=== PATIENT | female | born 1965 | race Caucasian/White ===

== ENCOUNTER 2018-08-02 16:33 | Inpatient (IN) | payer OTHER, MEDICARE ==
[2018-08-02 17:18] LABS: BASO % 0.1 % (0.0-1.0); EOS # 0.2 10^3/uL (0.0-0.50); EOS % 0.8 % (0.0-3.0); HEMATOCRIT 44.7 % (36.0-47.0); HEMOGLOBIN 14.2 g/dl (12.0-15.5); IMMATURE GRANULOCYTE % 0.7 % (0-3.0); LYMPH # 1.8 10^3/uL (1.5-4.5); LYMPH % 8.5 % (24.0-44.0); MEAN CORPUSCULAR HEMOGLOBIN 29.2 pg (27.0-33.0); MEAN CORPUSCULAR HGB CONC 31.8 g/dl (32.0-36.5); MEAN CORPUSCULAR VOLUME 91.8 fl (80.0-96.0); MONO # 1.2 10^3/uL (0.0-0.8); MONO % 5.6 % (0.0-5.0); NEUTROPHILS # 17.9 10^3/uL (1.8-7.7); NEUTROPHILS % 84.3 % (36.0-66.0); PLATELET COUNT, AUTOMATED 244 10^3/uL (150-450); RED BLOOD COUNT 4.87 10^6/uL (4.00-5.40); RED CELL DISTRIBUTION WIDTH 16.6 % (11.5-14.5); WHITE BLOOD COUNT 21.2 10^3/uL (4.0-10.0)
[2018-08-02] MEDS: methylPREDNISolone INJ 125 MG/2 ML VIAL (J2930) IV (17:32)
[2018-08-02] MEDS: ALBUTEROL SULFATE 2.5 MG/0.5 ML INH NEB SOLN INH (17:44)
[2018-08-02] MEDS: IPRATROPIUM 0.5MG/ALBUTEROL 2.5MG INH SOL UD 3ML (DUONEB)(J7620) NEB ×3 (17:44→23:40)
[2018-08-02 17:49] LABS: LACTIC ACID SEPSIS PROTOCOL 0.8 MMOL/L (0.4-2.0)
[2018-08-02 18:04] LABS: ALBUMIN 3.7 GM/DL (3.2-5.2); ALBUMIN/GLOBULIN RATIO 1.48 (1.00-1.93); ALKALINE PHOSPHATASE 71 U/L (45-117); ALT/SGPT 33 U/L (12-78); ANION GAP 8 MEQ/L (8-16); AST/SGOT 32 U/L (7-37); BILIRUBIN,DIRECT 0.1 MG/DL (0.0-0.2); BILIRUBIN,TOTAL 0.3 MG/DL (0.2-1.0); BLOOD UREA NITROGEN 8 MG/DL (7-18); CALCIUM LEVEL 9.2 MG/DL (8.5-10.1); CARBON DIOXIDE LEVEL 31 MEQ/L (21-32); CHLORIDE LEVEL 104 MEQ/L (98-107); CPK CREATINE PHOSPHOKINASE 65 U/L (26-192); CREATININE FOR GFR 0.67 MG/DL (0.55-1.30); GLOMERULAR FILTRATION RATE > 60.0 (>51); GLUCOSE, FASTING 82 MG/DL (70-100); NT-PRO BNP 360 PG/ML (<125); POTASSIUM SERUM 3.4 MEQ/L (3.5-5.1); SODIUM LEVEL 143 MEQ/L (136-145); THYROXINE (T4) 7.2 UG/DL (4.5-12.0); TOTAL PROTEIN 6.2 GM/DL (6.4-8.2); TROPONIN I < 0.02 NG/ML (< 0.10)
[2018-08-02 18:09] LABS: ABG HCO3 30.5 MEQ/L (22.0-26.0); ABG O2 SATURATION 92.8 % (95.0-99.0); ABG PARTIAL PRESSURE CO2 58.3 mmHg (35.0-45.0); ABG PARTIAL PRESSURE O2 63.5 mmHg (75.0-100.0); ABG TOTAL CO2 32.3 MEQ/L (22.0-29.0); ABG pH (ARTERIAL) 7.336 UNITS (7.350-7.450)
[2018-08-02 18:24] LABS: INFLUENZA A AMPLIFICATION NEGATIVE (NEGATIVE); INFLUENZA B AMPLIFICATION NEGATIVE (NEGATIVE)
[2018-08-02] MEDS: POTASSIUM CHLORIDE 10 MEQ SR TABLET PO (19:39)
[2018-08-02] MEDS: NS 1,000 ML IV (19:39)
[2018-08-02] MEDS ORDERED: ZONISAMIDE 50 MG CAP (ZONEGRAN) PO (21:00)
[2018-08-02] MEDS: guaiFENesin ER 600 MG TAB PO (21:22)
[2018-08-02] MEDS: GABAPENTIN 300 MG CAP PO (21:23)
[2018-08-02] MEDS: LevoFLOXacin IV 500 MG in APPROPRIATE DILUENT 1 EA IV (21:23)
[2018-08-02] MEDS: OMEPRAZOLE 20 MG CAP PO (21:23)
[2018-08-02] MEDS: ADVAIR HFA 115/21MCG INHALER INH (22:55)
[2018-08-03] MEDS: tiZANidine 4 MG TAB PO ×2 (00:07→20:34)
[2018-08-03] MEDS: VENLAFAXINE **XR** 75MG CAPSULE PO ×2 (00:07→20:34)
[2018-08-03] MEDS: MIRTAZAPINE 15 MG TAB PO ×2 (00:08→20:34)
[2018-08-03] MEDS: methylPREDNISolone INJ 125 MG/2 ML VIAL (J2930) IV ×3 (00:08→16:21)
[2018-08-03 01:11] LABS: CPK CREATINE PHOSPHOKINASE 65 U/L (26-192); MB/CK RELATIVE INDEX 8.46 (< OR =4); TROPONIN I < 0.02 NG/ML (< 0.10)
[2018-08-03] MEDS: IPRATROPIUM 0.5MG/ALBUTEROL 2.5MG INH SOL UD 3ML (DUONEB)(J7620) NEB ×3 (04:00→11:07)
[2018-08-03 06:28] LABS: CPK CREATINE PHOSPHOKINASE 50 U/L (26-192); TROPONIN I < 0.02 NG/ML (< 0.10)
[2018-08-03] MEDS: ADVAIR HFA 115/21MCG INHALER INH ×2 (07:25→21:00)
[2018-08-03 07:45] LABS: BASO % 0.1 % (0.0-1.0); HEMATOCRIT 44.1 % (36.0-47.0); HEMOGLOBIN 14.1 g/dl (12.0-15.5); IMMATURE GRANULOCYTE % 0.3 % (0-3.0); LYMPH # 0.6 10^3/uL (1.5-4.5); LYMPH % 4.1 % (24.0-44.0); MEAN CORPUSCULAR HEMOGLOBIN 28.8 pg (27.0-33.0); MEAN CORPUSCULAR VOLUME 90.2 fl (80.0-96.0); MONO # 0.1 10^3/uL (0.0-0.8); MONO % 0.8 % (0.0-5.0); NEUTROPHILS # 13.9 10^3/uL (1.8-7.7); NEUTROPHILS % 94.7 % (36.0-66.0); PLATELET COUNT, AUTOMATED 268 10^3/uL (150-450); RED BLOOD COUNT 4.89 10^6/uL (4.00-5.40); WHITE BLOOD COUNT 14.7 10^3/uL (4.0-10.0)
[2018-08-03 07:59] LABS: ANION GAP 8 MEQ/L (8-16); BLOOD UREA NITROGEN 7 MG/DL (7-18); CALCIUM LEVEL 9.9 MG/DL (8.5-10.1); CARBON DIOXIDE LEVEL 28 MEQ/L (21-32); CHLORIDE LEVEL 107 MEQ/L (98-107); GLOMERULAR FILTRATION RATE > 60.0 (>51); GLUCOSE, FASTING 131 MG/DL (70-100); POTASSIUM SERUM 4.3 MEQ/L (3.5-5.1); SODIUM LEVEL 143 MEQ/L (136-145)
[2018-08-03] MEDS: CYANOCOBALAMIN 500 MCG TAB PO (08:49)
[2018-08-03] MEDS: ENOXAPARIN 30 MG/0.3 ML SYR (J1650) SC (08:49)
[2018-08-03] MEDS: GABAPENTIN 300 MG CAP PO ×2 (08:50→20:34)
[2018-08-03] MEDS: guaiFENesin ER 600 MG TAB PO ×2 (08:50→20:33)
[2018-08-03] MEDS: OMEPRAZOLE 20 MG CAP PO ×2 (08:50→20:35)
[2018-08-03] MEDS: NICOTINE 21MG/24HR 1 EA TRANSDERMAL TD (08:50)
[2018-08-03] MEDS: diazePAM 5 MG TAB PO ×2 (09:11→20:35)
[2018-08-03 10:06] LABS: ABG BASE EXCESS 3.7 (-2.0-2.0); ABG HCO3 28.9 MEQ/L (22.0-26.0); ABG O2 SATURATION 90.2 % (95.0-99.0); ABG PARTIAL PRESSURE CO2 45.6 mmHg (35.0-45.0); ABG PARTIAL PRESSURE O2 56.8 mmHg (75.0-100.0); ABG STANDARD HCO3 27.6 MEQ/L (22.0-26.0); ABG TOTAL CO2 30.3 MEQ/L (22.0-29.0)
[2018-08-03] MEDS: NYSTATIN 500,000 U/5 ML SUSP UDC SS ×3 (12:24→20:35)
[2018-08-03] MEDS: ACETAMINOPHEN 500 MG TAB PO (14:19)
[2018-08-03] MEDS: ALBUTEROL SULFATE 2.5 MG/0.5 ML INH NEB SOLN INH (14:41)
[2018-08-03] MEDS ORDERED: ALBUTEROL SULFATE 2.5 MG/0.5 ML INH NEB SOLN NEB (20:00)
[2018-08-03] MEDS: LevoFLOXacin IV 500 MG in APPROPRIATE DILUENT 1 EA IV (20:35)
[2018-08-03] MEDS: ZONISAMIDE 25 MG PO (21:00)
[2018-08-04] MEDS: methylPREDNISolone INJ 125 MG/2 ML VIAL (J2930) IV ×3 (00:33→16:24)
[2018-08-04] MEDS: ALBUTEROL 90 MCG/ACT 8GM HFA INHALER INH ×2 (04:55→07:50)
[2018-08-04] MEDS: ADVAIR HFA 115/21MCG INHALER INH ×2 (08:02→20:39)
[2018-08-04] MEDS: NYSTATIN 500,000 U/5 ML SUSP UDC SS ×3 (09:08→20:37)
[2018-08-04] MEDS: GABAPENTIN 300 MG CAP PO ×2 (09:09→20:38)
[2018-08-04] MEDS: ENOXAPARIN 30 MG/0.3 ML SYR (J1650) SC (09:09)
[2018-08-04] MEDS: guaiFENesin ER 600 MG TAB PO ×2 (09:10→20:38)
[2018-08-04] MEDS: CYANOCOBALAMIN 500 MCG TAB PO (09:10)
[2018-08-04] MEDS: OMEPRAZOLE 20 MG CAP PO ×2 (09:10→20:37)
[2018-08-04] MEDS: NICOTINE 21MG/24HR 1 EA TRANSDERMAL TD (09:11)
[2018-08-04] MEDS: SODIUM CHLORIDE HYPERTONIC 3% 15ML NEB SOL INH ×4 (12:00→20:46)
[2018-08-04] MEDS: diazePAM 5 MG TAB PO ×2 (12:04→20:38)
[2018-08-04] MEDS: ACETAMINOPHEN 500 MG TAB PO (12:06)
[2018-08-04] MEDS: ALBUTEROL SULFATE 2.5 MG/0.5 ML INH NEB SOLN NEB ×3 (12:11→20:46)
[2018-08-04] MEDS: ZONISAMIDE 25 MG PO ×2 (20:37→21:00)
[2018-08-04] MEDS: LevoFLOXacin IV 500 MG in APPROPRIATE DILUENT 1 EA IV (20:37)
[2018-08-04] MEDS: MIRTAZAPINE 15 MG TAB PO (20:38)
[2018-08-04] MEDS: tiZANidine 4 MG TAB PO (20:38)
[2018-08-04] MEDS: VENLAFAXINE **XR** 75MG CAPSULE PO (20:38)
[2018-08-05] MEDS: methylPREDNISolone INJ 125 MG/2 ML VIAL (J2930) IV ×2 (00:09→08:32)
[2018-08-05] MEDS: ALBUTEROL SULFATE 2.5 MG/0.5 ML INH NEB SOLN NEB ×5 (00:53→11:12)
[2018-08-05] MEDS: SODIUM CHLORIDE HYPERTONIC 3% 15ML NEB SOL INH ×5 (00:53→11:12)
[2018-08-05] MEDS: ADVAIR HFA 115/21MCG INHALER INH ×2 (07:43→07:47)
[2018-08-05] MEDS: NICOTINE 21MG/24HR 1 EA TRANSDERMAL TD (08:31)
[2018-08-05] MEDS: ENOXAPARIN 30 MG/0.3 ML SYR (J1650) SC (08:31)
[2018-08-05] MEDS: ACETAMINOPHEN 500 MG TAB PO (08:32)
[2018-08-05] MEDS: guaiFENesin ER 600 MG TAB PO (08:33)
[2018-08-05] MEDS: OMEPRAZOLE 20 MG CAP PO (08:33)
[2018-08-05] MEDS: CYANOCOBALAMIN 500 MCG TAB PO (08:33)
[2018-08-05] MEDS: GABAPENTIN 300 MG CAP PO (08:33)
[2018-08-05] MEDS: NYSTATIN 500,000 U/5 ML SUSP UDC SS (08:33)
[2018-08-05] MEDS: LevoFLOXacin 500 MG TABLET PO (11:28)
[2018-08-05] MEDS: diazePAM 5 MG TAB PO (11:32)
== END 2018-08-05 13:00 | disposition home or self-care (01) | DRG 192 ==
LOC: M PED 08-03 16:29 → M ED 16:33 → M ED INP 19:09 → M PCU 20:53
DX: J44.1 Chronic obstructive pulmonary disease with (acute) exacerbation (principal); E78.5 Hyperlipidemia, unspecified; J06.9 Acute upper respiratory infection, unspecified; B97.89 Other viral agents as the cause of diseases classified elsewhere; F17.210 Nicotine dependence, cigarettes, uncomplicated; M62.838 Other muscle spasm; F41.9 Anxiety disorder, unspecified; G89.29 Other chronic pain; Z79.51 Long term (current) use of inhaled steroids; Z96.89 Presence of other specified functional implants; Z79.899 Other long term (current) drug therapy

== ENCOUNTER → 2018-08-18 | Outpatient (REF) | payer OTHER ==
[2018-08-18 14:12] LABS: BASO % 0.2 % (0.0-1.0); EOS # 0.2 10^3/uL (0.0-0.50); EOS % 1.1 % (0.0-3.0); HEMATOCRIT 47.1 % (36.0-47.0); HEMOGLOBIN 14.9 g/dl (12.0-15.5); IMMATURE GRANULOCYTE % 0.6 % (0-3.0); LYMPH # 1.8 10^3/uL (1.5-4.5); LYMPH % 12.8 % (24.0-44.0); MEAN CORPUSCULAR HEMOGLOBIN 28.9 pg (27.0-33.0); MEAN CORPUSCULAR HGB CONC 31.6 g/dl (32.0-36.5); MEAN CORPUSCULAR VOLUME 91.3 fl (80.0-96.0); MONO # 0.6 10^3/uL (0.0-0.8); MONO % 4.2 % (0.0-5.0); NEUTROPHILS # 11.3 10^3/uL (1.8-7.7); NEUTROPHILS % 81.1 % (36.0-66.0); PLATELET COUNT, AUTOMATED 318 10^3/uL (150-450); RED BLOOD COUNT 5.16 10^6/uL (4.00-5.40); RED CELL DISTRIBUTION WIDTH 17.5 % (11.5-14.5); WHITE BLOOD COUNT 13.9 10^3/uL (4.0-10.0)
[2018-08-18 14:36] LABS: ALBUMIN 3.9 GM/DL (3.2-5.2); ALBUMIN/GLOBULIN RATIO 1.44 (1.00-1.93); ALKALINE PHOSPHATASE 61 U/L (45-117); ALT/SGPT 26 U/L (12-78); ANION GAP 4 MEQ/L (8-16); AST/SGOT 22 U/L (7-37); BILIRUBIN,TOTAL 0.5 MG/DL (0.2-1.0); BLOOD UREA NITROGEN 9 MG/DL (7-18); CALCIUM LEVEL 9.3 MG/DL (8.5-10.1); CARBON DIOXIDE LEVEL 35 MEQ/L (21-32); CHLORIDE LEVEL 104 MEQ/L (98-107); CHOLESTEROL LEVEL 246 MG/DL (<200); CHOLESTEROL RISK RATIO 2.617 (<5); CREATININE FOR GFR 0.72 MG/DL (0.55-1.30); FERRITIN 9 NG/ML (8-252); FREE T4 0.91 NG/DL (0.76-1.46); GLOMERULAR FILTRATION RATE > 60.0 (>51); GLUCOSE, FASTING 88 MG/DL (70-100); HDL CHOLESTEROL 94 MG/DL (>40); IRON (FE) 81 UG/DL (50-170); LDL CHOLESTEROL 120 MG/DL (<100); NON-HDL-C 152 MG/DL; PERCENT SATURATION 19.3 % (13.2-45.0); POTASSIUM SERUM 4.3 MEQ/L (3.5-5.1); SODIUM LEVEL 143 MEQ/L (136-145); TOTAL IRON BINDING CAPACITY 420 UG/DL (250-450); TOTAL PROTEIN 6.6 GM/DL (6.4-8.2); TRIGLYCERIDES LEVEL 160 MG/DL (<150)
[2018-08-18 14:37] LABS: TOTAL 25(OH) VITAMIN D 29.1 NG/ML (30.0-100.0)
== END ==
LOC: M SFHCSACK 09:11
DX: D50.9 Iron deficiency anemia, unspecified (principal); E78.2 Mixed hyperlipidemia; Z13.29 Encounter for screening for other suspected endocrine disorder; E53.8 Deficiency of other specified B group vitamins

== ENCOUNTER → 2018-09-17 | Outpatient (REF) | payer OTHER ==
[2018-09-17 19:09] LABS: BASO % 0.3 % (0.0-1.0); EOS # 0.1 10^3/uL (0.0-0.50); HEMATOCRIT 47.2 % (36.0-47.0); IMMATURE GRANULOCYTE % 0.3 % (0-3.0); LYMPH # 2.6 10^3/uL (1.5-4.5); LYMPH % 23.9 % (24.0-44.0); MEAN CORPUSCULAR HEMOGLOBIN 28.9 pg (27.0-33.0); MEAN CORPUSCULAR HGB CONC 31.8 g/dl (32.0-36.5); MEAN CORPUSCULAR VOLUME 90.9 fl (80.0-96.0); MONO # 0.7 10^3/uL (0.0-0.8); MONO % 6.7 % (0.0-5.0); NEUTROPHILS # 7.2 10^3/uL (1.8-7.7); NEUTROPHILS % 67.8 % (36.0-66.0); PLATELET COUNT, AUTOMATED 325 10^3/uL (150-450); RED BLOOD COUNT 5.19 10^6/uL (4.00-5.40); RED CELL DISTRIBUTION WIDTH 15.7 % (11.5-14.5); WHITE BLOOD COUNT 10.7 10^3/uL (4.0-10.0)
== END ==
LOC: M SFHCADAM 14:13
DX: Z01.818 Encounter for other preprocedural examination (principal)

== ENCOUNTER → 2019-01-05 | Outpatient (CLI) | payer MEDICARE, OTHER ==
[~2019-01-05] MED LIST: ADVA115A INH; ALBU83IN INH; B-12100010 PO; CRES10TA32 PO; DIAZ5TAB PO; FLON50SP NARES; GABA600T4 PO; LEVA1TAB2 PO; MELO15TA28 PO; MIRT-16 PO; MUCI600T37 PO; NICO21PAT TD; NYST50SS SS; OMEP40CA2 PO; PRED10TA2 PO; PRED1TABL PO; PRED5PAK2 PO; SODI3NEB INH; TIZA4CAP PO; VENL75CA2 PO; VENL75TA2 PO; VENTAER INH; ZONI25CA2 PO
[2019-01-05 11:05] LABS: BASO % 0.3 % (0.0-1.0); EOS # 0.2 10^3/uL (0.0-0.50); EOS % 1.7 % (0.0-3.0); HEMATOCRIT 47.2 % (36.0-47.0); HEMOGLOBIN 14.9 g/dl (12.0-15.5); LYMPH # 1.9 10^3/uL (1.5-4.5); MEAN CORPUSCULAR HEMOGLOBIN 28.1 pg (27.0-33.0); MEAN CORPUSCULAR HGB CONC 31.6 g/dl (32.0-36.5); MEAN CORPUSCULAR VOLUME 89.1 fl (80.0-96.0); MONO # 0.6 10^3/uL (0.0-0.8); MONO % 6.5 % (0.0-5.0); NEUTROPHILS # 6.2 10^3/uL (1.8-7.7); NEUTROPHILS % 70.4 % (36.0-66.0); PLATELET COUNT, AUTOMATED 266 10^3/uL (150-450); WHITE BLOOD COUNT 8.8 10^3/uL (4.0-10.0)
[2019-01-05 11:26] LABS: ALBUMIN 3.8 GM/DL (3.2-5.2); ALT/SGPT 15 U/L (12-78); BILIRUBIN,TOTAL 0.3 MG/DL (0.2-1.0); BLOOD UREA NITROGEN 9 MG/DL (7-18); CALCIUM LEVEL 9.2 MG/DL (8.5-10.1); CARBON DIOXIDE LEVEL 33 MEQ/L (21-32); CHLORIDE LEVEL 105 MEQ/L (98-107); CHOLESTEROL LEVEL 164 MG/DL (<200); CHOLESTEROL RISK RATIO 2.342 (<5); CREATININE FOR GFR 0.65 MG/DL (0.55-1.30); GLOMERULAR FILTRATION RATE > 60.0 (>51); GLUCOSE, FASTING 82 MG/DL (70-100); HDL CHOLESTEROL 70 MG/DL (>40); LDL CHOLESTEROL 76 MG/DL (<100); NON-HDL-C 94 MG/DL; POTASSIUM SERUM 4.3 MEQ/L (3.5-5.1); SODIUM LEVEL 142 MEQ/L (136-145); TOTAL PROTEIN 6.4 GM/DL (6.4-8.2); TRIGLYCERIDES LEVEL 90 MG/DL (<150)
[2019-01-05 11:36] LABS: TOTAL 25(OH) VITAMIN D 67.7 NG/ML (30.0-100.0)
== END ==
LOC: M LAB 10:14
PROVIDERS: ATTEND Physician Assistant
DX: D50.9 Iron deficiency anemia, unspecified (principal); E78.2 Mixed hyperlipidemia; E55.9 Vitamin D deficiency, unspecified

== ENCOUNTER → 2019-06-13 | Outpatient (CLI) | payer MEDICARE, OTHER ==
[~2019-06-13] MED LIST changes: +/LOR25TA PO; +ACET500C OR; +ADVAIR PO; +CALCTAB22 OR; +CELE1CAP4 OR; +CRES10TA PO; -CRES10TA32 PO; +CYMB1CAP5 PO; +LIDO5DIS EX; +MELOPOW PO; -MIRT-16 PO; +MIRT1TAB16 PO; +MIRT1TAB21 OR; +MULTIVIT PO; +OMEP20TA7 OR; +QVAR INH; +SIMV20TA2 OR; +SING10TA31 OR; +SPIR1CAP INH; +TIZA2TAB OR; +TOPI100T OR; +TYLENOL #3 OR; +VARE1TA OR; +VENTAER INFIL; +VICO5TAB OR; +VIT D 2000 PO; +advil PO
--- NOTE | 2019-06-13 15:01 | REP ---
REASON: Uterine myomatous changes followup. COMPARISON: 03/29/2018. The uterus is unchanged in size, shape, and echo pattern measuring approximately 7.8 x 4.7 x 5.7 cm. Uterine myomatous changes are noted status quo. The endometrial echo complex is distorted by the myomatous change and is incompletely visualized. An abnormality cannot be ruled out. Right ovary measures 2.4 x 1.4 x 2.7 cm and is within normal limits. Left ovary measures 2.2 x 1.1 x 1.9 cm and is within normal limits. Urinary bladder measures 8 x 10 x 8 cm. IMPRESSION: Uterine myomatous changes essentially stable. Poor evaluation of the endometrium as described above. Consider MRI if clinically relevant.
== END ==
LOC: M WHC 09:05
PROVIDERS: ATTEND Nurse Practitioner Family
DX: N93.9 Abnormal uterine and vaginal bleeding, unspecified (principal)

== ENCOUNTER → 2019-07-06 | Outpatient (REF) | payer MEDICARE, OTHER ==
[~2019-07-06] MED LIST changes: +ANOR1AER INH; +CLOB0.057 TOP; +CYAN500T8 PO; +DICY20TA PO; +MUPI2OI EXT; +ONDA4TAB5 PO; +PREV30TA3 PO; +ROSU40TA4 PO; +[UNRECOGNIZED DRUG - CODE] PO
[2019-07-06 14:13] LABS: BASO % 0.4 % (0.0-1.0); EOS # 0.1 10^3/uL (0.0-0.50); EOS % 1.9 % (0.0-3.0); HEMATOCRIT 47.3 % (36.0-47.0); LYMPH # 2.6 10^3/uL (1.5-4.5); LYMPH % 34.9 % (24.0-44.0); MEAN CORPUSCULAR HEMOGLOBIN 28.2 pg (27.0-33.0); MEAN CORPUSCULAR HGB CONC 31.7 g/dl (32.0-36.5); MEAN CORPUSCULAR VOLUME 89.1 fl (80.0-96.0); MONO # 0.5 10^3/uL (0.0-0.8); MONO % 7.2 % (0.0-5.0); NEUTROPHILS # 4.2 10^3/uL (1.8-7.7); NEUTROPHILS % 55.5 % (36.0-66.0); PLATELET COUNT, AUTOMATED 312 10^3/uL (150-450); RED BLOOD COUNT 5.31 10^6/uL (4.00-5.40); WHITE BLOOD COUNT 7.5 10^3/uL (4.0-10.0)
[2019-07-06 14:24] LABS: ALBUMIN 3.7 GM/DL (3.2-5.2); ALT/SGPT 15 U/L (12-78); BILIRUBIN,TOTAL 0.4 MG/DL (0.2-1.0); BLOOD UREA NITROGEN 7 MG/DL (7-18); CALCIUM LEVEL 9.4 MG/DL (8.5-10.1); CARBON DIOXIDE LEVEL 34 MEQ/L (21-32); CHLORIDE LEVEL 103 MEQ/L (98-107); CHOLESTEROL LEVEL 181 MG/DL (<200); CHOLESTEROL RISK RATIO 2.919 (<5); CREATININE FOR GFR 0.68 MG/DL (0.55-1.30); FERRITIN 8 NG/ML (8-252); FREE T4 0.94 NG/DL (0.76-1.46); GLOMERULAR FILTRATION RATE > 60.0 (>51); GLUCOSE, FASTING 83 MG/DL (70-100); HDL CHOLESTEROL 62 MG/DL (>40); IRON (FE) 83 UG/DL (50-170); LDL CHOLESTEROL 95 MG/DL (<100); NON-HDL-C 119 MG/DL; PERCENT SATURATION 23.4 % (13.2-45.0); POTASSIUM SERUM 4.5 MEQ/L (3.5-5.1); SODIUM LEVEL 140 MEQ/L (136-145); TOTAL IRON BINDING CAPACITY 355 UG/DL (250-450); TOTAL PROTEIN 6.5 GM/DL (6.4-8.2); TRIGLYCERIDES LEVEL 122 MG/DL (<150)
[2019-07-06 14:25] LABS: TOTAL 25(OH) VITAMIN D 51.3 NG/ML (30.0-100.0)
[2019-07-06 14:26] LABS: VITAMIN B12 LEVEL 1441 PG/ML (247-911)
== END ==
LOC: M SFHCSACK 08:40
PROVIDERS: ATTEND Physician Assistant
DX: D50.9 Iron deficiency anemia, unspecified (principal); E78.2 Mixed hyperlipidemia; Z13.29 Encounter for screening for other suspected endocrine disorder; E55.9 Vitamin D deficiency, unspecified; E53.8 Deficiency of other specified B group vitamins

== ENCOUNTER 2019-07-28 07:16 | Day surgery (SDC) | payer MEDICARE, OTHER ==
[~2019-07-28] VITALS: Ht 157.5 cm; Wt 51.2 kg
[2019-07-28] VITALS (7 sets, daily range): BP systolic 122–127; BP diastolic 80–86
[~2019-07-28 07:16] MED LIST changes: +LIDOCAINE 2% INJ 100 MG/5 ML SDV (FOR ANES.) As Ordered ONE; +LR 1,000 ML IV ONE; +MIDAZOLAM INJ 2 MG/2 ML VIAL (J2250) As Ordered ONE; -MUPI2OI EXT; +MUPI2OI TOP; +ONDANSETRON 4MG/2ML VIAL (J2405) As Ordered ONE; +PROPOFOL 200 MG/20 ML VIAL As Ordered ONE; +ROCURONIUM BROMIDE 50 MG/5 ML VIAL As Ordered ONE; +ceFAZolin SOD 2 GM in IV 1 EA IV ONE; +dexameTHASONE 4 MG/ML 1ML VIAL (J1100) As Ordered ONE; +fentaNYL 250 MCG/5 ML INJECTION (J3010) As Ordered ONE
[2019-07-28 07:47] LABS: HEMATOCRIT 46.1 % (36.0-47.0); HEMOGLOBIN 14.8 g/dl (12.0-15.5); MEAN CORPUSCULAR HEMOGLOBIN 28.5 pg (27.0-33.0); MEAN CORPUSCULAR HGB CONC 32.1 g/dl (32.0-36.5); MEAN CORPUSCULAR VOLUME 88.8 fl (80.0-96.0); PLATELET COUNT, AUTOMATED 290 10^3/uL (150-450); RED BLOOD COUNT 5.19 10^6/uL (4.00-5.40); WHITE BLOOD COUNT 8.1 10^3/uL (4.0-10.0)
[2019-07-28] MEDS ORDERED: ALBUTEROL SULFATE 2.5 MG/0.5 ML INH NEB SOLN INH ONE (08:45)
[2019-07-28] MEDS ORDERED: ACETAMINOPHEN 1000MG 100ML IV BTL (OFIRMEV) (J0131 PER 10MG) As Ordered ONE (10:24)
[2019-07-28] MEDS ORDERED: ROCURONIUM BROMIDE 50 MG/5 ML VIAL As Ordered ONE (10:24)
[2019-07-28] MEDS ORDERED: SUGAMMADEX SODIUM 500 MG/5 ML VIAL (BRIDION) As Ordered ONE (10:35)
[2019-07-28] MEDS ORDERED: ePHEDrine SULFATE 25 MG/5 ML(5MG/ML) SYRINGE As Ordered ONE (10:36)
[2019-07-28] MEDS ORDERED: PHENYLephrine HCL 500 MCG/5 ML (100MCG/ML) SYRINGE (J2370) As Ordered ONE (10:36)
[2019-07-28] MEDS ORDERED: KETOROLAC 60 MG/2 ML VIAL (J1885) As Ordered ONE (10:36)
[2019-07-28] MEDS: fentaNYL 100 MCG/2 ML INJECTION (J3010) IV PRN ×4 (12:07→12:22)
[2019-07-28] MEDS ORDERED: NALOXONE INJ 0.4 MG/1 ML VIAL (J2310) IV PRN (12:15)
[2019-07-28] MEDS: oxyCODONE 5MG TAB PO PRN ×2 (12:24→12:58)
[2019-07-28] MEDS ORDERED: LR 1,000 ML IV SCH (13:00)
[2019-07-28] MEDS ORDERED: ONDANSETRON 4MG/2ML VIAL (J2405) IV PRN (13:00)
[2019-07-28] MEDS ORDERED: IBUPROFEN 600 MG TAB PO PRN (13:45)
[2019-07-28] MEDS ORDERED: MORPHINE 1MG/ML IN 0.9% NACL 100ML IV BAG IV PRN (14:00)
[2019-07-28] MEDS ORDERED: EPIDURAL/PCA KEYS XX PRN (14:00)
[2019-07-28] MEDS ORDERED: diphenhydrAMINE INJ 50MG/ML VIAL (J1200) IV PRN (14:00)
[2019-07-28] MEDS ORDERED: NALBUPHINE HCL 10 MG/ML AMP (J2300) IV PRN (14:00)
[2019-07-28] MEDS ORDERED: ALBUTEROL 90 MCG/ACT 8GM HFA INHALER INH PRN (14:45)
[2019-07-28] MEDS ORDERED: LIDO1PAD TOP (15:22)
[2019-07-28] MEDS ORDERED: DALI1TAB2 PO (15:22)
[2019-07-28] MEDS ORDERED: ROSU20TA5 PO (15:22)
[2019-07-28] MEDS ORDERED: CHAN1PAK13 PO (15:22)
[2019-07-28] MEDS ORDERED: SUMA6KIT SC (15:22)
[2019-07-28] MEDS ORDERED: MELO15TA28 PO (15:22)
[2019-07-28] MEDS ORDERED: B-12100021 PO (15:22)
[2019-07-28] MEDS ORDERED: raNITIdine SYRUP 150 MG/10 ML UDC PO PRN (15:45)
[2019-07-28] MEDS ORDERED: ONDANSETRON 4 MG TAB (S0181) PO PRN (15:45)
[2019-07-28] MEDS ORDERED: SUCR1SS PO (15:55)
[2019-07-28] MEDS ORDERED: IPRA0.00 NEB (15:55)
[2019-07-28] MEDS: LR 1,000 ML IV SCH ×2 (16:25→22:00)
--- NOTE | 2019-07-28 19:34 | RO ---
DATE OF SURGERY: 07/28/2019 PREOPERATIVE DIAGNOSES/INDICATION FOR SURGERY: Pain, bleeding and fibroids. POSTOPERATIVE DIAGNOSES: Pain, bleeding and fibroids. PROCEDURE: Laparoscopic assisted vaginal hysterectomy with bilateral salpingo-oophorectomy. SURGEON: Marina Rodríguez MD ORGAN TEACHER: None. ANESTHESIA: General endotracheal anesthesia. BRIEF DESCRIPTION OF PROCEDURE AND FINDINGS: Mirela was brought to the operating room where sufficient general endotracheal anesthesia was induced. She was prepped, draped and positioned in the usual sterile fashion with the uterine manipulator placed and the Matute with the ability to backfill placed. We then turned out attention to the abdomen. A transverse semilunar incision was then made below the umbilicus, with sharp and blunt dissection continued to the level of the rectus fascia which was transversely incised, sutured with #0 Vicryl retention sutures, and the peritoneum then entered under direct visualization in an open laparoscopic technique. Using the S retractors I visualized the peritoneal cavity and placed the Sumit cannula, following which we secured with the #0 Vicryl retention sutures that had already been placed and started CO2 insufflation. After adequate CO2 insufflation, the peritoneal cavity was visualized. There were normal shiny peritoneal surfaces throughout. There was no excrescence, ascites nor exudate and there was some minor pelvic scarring near the site of her tubal ligation, which appeared to have been done by Falope rings as documented in the pictures. We also saw evidence of mis shaped fibroid appearing uterus and some laxity in the right lower quadrant and the rectus fascia, which is photographed. There did not appear to be any hernias near where the around ligaments exited the peritoneal cavity. There were no other significant lesions. With Trendelenburg and the uterine manipulator in place, we then used the #45 ENSEAL to isolate, cauterize and transect the infundibulopelvic ligament starting on the left, moving to the right, work out way through the mesentery of the fallopian tubes and the broad ligament to the round ligament, which we similarly cauterized and transected, and then continued our dissection to the inferior aspect of the broad ligament on both sides and then using cold scissors cut the bladder flap across the anterior visceral peritoneum over the uterus in order to displace the bladder away from the field of dissection. Of course, we backfilled the bladder as needed to be sure of our landmarks optimally. Having dissected the infundibulopelvic ligament, the round ligaments, through the broad ligament to the uterus. We then went ahead and went below. We stopped the CO2 of course, removed the instruments superiorly but left the trocar in at the umbilicus. We used the operative port on that for the articulating ENSEAL dissector. At this point, we went and began the work vaginally. The uterine manipulator was removed and a circumferential incision made around the base of the cervix and the cardinal ligaments then isolated and clamped with de Tapia clamps, transected with the SuperCut scissors and ligated using #0 Vicryl suture, which was used throughout. We then entered the peritoneum posteriorly and isolated the uterosacral ligaments, which were clamped, transected and ligated and held for later resecuring. We went ahead and continued the dissection anteriorly to where we had already dissected the bladder flap laparoscopically and then carefully worked our way along the uterine vasculature. The patient has a fairly narrow vagina, so as we got to the superior aspect of the uterus where the fibroids were more bulky, we went ahead and bivalved the uterus from below so that we could work one half at a time and diminish the volume within the vagina to improve our access to the vasculature. Having done this, we completed the dissection from the left side, and having freed the uterus there we delivered the left portion first sort of sideways so that we could access the pedicles on the right side and then complete that dissection and then deliver the uterus with the attached ovaries and tubes. The pedicles were carefully evaluated. Good hemostasis was confirmed. Angle stitches of #0 Vicryl were taken in the vagina and the uterosacrals resecured and the vaginal cuff closed with a running locked stitch of #0 Vicryl with good approximation and hemostasis achieved. Attention was then turned to the umbilical wound. The trocar was removed and the fascial sutures used to close the fascial layer and then #3-0 Vicryl was used at the skin and a subcuticular stitch again with good approximation and hemostasis achieved at both layers. Dry sterile dressing was then applied and the procedure was then ended. ESTIMATED BLOOD LOSS FOR PROCEDURE: About 50 mL. FLUID REPLACEMENT: Crystalloid. COMPLICATIONS: None. CONDITION AND DISPOSITION: Despite her preexisting medical problems, Mirela tolerated the procedure reasonably well and was recovering in the recovery room in good condition.
[2019-07-28] MEDS: IPRATROPIUM 0.5MG/ALBUTEROL 2.5MG INH SOL UD 3ML (DUONEB)(J7620) INH SCH ×2 (20:00→23:33)
[2019-07-28] MEDS ORDERED: DICYCLOMINE 10 MG CAP PO SCH (21:00)
[2019-07-28] MEDS ORDERED: DICYCLOMINE 10 MG CAP PO PRN (21:00)
[2019-07-28] MEDS ORDERED: ROSUVASTATIN 10 MG TAB (CRESTOR) PO SCH (21:00)
[2019-07-28] MEDS ORDERED: GABAPENTIN 300 MG CAP PO SCH (21:00)
[2019-07-28] MEDS ORDERED: tiZANidine 4 MG TAB PO SCH (21:00)
[2019-07-28] MEDS ORDERED: ZONISAMIDE 100 MG CAP (ZONEGRAN) PO SCH (21:00)
[2019-07-28] MEDS ORDERED: MIRTAZAPINE 15 MG TAB PO SCH (21:00)
[2019-07-28] MEDS: LANSOPRAZOLE SUSPENSION 30 MG/10 ML ORAL SYRINGE (FIRST-LANSOPRAZOLE) PO SCH (22:28)
[2019-07-29] MEDS: LR 1,000 ML IV SCH ×2 (02:23→06:00)
[2019-07-29 05:50] VITALS: BP 140/89
[2019-07-29 05:59] VITALS: BP 140/89
[2019-07-29] MEDS ORDERED: NORCO, ANEXSIA 5/325MG TABLET (HYDROcodone/ACETAMINOPHEN) PO PRN (06:00)
[2019-07-29 06:57] LABS: HEMATOCRIT 39.2 % (36.0-47.0); MEAN CORPUSCULAR HGB CONC 31.4 g/dl (32.0-36.5); MEAN CORPUSCULAR VOLUME 89.3 fl (80.0-96.0); PLATELET COUNT, AUTOMATED 255 10^3/uL (150-450); RED BLOOD COUNT 4.39 10^6/uL (4.00-5.40); WHITE BLOOD COUNT 12.4 10^3/uL (4.0-10.0)
[2019-07-29 07:04] LABS: HEMOGLOBIN 12.3 g/dl (12.0-15.5)
[2019-07-29] MEDS: IPRATROPIUM 0.5MG/ALBUTEROL 2.5MG INH SOL UD 3ML (DUONEB)(J7620) INH SCH (07:50)
[2019-07-29] MEDS: LANSOPRAZOLE SUSPENSION 30 MG/10 ML ORAL SYRINGE (FIRST-LANSOPRAZOLE) PO SCH (08:30)
[2019-07-29] MEDS ORDERED: ADVI200T PO (08:50)
[2019-07-29] MEDS ORDERED: NORC1TAB7 PO (08:50)
[2019-07-29] MEDS ORDERED: ENTER DRUG NAME HERE (PATIENT'S OWN MED) PO SCH (09:00)
[2019-07-29] MEDS ORDERED: tiZANidine 4 MG TAB PO SCH (09:00)
[2019-07-29] MEDS ORDERED: VENLAFAXINE **XR** 75MG CAPSULE PO SCH (09:00)
[2019-07-29] MEDS ORDERED: tiZANidine 4 MG TAB PO PRN (09:00)
[2019-07-29] MEDS ORDERED: ENTER DRUG NAME HERE (PATIENT'S OWN MED) INH SCH (09:00)
[2019-07-29] MEDS ORDERED: ROSUVASTATIN 10 MG TAB (CRESTOR) PO SCH (09:00)
== END 2019-07-29 10:20 | disposition home or self-care (01) ==
LOC: M SDC 07:16 → M MS5PR 14:05 → M SDC 07-29 10:20
PROVIDERS: ATTEND Obstetrics & Gynecology
DX: R10.2 Pelvic and perineal pain (principal); N80.0 Endometriosis of uterus; D25.9 Leiomyoma of uterus, unspecified; N92.5 Other specified irregular menstruation; E78.5 Hyperlipidemia, unspecified; K21.9 Gastro-esophageal reflux disease without esophagitis; D64.9 Anemia, unspecified; F41.9 Anxiety disorder, unspecified; F32.9 Major depressive disorder, single episode, unspecified; F17.210 Nicotine dependence, cigarettes, uncomplicated; Z79.51 Long term (current) use of inhaled steroids; G43.909 Migraine, unspecified, not intractable, without status migrainosus; Z79.899 Other long term (current) drug therapy
CPT/HCPCS: 36415; 58571; 85027; 86850; 86900; 86901; 88307; 94640; J0131; J0690; J1100; J1885; J2250; J2370; J2405; J3010

== ENCOUNTER → 2019-08-12 | Outpatient (CLI) | payer MEDICARE, OTHER ==
[~2019-08-12] MED LIST changes: +ADVI200T PO; +B-12100021 PO; +CHAN1PAK13 PO; +DALI1TAB2 PO; +IPRA0.00 NEB; +LIDO1PAD TOP; -LIDOCAINE 2% INJ 100 MG/5 ML SDV (FOR ANES.) As Ordered ONE; -LR 1,000 ML IV ONE; -MIDAZOLAM INJ 2 MG/2 ML VIAL (J2250) As Ordered ONE; +NORC1TAB7 PO; -ONDANSETRON 4MG/2ML VIAL (J2405) As Ordered ONE; -PROPOFOL 200 MG/20 ML VIAL As Ordered ONE; -ROCURONIUM BROMIDE 50 MG/5 ML VIAL As Ordered ONE; +ROSU20TA5 PO; +SUCR1SS PO; +SUMA6KIT SC; -ceFAZolin SOD 2 GM in IV 1 EA IV ONE; -dexameTHASONE 4 MG/ML 1ML VIAL (J1100) As Ordered ONE; -fentaNYL 250 MCG/5 ML INJECTION (J3010) As Ordered ONE
[2019-08-12 16:44] LABS: FREE THYROXINE INDEX 3.5 % (1.3-4.8); THYROID STIMULATING HORMONE 0.685 uIU/ML (0.358-3.740); THYROXINE (T4) 10.4 UG/DL (4.5-12.0)
== END ==
LOC: M LAB 15:05
PROVIDERS: ATTEND Ophthalmology
DX: H16.221 Keratoconjunctivitis sicca, not specified as Sjogren's, right eye (principal)

== ENCOUNTER → 2019-11-03 | Outpatient (CLI) | payer MEDICARE, OTHER ==
[~2019-11-03] MED LIST changes: -OMEP40CA2 PO; +OMEP40CA97 PO; +RANI300C7 PO; -[UNRECOGNIZED DRUG - CODE] PO
== END ==
LOC: M LAB 13:06
PROVIDERS: ATTEND Internal Medicine Pulmonary Disease
DX: R06.00 Dyspnea, unspecified (principal)

== ENCOUNTER → 2020-05-19 | Outpatient (CLI) | payer MEDICARE, OTHER ==
[~2020-05-19] MED LIST changes: +ONDA-83 PO; -ONDA4TAB5 PO; +ZONI25CA13 PO; -ZONI25CA2 PO
[2020-05-19 09:44] LABS: BASO % 0.2 % (0.0-1.0); EOS # 0.1 10^3/uL (0.0-0.5); EOS % 1.7 % (0.0-3.0); HEMATOCRIT 46.3 % (36.0-47.0); HEMOGLOBIN 14.6 g/dl (12.0-15.5); LYMPH # 2.4 10^3/uL (1.5-5.0); LYMPH % 28.5 % (24.0-44.0); MEAN CORPUSCULAR HEMOGLOBIN 28.5 pg (27.0-33.0); MEAN CORPUSCULAR HGB CONC 31.5 g/dl (32.0-36.5); MEAN CORPUSCULAR VOLUME 90.3 fl (80.0-96.0); MONO # 0.6 10^3/uL (0.0-0.8); NEUTROPHILS # 5.3 10^3/uL (1.5-8.5); NEUTROPHILS % 62.4 % (36.0-66.0); PLATELET COUNT, AUTOMATED 281 10^3/uL (150-450); RED BLOOD COUNT 5.13 10^6/uL (4.00-5.40); WHITE BLOOD COUNT 8.5 10^3/uL (4.0-10.0)
[2020-05-19 10:41] LABS: ALT/SGPT 13 U/L (12-78); BILIRUBIN,TOTAL 0.5 MG/DL (0.2-1.0); BLOOD UREA NITROGEN 10 MG/DL (7-18); CALCIUM LEVEL 9.7 MG/DL (8.5-10.1); CARBON DIOXIDE LEVEL 32 MEQ/L (21-32); CHLORIDE LEVEL 101 MEQ/L (98-107); CHOLESTEROL LEVEL 168 MG/DL (<200); CHOLESTEROL RISK RATIO 2.434 (<5); CREATININE FOR GFR 0.64 MG/DL (0.55-1.30); FERRITIN 15 NG/ML (8-252); FREE T4 1.01 NG/DL (0.76-1.46); GLOMERULAR FILTRATION RATE > 60.0 (>51); GLUCOSE, FASTING 103 MG/DL (70-100); HDL CHOLESTEROL 69 MG/DL (>40); IRON (FE) 97 UG/DL (50-170); LDL CHOLESTEROL 83 MG/DL (<100); NON-HDL-C 99 MG/DL; PERCENT SATURATION 25.7 % (13.2-45.0); POTASSIUM SERUM 4.2 MEQ/L (3.5-5.1); SODIUM LEVEL 140 MEQ/L (136-145); TOTAL IRON BINDING CAPACITY 378 UG/DL (250-450); TOTAL PROTEIN 7.1 GM/DL (6.4-8.2); TRIGLYCERIDES LEVEL 80 MG/DL (<150)
[2020-05-21 12:59] LABS: TOTAL 25(OH) VITAMIN D 63.5 NG/ML (30.0-100.0); VITAMIN B12 LEVEL 495 PG/ML (247-911)
== END ==
LOC: M LAB 09:17
PROVIDERS: ATTEND Physician Assistant
DX: E78.2 Mixed hyperlipidemia (principal); E53.8 Deficiency of other specified B group vitamins; E55.9 Vitamin D deficiency, unspecified; D50.9 Iron deficiency anemia, unspecified; F41.8 Other specified anxiety disorders; Z79.899 Other long term (current) drug therapy

== ENCOUNTER → 2020-06-20 | Outpatient (CLI) | payer MEDICARE, OTHER ==
--- NOTE | 2020-07-09 13:46 | REPMRS ---
Patient History The patient states she had a clinical breast exam in June 2020.Family history of premenopausal breast cancer in mother, colorectal cancer under age 50 in paternal aunt, ovarian cancer under age 50 in paternal aunt. Digital Woman Screen Mammo: June 20, 2020 - Exam #: [id number] Bilateral CC and MLO view(s) were taken. Technologist: Laurie Crook, Technologist Prior study comparison: February 24, 2019, bilateral digital woman screen mammo performed at [facility]. March 15, 2018, left breast digital mammo diagnostic unilateral, performed at [facility]. February 19, 2018, digital woman screen mammo performed at [facility]. November 14, 2016, digital woman screen mammo performed at [facility]. FINDINGS: The breast tissue is heterogeneously dense. This may lower the sensitivity of mammography. The Volpara volumetric breast density category is: C. There is a well circumscribed nodule in the medial aspect of the left breast measuring 9 mm. This is unchanged from March 2018. There is a moderate amount of heterogeneously dense fibroglandular tissue which is fairly symmetric. There is no interval development of dominant mass, architectural distortion, or grouped microcalcification typical of malignancy. There has been no change in the appearance of the mammogram from the prior studies. 3-D tomosynthesis shows no additional findings. Assessment: BI-RADS/ACR category 2 mammogram. Benign Findings. Recommendation Routine screening mammogram of both breasts in 1 year (for women over age 40). This patient's Lifetime Breast Cancer RIsk is estimated at 15.1 %. This mammogram was interpreted with the aid of an FDA-approved computer-aided dectection system. Electronically Signed By: Yosef Key MD 07/09/20 [id number]
== END ==
LOC: M WHC 07:41
PROVIDERS: ATTEND Nurse Practitioner Family
DX: Z01.419 Encounter for gynecological examination (general) (routine) without abnormal findings (principal); Z12.31 Encounter for screening mammogram for malignant neoplasm of breast; Z80.3 Family history of malignant neoplasm of breast; N63.25 Unspecified lump in the left breast, overlapping quadrants
CPT/HCPCS: 77063; 77067; G0101

== ENCOUNTER → 2020-07-10 | Outpatient (CLI) | payer MEDICARE, OTHER ==
--- NOTE | 2020-08-07 09:11 | REP ---
LUNG SCREENING CT CLINICAL: High risk factors. Nicotine dependence. TECHNIQUE: Axial noncontrast images using lung screening technique. COMPARISON: 12/03/2019. FINDINGS: Mild chronic interstitial changes and minimal primarily biapical scarring noted. No consolidation, significant nodule, or mass. Tracheobronchial tree is patent. No effusion. No pneumothorax. Limited evaluation of the mediastinum is grossly unremarkable. IMPRESSION: Minimal chronic scarring primarily at the apices. No acute process, nodule, or mass. Lung-RADS Category 1. Management and recommendations include annual low dose surveillance. MTDD
== END ==
LOC: M RAD 14:33
PROVIDERS: ATTEND Internal Medicine Pulmonary Disease
DX: Z71.2 Person consulting for explanation of examination or test findings (principal); F17.210 Nicotine dependence, cigarettes, uncomplicated

== ENCOUNTER → 2020-10-24 | Outpatient (REF) | payer MEDICARE, OTHER ==
[~2020-10-24] MED LIST changes: +CYAN500T14 PO; -CYAN500T8 PO
[2020-10-24 16:55] LABS: APPEARANCE, URINE CLEAR (CLEAR); BACTERIA, URINE AUTO NEGATIVE (NEGATIVE); BILIRUBIN, URINE AUTO NEGATIVE (NEGATIVE); BLOOD, URINE BLOOD NEGATIVE (NEGATIVE); COLOR, URINE YELLOW (YELLOW); GLUCOSE, URINE (UA) AUTO NEGATIVE (NEGATIVE); KETONE, URINE AUTO NEGATIVE (NEGATIVE); LEUKOCYTE ESTERASE, URINE AUTO NEGATIVE (NEGATIVE); NITRITE, URINE AUTO NEGATIVE (NEGATIVE); PROTEIN, URINE AUTO NEGATIVE (NEGATIVE); RBC, URINE AUTO 1 /HPF (0-3); SPECIFIC GRAVITY URINE AUTO 1.006 (1.002-1.035); SQUAMOUS EPITHELIAL CELL UR AU 0 /HPF (0-6); UROBILINOGEN, URINE AUTO 0.2 mg/dL (0.0-2.0); WBC, URINE AUTO 0 /HPF (0-3)
== END ==
LOC: M SFHCLERA 11:52 → M SFHCADAM 11:52
PROVIDERS: ATTEND Family Medicine
DX: R30.0 Dysuria (principal)

== ENCOUNTER → 2021-05-02 | Outpatient (CLI) | payer MEDICARE, OTHER ==
[~2021-05-02] MED LIST changes: -DICY20TA PO; +DICY20TA3 PO; +OMEP40CA4 PO; -OMEP40CA97 PO
--- NOTE | 2021-05-02 09:24 | REP ---
INDICATION: SHORTNESS OF BREATH. COMPARISON: Multiple latest 02/09/2019 TECHNIQUE: Two views FINDINGS: There is lung field hyperexpansion status quo. There is flattening of the diaphragmatic surface of the lung status quo. No acute patchy parenchymal opacities or pleural effusions have developed. There is no change in the osseous structures. IMPRESSION: Stable appearing chronic changes. <Electronically signed by Anders Rodriguez > 05/02/21 [id number]
[2021-05-02 09:38] LABS: BASO % 0.3 % (0.0-1.0); EOS # 0.1 10^3/uL (0.0-0.5); EOS % 1.4 % (0.0-3.0); HEMATOCRIT 44.2 % (36.0-47.0); HEMOGLOBIN 13.5 g/dl (12.0-15.5); LYMPH # 2.5 10^3/uL (1.5-5.0); LYMPH % 27.6 % (24.0-44.0); MEAN CORPUSCULAR HEMOGLOBIN 28.2 pg (27.0-33.0); MEAN CORPUSCULAR HGB CONC 30.5 g/dl (32.0-36.5); MEAN CORPUSCULAR VOLUME 92.5 fl (80.0-96.0); MONO # 0.6 10^3/uL (0.0-0.8); MONO % 6.6 % (2.0-8.0); NEUTROPHILS # 5.8 10^3/uL (1.5-8.5); NEUTROPHILS % 63.9 % (36.0-66.0); PLATELET COUNT, AUTOMATED 323 10^3/uL (150-450); RED BLOOD COUNT 4.78 10^6/uL (4.00-5.40); WHITE BLOOD COUNT 9.1 10^3/uL (4.0-10.0)
[2021-05-02 10:58] LABS: ALBUMIN 3.8 GM/DL (3.2-5.2); ALT/SGPT 15 U/L (12-78); BILIRUBIN,TOTAL 0.3 MG/DL (0.2-1.0); BLOOD UREA NITROGEN 8 MG/DL (7-18); CALCIUM LEVEL 9.7 MG/DL (8.5-10.1); CARBON DIOXIDE LEVEL 39 MEQ/L (21-32); CHLORIDE LEVEL 100 MEQ/L (98-107); CREATININE FOR GFR 0.55 MG/DL (0.55-1.30); GLOMERULAR FILTRATION RATE > 60.0 (>51); GLUCOSE, FASTING 103 MG/DL (70-100); POTASSIUM SERUM 3.9 MEQ/L (3.5-5.1); SODIUM LEVEL 141 MEQ/L (136-145); TOTAL PROTEIN 6.7 GM/DL (6.4-8.2)
== END ==
LOC: M LAB 08:51
PROVIDERS: ATTEND Family Medicine
DX: R06.02 Shortness of breath (principal); J98.4 Other disorders of lung

== ENCOUNTER → 2021-11-05 | Outpatient (CLI) | payer MEDICARE, OTHER ==
[~2021-11-05] MED LIST changes: +SUMA6CAR SC; -SUMA6KIT SC
== END ==
LOC: M PLALAB 10:39
PROVIDERS: ATTEND Internal Medicine Cardiovascular Disease
DX: R06.02 Shortness of breath (principal)

== ENCOUNTER → 2022-01-30 | Outpatient (CLI) | payer MEDICARE, OTHER | LOC: M RAD 09:40 | PROVIDERS: ATTEND Internal Medicine Pulmonary Disease | DX: Z12.2 Encounter for screening for malignant neoplasm of respiratory organs (principal); R91.8 Other nonspecific abnormal finding of lung field; Z87.891 Personal history of nicotine dependence ==

== ENCOUNTER → 2022-02-20 | Outpatient (CLI) | payer MEDICARE, OTHER | LOC: M WHC 13:07 | PROVIDERS: ATTEND Family Medicine | DX: Z12.31 Encounter for screening mammogram for malignant neoplasm of breast (principal); Z80.3 Family history of malignant neoplasm of breast; Z80.0 Family history of malignant neoplasm of digestive organs; Z80.41 Family history of malignant neoplasm of ovary; M85.89 Other specified disorders of bone density and structure, multiple sites; Z13.820 Encounter for screening for osteoporosis ==

== ENCOUNTER → 2022-05-02 | Outpatient (CLI) | payer MEDICARE, OTHER ==
[~2022-05-02] MED LIST changes: +ALBU2.5V10 INH; -ALBU83IN INH
== END ==
LOC: M RAD 11:40
PROVIDERS: ATTEND Internal Medicine Pulmonary Disease
DX: Z12.2 Encounter for screening for malignant neoplasm of respiratory organs (principal); R93.89 Abnormal findings on diagnostic imaging of other specified body structures; J44.9 Chronic obstructive pulmonary disease, unspecified; F17.200 Nicotine dependence, unspecified, uncomplicated

== ENCOUNTER 2022-06-30 19:12 | Inpatient (IN) | payer MEDICARE, OTHER ==
[~2022-06-30] VITALS: Ht 162.6 cm; Wt 63.6 kg
[2022-06-30 00:50] VITALS: BP 114/73
[2022-06-30] MEDS ORDERED: methylPREDNISolone 125MG 2ML VIAL IV ONE (19:35)
[2022-06-30 19:48] LABS: VENOUS BASE EXCESS 16.1 (-2.0-2.0); VENOUS HCO3 45.7 MEQ/L (23.0-27.0); VENOUS O2 SATURATION 89.5 % (60.0-80.0); VENOUS PARTIAL PRESSURE CO2 81.3 mmHg (38.0-50.0); VENOUS PARTIAL PRESSURE O2 51.1 mmHg (30.0-50.0); VENOUS PH 7.368 UNITS (7.330-7.430); VENOUS STANDARD HCO3 39.9 MEQ/L; VENOUS TOTAL CO2 48.2 MEQ/L (24.0-28.0)
[2022-06-30 19:50] LABS: BASO % 0.2 % (0.0-1.0); EOS % 0.4 % (0.0-3.0); HEMATOCRIT 40.9 % (36.0-47.0); HEMOGLOBIN 12.8 g/dl (12.0-15.5); LYMPH # 1.8 10^3/uL (1.5-5.0); LYMPH % 18.2 % (24.0-44.0); MEAN CORPUSCULAR HEMOGLOBIN 28.1 pg (27.0-33.0); MEAN CORPUSCULAR HGB CONC 31.3 g/dl (32.0-36.5); MEAN CORPUSCULAR VOLUME 89.7 fl (80.0-96.0); MONO # 0.8 10^3/uL (0.0-0.8); MONO % 7.7 % (2.0-8.0); NEUTROPHILS # 7.2 10^3/uL (1.5-8.5); NEUTROPHILS % 73.3 % (36.0-66.0); PLATELET COUNT, AUTOMATED 316 10^3/uL (150-450); RED BLOOD COUNT 4.56 10^6/uL (4.00-5.40); WHITE BLOOD COUNT 9.8 10^3/uL (4.0-10.0)
[2022-06-30] MEDS: COMBIVENT RESPIMAT 100-20MCG INHALER 4GM INH SCH ×3 (20:06→21:17)
[2022-06-30 20:21] LABS: CK-MB VALUE MASS 3.9 NG/ML (<3.6); MB/CK RELATIVE INDEX 9.51 (< OR =4)
[2022-06-30 20:23] LABS: ALBUMIN 3.5 GM/DL (3.2-5.2); ALT/SGPT 17 U/L (12-78); BILIRUBIN,DIRECT 0.1 MG/DL (0.0-0.2); BILIRUBIN,TOTAL 0.3 MG/DL (0.2-1.0); BLOOD UREA NITROGEN 6 MG/DL (7-18); CALCIUM LEVEL 9.6 MG/DL (8.5-10.1); CARBON DIOXIDE LEVEL 43 MEQ/L (21-32); CHLORIDE LEVEL 82 MEQ/L (98-107); CREATININE FOR GFR 0.35 MG/DL (0.55-1.30); GLOMERULAR FILTRATION RATE > 60.0 (>51); GLUCOSE, FASTING 99 MG/DL (70-100); LIPASE 320 U/L (73-393); NT-PRO BNP 339 PG/ML (<125); POTASSIUM SERUM 3.5 MEQ/L (3.5-5.1); SODIUM LEVEL 130 MEQ/L (136-145); TOTAL PROTEIN 6.4 GM/DL (6.4-8.2)
[2022-06-30 21:15] LABS: CK-MB VALUE MASS 3.2 NG/ML (<3.6); MB/CK RELATIVE INDEX 7.44 (< OR =4)
[2022-06-30] MEDS: NS 1,000 ML IV SCH (23:00)
[2022-06-30] MEDS ORDERED: NICOTINE 21MG/24HR 1 EA TRANSDERMAL TD PRN (23:10)
[2022-06-30] MEDS ORDERED: guaiFENesin DM LIQ 10ML UD PO PRN (23:10)
[2022-06-30] MEDS ORDERED: ACETAMINOPHEN TAB 650MG DOSE (2X325MG) PO PRN (23:10)
[2022-06-30] MEDS ORDERED: ALBU8.5H INH (23:54)
[2022-06-30] MEDS ORDERED: MIRT-10 PO (23:54)
[2022-06-30] MEDS ORDERED: DULO1CAP4 PO (23:54)
[2022-06-30] MEDS ORDERED: ERGO500029 PO (23:54)
[2022-06-30] MEDS ORDERED: ALBU2.5V10 INH (23:54)
[2022-06-30] MEDS ORDERED: ACET-907 PO (23:54)
[2022-06-30] MEDS ORDERED: HOME MED LIST COMPLETE! XX SCH (23:55)
[2022-07-01] MEDS: LEVALBUTEROL 1.25 MG/0.5 ML CONCENTRATE NEB NEB PRN ×2 (00:11→18:10)
[2022-07-01 00:13] LABS: INR 0.83; PROTHROMBIN TIME 11.8 SECONDS (12.7-14.5)
[2022-07-01 00:14] LABS: PARTIAL THROMBOPLASTIN TIME 33.1 SECONDS (25.9-37.0)
[2022-07-01 00:50] VITALS: BP 114/73
[2022-07-01] MEDS: IPRATROPIUM 0.5MG/ALBUTEROL 2.5MG INH SOL UD 3ML (DUONEB) NEB SCH ×4 (01:14→20:00)
[2022-07-01] MEDS: MIRTAZAPINE 15 MG TAB PO SCH ×2 (04:16→19:54)
[2022-07-01 06:00] VITALS: BP 173/92
[2022-07-01] MEDS ORDERED: AZITHROMYCIN 250MG TABLET PO ONE (06:55)
[2022-07-01 06:57] LABS: HEMATOCRIT 46.5 % (36.0-47.0); HEMOGLOBIN 14.3 g/dl (12.0-15.5); MEAN CORPUSCULAR HEMOGLOBIN 27.5 pg (27.0-33.0); MEAN CORPUSCULAR HGB CONC 30.8 g/dl (32.0-36.5); MEAN CORPUSCULAR VOLUME 89.4 fl (80.0-96.0); PLATELET COUNT, AUTOMATED 339 10^3/uL (150-450); WHITE BLOOD COUNT 5.7 10^3/uL (4.0-10.0)
[2022-07-01 07:20] LABS: BLOOD UREA NITROGEN 5 MG/DL (7-18); CALCIUM LEVEL 9.3 MG/DL (8.5-10.1); CARBON DIOXIDE LEVEL 42 MEQ/L (21-32); CHLORIDE LEVEL 89 MEQ/L (98-107); CREATININE FOR GFR 0.35 MG/DL (0.55-1.30); GLOMERULAR FILTRATION RATE > 60.0 (>51); GLUCOSE, FASTING 109 MG/DL (70-100); MAGNESIUM LEVEL 1.8 MG/DL (1.8-2.4); POTASSIUM SERUM 3.7 MEQ/L (3.5-5.1); SODIUM LEVEL 132 MEQ/L (136-145)
[2022-07-01] MEDS: DOCUSATE SODIUM 100MG CAPSULE PO SCH ×2 (08:12→19:54)
[2022-07-01] MEDS: ROSUVASTATIN 10 MG TAB (CRESTOR) PO SCH (08:12)
[2022-07-01] MEDS: guaiFENesin ER 600 MG TAB PO SCH ×2 (08:12→19:54)
[2022-07-01] MEDS: ENOXAPARIN 40MG/0.4ML SYRINGE (J1650 PER 10MG) SC SCH (08:13)
[2022-07-01] MEDS: methylPREDNISolone 125MG 2ML VIAL IV SCH ×2 (08:13→19:53)
[2022-07-01] MEDS ORDERED: PANTOPRAZOLE 40MG VIAL IV SCH (09:00)
[2022-07-01] MEDS: NS 1,000 ML IV SCH (09:53)
[2022-07-01] MEDS: DULoxetine 20 MG CAP (CYMBALTA) PO SCH ×2 (09:53→19:54)
[2022-07-01 10:14] VITALS: O2SAT 98
[2022-07-01 14:00] VITALS: BP 119/78
[2022-07-01] MEDS: SYMBICORT 160/4.5MCG INHALER 6GM INH SCH (20:31)
[2022-07-01 21:00] VITALS: BP 116/76
[2022-07-02] MEDS: IPRATROPIUM 0.5MG/ALBUTEROL 2.5MG INH SOL UD 3ML (DUONEB) NEB SCH ×5 (00:32→20:00)
[2022-07-02 05:36] VITALS: BP 141/76
[2022-07-02 06:15] LABS: HEMATOCRIT 43.9 % (36.0-47.0); HEMOGLOBIN 12.8 g/dl (12.0-15.5); MEAN CORPUSCULAR HEMOGLOBIN 27.4 pg (27.0-33.0); MEAN CORPUSCULAR HGB CONC 29.2 g/dl (32.0-36.5); MEAN CORPUSCULAR VOLUME 93.8 fl (80.0-96.0); PLATELET COUNT, AUTOMATED 348 10^3/uL (150-450); RED BLOOD COUNT 4.68 10^6/uL (4.00-5.40); WHITE BLOOD COUNT 8.7 10^3/uL (4.0-10.0)
[2022-07-02 06:55] LABS: BLOOD UREA NITROGEN 7 MG/DL (7-18); CALCIUM LEVEL 9.8 MG/DL (8.5-10.1); CARBON DIOXIDE LEVEL 45 MEQ/L (21-32); CHLORIDE LEVEL 93 MEQ/L (98-107); CREATININE FOR GFR 0.38 MG/DL (0.55-1.30); GLOMERULAR FILTRATION RATE > 60.0 (>51); GLUCOSE, FASTING 120 MG/DL (70-100); POTASSIUM SERUM 3.9 MEQ/L (3.5-5.1); SODIUM LEVEL 139 MEQ/L (136-145)
[2022-07-02] MEDS: SYMBICORT 160/4.5MCG INHALER 6GM INH SCH ×2 (07:41→20:43)
[2022-07-02] MEDS: DOCUSATE SODIUM 100MG CAPSULE PO SCH ×2 (08:28→19:41)
[2022-07-02] MEDS: PANTOPRAZOLE 20 MG TAB PO SCH (08:28)
[2022-07-02] MEDS: ENOXAPARIN 40MG/0.4ML SYRINGE (J1650 PER 10MG) SC SCH (08:28)
[2022-07-02] MEDS: guaiFENesin ER 600 MG TAB PO SCH ×2 (08:28→19:40)
[2022-07-02] MEDS: DULoxetine 20 MG CAP (CYMBALTA) PO SCH ×2 (08:29→19:40)
[2022-07-02] MEDS: ROSUVASTATIN 10 MG TAB (CRESTOR) PO SCH (08:29)
[2022-07-02] MEDS: methylPREDNISolone 125MG 2ML VIAL IV SCH ×2 (08:29→18:08)
[2022-07-02 10:51] VITALS: BP 136/72
[2022-07-02] MEDS: LEVALBUTEROL 1.25 MG/0.5 ML CONCENTRATE NEB NEB PRN (11:25)
[2022-07-02 11:40] LABS: ABG BASE EXCESS 16.4 (-2.0-2.0); ABG O2 SATURATION 99.6 % (95.0-99.0); ABG PARTIAL PRESSURE O2 186.9 mmHg (75.0-100.0); ABG STANDARD HCO3 40.4 MEQ/L (22.0-26.0); ABG TOTAL CO2 49.9 MEQ/L (22.0-29.0); ABG pH (ARTERIAL) 7.312 UNITS (7.350-7.450)
[2022-07-02 11:48] LABS: ABG PARTIAL PRESSURE CO2 95.1 mmHg (35.0-45.0)
[2022-07-02] MEDS ORDERED: methylPREDNISolone 40MG 1ML VIAL IV ONE (13:20)
[2022-07-02 15:00] VITALS: BP 127/75
[2022-07-02] MEDS: AZITHROMYCIN 250MG TABLET PO SCH (15:40)
[2022-07-02] MEDS ORDERED: methylPREDNISolone 125MG 2ML VIAL IV SCH (16:00)
[2022-07-02] MEDS: MIRTAZAPINE 15 MG TAB PO SCH (19:41)
[2022-07-02 19:47] VITALS: BP 129/76
[2022-07-03] MEDS: IPRATROPIUM 0.5MG/ALBUTEROL 2.5MG INH SOL UD 3ML (DUONEB) NEB SCH (00:13)
[2022-07-03] MEDS: methylPREDNISolone 125MG 2ML VIAL IV SCH ×4 (01:03→17:25)
[2022-07-03] MEDS: IPRATROPIUM 0.02% SOLN 0.5MG 2.5ML NEB INH SCH ×6 (04:08→23:22)
[2022-07-03] MEDS: LEVALBUTEROL 1.25 MG/0.5 ML CONCENTRATE NEB INH SCH ×6 (04:09→23:22)
[2022-07-03 06:00] VITALS: BP 124/80
[2022-07-03 07:35] LABS: BLOOD UREA NITROGEN 11 MG/DL (7-18); CALCIUM LEVEL 9.6 MG/DL (8.5-10.1); CARBON DIOXIDE LEVEL 48 MEQ/L (21-32); CHLORIDE LEVEL 95 MEQ/L (98-107); CREATININE FOR GFR 0.45 MG/DL (0.55-1.30); GLOMERULAR FILTRATION RATE > 60.0 (>51); GLUCOSE, FASTING 126 MG/DL (70-100); MAGNESIUM LEVEL 2.1 MG/DL (1.8-2.4); POTASSIUM SERUM 4.2 MEQ/L (3.5-5.1); SODIUM LEVEL 141 MEQ/L (136-145)
[2022-07-03] MEDS: SYMBICORT 160/4.5MCG INHALER 6GM INH SCH ×2 (07:39→19:37)
[2022-07-03] MEDS: guaiFENesin ER 600 MG TAB PO SCH ×2 (08:12→19:55)
[2022-07-03] MEDS: MONTELUKAST 10 MG TAB PO SCH (08:12)
[2022-07-03] MEDS: PANTOPRAZOLE 20 MG TAB PO SCH (08:12)
[2022-07-03] MEDS: ROSUVASTATIN 10 MG TAB (CRESTOR) PO SCH (08:12)
[2022-07-03] MEDS: AZITHROMYCIN 250MG TABLET PO SCH (08:12)
[2022-07-03] MEDS: DOCUSATE SODIUM 100MG CAPSULE PO SCH ×2 (08:12→19:55)
[2022-07-03] MEDS: DULoxetine 20 MG CAP (CYMBALTA) PO SCH ×2 (08:12→19:55)
[2022-07-03] MEDS: ENOXAPARIN 40MG/0.4ML SYRINGE (J1650 PER 10MG) SC SCH (08:13)
[2022-07-03 14:00] VITALS: BP 124/68
[2022-07-03] MEDS ORDERED: ISOVUE-370 76% 25ML SYRINGE As Ordered ONE (14:36)
[2022-07-03 16:22] LABS: ABG BASE EXCESS 16.8 (-2.0-2.0); ABG HCO3 45.4 MEQ/L (22.0-26.0); ABG O2 SATURATION 94.8 % (95.0-99.0); ABG STANDARD HCO3 40.8 MEQ/L (22.0-26.0); ABG TOTAL CO2 47.8 MEQ/L (22.0-29.0); ABG pH (ARTERIAL) 7.394 UNITS (7.350-7.450)
[2022-07-03 16:27] LABS: ABG PARTIAL PRESSURE CO2 76.1 mmHg (35.0-45.0)
[2022-07-03] MEDS: MIRTAZAPINE 15 MG TAB PO SCH (19:54)
[2022-07-03 21:00] VITALS: BP 123/66
[2022-07-04] MEDS: NYSTATIN 500,000 U/5 ML SUSP UDC SS SCH ×5 (00:55→21:17)
[2022-07-04] MEDS: methylPREDNISolone 125MG 2ML VIAL IV SCH ×5 (00:56→23:59)
[2022-07-04] MEDS: IPRATROPIUM 0.02% SOLN 0.5MG 2.5ML NEB INH SCH ×6 (03:20→23:16)
[2022-07-04] MEDS: LEVALBUTEROL 1.25 MG/0.5 ML CONCENTRATE NEB INH SCH ×6 (03:20→23:16)
[2022-07-04 07:00] LABS: HEMATOCRIT 41.9 % (36.0-47.0); HEMOGLOBIN 12.3 g/dl (12.0-15.5); MEAN CORPUSCULAR HGB CONC 29.4 g/dl (32.0-36.5); MEAN CORPUSCULAR VOLUME 95.2 fl (80.0-96.0); PLATELET COUNT, AUTOMATED 352 10^3/uL (150-450); WHITE BLOOD COUNT 10.9 10^3/uL (4.0-10.0)
[2022-07-04 07:33] LABS: BLOOD UREA NITROGEN 10 MG/DL (7-18); CALCIUM LEVEL 9.2 MG/DL (8.5-10.1); CARBON DIOXIDE LEVEL 44 MEQ/L (21-32); CHLORIDE LEVEL 93 MEQ/L (98-107); CREATININE FOR GFR 0.48 MG/DL (0.55-1.30); GLOMERULAR FILTRATION RATE > 60.0 (>51); GLUCOSE, FASTING 110 MG/DL (70-100); MAGNESIUM LEVEL 2.1 MG/DL (1.8-2.4); PHOSPHORUS LEVEL 3.5 MG/DL (2.5-4.9); SODIUM LEVEL 140 MEQ/L (136-145)
[2022-07-04] MEDS: SYMBICORT 160/4.5MCG INHALER 6GM INH SCH ×2 (07:37→19:04)
[2022-07-04] MEDS: DOCUSATE SODIUM 100MG CAPSULE PO SCH ×2 (08:00→21:18)
[2022-07-04] MEDS: AZITHROMYCIN 250MG TABLET PO SCH (08:00)
[2022-07-04] MEDS: MONTELUKAST 10 MG TAB PO SCH (08:01)
[2022-07-04] MEDS: guaiFENesin ER 600 MG TAB PO SCH ×2 (08:01→21:17)
[2022-07-04] MEDS: ROSUVASTATIN 10 MG TAB (CRESTOR) PO SCH (08:01)
[2022-07-04] MEDS: DULoxetine 20 MG CAP (CYMBALTA) PO SCH ×2 (08:01→21:17)
[2022-07-04] MEDS: PANTOPRAZOLE 20 MG TAB PO SCH (08:01)
[2022-07-04] MEDS: ENOXAPARIN 40MG/0.4ML SYRINGE (J1650 PER 10MG) SC SCH (08:02)
[2022-07-04 14:00] VITALS: BP 140/82
[2022-07-04 20:00] VITALS: BP 138/82
[2022-07-04] MEDS ORDERED: BISACODYL 10 MG SUPP PR ONE (20:25)
[2022-07-04] MEDS ORDERED: MIRALAX *UNIT DOSE* 17GM PACKET PO PRN (20:25)
[2022-07-04] MEDS ORDERED: MOM 30ML SUSPENSION UDC PO ONE (20:25)
[2022-07-04] MEDS: MIRTAZAPINE 15 MG TAB PO SCH (21:18)
[2022-07-05] MEDS: LEVALBUTEROL 1.25 MG/0.5 ML CONCENTRATE NEB INH SCH ×3 (03:56→11:19)
[2022-07-05] MEDS: IPRATROPIUM 0.02% SOLN 0.5MG 2.5ML NEB INH SCH ×3 (03:56→11:19)
[2022-07-05 06:00] VITALS: BP 146/84
[2022-07-05] MEDS: methylPREDNISolone 125MG 2ML VIAL IV SCH ×2 (06:13→11:54)
[2022-07-05 07:35] LABS: HEMOGLOBIN 12.9 g/dl (12.0-15.5); MEAN CORPUSCULAR HEMOGLOBIN 27.3 pg (27.0-33.0); MEAN CORPUSCULAR HGB CONC 28.7 g/dl (32.0-36.5); MEAN CORPUSCULAR VOLUME 95.1 fl (80.0-96.0); PLATELET COUNT, AUTOMATED 333 10^3/uL (150-450); RED BLOOD COUNT 4.73 10^6/uL (4.00-5.40); WHITE BLOOD COUNT 10.1 10^3/uL (4.0-10.0)
[2022-07-05 08:03] VITALS: O2SAT 95
[2022-07-05] MEDS: SYMBICORT 160/4.5MCG INHALER 6GM INH SCH (08:04)
[2022-07-05 08:24] LABS: BLOOD UREA NITROGEN 12 MG/DL (7-18); CALCIUM LEVEL 9.5 MG/DL (8.5-10.1); CARBON DIOXIDE LEVEL 50 MEQ/L (21-32); CHLORIDE LEVEL 91 MEQ/L (98-107); CREATININE FOR GFR 0.44 MG/DL (0.55-1.30); GLOMERULAR FILTRATION RATE > 60.0 (>51); GLUCOSE, FASTING 106 MG/DL (70-100); MAGNESIUM LEVEL 2.4 MG/DL (1.8-2.4); PHOSPHORUS LEVEL 3.8 MG/DL (2.5-4.9); POTASSIUM SERUM 4.6 MEQ/L (3.5-5.1); SODIUM LEVEL 139 MEQ/L (136-145)
[2022-07-05] MEDS: PANTOPRAZOLE 20 MG TAB PO SCH (08:27)
[2022-07-05] MEDS: DULoxetine 20 MG CAP (CYMBALTA) PO SCH (08:28)
[2022-07-05] MEDS: MONTELUKAST 10 MG TAB PO SCH (08:28)
[2022-07-05] MEDS: DOCUSATE SODIUM 100MG CAPSULE PO SCH (08:28)
[2022-07-05] MEDS: ROSUVASTATIN 10 MG TAB (CRESTOR) PO SCH (08:28)
[2022-07-05] MEDS: AZITHROMYCIN 250MG TABLET PO SCH (08:28)
[2022-07-05] MEDS: ENOXAPARIN 40MG/0.4ML SYRINGE (J1650 PER 10MG) SC SCH (08:28)
[2022-07-05] MEDS: guaiFENesin ER 600 MG TAB PO SCH (08:28)
[2022-07-05] MEDS: NYSTATIN 500,000 U/5 ML SUSP UDC SS SCH ×2 (08:28→14:07)
[2022-07-05] MEDS ORDERED: TREL1AER PO (08:49)
[2022-07-05] MEDS ORDERED: COLA100C5 PO (11:15)
[2022-07-05] MEDS ORDERED: MONT10TA97 PO (11:15)
[2022-07-05] MEDS ORDERED: AZIT-12 PO (11:15)
[2022-07-05] MEDS ORDERED: GUAISYP5 PO (11:15)
[2022-07-05] MEDS ORDERED: PANT20TA6 PO (11:15)
[2022-07-05] MEDS ORDERED: NYST50SS SS (11:15)
[2022-07-05] MEDS ORDERED: PRED10TA2 PO (11:18)
[2022-07-05] MEDS ORDERED: IPRA2IN NEB (14:17)
== END 2022-07-05 14:16 | disposition home or self-care (01) | DRG 191 ==
LOC: EDSEX 19:12 → M ED 19:12 → EDBD 19:12 → M ED INP 19:13 → UNDOADMOB 19:13 → ENRESERV 07-01 00:38 → M MSPAV 07-01 00:45 → OBSVTOIN 07-02 10:50
PROVIDERS: ADMIT Family Medicine; ATTEND Internal Medicine
DX: J44.1 Chronic obstructive pulmonary disease with (acute) exacerbation (principal); J96.11 Chronic respiratory failure with hypoxia; E87.2 Acidosis; B37.0 Candidal stomatitis; Z99.81 Dependence on supplemental oxygen; G43.909 Migraine, unspecified, not intractable, without status migrainosus; E78.5 Hyperlipidemia, unspecified; K21.9 Gastro-esophageal reflux disease without esophagitis; F41.9 Anxiety disorder, unspecified; F32.A Depression, unspecified; Z98.41 Cataract extraction status, right eye; Z98.42 Cataract extraction status, left eye; Z90.79 Acquired absence of other genital organ(s); Z96.641 Presence of right artificial hip joint; F17.210 Nicotine dependence, cigarettes, uncomplicated; Z20.822 Contact with and (suspected) exposure to COVID-19; Z79.899 Other long term (current) drug therapy

== ENCOUNTER 2022-07-21 15:26 | Inpatient (IN) | payer MEDICARE, OTHER ==
[~2022-07-21] VITALS: Ht 162.6 cm; Wt 64.4 kg
[~2022-07-21 15:26] MED LIST changes: +ACET-907 PO; +ALBU8.5H INH; +AZIT-12 PO; +COLA100C5 PO; +DULO1CAP4 PO; +ERGO500029 PO; +GUAISYP5 PO; +IPRA2IN NEB; +MIRT-10 PO; +MONT10TA97 PO; +PANT20TA6 PO; +TREL1AER PO
[2022-07-21 16:50] LABS: VENOUS BASE EXCESS 10.6 (-2.0-2.0); VENOUS HCO3 38.8 MEQ/L (23.0-27.0); VENOUS O2 SATURATION 98.2 % (60.0-80.0); VENOUS PARTIAL PRESSURE CO2 69.7 mmHg (38.0-50.0); VENOUS PARTIAL PRESSURE O2 105.7 mmHg (30.0-50.0); VENOUS PH 7.364 UNITS (7.330-7.430); VENOUS STANDARD HCO3 34.4 MEQ/L
[2022-07-21 16:55] LABS: BASO % 0.2 % (0.0-1.0); EOS % 0.1 % (0.0-3.0); HEMATOCRIT 40.7 % (36.0-47.0); HEMOGLOBIN 12.5 g/dl (12.0-15.5); LYMPH # 0.6 10^3/uL (1.5-5.0); LYMPH % 4.8 % (24.0-44.0); MEAN CORPUSCULAR HEMOGLOBIN 28.3 pg (27.0-33.0); MEAN CORPUSCULAR HGB CONC 30.7 g/dl (32.0-36.5); MEAN CORPUSCULAR VOLUME 92.3 fl (80.0-96.0); MONO # 0.3 10^3/uL (0.0-0.8); MONO % 2.3 % (2.0-8.0); NEUTROPHILS # 10.8 10^3/uL (1.5-8.5); NEUTROPHILS % 92.4 % (36.0-66.0); PLATELET COUNT, AUTOMATED 255 10^3/uL (150-450); RED BLOOD COUNT 4.41 10^6/uL (4.00-5.40); WHITE BLOOD COUNT 11.6 10^3/uL (4.0-10.0)
[2022-07-21 17:12] LABS: INR 0.89; PROTHROMBIN TIME 12.5 SECONDS (12.7-14.5)
[2022-07-21] MEDS ORDERED: LORazepam 2 MG/ML VIAL IV STA (17:31)
[2022-07-21] MEDS ORDERED: dexameTHASONE 20MG/5ML VIAL (J1100 PER 1MG) IV ONE (17:35)
[2022-07-21] MEDS ORDERED: PANTOPRAZOLE 40MG VIAL IV ONE (17:35)
[2022-07-21 17:37] LABS: CK-MB VALUE MASS 3.7 NG/ML (<3.6); MB/CK RELATIVE INDEX 8.22 (< OR =4)
[2022-07-21 17:55] LABS: ALBUMIN 3.6 GM/DL (3.2-5.2); ALT/SGPT 21 U/L (12-78); BILIRUBIN,DIRECT 0.2 MG/DL (0.0-0.2); BILIRUBIN,TOTAL 0.4 MG/DL (0.2-1.0); BLOOD UREA NITROGEN 8 MG/DL (7-18); CALCIUM LEVEL 9.9 MG/DL (8.5-10.1); CARBON DIOXIDE LEVEL 40 MEQ/L (21-32); CHLORIDE LEVEL 85 MEQ/L (98-107); GLOMERULAR FILTRATION RATE > 60.0 (>51); GLUCOSE, FASTING 97 MG/DL (70-100); NT-PRO BNP 236 PG/ML (<125); POTASSIUM SERUM 3.9 MEQ/L (3.5-5.1); SODIUM LEVEL 127 MEQ/L (136-145); THYROID STIMULATING HORMONE 0.478 uIU/ML (0.358-3.740); THYROXINE (T4) 10.1 UG/DL (4.5-12.0); TOTAL PROTEIN 6.7 GM/DL (6.4-8.2)
[2022-07-21] MEDS ORDERED: IPRATROPIUM 0.5MG/ALBUTEROL 2.5MG INH SOL UD 3ML (DUONEB) NEB ONE (18:45)
[2022-07-21] MEDS ORDERED: PROT1TAB2 PO (18:51)
[2022-07-21] MEDS ORDERED: CARA1TAB6 PO (18:51)
[2022-07-21] MEDS ORDERED: DICY10CA13 PO (18:51)
[2022-07-21] MEDS ORDERED: GI COCKTAIL 50ML BTL(HYOSCYAMINE/MAALOX/LIDOCAINE VISCOUS)(1:3:1) PO ONE (19:55)
[2022-07-21] MEDS ORDERED: LEVALBUTEROL 1.25 MG/0.5 ML CONCENTRATE NEB NEB ONE (19:55)
[2022-07-21] MEDS ORDERED: ACETAMINOPHEN TAB 650MG DOSE (2X325MG) PO PRN (19:55)
[2022-07-21] MEDS ORDERED: IPRATROPIUM 0.02% SOLN 0.5MG 2.5ML NEB NEB ONE (19:55)
[2022-07-21] MEDS ORDERED: IPRATROPIUM 0.02% SOLN 0.5MG 2.5ML NEB NEB SCH (20:00)
[2022-07-21] MEDS ORDERED: LEVALBUTEROL 1.25 MG/0.5 ML CONCENTRATE NEB NEB SCH (20:00)
[2022-07-21 20:28] LABS: ABG BASE EXCESS 4.8 (-2.0-2.0); ABG HCO3 34.1 MEQ/L (22.0-26.0); ABG O2 SATURATION 98.6 % (95.0-99.0); ABG PARTIAL PRESSURE O2 123.8 mmHg (75.0-100.0); ABG STANDARD HCO3 28.8 MEQ/L (22.0-26.0); ABG TOTAL CO2 36.3 MEQ/L (22.0-29.0); ABG pH (ARTERIAL) 7.279 UNITS (7.350-7.450)
[2022-07-21 20:35] LABS: ABG PARTIAL PRESSURE CO2 74.3 mmHg (35.0-45.0)
[2022-07-21] MEDS ORDERED: MONT10TA97 PO (20:38)
[2022-07-21] MEDS ORDERED: IPRA2IN NEB (20:38)
[2022-07-21] MEDS ORDERED: NYST50SS SS (20:38)
[2022-07-21] MEDS ORDERED: patient comment (20:38)
[2022-07-21] MEDS ORDERED: TREL1AER INH (20:38)
[2022-07-21] MEDS ORDERED: PANT-23 PO (20:38)
[2022-07-21] MEDS ORDERED: AZIT-10 PO (20:38)
[2022-07-21] MEDS ORDERED: DOCU100C16 PO (20:38)
[2022-07-21] MEDS ORDERED: GUAI1SYP8 PO (20:38)
[2022-07-21] MEDS ORDERED: ALEN70TA82 PO (20:42)
[2022-07-21] MEDS ORDERED: CETI-24 PO (20:42)
[2022-07-21] MEDS ORDERED: NICO21DI6 TD (20:42)
[2022-07-21] MEDS ORDERED: TIZA10TA PO (20:42)
[2022-07-21] MEDS ORDERED: HOME MED LIST COMPLETE! XX SCH (20:45)
[2022-07-21] MEDS ORDERED: SUCRALFATE 1 GM TAB PO SCH (21:00)
[2022-07-21] MEDS ORDERED: NS 1,000 ML IV SCH (21:05)
[2022-07-21] MEDS ORDERED: NS 500 ML IV ONE (21:05)
[2022-07-21] MEDS ORDERED: ALBUTEROL SULFATE 2.5 MG/0.5 ML INH NEB SOLN NEB ONE (21:05)
[2022-07-21] MEDS ORDERED: guaiFENesin DM LIQ 10ML UD PO PRN (21:25)
[2022-07-21] MEDS: BUDESONIDE 0.5 MG/2 ML INHALATION SUSPENSION INH SCH (21:37)
[2022-07-21] MEDS ORDERED: hydrALAZINE 20MG/ML 1ML VIAL (J0360 PER 20MG) IV PRN (22:50)
[2022-07-21] MEDS ORDERED: ALBUTEROL SULFATE 2.5 MG/0.5 ML INH NEB SOLN NEB PRN (22:50)
[2022-07-21] MEDS ORDERED: ALPRAZolam 0.25 MG TAB PO ONE (23:50)
[2022-07-21] MEDS: methylPREDNISolone 40MG 1ML VIAL IV SCH (23:59)
[2022-07-22] VITALS (63 sets, daily range): BP systolic 83–149; BP diastolic 50–86
[2022-07-22 00:15] LABS: ABG BASE EXCESS 6.3 (-2.0-2.0); ABG HCO3 35.5 MEQ/L (22.0-26.0); ABG O2 SATURATION 97.4 % (95.0-99.0); ABG PARTIAL PRESSURE O2 97.8 mmHg (75.0-100.0); ABG STANDARD HCO3 30.2 MEQ/L (22.0-26.0); ABG TOTAL CO2 37.8 MEQ/L (22.0-29.0); ABG pH (ARTERIAL) 7.293 UNITS (7.350-7.450)
[2022-07-22] MEDS: LevoFLOXacin IV 500 MG in IV 1 EA IV SCH (00:17)
[2022-07-22] MEDS ORDERED: propofoL 1,000 MG in IV 1 EA IV SCH (01:00)
[2022-07-22] MEDS ORDERED: propofoL 200 MG/20 ML VIAL As Ordered ONE (01:02)
[2022-07-22] MEDS ORDERED: ETOMIDATE INJ 20MG/10ML VIAL As Ordered ONE (01:02)
[2022-07-22] MEDS ORDERED: SUCCINYLCHOLINE INJ 200 MG/10 ML VIAL (J0330) As Ordered ONE (01:03)
[2022-07-22] MEDS ORDERED: ROCURONIUM BROMIDE 50 MG/5 ML VIAL As Ordered ONE (01:03)
[2022-07-22] MEDS ORDERED: PROPOFOL 1,000 MG/100 ML VIAL As Ordered ONE (01:04)
[2022-07-22] MEDS ORDERED: LIDOCAINE 1% MDV 20ML VIAL As Ordered ONE (01:05)
[2022-07-22] MEDS ORDERED: ROCURONIUM BROMIDE 50 MG/5 ML VIAL IV STA (01:32)
[2022-07-22] MEDS ORDERED: EPINEPHrine INJ 1 MG/ML 1ML AMP IV STA (01:32)
[2022-07-22] MEDS ORDERED: propofoL 200 MG/20 ML VIAL IV ONE (01:35)
[2022-07-22] MEDS ORDERED: LIDOCAINE 1% MDV 20ML VIAL INJ ONE (01:35)
[2022-07-22] MEDS ORDERED: NS 500 ML IV ONE ×3 (01:55→15:40)
[2022-07-22] MEDS: NOREPINEPHRINE/DEXTROSE 8 MG in IV 1 EA IV SCH (02:00)
[2022-07-22] MEDS ORDERED: FENTANYL DRIP LOCK BOX KEY 1 EACH XX PRN (02:00)
[2022-07-22] MEDS: fentaNYL CITRATE/NaCl 1,000 MCG in IV 1 EA IV SCH ×2 (02:09→10:27)
[2022-07-22] MEDS ORDERED: MIDAZOLAM INJ 2MG/2ML VIAL (J2250 PER 1MG) As Ordered ONE (02:37)
[2022-07-22] MEDS: MIDAZOLAM INJ 2MG/2ML VIAL (J2250 PER 1MG) IV PRN ×3 (04:14→08:17)
[2022-07-22 04:44] LABS: ABG HCO3 26.8 MEQ/L (22.0-26.0); ABG O2 SATURATION 99.7 % (95.0-99.0); ABG PARTIAL PRESSURE CO2 42.3 mmHg (35.0-45.0); ABG PARTIAL PRESSURE O2 174.2 mmHg (75.0-100.0); ABG STANDARD HCO3 26.3 MEQ/L (22.0-26.0); ABG TOTAL CO2 28.1 MEQ/L (22.0-29.0); ABG pH (ARTERIAL) 7.419 UNITS (7.350-7.450)
[2022-07-22 05:25] LABS: HEMATOCRIT 35.7 % (36.0-47.0); HEMOGLOBIN 10.9 g/dl (12.0-15.5); MEAN CORPUSCULAR HEMOGLOBIN 27.9 pg (27.0-33.0); MEAN CORPUSCULAR HGB CONC 30.5 g/dl (32.0-36.5); MEAN CORPUSCULAR VOLUME 91.3 fl (80.0-96.0); PLATELET COUNT, AUTOMATED 250 10^3/uL (150-450); RED BLOOD COUNT 3.91 10^6/uL (4.00-5.40); WHITE BLOOD COUNT 6.5 10^3/uL (4.0-10.0)
[2022-07-22] MEDS ORDERED: EPINEPHrine 1MG/10ML SYRINGE 1.5IN ONE (05:28)
[2022-07-22 05:49] LABS: BLOOD UREA NITROGEN 15 MG/DL (7-18); CALCIUM LEVEL 8.8 MG/DL (8.5-10.1); CARBON DIOXIDE LEVEL 34 MEQ/L (21-32); CHLORIDE LEVEL 95 MEQ/L (98-107); CREATININE FOR GFR 0.62 MG/DL (0.55-1.30); GLOMERULAR FILTRATION RATE > 60.0 (>51); GLUCOSE, FASTING 114 MG/DL (70-100); POTASSIUM SERUM 3.6 MEQ/L (3.5-5.1); SODIUM LEVEL 133 MEQ/L (136-145)
[2022-07-22] MEDS: methylPREDNISolone 40MG 1ML VIAL IV SCH ×3 (06:34→18:50)
[2022-07-22] MEDS: BUDESONIDE 0.5 MG/2 ML INHALATION SUSPENSION INH SCH ×2 (07:17→19:12)
[2022-07-22] MEDS ORDERED: IPRATROPIUM 0.5MG/ALBUTEROL 2.5MG INH SOL UD 3ML (DUONEB) NEB SCH (08:00)
[2022-07-22] MEDS: LEVALBUTEROL 1.25 MG/0.5 ML CONCENTRATE NEB INH SCH ×3 (08:00→23:56)
[2022-07-22] MEDS: IPRATROPIUM 0.02% SOLN 0.5MG 2.5ML NEB INH SCH ×3 (08:00→23:56)
[2022-07-22] MEDS ORDERED: MIDAZOLAM DRIP LOCK BOX KEY 1 EACH EA XX PRN (08:25)
[2022-07-22] MEDS ORDERED: DOCUSATE SODIUM 100MG CAPSULE PO SCH (09:00)
[2022-07-22] MEDS ORDERED: MONTELUKAST 10 MG TAB PO SCH (09:00)
[2022-07-22] MEDS ORDERED: CETIRIZINE (ZyrTEC) 10 MG TAB PO SCH (09:00)
[2022-07-22] MEDS ORDERED: PANTOPRAZOLE 40MG TAB (PROTONIX) PO SCH (09:00)
[2022-07-22] MEDS: ROSUVASTATIN 10 MG TAB (CRESTOR) PO SCH (09:00)
[2022-07-22] MEDS: MIDAZOLAM HCL 100 MG in IV 1 EA IV SCH (09:19)
[2022-07-22] MEDS: CHLORHEXIDINE GLUCONATE 0.12 % 15ML UDC (PERIDEX ORAL RINSE) MT SCH ×2 (09:31→20:14)
[2022-07-22] MEDS: NICOTINE 21MG/24HR 1 EA TRANSDERMAL TD SCH (09:31)
[2022-07-22] MEDS: PANTOPRAZOLE 40MG VIAL IV SCH (09:31)
[2022-07-22] MEDS: DOCUSATE SOD LIQ 100MG/10ML UDC GT SCH ×2 (09:31→20:14)
[2022-07-22] MEDS: ENOXAPARIN 40MG/0.4ML SYRINGE (J1650 PER 10MG) SC SCH (09:31)
[2022-07-22 10:22] LABS: MB/CK RELATIVE INDEX 5.88 (< OR =4)
[2022-07-22] MEDS ORDERED: DEXTROSE 50% 50 ML SYRINGE IV PRN (11:30)
[2022-07-22] MEDS ORDERED: GLUCOSE 4GM CHEW TABLET PO PRN (11:30)
[2022-07-22] MEDS ORDERED: GLUCAGON INJ 1MG VIAL SC PRN (11:30)
[2022-07-22] MEDS ORDERED: FUROSEMIDE 20MG/2ML VIAL (J1940) IV ONE (12:00)
[2022-07-22] MEDS ORDERED: INSULIN LISPRO (NovoLOG) PER UNIT SC SCH ×2 (12:00→21:00)
[2022-07-22] MEDS: NS 1,000 ML IV SCH ×2 (14:00→17:08)
[2022-07-22] MEDS: dexmedeTOMidine 200 MCG in IV 1 EA IV SCH ×2 (16:00→21:08)
[2022-07-22] MEDS: INSULIN LISPRO (NovoLOG) PER UNIT SC SCH (18:00)
[2022-07-22 19:29] LABS: CK-MB VALUE MASS 2.5 NG/ML (<3.6); MB/CK RELATIVE INDEX 3.97 (< OR =4)
[2022-07-23] VITALS (30 sets, daily range): BP systolic 89–130; BP diastolic 54–79
[2022-07-23] MEDS: methylPREDNISolone 40MG 1ML VIAL IV SCH ×5 (00:38→23:36)
[2022-07-23] MEDS: INSULIN LISPRO (NovoLOG) PER UNIT SC SCH ×3 (00:39→12:00)
[2022-07-23] MEDS: LevoFLOXacin IV 500 MG in IV 1 EA IV SCH ×2 (00:40→23:36)
[2022-07-23] MEDS: NS 1,000 ML IV SCH ×2 (00:41→09:09)
[2022-07-23] MEDS: fentaNYL CITRATE/NaCl 1,000 MCG in IV 1 EA IV SCH ×2 (02:06→12:06)
[2022-07-23 02:25] LABS: CK-MB VALUE MASS 1.9 NG/ML (<3.6); MB/CK RELATIVE INDEX 3.73 (< OR =4)
[2022-07-23] MEDS: dexmedeTOMidine 200 MCG in IV 1 EA IV SCH ×3 (03:28→20:07)
[2022-07-23] MEDS: MIDAZOLAM INJ 2MG/2ML VIAL (J2250 PER 1MG) IV PRN (03:28)
[2022-07-23 04:44] LABS: HEMATOCRIT 32.4 % (36.0-47.0); MEAN CORPUSCULAR HEMOGLOBIN 28.1 pg (27.0-33.0); MEAN CORPUSCULAR HGB CONC 30.9 g/dl (32.0-36.5); PLATELET COUNT, AUTOMATED 221 10^3/uL (150-450); RED BLOOD COUNT 3.56 10^6/uL (4.00-5.40); WHITE BLOOD COUNT 10.6 10^3/uL (4.0-10.0)
[2022-07-23 05:09] LABS: BLOOD UREA NITROGEN 22 MG/DL (7-18); CALCIUM LEVEL 8.5 MG/DL (8.5-10.1); CARBON DIOXIDE LEVEL 31 MEQ/L (21-32); CHLORIDE LEVEL 101 MEQ/L (98-107); GLOMERULAR FILTRATION RATE > 60.0 (>51); GLUCOSE, FASTING 107 MG/DL (70-100); MAGNESIUM LEVEL 1.8 MG/DL (1.8-2.4); PHOSPHORUS LEVEL 2.6 MG/DL (2.5-4.9); SODIUM LEVEL 136 MEQ/L (136-145)
[2022-07-23 05:45] LABS: ABG BASE EXCESS 4.5 (-2.0-2.0); ABG HCO3 29.3 MEQ/L (22.0-26.0); ABG O2 SATURATION 96.9 % (95.0-99.0); ABG PARTIAL PRESSURE CO2 44.9 mmHg (35.0-45.0); ABG STANDARD HCO3 28.5 MEQ/L (22.0-26.0); ABG TOTAL CO2 30.7 MEQ/L (22.0-29.0); ABG pH (ARTERIAL) 7.433 UNITS (7.350-7.450)
[2022-07-23] MEDS: NOREPINEPHRINE/DEXTROSE 8 MG in IV 1 EA IV SCH (07:18)
[2022-07-23] MEDS: LEVALBUTEROL 1.25 MG/0.5 ML CONCENTRATE NEB INH SCH ×3 (07:48→23:21)
[2022-07-23] MEDS: BUDESONIDE 0.5 MG/2 ML INHALATION SUSPENSION INH SCH ×2 (07:48→19:01)
[2022-07-23] MEDS: IPRATROPIUM 0.02% SOLN 0.5MG 2.5ML NEB INH SCH ×2 (07:48→15:20)
[2022-07-23] MEDS: CHLORHEXIDINE GLUCONATE 0.12 % 15ML UDC (PERIDEX ORAL RINSE) MT SCH (08:23)
[2022-07-23] MEDS: PANTOPRAZOLE 40MG VIAL IV SCH (08:24)
[2022-07-23] MEDS: ENOXAPARIN 40MG/0.4ML SYRINGE (J1650 PER 10MG) SC SCH (08:25)
[2022-07-23] MEDS: ROSUVASTATIN 10 MG TAB (CRESTOR) PO SCH ×2 (08:25→08:31)
[2022-07-23] MEDS: DOCUSATE SOD LIQ 100MG/10ML UDC GT SCH (08:25)
[2022-07-23] MEDS: NICOTINE 21MG/24HR 1 EA TRANSDERMAL TD SCH (08:27)
[2022-07-23] MEDS: MIDAZOLAM HCL 100 MG in IV 1 EA IV SCH (09:00)
[2022-07-23] MEDS ORDERED: fentaNYL 100 MCG/2 ML INJECTION As Ordered ONE (10:43)
[2022-07-23] MEDS ORDERED: fentaNYL 100 MCG/2 ML INJECTION IV ONE (10:50)
[2022-07-23] MEDS: LEVALBUTEROL 1.25 MG/0.5 ML CONCENTRATE NEB INH PRN (11:00)
[2022-07-23] MEDS ORDERED: LEVALBUTEROL 1.25 MG/0.5 ML CONCENTRATE NEB NEB ONE (13:00)
[2022-07-23] MEDS: DOCUSATE SODIUM 100MG CAPSULE PO SCH (20:15)
[2022-07-24] VITALS (19 sets, daily range): BP systolic 107–150; BP diastolic 62–90; O2SAT 93
[2022-07-24] MEDS: IPRATROPIUM 0.02% SOLN 0.5MG 2.5ML NEB INH SCH ×4 (00:07→23:07)
[2022-07-24] MEDS: dexmedeTOMidine 200 MCG in IV 1 EA IV SCH (03:35)
[2022-07-24] MEDS: methylPREDNISolone 40MG 1ML VIAL IV SCH ×4 (05:51→23:46)
[2022-07-24 05:58] LABS: ABG HCO3 34.9 MEQ/L (22.0-26.0); ABG O2 SATURATION 97.8 % (95.0-99.0); ABG PARTIAL PRESSURE O2 112.2 mmHg (75.0-100.0); ABG STANDARD HCO3 30.8 MEQ/L (22.0-26.0); ABG TOTAL CO2 37.1 MEQ/L (22.0-29.0); ABG pH (ARTERIAL) 7.321 UNITS (7.350-7.450)
[2022-07-24 05:59] LABS: ABG PARTIAL PRESSURE CO2 69.2 mmHg (35.0-45.0)
[2022-07-24] MEDS: LEVALBUTEROL 1.25 MG/0.5 ML CONCENTRATE NEB INH PRN ×2 (06:19→10:40)
[2022-07-24 06:57] LABS: HEMATOCRIT 35.6 % (36.0-47.0); HEMOGLOBIN 10.8 g/dl (12.0-15.5); LYMPH # 0.6 10^3/uL (1.5-5.0); LYMPH % 5.9 % (24.0-44.0); MEAN CORPUSCULAR HEMOGLOBIN 28.1 pg (27.0-33.0); MEAN CORPUSCULAR HGB CONC 30.3 g/dl (32.0-36.5); MEAN CORPUSCULAR VOLUME 92.5 fl (80.0-96.0); MONO # 0.5 10^3/uL (0.0-0.8); MONO % 4.7 % (2.0-8.0); NEUTROPHILS # 8.6 10^3/uL (1.5-8.5); PLATELET COUNT, AUTOMATED 233 10^3/uL (150-450); RED BLOOD COUNT 3.85 10^6/uL (4.00-5.40); WHITE BLOOD COUNT 9.7 10^3/uL (4.0-10.0)
[2022-07-24 07:45] LABS: ALBUMIN 2.9 GM/DL (3.2-5.2); ALT/SGPT 25 U/L (12-78); BILIRUBIN,TOTAL 0.3 MG/DL (0.2-1.0); BLOOD UREA NITROGEN 16 MG/DL (7-18); CALCIUM LEVEL 9.4 MG/DL (8.5-10.1); CARBON DIOXIDE LEVEL 38 MEQ/L (21-32); CHLORIDE LEVEL 102 MEQ/L (98-107); CREATININE FOR GFR 0.37 MG/DL (0.55-1.30); GLOMERULAR FILTRATION RATE > 60.0 (>51); GLUCOSE, FASTING 110 MG/DL (70-100); MAGNESIUM LEVEL 2.2 MG/DL (1.8-2.4); POTASSIUM SERUM 4.4 MEQ/L (3.5-5.1); SODIUM LEVEL 139 MEQ/L (136-145); TOTAL PROTEIN 5.6 GM/DL (6.4-8.2)
[2022-07-24] MEDS: LEVALBUTEROL 1.25 MG/0.5 ML CONCENTRATE NEB INH SCH ×3 (08:16→23:07)
[2022-07-24] MEDS: BUDESONIDE 0.5 MG/2 ML INHALATION SUSPENSION INH SCH ×2 (08:16→19:22)
[2022-07-24] MEDS: ENOXAPARIN 40MG/0.4ML SYRINGE (J1650 PER 10MG) SC SCH (08:45)
[2022-07-24] MEDS: ROSUVASTATIN 10 MG TAB (CRESTOR) PO SCH (08:45)
[2022-07-24] MEDS: DOCUSATE SODIUM 100MG CAPSULE PO SCH ×2 (08:45→20:06)
[2022-07-24] MEDS: DULoxetine 20 MG CAP (CYMBALTA) PO SCH ×2 (08:45→20:06)
[2022-07-24] MEDS: NICOTINE 21MG/24HR 1 EA TRANSDERMAL TD SCH (08:46)
[2022-07-24] MEDS: PANTOPRAZOLE 40MG VIAL IV SCH (08:46)
[2022-07-24] MEDS: ALPRAZolam 0.25 MG TAB PO PRN ×3 (11:56→23:46)
[2022-07-24] MEDS: MIRTAZAPINE 15 MG TAB PO SCH (20:06)
[2022-07-24] MEDS: LevoFLOXacin 500 MG TABLET PO SCH (21:04)
[2022-07-25] VITALS (9 sets, daily range): BP systolic 137–172; BP diastolic 66–93; O2SAT 93
[2022-07-25 04:20] LABS: VENOUS BASE EXCESS 10.6 (-2.0-2.0); VENOUS HCO3 39.5 MEQ/L (23.0-27.0); VENOUS O2 SATURATION 99.3 % (60.0-80.0); VENOUS PARTIAL PRESSURE CO2 76.2 mmHg (38.0-50.0); VENOUS PARTIAL PRESSURE O2 169.7 mmHg (30.0-50.0); VENOUS PH 7.332 UNITS (7.330-7.430); VENOUS STANDARD HCO3 34.4 MEQ/L; VENOUS TOTAL CO2 41.8 MEQ/L (24.0-28.0)
[2022-07-25] MEDS: methylPREDNISolone 40MG 1ML VIAL IV SCH (05:50)
[2022-07-25 06:04] LABS: ABG BASE EXCESS 4.5 (-2.0-2.0); ABG HCO3 30.9 MEQ/L (22.0-26.0); ABG O2 SATURATION 94.6 % (95.0-99.0); ABG PARTIAL PRESSURE CO2 54.5 mmHg (35.0-45.0); ABG PARTIAL PRESSURE O2 75.8 mmHg (75.0-100.0); ABG STANDARD HCO3 28.5 MEQ/L (22.0-26.0); ABG TOTAL CO2 32.6 MEQ/L (22.0-29.0); ABG pH (ARTERIAL) 7.372 UNITS (7.350-7.450)
[2022-07-25] MEDS: IPRATROPIUM 0.02% SOLN 0.5MG 2.5ML NEB INH SCH ×2 (06:10→15:46)
[2022-07-25] MEDS: LEVALBUTEROL 1.25 MG/0.5 ML CONCENTRATE NEB INH SCH ×2 (06:10→11:47)
[2022-07-25] MEDS: BUDESONIDE 0.5 MG/2 ML INHALATION SUSPENSION INH SCH (06:10)
[2022-07-25] MEDS: ALPRAZolam 0.25 MG TAB PO PRN ×3 (06:25→18:59)
[2022-07-25 06:53] LABS: HEMATOCRIT 37.4 % (36.0-47.0); HEMOGLOBIN 11.5 g/dl (12.0-15.5); MEAN CORPUSCULAR HEMOGLOBIN 28.8 pg (27.0-33.0); MEAN CORPUSCULAR HGB CONC 30.7 g/dl (32.0-36.5); MEAN CORPUSCULAR VOLUME 93.5 fl (80.0-96.0); PLATELET COUNT, AUTOMATED 254 10^3/uL (150-450); WHITE BLOOD COUNT 8.8 10^3/uL (4.0-10.0)
[2022-07-25 07:06] LABS: ALT/SGPT 39 U/L (12-78); BILIRUBIN,TOTAL 0.2 MG/DL (0.2-1.0); BLOOD UREA NITROGEN 19 MG/DL (7-18); CALCIUM LEVEL 9.1 MG/DL (8.5-10.1); CARBON DIOXIDE LEVEL 39 MEQ/L (21-32); CHLORIDE LEVEL 102 MEQ/L (98-107); CREATININE FOR GFR 0.38 MG/DL (0.55-1.30); GLOMERULAR FILTRATION RATE > 60.0 (>51); GLUCOSE, FASTING 110 MG/DL (70-100); POTASSIUM SERUM 3.9 MEQ/L (3.5-5.1); SODIUM LEVEL 143 MEQ/L (136-145); TOTAL PROTEIN 5.6 GM/DL (6.4-8.2)
[2022-07-25] MEDS: PANTOPRAZOLE 40MG VIAL IV SCH (08:30)
[2022-07-25] MEDS: NICOTINE 21MG/24HR 1 EA TRANSDERMAL TD SCH (08:30)
[2022-07-25] MEDS: ROSUVASTATIN 10 MG TAB (CRESTOR) PO SCH (08:31)
[2022-07-25] MEDS: DULoxetine 20 MG CAP (CYMBALTA) PO SCH (08:31)
[2022-07-25] MEDS: predniSONE 10 MG TAB PO SCH (08:31)
[2022-07-25] MEDS: ENOXAPARIN 40MG/0.4ML SYRINGE (J1650 PER 10MG) SC SCH (08:31)
[2022-07-25] MEDS: DOCUSATE SODIUM 100MG CAPSULE PO SCH ×2 (08:32→20:42)
[2022-07-25] MEDS: SYMBICORT 160/4.5MCG INHALER 6GM INH SCH ×2 (08:41→20:02)
[2022-07-25] MEDS: TIOTROPIUM INHALER/CAPSULE (SPIRIVA) INH SCH (08:41)
[2022-07-25] MEDS: LEVALBUTEROL 1.25 MG/0.5 ML CONCENTRATE NEB INH PRN (15:46)
[2022-07-25] MEDS: DULoxetine 30MG CAPSULE (CYMBALTA) PO SCH (20:42)
[2022-07-25] MEDS: MIRTAZAPINE 15 MG TAB PO SCH (20:42)
[2022-07-25] MEDS: LevoFLOXacin 500 MG TABLET PO SCH (22:29)
[2022-07-26 05:45] VITALS: BP 152/98
[2022-07-26] MEDS: LEVALBUTEROL 1.25 MG/0.5 ML CONCENTRATE NEB INH SCH ×2 (06:20→07:23)
[2022-07-26] MEDS: IPRATROPIUM 0.02% SOLN 0.5MG 2.5ML NEB INH SCH ×2 (06:20→07:23)
[2022-07-26] MEDS: ALPRAZolam 0.25 MG TAB PO PRN ×2 (06:47→12:50)
[2022-07-26] MEDS: TIOTROPIUM INHALER/CAPSULE (SPIRIVA) INH SCH (07:22)
[2022-07-26] MEDS: SYMBICORT 160/4.5MCG INHALER 6GM INH SCH (07:22)
[2022-07-26] MEDS ORDERED: SYMB16INH INH (07:32)
[2022-07-26] MEDS ORDERED: SPIR1CAP INH (07:32)
[2022-07-26] MEDS: ROSUVASTATIN 10 MG TAB (CRESTOR) PO SCH (08:51)
[2022-07-26] MEDS: predniSONE 10 MG TAB PO SCH (08:52)
[2022-07-26] MEDS: DOCUSATE SODIUM 100MG CAPSULE PO SCH (08:52)
[2022-07-26] MEDS: ENOXAPARIN 40MG/0.4ML SYRINGE (J1650 PER 10MG) SC SCH (08:52)
[2022-07-26] MEDS: NICOTINE 21MG/24HR 1 EA TRANSDERMAL TD SCH (08:52)
[2022-07-26] MEDS: DULoxetine 30MG CAPSULE (CYMBALTA) PO SCH (08:52)
[2022-07-26] MEDS: PANTOPRAZOLE 40MG VIAL IV SCH (09:00)
[2022-07-26] MEDS ORDERED: AZIT500T5 PO (10:13)
[2022-07-26] MEDS ORDERED: ALPR0.25 PO (10:13)
[2022-07-26] MEDS ORDERED: BENZ200C70 PO (10:13)
[2022-07-26] MEDS ORDERED: PRED20TA PO ×2 (10:14→10:19)
[2022-07-26] MEDS ORDERED: ALBU8.5H INH (10:19)
[2022-07-26] MEDS ORDERED: AMOX875T2 PO (10:19)
[2022-07-26] MEDS ORDERED: IPRA0.00 INH (10:19)
[2022-07-26] MEDS: LEVALBUTEROL 1.25 MG/0.5 ML CONCENTRATE NEB INH PRN (10:27)
== END 2022-07-26 13:02 | disposition home health service (06) | DRG 208 ==
LOC: M ED 15:26 → M ED INP 21:10 → M ICU 22:20 → M MSPAV 07-25 15:13
PROVIDERS: ADMIT Internal Medicine; ATTEND Internal Medicine
PROC: 5A1945Z Respiratory Ventilation, 24-96 Consecutive Hours (ICD-10-PCS; principal; 2022-07-22)
PROC: 0BH17EZ Insertion of Endotracheal Airway into Trachea, Via Natural or Artificial Opening (ICD-10-PCS; 2022-07-22)
DX: J96.22 Acute and chronic respiratory failure with hypercapnia (principal); G93.41 Metabolic encephalopathy; J44.1 Chronic obstructive pulmonary disease with (acute) exacerbation; E87.1 Hypo-osmolality and hyponatremia; F32.A Depression, unspecified; F17.210 Nicotine dependence, cigarettes, uncomplicated; F41.9 Anxiety disorder, unspecified; I10 Essential (primary) hypertension; K21.9 Gastro-esophageal reflux disease without esophagitis; Z20.822 Contact with and (suspected) exposure to COVID-19; Z99.81 Dependence on supplemental oxygen; E78.5 Hyperlipidemia, unspecified; Z96.642 Presence of left artificial hip joint; Z90.79 Acquired absence of other genital organ(s); Z98.41 Cataract extraction status, right eye; Z98.42 Cataract extraction status, left eye; I95.9 Hypotension, unspecified; D72.829 Elevated white blood cell count, unspecified; J96.21 Acute and chronic respiratory failure with hypoxia

== ENCOUNTER 2022-10-05 16:41 | Inpatient (IN) | payer MEDICARE, OTHER ==
[~2022-10-05] VITALS: Ht 154.9 cm; Wt 58.0 kg
[~2022-10-05 16:41] MED LIST changes: +ALEN70TA82 PO; +ALPR0.25 PO; +AMOX875T2 PO; +AZIT-10 PO; +AZIT500T5 PO; +BENZ200C70 PO; +CARA1TAB6 PO; +CETI-24 PO; +DICY10CA13 PO; +DOCU100C16 PO; +GUAI1SYP8 PO; +IPRA0.00 INH; +NICO21DI6 TD; +PANT-23 PO; +PRED20TA PO; +PROT1TAB2 PO; +SYMB16INH INH; +TIZA10TA PO; +TREL1AER INH; +patient comment
[2022-10-05 17:24] LABS: BASO % 0.2 % (0.0-1.0); EOS % 0.2 % (0.0-3.0); HEMATOCRIT 43.1 % (36.0-47.0); HEMOGLOBIN 12.6 g/dl (12.0-15.5); LYMPH # 1.6 10^3/uL (1.5-5.0); LYMPH % 19.7 % (24.0-44.0); MEAN CORPUSCULAR HGB CONC 29.2 g/dl (32.0-36.5); MEAN CORPUSCULAR VOLUME 92.3 fl (80.0-96.0); MONO # 0.6 10^3/uL (0.0-0.8); MONO % 7.6 % (2.0-8.0); NEUTROPHILS # 5.9 10^3/uL (1.5-8.5); NEUTROPHILS % 72.2 % (36.0-66.0); PLATELET COUNT, AUTOMATED 308 10^3/uL (150-450); RED BLOOD COUNT 4.67 10^6/uL (4.00-5.40); VENOUS BASE EXCESS 17.7 (-2.0-2.0); VENOUS PARTIAL PRESSURE CO2 88.2 mmHg (38.0-50.0); VENOUS PARTIAL PRESSURE O2 42.7 mmHg (30.0-50.0); VENOUS PH 7.354 UNITS (7.330-7.430); VENOUS STANDARD HCO3 41.4 MEQ/L; VENOUS TOTAL CO2 50.7 MEQ/L (24.0-28.0); WHITE BLOOD COUNT 8.2 10^3/uL (4.0-10.0)
[2022-10-05] MEDS: COMBIVENT RESPIMAT 100-20MCG INHALER 4GM INH SCH ×2 (17:49→17:57)
[2022-10-05 17:54] LABS: ALBUMIN 3.7 G/DL (3.2-5.2); ALKALINE PHOSPHATASE 63 U/L (46-116); ALT/SGPT 10 U/L (7.0-40); AST/SGOT 16 U/L (<34); BILIRUBIN,DIRECT < 0.1 MG/DL (<0.4); BILIRUBIN,TOTAL 0.2 MG/DL (0.3-1.2); BLOOD UREA NITROGEN 8 MG/DL (9-23); CALCIUM LEVEL 9.8 MG/DL (8.5-10.1); CARBON DIOXIDE LEVEL > 40.0 MMOL/L (20-31); CHLORIDE LEVEL 93 MMOL/L (98-107); GLOMERULAR FILTRATION RATE > 60.0 (>51); GLUCOSE, FASTING 88 MG/DL (60-100); POTASSIUM SERUM 3.5 MMOL/L (3.5-5.1); SODIUM LEVEL 144 MMOL/L (136-145); THYROID STIMULATING HORMONE 1.821 uIU/ML (0.55-4.78)
[2022-10-05] MEDS ORDERED: ACETAMINOPHEN TAB 650MG DOSE (2X325MG) PO PRN (19:50)
[2022-10-05] MEDS: SYMBICORT 160/4.5MCG INHALER 6GM INH SCH (20:00)
[2022-10-05] MEDS ORDERED: AZITHROMYCIN 250MG TABLET PO SCH (20:10)
[2022-10-05] MEDS ORDERED: ALBUTEROL SULFATE 2.5 MG/0.5 ML INH NEB SOLN NEB PRN (20:10)
[2022-10-05] MEDS ORDERED: ALPR0.25 PO (20:24)
[2022-10-05] MEDS ORDERED: CALC500C16 PO (20:24)
[2022-10-05] MEDS ORDERED: TREL1AER PO (20:24)
[2022-10-05] MEDS ORDERED: DICY10CA13 PO (20:24)
[2022-10-05] MEDS ORDERED: PANT20TA51 PO (20:24)
[2022-10-05] MEDS ORDERED: ACET650T61 PO (20:24)
[2022-10-05] MEDS ORDERED: BENZ-18 PO (20:24)
[2022-10-05] MEDS ORDERED: BUSP5TA PO (20:24)
[2022-10-05] MEDS ORDERED: SUCR1TAB56 PO (20:24)
[2022-10-05] MEDS ORDERED: HOME MED LIST COMPLETE! XX SCH (20:25)
[2022-10-05 21:30] VITALS: BP 138/69
[2022-10-05] MEDS: methylPREDNISolone 125MG 2ML VIAL IV SCH (21:32)
[2022-10-05] MEDS ORDERED: ALPRAZolam 0.25 MG TAB PO ONE (21:40)
[2022-10-06] VITALS (8 sets, daily range): BP systolic 104–127; BP diastolic 55–70; O2SAT 94
[2022-10-06 01:06] LABS: ABG BASE EXCESS 13.6 (-2.0-2.0); ABG HCO3 42.7 MEQ/L (22.0-26.0); ABG O2 SATURATION 98.7 % (95.0-99.0); ABG PARTIAL PRESSURE O2 143.2 mmHg (75.0-100.0); ABG STANDARD HCO3 37.5 MEQ/L (22.0-26.0); ABG TOTAL CO2 45.1 MEQ/L (22.0-29.0); ABG pH (ARTERIAL) 7.357 UNITS (7.350-7.450)
[2022-10-06 01:28] LABS: ABG PARTIAL PRESSURE CO2 77.9 mmHg (35.0-45.0)
[2022-10-06] MEDS ORDERED: BENZONATATE 100MG CAPSULE PO PRN (03:00)
[2022-10-06] MEDS ORDERED: MIRTAZAPINE 15 MG TAB PO ONE (03:00)
[2022-10-06] MEDS ORDERED: busPIRone 5 MG TAB PO ONE (03:00)
[2022-10-06] MEDS: IPRATROPIUM 0.5MG/ALBUTEROL 2.5MG INH SOL UD 3ML (DUONEB) NEB SCH ×5 (03:02→19:18)
[2022-10-06 04:50] LABS: HEMATOCRIT 42.1 % (36.0-47.0); HEMOGLOBIN 12.4 g/dl (12.0-15.5); MEAN CORPUSCULAR HEMOGLOBIN 26.8 pg (27.0-33.0); MEAN CORPUSCULAR HGB CONC 29.5 g/dl (32.0-36.5); MEAN CORPUSCULAR VOLUME 90.9 fl (80.0-96.0); PLATELET COUNT, AUTOMATED 289 10^3/uL (150-450); RED BLOOD COUNT 4.63 10^6/uL (4.00-5.40); WHITE BLOOD COUNT 6.3 10^3/uL (4.0-10.0)
[2022-10-06] MEDS: methylPREDNISolone 125MG 2ML VIAL IV SCH ×3 (05:40→20:20)
[2022-10-06 05:45] LABS: ABG BASE EXCESS 16.6 (-2.0-2.0); ABG HCO3 47.2 MEQ/L (22.0-26.0); ABG O2 SATURATION 95.6 % (95.0-99.0); ABG PARTIAL PRESSURE O2 82.5 mmHg (75.0-100.0); ABG STANDARD HCO3 40.6 MEQ/L (22.0-26.0); ABG TOTAL CO2 50.1 MEQ/L (22.0-29.0); ABG pH (ARTERIAL) 7.324 UNITS (7.350-7.450)
[2022-10-06 05:55] LABS: ABG PARTIAL PRESSURE CO2 92.9 mmHg (35.0-45.0)
[2022-10-06 06:09] LABS: ALBUMIN 3.7 G/DL (3.2-5.2); ALKALINE PHOSPHATASE 58 U/L (46-116); ALT/SGPT < 9 U/L (7.0-40); AST/SGOT 14 U/L (<34); BILIRUBIN,TOTAL 0.3 MG/DL (0.3-1.2); BLOOD UREA NITROGEN 6 MG/DL (9-23); CALCIUM LEVEL 9.6 MG/DL (8.5-10.1); CARBON DIOXIDE LEVEL > 40.0 MMOL/L (20-31); CHLORIDE LEVEL 94 MMOL/L (98-107); CREATININE FOR GFR 0.42 MG/DL (0.55-1.30); GLOMERULAR FILTRATION RATE > 60.0 (>51); GLUCOSE, FASTING 129 MG/DL (60-100); POTASSIUM SERUM 3.6 MMOL/L (3.5-5.1); SODIUM LEVEL 141 MMOL/L (136-145); TOTAL PROTEIN 5.9 G/DL (5.7-8.2)
[2022-10-06] MEDS: busPIRone 5 MG TAB PO SCH ×2 (08:13→20:20)
[2022-10-06] MEDS: ENOXAPARIN 40MG/0.4ML SYRINGE (J1650 PER 10MG) SC SCH (08:13)
[2022-10-06] MEDS: AZITHROMYCIN INJ 500 MG, VIAL MATE ADAPTER 1 EACH in NS 250 ML IV SCH (08:13)
[2022-10-06] MEDS: PANTOPRAZOLE 40MG VIAL IV SCH (08:13)
[2022-10-06] MEDS: SUCRALFATE 1 GM TAB PO SCH ×2 (08:13→17:53)
[2022-10-06] MEDS: NICOTINE 21MG/24HR 1 EA TRANSDERMAL TD SCH (08:14)
[2022-10-06] MEDS: SYMBICORT 160/4.5MCG INHALER 6GM INH SCH ×2 (08:23→19:18)
[2022-10-06 08:56] LABS: ABG BASE EXCESS 12.9 (-2.0-2.0); ABG HCO3 41.7 MEQ/L (22.0-26.0); ABG O2 SATURATION 95.7 % (95.0-99.0); ABG PARTIAL PRESSURE O2 78.1 mmHg (75.0-100.0); ABG STANDARD HCO3 36.7 MEQ/L (22.0-26.0); ABG pH (ARTERIAL) 7.364 UNITS (7.350-7.450)
[2022-10-06 09:05] LABS: ABG PARTIAL PRESSURE CO2 74.8 mmHg (35.0-45.0)
[2022-10-06] MEDS: ALPRAZolam 0.25 MG TAB PO PRN ×2 (10:01→15:56)
[2022-10-06] MEDS ORDERED: DICYCLOMINE 10 MG CAP PO PRN (15:55)
[2022-10-06 18:35] LABS: ABG BASE EXCESS 13.7 (-2.0-2.0); ABG HCO3 41.8 MEQ/L (22.0-26.0); ABG O2 SATURATION 95.6 % (95.0-99.0); ABG PARTIAL PRESSURE O2 77.8 mmHg (75.0-100.0); ABG STANDARD HCO3 37.5 MEQ/L (22.0-26.0); ABG TOTAL CO2 43.9 MEQ/L (22.0-29.0)
[2022-10-06 18:36] LABS: ABG PARTIAL PRESSURE CO2 70.6 mmHg (35.0-45.0)
[2022-10-06] MEDS: MONTELUKAST 10 MG TAB PO SCH (20:20)
[2022-10-06] MEDS: MIRTAZAPINE 15 MG TAB PO SCH (20:20)
[2022-10-06] MEDS: ROSUVASTATIN 10 MG TAB (CRESTOR) PO SCH (20:20)
[2022-10-07] VITALS (12 sets, daily range): BP systolic 94–136; BP diastolic 55–73
[2022-10-07] MEDS: IPRATROPIUM 0.5MG/ALBUTEROL 2.5MG INH SOL UD 3ML (DUONEB) NEB SCH ×6 (00:11→20:14)
[2022-10-07 04:57] LABS: BASO % 0.1 % (0.0-1.0); HEMOGLOBIN 11.9 g/dl (12.0-15.5); LYMPH # 1.3 10^3/uL (1.5-5.0); LYMPH % 15.1 % (24.0-44.0); MEAN CORPUSCULAR HEMOGLOBIN 26.9 pg (27.0-33.0); MEAN CORPUSCULAR HGB CONC 29.8 g/dl (32.0-36.5); MEAN CORPUSCULAR VOLUME 90.3 fl (80.0-96.0); MONO # 0.5 10^3/uL (0.0-0.8); MONO % 5.9 % (2.0-8.0); NEUTROPHILS # 6.6 10^3/uL (1.5-8.5); NEUTROPHILS % 78.5 % (36.0-66.0); PLATELET COUNT, AUTOMATED 291 10^3/uL (150-450); RED BLOOD COUNT 4.43 10^6/uL (4.00-5.40); WHITE BLOOD COUNT 8.4 10^3/uL (4.0-10.0)
[2022-10-07 05:12] LABS: CHLORIDE LEVEL 94 MMOL/L (98-107); POTASSIUM SERUM 3.6 MMOL/L (3.5-5.1); SODIUM LEVEL 141 MMOL/L (136-145)
[2022-10-07 05:13] LABS: ALBUMIN 3.5 G/DL (3.2-5.2)
[2022-10-07 05:18] LABS: ALKALINE PHOSPHATASE 53 U/L (46-116); CALCIUM LEVEL 9.4 MG/DL (8.5-10.1); GLUCOSE, FASTING 123 MG/DL (60-100)
[2022-10-07 05:20] LABS: AST/SGOT 11 U/L (<34); BILIRUBIN,TOTAL 0.2 MG/DL (0.3-1.2); CREATININE FOR GFR 0.44 MG/DL (0.55-1.30); GLOMERULAR FILTRATION RATE > 60.0 (>51)
[2022-10-07 05:24] LABS: ALT/SGPT < 9 U/L (7.0-40); BLOOD UREA NITROGEN 10 MG/DL (9-23); CARBON DIOXIDE LEVEL > 40.0 MMOL/L (20-31); TOTAL PROTEIN 5.6 G/DL (5.7-8.2)
[2022-10-07] MEDS: methylPREDNISolone 125MG 2ML VIAL IV SCH ×3 (05:26→20:06)
[2022-10-07 06:07] LABS: ABG BASE EXCESS 15.9 (-2.0-2.0); ABG O2 SATURATION 98.9 % (95.0-99.0); ABG PARTIAL PRESSURE O2 145.9 mmHg (75.0-100.0); ABG STANDARD HCO3 39.9 MEQ/L (22.0-26.0); ABG TOTAL CO2 46.2 MEQ/L (22.0-29.0); ABG pH (ARTERIAL) 7.405 UNITS (7.350-7.450)
[2022-10-07 06:11] LABS: ABG PARTIAL PRESSURE CO2 71.8 mmHg (35.0-45.0)
[2022-10-07] MEDS: SYMBICORT 160/4.5MCG INHALER 6GM INH SCH ×2 (07:21→20:24)
[2022-10-07] MEDS: NICOTINE 21MG/24HR 1 EA TRANSDERMAL TD SCH (07:46)
[2022-10-07] MEDS: AZITHROMYCIN INJ 500 MG, VIAL MATE ADAPTER 1 EACH in NS 250 ML IV SCH (07:47)
[2022-10-07] MEDS: SUCRALFATE 1 GM TAB PO SCH ×2 (07:48→18:06)
[2022-10-07] MEDS: ACETYLCYSTEINE 20% 4 ML VIAL (200MG/ML) INH SCH ×2 (08:39→20:14)
[2022-10-07] MEDS: ENOXAPARIN 40MG/0.4ML SYRINGE (J1650 PER 10MG) SC SCH (08:53)
[2022-10-07] MEDS: busPIRone 5 MG TAB PO SCH ×2 (08:53→20:07)
[2022-10-07] MEDS: PANTOPRAZOLE 40MG VIAL IV SCH (08:55)
[2022-10-07] MEDS: ALPRAZolam 0.25 MG TAB PO PRN ×2 (08:55→20:06)
[2022-10-07] MEDS: MIRTAZAPINE 15 MG TAB PO SCH (20:06)
[2022-10-07] MEDS: MONTELUKAST 10 MG TAB PO SCH (20:06)
[2022-10-07] MEDS: ROSUVASTATIN 10 MG TAB (CRESTOR) PO SCH (20:07)
[2022-10-08] VITALS (11 sets, daily range): BP systolic 102–121; BP diastolic 59–85; O2SAT 95–96
[2022-10-08] MEDS: IPRATROPIUM 0.5MG/ALBUTEROL 2.5MG INH SOL UD 3ML (DUONEB) NEB SCH ×7 (00:10→23:23)
[2022-10-08 05:03] LABS: HEMATOCRIT 40.7 % (36.0-47.0); HEMOGLOBIN 11.7 g/dl (12.0-15.5); MEAN CORPUSCULAR HEMOGLOBIN 26.8 pg (27.0-33.0); MEAN CORPUSCULAR HGB CONC 28.7 g/dl (32.0-36.5); MEAN CORPUSCULAR VOLUME 93.1 fl (80.0-96.0); PLATELET COUNT, AUTOMATED 312 10^3/uL (150-450); RED BLOOD COUNT 4.37 10^6/uL (4.00-5.40); WHITE BLOOD COUNT 10.1 10^3/uL (4.0-10.0)
[2022-10-08 05:25] LABS: CHLORIDE LEVEL 102 MMOL/L (98-107); POTASSIUM SERUM 3.8 MMOL/L (3.5-5.1); SODIUM LEVEL 143 MMOL/L (136-145)
[2022-10-08 05:26] LABS: CARBON DIOXIDE LEVEL 37 MMOL/L (20-31)
[2022-10-08 05:30] LABS: BLOOD UREA NITROGEN 12 MG/DL (9-23)
[2022-10-08 05:31] LABS: CALCIUM LEVEL 9.2 MG/DL (8.5-10.1); GLUCOSE, FASTING 111 MG/DL (60-100)
[2022-10-08 05:33] LABS: CREATININE FOR GFR 0.44 MG/DL (0.55-1.30); GLOMERULAR FILTRATION RATE > 60.0 (>51)
[2022-10-08] MEDS: methylPREDNISolone 125MG 2ML VIAL IV SCH ×2 (05:49→13:34)
[2022-10-08 06:55] LABS: ABG BASE EXCESS 9.7 (-2.0-2.0); ABG HCO3 37.6 MEQ/L (22.0-26.0); ABG O2 SATURATION 95.9 % (95.0-99.0); ABG PARTIAL PRESSURE O2 78.7 mmHg (75.0-100.0); ABG STANDARD HCO3 33.4 MEQ/L (22.0-26.0); ABG TOTAL CO2 39.8 MEQ/L (22.0-29.0); ABG pH (ARTERIAL) 7.356 UNITS (7.350-7.450)
[2022-10-08 06:57] LABS: ABG PARTIAL PRESSURE CO2 68.8 mmHg (35.0-45.0)
[2022-10-08] MEDS: SUCRALFATE 1 GM TAB PO SCH ×2 (08:10→17:05)
[2022-10-08] MEDS: PANTOPRAZOLE 40MG VIAL IV SCH (08:10)
[2022-10-08] MEDS: ENOXAPARIN 40MG/0.4ML SYRINGE (J1650 PER 10MG) SC SCH (08:10)
[2022-10-08] MEDS: MOM 30ML SUSPENSION UDC PO PRN (08:10)
[2022-10-08] MEDS: NICOTINE 21MG/24HR 1 EA TRANSDERMAL TD SCH (08:10)
[2022-10-08] MEDS: busPIRone 5 MG TAB PO SCH ×2 (08:10→20:52)
[2022-10-08] MEDS: SYMBICORT 160/4.5MCG INHALER 6GM INH SCH ×2 (08:31→19:15)
[2022-10-08] MEDS: ACETYLCYSTEINE 20% 4 ML VIAL (200MG/ML) INH SCH ×2 (08:32→19:16)
[2022-10-08] MEDS: ALPRAZolam 0.25 MG TAB PO PRN ×2 (10:40→20:51)
[2022-10-08] MEDS: ROSUVASTATIN 10 MG TAB (CRESTOR) PO SCH (20:51)
[2022-10-08] MEDS: MIRTAZAPINE 15 MG TAB PO SCH (20:51)
[2022-10-08] MEDS: MONTELUKAST 10 MG TAB PO SCH (20:52)
[2022-10-09 00:02] VITALS: BP 111/69
[2022-10-09] MEDS: IPRATROPIUM 0.5MG/ALBUTEROL 2.5MG INH SOL UD 3ML (DUONEB) NEB SCH ×3 (03:27→11:27)
[2022-10-09 04:00] VITALS: BP 140/88
[2022-10-09 05:48] LABS: HEMATOCRIT 41.2 % (36.0-47.0); MEAN CORPUSCULAR HEMOGLOBIN 26.5 pg (27.0-33.0); MEAN CORPUSCULAR HGB CONC 29.1 g/dl (32.0-36.5); MEAN CORPUSCULAR VOLUME 91.2 fl (80.0-96.0); PLATELET COUNT, AUTOMATED 284 10^3/uL (150-450); RED BLOOD COUNT 4.52 10^6/uL (4.00-5.40); WHITE BLOOD COUNT 8.4 10^3/uL (4.0-10.0)
[2022-10-09 06:08] LABS: BLOOD UREA NITROGEN 19 MG/DL (9-23); CALCIUM LEVEL 9.5 MG/DL (8.5-10.1); CARBON DIOXIDE LEVEL > 40.0 MMOL/L (20-31); CHLORIDE LEVEL 97 MMOL/L (98-107); CREATININE FOR GFR 0.52 MG/DL (0.55-1.30); GLOMERULAR FILTRATION RATE > 60.0 (>51); GLUCOSE, FASTING 82 MG/DL (60-100); POTASSIUM SERUM 3.9 MMOL/L (3.5-5.1); SODIUM LEVEL 143 MMOL/L (136-145)
[2022-10-09 07:07] VITALS: O2SAT 94
[2022-10-09] MEDS: ACETYLCYSTEINE 20% 4 ML VIAL (200MG/ML) INH SCH (07:08)
[2022-10-09] MEDS: SYMBICORT 160/4.5MCG INHALER 6GM INH SCH (07:08)
[2022-10-09 07:23] LABS: ABG BASE EXCESS 15.1 (-2.0-2.0); ABG HCO3 44.2 MEQ/L (22.0-26.0); ABG O2 SATURATION 99.4 % (95.0-99.0); ABG PARTIAL PRESSURE O2 180.3 mmHg (75.0-100.0); ABG STANDARD HCO3 39.1 MEQ/L (22.0-26.0); ABG TOTAL CO2 46.7 MEQ/L (22.0-29.0); ABG pH (ARTERIAL) 7.359 UNITS (7.350-7.450)
[2022-10-09 07:49] LABS: ABG PARTIAL PRESSURE CO2 80.3 mmHg (35.0-45.0)
[2022-10-09 07:49] LABS: VENOUS BASE EXCESS 12.9 (-2.0-2.0); VENOUS PARTIAL PRESSURE O2 137.1 mmHg (30.0-50.0); VENOUS PH 7.421 UNITS (7.330-7.430); VENOUS STANDARD HCO3 36.8 MEQ/L
[2022-10-09 08:00] VITALS: BP 112/80
[2022-10-09] MEDS: SUCRALFATE 1 GM TAB PO SCH (08:20)
[2022-10-09] MEDS: ENOXAPARIN 40MG/0.4ML SYRINGE (J1650 PER 10MG) SC SCH (08:26)
[2022-10-09] MEDS: NICOTINE 21MG/24HR 1 EA TRANSDERMAL TD SCH (08:26)
[2022-10-09] MEDS: busPIRone 5 MG TAB PO SCH (08:27)
[2022-10-09] MEDS ORDERED: predniSONE 50 MG TAB PO SCH (09:00)
[2022-10-09] MEDS ORDERED: PANTOPRAZOLE 40MG TAB (PROTONIX) PO SCH (09:00)
[2022-10-09] MEDS: MOM 30ML SUSPENSION UDC PO PRN (10:13)
[2022-10-09] MEDS: ALPRAZolam 0.25 MG TAB PO PRN (10:13)
[2022-10-09 12:00] VITALS: BP 120/56
[2022-10-09] MEDS ORDERED: PRED50TA PO (12:35)
== END 2022-10-09 14:34 | disposition home or self-care (01) | DRG 189 ==
LOC: M ED 16:41 → M ED INP 19:47 → ENRESERV 21:15 → M ICU 21:18
PROVIDERS: ADMIT Internal Medicine Critical Care Medicine; ATTEND Internal Medicine Critical Care Medicine
DX: J96.21 Acute and chronic respiratory failure with hypoxia (principal); J44.1 Chronic obstructive pulmonary disease with (acute) exacerbation; E87.3 Alkalosis; J96.22 Acute and chronic respiratory failure with hypercapnia; Z99.81 Dependence on supplemental oxygen; E78.5 Hyperlipidemia, unspecified; K21.9 Gastro-esophageal reflux disease without esophagitis; F32.A Depression, unspecified; Z96.642 Presence of left artificial hip joint; Z90.79 Acquired absence of other genital organ(s); F17.210 Nicotine dependence, cigarettes, uncomplicated; Z20.822 Contact with and (suspected) exposure to COVID-19; Z79.899 Other long term (current) drug therapy; K59.00 Constipation, unspecified; F41.9 Anxiety disorder, unspecified

== ENCOUNTER → 2023-09-20 | Outpatient (CLI) | payer MEDICARE, OTHER ==
[~2023-09-20] MED LIST changes: +ACET650T61 PO; +BENZ-18 PO; +BUSP5TA PO; +CALC500C16 PO; +DICY-61 PO; -DICY10CA13 PO; +NYST-38 SS; -NYST50SS SS; +PANT20TA51 PO; +PRED50TA PO; -ROSU20TA5 PO; +ROSU20TA61 PO; +SUCR1TAB56 PO
== END ==
LOC: M SLEEP 20:00
PROVIDERS: ATTEND Internal Medicine Critical Care Medicine
DX: G47.33 Obstructive sleep apnea (adult) (pediatric) (principal); J96.11 Chronic respiratory failure with hypoxia; J96.12 Chronic respiratory failure with hypercapnia

== ENCOUNTER 2023-10-28 23:25 | Inpatient (IN) | payer MEDICARE, OTHER ==
[~2023-10-28] VITALS: Ht 157.5 cm; Wt 69.8 kg
[2023-10-29] VITALS (57 sets, daily range): BP systolic 75–166; BP diastolic 52–107; TEMP 94.5–99; O2SAT 75–100
[2023-10-29 00:24] LABS: CK-MB VALUE MASS < 1.0 NG/ML (<3.6); LIPASE 42 U/L (12-53)
[2023-10-29 00:25] LABS: CPK CREATINE PHOSPHOKINASE 31 U/L (34-145); MB/CK RELATIVE INDEX 3.22 (< OR =4)
[2023-10-29 00:26] LABS: ALKALINE PHOSPHATASE 88 U/L (46-116); ALT/SGPT 12 U/L (7.0-40); AST/SGOT 12 U/L (<34); BILIRUBIN,DIRECT 0.1 MG/DL (<0.4); BILIRUBIN,TOTAL 0.3 MG/DL (0.3-1.2); BLOOD UREA NITROGEN 9 MG/DL (9-23); CARBON DIOXIDE LEVEL 28 MMOL/L (20-31); CHLORIDE LEVEL 106 MMOL/L (98-107); CREATININE FOR GFR 0.42 MG/DL (0.55-1.30); GLOMERULAR FILTRATION RATE > 60.0 (>51); GLUCOSE, FASTING 132 MG/DL (60-100); POTASSIUM SERUM 4.3 MMOL/L (3.5-5.1); SODIUM LEVEL 140 MMOL/L (136-145); TOTAL PROTEIN 6.5 G/DL (5.7-8.2)
[2023-10-29 00:32] LABS: BASO % 0.1 % (0.0-1.0); HEMATOCRIT 43.9 % (36.0-47.0); HEMOGLOBIN 13.9 g/dl (12.0-15.5); LYMPH # 1.2 10^3/uL (1.5-5.0); LYMPH % 18.3 % (24.0-44.0); MEAN CORPUSCULAR HEMOGLOBIN 28.4 pg (27.0-33.0); MEAN CORPUSCULAR HGB CONC 31.7 g/dl (32.0-36.5); MEAN CORPUSCULAR VOLUME 89.8 fl (80.0-96.0); MONO # 0.3 10^3/uL (0.0-0.8); MONO % 4.9 % (2.0-8.0); NEUTROPHILS # 5.2 10^3/uL (1.5-8.5); NEUTROPHILS % 76.4 % (36.0-66.0); PLATELET COUNT, AUTOMATED 304 10^3/uL (150-450); RED BLOOD COUNT 4.89 10^6/uL (4.00-5.40); WHITE BLOOD COUNT 6.8 10^3/uL (4.0-10.0)
[2023-10-29] MEDS ORDERED: KETOROLAC 30 MG/ML 1ML VIAL IV ONE (01:00)
[2023-10-29] MEDS ORDERED: KETOROLAC 30 MG/ML 1ML VIAL As Ordered ONE (01:01)
[2023-10-29 02:00] LABS: CK-MB VALUE MASS < 1.0 NG/ML (<3.6)
[2023-10-29 02:01] LABS: CPK CREATINE PHOSPHOKINASE 25 U/L (34-145)
[2023-10-29] MEDS: HYDROMORPHONE HCL 0.5 MG/ 0.5 ML SYRINGE IV PRN ×2 (02:11→03:53)
[2023-10-29] MEDS ORDERED: HYDROMORPHONE HCL 0.5 MG/ 0.5 ML SYRINGE IV PRN ×2 (04:40)
[2023-10-29] MEDS: LR 1,000 ML IV SCH ×3 (05:36→20:25)
[2023-10-29] MEDS ORDERED: ONDANSETRON 4MG 2ML VIAL IV ONE (05:40)
[2023-10-29] MEDS: IPRATROPIUM 0.5MG/ALBUTEROL 2.5MG INH SOL UD 3ML (DUONEB) NEB SCH ×3 (07:12→19:19)
[2023-10-29] MEDS ORDERED: MORPHINE 2 MG/ML 1ML VIAL IV PRN (08:50)
[2023-10-29] MEDS: PANTOPRAZOLE 40MG VIAL IV SCH (09:29)
[2023-10-29] MEDS: NICOTINE 21MG/24HR 1 EA TRANSDERMAL TD SCH (09:29)
[2023-10-29] MEDS: ALPRAZolam 0.25 MG TAB PO PRN (09:29)
[2023-10-29 10:01] LABS: BASO % 0.1 % (0.0-1.0); EOS % 0.1 % (0.0-3.0); LYMPH # 1.5 10^3/uL (1.5-5.0); LYMPH % 8.1 % (24.0-44.0); MEAN CORPUSCULAR HEMOGLOBIN 28.5 pg (27.0-33.0); MEAN CORPUSCULAR HGB CONC 31.2 g/dl (32.0-36.5); MEAN CORPUSCULAR VOLUME 91.2 fl (80.0-96.0); MONO # 1.2 10^3/uL (0.0-0.8); MONO % 6.8 % (2.0-8.0); NEUTROPHILS # 15.4 10^3/uL (1.5-8.5); NEUTROPHILS % 84.6 % (36.0-66.0); PLATELET COUNT, AUTOMATED 343 10^3/uL (150-450); RED BLOOD COUNT 6.04 10^6/uL (4.00-5.40); WHITE BLOOD COUNT 18.2 10^3/uL (4.0-10.0)
[2023-10-29 10:21] LABS: HEMATOCRIT 55.1 % (36.0-47.0); HEMOGLOBIN 17.2 g/dl (12.0-15.5)
[2023-10-29 10:29] LABS: ALBUMIN 3.8 G/DL (3.2-5.2); ALKALINE PHOSPHATASE 94 U/L (46-116); ALT/SGPT 10 U/L (7.0-40); AST/SGOT 12 U/L (<34); BILIRUBIN,TOTAL 0.4 MG/DL (0.3-1.2); BLOOD UREA NITROGEN 12 MG/DL (9-23); CALCIUM LEVEL 9.8 MG/DL (8.5-10.1); CARBON DIOXIDE LEVEL 29 MMOL/L (20-31); CHLORIDE LEVEL 101 MMOL/L (98-107); CREATININE FOR GFR 0.52 MG/DL (0.55-1.30); GLOMERULAR FILTRATION RATE > 60.0 (>51); GLUCOSE, FASTING 145 MG/DL (60-100); POTASSIUM SERUM 4.9 MMOL/L (3.5-5.1); SODIUM LEVEL 137 MMOL/L (136-145); TOTAL PROTEIN 6.3 G/DL (5.7-8.2)
[2023-10-29] MEDS ORDERED: BUSP15TA47 PO (12:26)
[2023-10-29] MEDS ORDERED: PRED20TA PO (12:26)
[2023-10-29] MEDS ORDERED: BUDE0.5S6 INH (12:26)
[2023-10-29] MEDS ORDERED: MIRT1TAB17 PO (12:26)
[2023-10-29] MEDS ORDERED: IPRA0.00 INH (12:26)
[2023-10-29] MEDS ORDERED: HOME MED LIST COMPLETE! XX SCH (12:30)
[2023-10-29] MEDS: KETOROLAC 30 MG/ML 1ML VIAL IV PRN (12:48)
[2023-10-29] MEDS ORDERED: LIDOCAINE 2% 100MG/5ML SDV (FOR ANES.) As Ordered ONE (13:28)
[2023-10-29] MEDS ORDERED: propofoL 200 MG/20 ML VIAL As Ordered ONE (13:28)
[2023-10-29] MEDS ORDERED: MIDAZOLAM INJ 2MG/2ML VIAL As Ordered ONE (13:28)
[2023-10-29] MEDS ORDERED: fentaNYL 100 MCG/2 ML INJECTION As Ordered ONE ×2 (13:28→14:24)
[2023-10-29] MEDS ORDERED: ROCURONIUM BROMIDE 50MG/5ML VIAL As Ordered ONE ×2 (13:28→17:38)
[2023-10-29] MEDS ORDERED: ALBUTEROL SULFATE 2.5MG/0.5ML INH NEB SOLN INH ONE (13:40)
[2023-10-29] MEDS ORDERED: oxyCODONE 5MG TAB PO PRN (13:40)
[2023-10-29] MEDS ORDERED: fentaNYL 100 MCG/2 ML INJECTION IV PRN (13:40)
[2023-10-29] MEDS ORDERED: ONDANSETRON 4MG 2ML VIAL IV PRN (13:40)
[2023-10-29] MEDS ORDERED: metroNIDAZOLE/NACL 500MG(5MG/ML) 100ML BAG As Ordered ONE (13:41)
[2023-10-29] MEDS ORDERED: ceFAZolin 2 GM/D5W 50 ML IV BAG As Ordered ONE (13:42)
[2023-10-29] MEDS ORDERED: SUCCINYLCHOLINE 100MG/5ML SYRINGE As Ordered ONE (13:48)
[2023-10-29] MEDS ORDERED: VASOPRESSIN INJ 20UNITS/ML 1ML VIAL As Ordered ONE ×2 (14:04→17:09)
[2023-10-29] MEDS ORDERED: EPINEPHrine 1MG/10ML SYRINGE 1.5IN As Ordered ONE (14:23)
[2023-10-29] MEDS ORDERED: SODIUM BICARBONATE 8.4% INJ 50ML SYRINGE As Ordered ONE ×2 (14:25→17:13)
[2023-10-29] MEDS ORDERED: CALCIUM CHLORIDE 10% 1 GM/10 ML SYR As Ordered ONE (14:25)
[2023-10-29] MEDS ORDERED: NOREPINEPHRINE 4MG/4ML AMP As Ordered ONE (14:38)
[2023-10-29] MEDS ORDERED: fentaNYL 100 MCG/2 ML INJECTION IV ONE (16:20)
[2023-10-29] MEDS ORDERED: propofoL 1,000 MG in IV 1 EA IV SCH (16:20)
[2023-10-29] MEDS ORDERED: PROPOFOL 1,000 MG/100 ML VIAL As Ordered ONE (16:24)
[2023-10-29] MEDS ORDERED: LR 1,000 ML IV ONE (16:55)
[2023-10-29 16:56] LABS: ABG BASE EXCESS -4.2 (-2.0-2.0); ABG O2 SATURATION 98.9 % (95.0-99.0); ABG PARTIAL PRESSURE CO2 58.5 mmHg (35.0-45.0); ABG PARTIAL PRESSURE O2 186.9 mmHg (75.0-100.0); ABG TOTAL CO2 25.8 MMOL/L (22.0-29.0); ABG pH (ARTERIAL) 7.231 UNITS (7.350-7.450)
[2023-10-29 17:00] LABS: BASO % 0.2 % (0.0-1.0); LYMPH # 1.1 10^3/uL (1.5-5.0); LYMPH % 5.6 % (24.0-44.0); MEAN CORPUSCULAR HGB CONC 31.4 g/dl (32.0-36.5); MEAN CORPUSCULAR VOLUME 92.3 fl (80.0-96.0); MONO # 1.1 10^3/uL (0.0-0.8); MONO % 5.7 % (2.0-8.0); NEUTROPHILS # 16.5 10^3/uL (1.5-8.5); NEUTROPHILS % 87.6 % (36.0-66.0); WHITE BLOOD COUNT 18.8 10^3/uL (4.0-10.0)
[2023-10-29] MEDS ORDERED: FENTANYL DRIP LOCK BOX KEY 1 EACH XX PRN (17:00)
[2023-10-29] MEDS ORDERED: LR 1,000 ML IV SCH (17:00)
[2023-10-29 17:04] LABS: HEMOGLOBIN 11.3 g/dl (12.0-15.5); PLATELET COUNT, AUTOMATED 211 10^3/uL (150-450)
[2023-10-29] MEDS: fentaNYL CITRATE/NaCl 1,000 MCG in IV 1 EA IV SCH ×2 (17:05→19:00)
[2023-10-29] MEDS: MIDAZOLAM INJ 2MG/2ML VIAL IV PRN (17:06)
[2023-10-29] MEDS ORDERED: SODIUM BICARBONATE 8.4% INJ 50ML SYRINGE IV STA (17:09)
[2023-10-29] MEDS ORDERED: EPINEPHrine INJ 1 MG/ML 1ML AMP As Ordered ONE (17:15)
[2023-10-29] MEDS ORDERED: PHENYLEPHRINE 10MG/ML 1ML VIAL As Ordered ONE (17:16)
[2023-10-29 17:30] LABS: FREE T4 1.66 NG/DL (0.89-1.76); THYROID STIMULATING HORMONE 2.793 uIU/ML (0.55-4.78)
[2023-10-29] MEDS ORDERED: VASOPRESSIN INJ 20 UNITS in NS 499 ML IV SCH (17:30)
[2023-10-29 17:33] LABS: ALBUMIN 1.8 G/DL (3.2-5.2); ALKALINE PHOSPHATASE 50 U/L (46-116); ALT/SGPT 12 U/L (7.0-40); AST/SGOT 16 U/L (<34); BILIRUBIN,TOTAL 0.3 MG/DL (0.3-1.2); BLOOD UREA NITROGEN 13 MG/DL (9-23); CALCIUM LEVEL 7.6 MG/DL (8.5-10.1); CARBON DIOXIDE LEVEL 25 MMOL/L (20-31); CHLORIDE LEVEL 115 MMOL/L (98-107); CREATININE FOR GFR 0.64 MG/DL (0.55-1.30); GLOMERULAR FILTRATION RATE > 60.0 (>51); GLUCOSE, FASTING 158 MG/DL (60-100); POTASSIUM SERUM 3.7 MMOL/L (3.5-5.1); SODIUM LEVEL 145 MMOL/L (136-145)
[2023-10-29] MEDS ORDERED: ROCURONIUM BROMIDE 50MG/5ML VIAL IV ONE (17:40)
[2023-10-29] MEDS ORDERED: MIDAZOLAM 100MG/100ML-0.9%NACL 100 MG in IV 1 EA IV SCH (18:00)
[2023-10-29 18:11] LABS: ABG BASE EXCESS 4.4 (-2.0-2.0); ABG HCO3 29.1 MMOL/L (22.0-26.0); ABG PARTIAL PRESSURE CO2 44.4 mmHg (35.0-45.0); ABG PARTIAL PRESSURE O2 191.3 mmHg (75.0-100.0); ABG STANDARD HCO3 28.4 MMOL/L. (22.0-26.0); ABG TOTAL CO2 30.5 MMOL/L (22.0-29.0); ABG pH (ARTERIAL) 7.435 UNITS (7.350-7.450)
[2023-10-29] MEDS ORDERED: PHENYLEPHRINE HCL INJ 50 MG in D5W 495 ML IV SCH (18:30)
[2023-10-29] MEDS ORDERED: SODIUM BICARBONATE 8.4% INJ 50ML SYRINGE ONE (18:45)
[2023-10-29] MEDS ORDERED: EPINEPHrine 1MG/10ML SYRINGE 1.5IN ONE (18:45)
[2023-10-29] MEDS ORDERED: SODIUM BICARBONATE 8.4% INJ 50ML SYRINGE IV ONE ×2 (19:00→20:00)
[2023-10-29] MEDS ORDERED: SODIUM BICARBONATE 150 MEQ in D5W 1,000 ML IV SCH (19:00)
[2023-10-29] MEDS ORDERED: CISATRACURIUM 200 MG in NS 480 ML IV SCH (19:00)
[2023-10-29 19:36] LABS: ABG BASE EXCESS 2.8 (-2.0-2.0); ABG HCO3 28.3 MMOL/L (22.0-26.0); ABG O2 SATURATION 99.2 % (95.0-99.0); ABG PARTIAL PRESSURE CO2 47.3 mmHg (35.0-45.0); ABG PARTIAL PRESSURE O2 193.5 mmHg (75.0-100.0); ABG TOTAL CO2 29.8 MMOL/L (22.0-29.0); ABG pH (ARTERIAL) 7.395 UNITS (7.350-7.450)
[2023-10-29] MEDS: HYDROCORTISONE 100MG/2ML VIAL IV SCH (19:54)
[2023-10-29] MEDS: PIPERACILLIN/TAZOBACTAM SOD 4.5 GM in D5W MINI-BAG PLUS 50 ML IV SCH (19:54)
[2023-10-30] VITALS (63 sets, daily range): BP systolic 77–155; BP diastolic 50–89; TEMP 98.8–101.3; O2SAT 91–100
[2023-10-30] MEDS: LR 1,000 ML IV SCH ×2 (00:28→16:25)
[2023-10-30] MEDS: VASOPRESSIN INJ 20 UNITS in NS 499 ML IV SCH ×2 (00:28→08:51)
[2023-10-30] MEDS: PIPERACILLIN/TAZOBACTAM SOD 4.5 GM in D5W MINI-BAG PLUS 50 ML IV SCH ×4 (01:17→19:55)
[2023-10-30] MEDS: NOREPINEPHRINE 4MG IN D5 250ML 4 MG in IV 1 EA IV SCH ×4 (01:17→06:48)
[2023-10-30] MEDS: HYDROCORTISONE 100MG/2ML VIAL IV SCH ×3 (01:18→19:54)
[2023-10-30] MEDS: fentaNYL CITRATE/NaCl 1,000 MCG in IV 1 EA IV SCH (01:30)
[2023-10-30] MEDS ORDERED: fentaNYL CITRATE/NaCl 1,000 MCG in IV 1 EA IV SCH (01:30)
[2023-10-30] MEDS ORDERED: VASOPRESSIN INJ 20 UNITS in NS 499 ML IV SCH (02:00)
[2023-10-30] MEDS ORDERED: ACETAMINOPHEN *IV* 1,000 MG in IV 1 EA IV ONE (02:15)
[2023-10-30] MEDS: IPRATROPIUM 0.5MG/ALBUTEROL 2.5MG INH SOL UD 3ML (DUONEB) NEB SCH ×4 (03:00→19:04)
[2023-10-30] MEDS: MIDAZOLAM INJ 2MG/2ML VIAL IV PRN (03:48)
[2023-10-30 05:00] LABS: ALKALINE PHOSPHATASE 46 U/L (46-116); ALT/SGPT 11 U/L (7.0-40); AST/SGOT 21 U/L (<34); BILIRUBIN,TOTAL 0.4 MG/DL (0.3-1.2); BLOOD UREA NITROGEN 15 MG/DL (9-23); CALCIUM LEVEL 7.5 MG/DL (8.5-10.1); CARBON DIOXIDE LEVEL 30 MMOL/L (20-31); CHLORIDE LEVEL 104 MMOL/L (98-107); CREATININE FOR GFR 0.68 MG/DL (0.55-1.30); GLOMERULAR FILTRATION RATE > 60.0 (>51); GLUCOSE, FASTING 186 MG/DL (60-100); POTASSIUM SERUM 3.7 MMOL/L (3.5-5.1); SODIUM LEVEL 140 MMOL/L (136-145); TOTAL PROTEIN 3.4 G/DL (5.7-8.2)
[2023-10-30 05:30] LABS: BASO % 0.1 % (0.0-1.0); HEMATOCRIT 30.7 % (36.0-47.0); HEMOGLOBIN 10.1 g/dl (12.0-15.5); LYMPH % 13.9 % (24.0-44.0); MEAN CORPUSCULAR HEMOGLOBIN 29.5 pg (27.0-33.0); MEAN CORPUSCULAR HGB CONC 32.9 g/dl (32.0-36.5); MEAN CORPUSCULAR VOLUME 89.8 fl (80.0-96.0); MONO # 1.1 10^3/uL (0.0-0.8); MONO % 7.3 % (2.0-8.0); NEUTROPHILS # 11.2 10^3/uL (1.5-8.5); NEUTROPHILS % 78.4 % (36.0-66.0); PLATELET COUNT, AUTOMATED 204 10^3/uL (150-450); RED BLOOD COUNT 3.42 10^6/uL (4.00-5.40); WHITE BLOOD COUNT 14.4 10^3/uL (4.0-10.0)
[2023-10-30 06:03] LABS: ABG HCO3 26.2 MMOL/L (22.0-26.0); ABG O2 SATURATION 98.2 % (95.0-99.0); ABG PARTIAL PRESSURE CO2 39.2 mmHg (35.0-45.0); ABG PARTIAL PRESSURE O2 109.3 mmHg (75.0-100.0); ABG STANDARD HCO3 26.3 MMOL/L. (22.0-26.0); ABG TOTAL CO2 27.4 MMOL/L (22.0-29.0); ABG pH (ARTERIAL) 7.443 UNITS (7.350-7.450)
[2023-10-30] MEDS: PANTOPRAZOLE 40MG VIAL IV SCH ×2 (08:07→20:41)
[2023-10-30] MEDS: NICOTINE 21MG/24HR 1 EA TRANSDERMAL TD SCH (08:08)
[2023-10-30] MEDS ORDERED: LR 1,000 ML IV ONE (09:00)
[2023-10-30] MEDS ORDERED: ENOXAPARIN 40MG/0.4ML SYRINGE (J1650 PER 10MG) SC SCH (09:00)
[2023-10-30] MEDS: fentaNYL 100 MCG/2 ML INJECTION IV SCH ×2 (10:52→12:50)
[2023-10-30] MEDS ORDERED: LORazepam 2 MG/ML 1ML VIAL IV ONE (12:00)
[2023-10-30] MEDS: KETOROLAC 30 MG/ML 1ML VIAL IV PRN (12:06)
[2023-10-30] MEDS ORDERED: MORPHINE 4 MG/ML 1ML VIAL IV PRN (14:00)
[2023-10-30] MEDS ORDERED: ALBUTEROL SULFATE 2.5MG/0.5ML INH NEB SOLN NEB ONE (14:10)
[2023-10-30] MEDS: ALPRAZolam 0.25 MG TAB PO PRN (14:54)
[2023-10-30] MEDS ORDERED: KETOROLAC 30 MG/ML 1ML VIAL IV ONE (15:00)
[2023-10-30] MEDS: ADVAIR HFA 45/21MCG INHALER INH SCH (19:04)
[2023-10-30] MEDS: BUDESONIDE 0.25 MG/2 ML INHALATION SUSPENSION INH SCH (19:36)
[2023-10-30] MEDS ORDERED: SYMBICORT 160/4.5MCG INHALER 6GM INH SCH (20:00)
[2023-10-30] MEDS ORDERED: NS 1,000 ML IV ONE (20:00)
[2023-10-30] MEDS: MORPHINE 4 MG/ML 1ML VIAL IV PRN (20:41)
[2023-10-30] MEDS: KETOROLAC 30 MG/ML 1ML VIAL IV SCH (20:42)
[2023-10-31] VITALS (20 sets, daily range): BP systolic 84–115; BP diastolic 49–69; TEMP 98.5–100.9; O2SAT 94–100
[2023-10-31] MEDS: MORPHINE 4 MG/ML 1ML VIAL IV PRN ×4 (00:43→15:49)
[2023-10-31] MEDS: IPRATROPIUM 0.5MG/ALBUTEROL 2.5MG INH SOL UD 3ML (DUONEB) NEB SCH ×4 (00:53→19:39)
[2023-10-31] MEDS ORDERED: guaiFENesin 200 MG TAB PO ONE (01:30)
[2023-10-31] MEDS: PIPERACILLIN/TAZOBACTAM SOD 4.5 GM in D5W MINI-BAG PLUS 50 ML IV SCH ×4 (01:39→20:27)
[2023-10-31] MEDS: KETOROLAC 30 MG/ML 1ML VIAL IV SCH ×4 (02:45→20:26)
[2023-10-31] MEDS: ALBUTEROL SULFATE 2.5MG/0.5ML INH NEB SOLN NEB PRN (04:40)
[2023-10-31 04:46] LABS: BASO % 0.1 % (0.0-1.0); HEMATOCRIT 26.9 % (36.0-47.0); HEMOGLOBIN 8.5 g/dl (12.0-15.5); LYMPH # 1.2 10^3/uL (1.5-5.0); MEAN CORPUSCULAR HEMOGLOBIN 29.1 pg (27.0-33.0); MEAN CORPUSCULAR HGB CONC 31.6 g/dl (32.0-36.5); MEAN CORPUSCULAR VOLUME 92.1 fl (80.0-96.0); MONO # 1.2 10^3/uL (0.0-0.8); NEUTROPHILS # 11.3 10^3/uL (1.5-8.5); NEUTROPHILS % 81.6 % (36.0-66.0); PLATELET COUNT, AUTOMATED 141 10^3/uL (150-450); RED BLOOD COUNT 2.92 10^6/uL (4.00-5.40); WHITE BLOOD COUNT 13.8 10^3/uL (4.0-10.0)
[2023-10-31 05:24] LABS: BLOOD UREA NITROGEN 10 MG/DL (9-23); CARBON DIOXIDE LEVEL 31 MMOL/L (20-31); CHLORIDE LEVEL 107 MMOL/L (98-107); CREATININE FOR GFR 0.57 MG/DL (0.55-1.30); GLOMERULAR FILTRATION RATE > 60.0 (>51); GLUCOSE, FASTING 85 MG/DL (60-100); POTASSIUM SERUM 3.8 MMOL/L (3.5-5.1); SODIUM LEVEL 144 MMOL/L (136-145)
[2023-10-31] MEDS: ADVAIR HFA 45/21MCG INHALER INH SCH ×2 (07:17→19:38)
[2023-10-31] MEDS: BUDESONIDE 0.25 MG/2 ML INHALATION SUSPENSION INH SCH ×2 (07:18→19:39)
[2023-10-31] MEDS: HYDROCORTISONE 100MG/2ML VIAL IV SCH ×2 (08:11→20:27)
[2023-10-31] MEDS: PANTOPRAZOLE 40MG VIAL IV SCH ×2 (08:12→20:26)
[2023-10-31] MEDS: NICOTINE 21MG/24HR 1 EA TRANSDERMAL TD SCH (08:12)
[2023-10-31] MEDS ORDERED: ALPRAZolam 0.25 MG TAB PO SCH (09:00)
[2023-10-31] MEDS: LR 1,000 ML IV SCH ×2 (12:25)
[2023-10-31] MEDS: ENOXAPARIN 40MG/0.4ML SYRINGE (J1650 PER 10MG) SC SCH (12:25)
[2023-10-31] MEDS ORDERED: LORazepam 2 MG/ML 1ML VIAL IV PRN (12:40)
[2023-10-31] MEDS: LORazepam 2 MG/ML 1ML VIAL IM SCH (14:30)
[2023-10-31] MEDS ORDERED: SODIUM CHLORIDE 0.9% 1000ML IV ONE (16:45)
[2023-10-31] MEDS ORDERED: LORazepam 2 MG/ML 1ML VIAL IM PRN (17:00)
[2023-11-01] VITALS (7 sets, daily range): BP systolic 87–118; BP diastolic 52–62; TEMP 96.8–99.1; O2SAT 93–98
[2023-11-01] MEDS: LR 1,000 ML IV SCH ×2 (01:33→14:47)
[2023-11-01] MEDS: PIPERACILLIN/TAZOBACTAM SOD 4.5 GM in D5W MINI-BAG PLUS 50 ML IV SCH ×4 (01:56→20:14)
[2023-11-01] MEDS: IPRATROPIUM 0.5MG/ALBUTEROL 2.5MG INH SOL UD 3ML (DUONEB) NEB SCH ×4 (01:58→19:46)
[2023-11-01] MEDS: KETOROLAC 30 MG/ML 1ML VIAL IV SCH ×4 (03:19→21:25)
[2023-11-01] MEDS: ENOXAPARIN 40MG/0.4ML SYRINGE (J1650 PER 10MG) SC SCH (09:00)
[2023-11-01] MEDS: PANTOPRAZOLE 40MG VIAL IV SCH ×2 (09:00→21:25)
[2023-11-01] MEDS: NICOTINE 21MG/24HR 1 EA TRANSDERMAL TD SCH (09:00)
[2023-11-01] MEDS: BUDESONIDE 0.25 MG/2 ML INHALATION SUSPENSION INH SCH ×2 (09:16→19:45)
[2023-11-01] MEDS: ADVAIR HFA 45/21MCG INHALER INH SCH ×2 (09:16→19:46)
[2023-11-01] MEDS: LORazepam 2 MG/ML 1ML VIAL IV PRN ×2 (09:35→18:30)
[2023-11-01] MEDS: HYDROCORTISONE 100MG/2ML VIAL IV SCH ×2 (10:27→20:15)
[2023-11-01] MEDS: CALCIUM CARBONATE 500 MG CHEW U/D PO PRN (14:44)
[2023-11-01] MEDS: LORazepam 2 MG/ML 1ML VIAL IM SCH (14:47)
[2023-11-01] MEDS: ALBUTEROL SULFATE 2.5MG/0.5ML INH NEB SOLN NEB PRN (15:54)
[2023-11-02] VITALS: BP 102/50; TEMP 97.6; O2SAT 96
[2023-11-02] MEDS: IPRATROPIUM 0.5MG/ALBUTEROL 2.5MG INH SOL UD 3ML (DUONEB) NEB SCH ×5 (02:00→23:06)
[2023-11-02] MEDS: PIPERACILLIN/TAZOBACTAM SOD 4.5 GM in D5W MINI-BAG PLUS 50 ML IV SCH ×4 (02:38→20:16)
[2023-11-02] MEDS: KETOROLAC 30 MG/ML 1ML VIAL IV SCH ×4 (03:20→20:17)
[2023-11-02] MEDS: LR 1,000 ML IV SCH (03:49)
[2023-11-02 04:00] VITALS: BP 100/60; TEMP 97.3; O2SAT 100
[2023-11-02] MEDS: LORazepam 2 MG/ML 1ML VIAL IV PRN (05:07)
[2023-11-02] MEDS: ALBUTEROL SULFATE 2.5MG/0.5ML INH NEB SOLN NEB PRN (05:11)
[2023-11-02 07:28] VITALS: BP 126/73; TEMP 97.5; O2SAT 93
[2023-11-02] MEDS ORDERED: D5W/0.9% SODIUM CHLORIDE 1,000 ML IV SCH (07:35)
[2023-11-02] MEDS: ADVAIR HFA 45/21MCG INHALER INH SCH ×2 (07:36→19:41)
[2023-11-02] MEDS: BUDESONIDE 0.25 MG/2 ML INHALATION SUSPENSION INH SCH ×2 (07:36→19:41)
[2023-11-02] MEDS ORDERED: PERCOCET 5MG/325MG TAB PO PRN (08:30)
[2023-11-02] MEDS ORDERED: predniSONE 10MG TAB PO SCH (09:00)
[2023-11-02] MEDS: NICOTINE 21MG/24HR 1 EA TRANSDERMAL TD SCH (09:47)
[2023-11-02] MEDS: ALPRAZolam 0.25 MG TAB PO PRN ×3 (09:47→22:28)
[2023-11-02] MEDS: ENOXAPARIN 40MG/0.4ML SYRINGE (J1650 PER 10MG) SC SCH (09:47)
[2023-11-02] MEDS: busPIRone 5 MG TAB PO SCH ×2 (09:47→22:28)
[2023-11-02] MEDS: MONTELUKAST 10 MG TAB PO SCH (09:47)
[2023-11-02] MEDS: PANTOPRAZOLE 40MG VIAL IV SCH ×2 (09:47→20:16)
[2023-11-02] MEDS ORDERED: methylPREDNISolone 40MG 1ML VIAL IV SCH (10:00)
[2023-11-02 16:00] VITALS: BP 114/63; TEMP 97.6; O2SAT 98
[2023-11-02 18:12] LABS: HEMATOCRIT 24.8 % (36.0-47.0); HEMOGLOBIN 7.6 g/dl (12.0-15.5); MEAN CORPUSCULAR HEMOGLOBIN 28.4 pg (27.0-33.0); MEAN CORPUSCULAR HGB CONC 30.6 g/dl (32.0-36.5); MEAN CORPUSCULAR VOLUME 92.5 fl (80.0-96.0); PLATELET COUNT, AUTOMATED 217 10^3/uL (150-450); RED BLOOD COUNT 2.68 10^6/uL (4.00-5.40); WHITE BLOOD COUNT 11.3 10^3/uL (4.0-10.0)
[2023-11-02 18:35] LABS: BLOOD UREA NITROGEN 11 MG/DL (9-23); CALCIUM LEVEL 8.4 MG/DL (8.5-10.1); CARBON DIOXIDE LEVEL 30 MMOL/L (20-31); CHLORIDE LEVEL 106 MMOL/L (98-107); CREATININE FOR GFR 0.55 MG/DL (0.55-1.30); GLOMERULAR FILTRATION RATE > 60.0 (>51); GLUCOSE, FASTING 95 MG/DL (60-100); POTASSIUM SERUM 3.2 MMOL/L (3.5-5.1); SODIUM LEVEL 144 MMOL/L (136-145)
[2023-11-02] MEDS ORDERED: POTASSIUM CHLORIDE 10MEQ SR TABLET PO ONE (19:50)
[2023-11-02 20:12] VITALS: BP 107/66; TEMP 98.9; O2SAT 99
[2023-11-02] MEDS: methylPREDNISolone 40MG 1ML VIAL IV SCH (20:16)
[2023-11-02] MEDS: ROSUVASTATIN 10 MG TAB (CRESTOR) PO SCH (20:18)
[2023-11-02] MEDS: MIRTAZAPINE 15 MG TAB PO SCH (22:28)
[2023-11-03] VITALS (10 sets, daily range): BP systolic 114–143; BP diastolic 70–90; TEMP 97.2–98.8; O2SAT 94–99
[2023-11-03] MEDS: PIPERACILLIN/TAZOBACTAM SOD 4.5 GM in D5W MINI-BAG PLUS 50 ML IV SCH ×4 (02:15→21:30)
[2023-11-03] MEDS: KETOROLAC 30 MG/ML 1ML VIAL IV SCH ×4 (04:06→21:36)
[2023-11-03 06:16] LABS: BASO % 0.1 % (0.0-1.0); HEMATOCRIT 27.5 % (36.0-47.0); HEMOGLOBIN 8.4 g/dl (12.0-15.5); LYMPH # 0.5 10^3/uL (1.5-5.0); LYMPH % 4.7 % (24.0-44.0); MEAN CORPUSCULAR HEMOGLOBIN 28.7 pg (27.0-33.0); MEAN CORPUSCULAR HGB CONC 30.5 g/dl (32.0-36.5); MEAN CORPUSCULAR VOLUME 93.9 fl (80.0-96.0); MONO # 0.6 10^3/uL (0.0-0.8); MONO % 5.3 % (2.0-8.0); NEUTROPHILS # 9.8 10^3/uL (1.5-8.5); NEUTROPHILS % 89.1 % (36.0-66.0); PLATELET COUNT, AUTOMATED 262 10^3/uL (150-450); RED BLOOD COUNT 2.93 10^6/uL (4.00-5.40)
[2023-11-03 06:50] LABS: BLOOD UREA NITROGEN 11 MG/DL (9-23); CARBON DIOXIDE LEVEL 29 MMOL/L (20-31); CHLORIDE LEVEL 105 MMOL/L (98-107); CREATININE FOR GFR 0.55 MG/DL (0.55-1.30); GLOMERULAR FILTRATION RATE > 60.0 (>51); GLUCOSE, FASTING 101 MG/DL (60-100); POTASSIUM SERUM 3.4 MMOL/L (3.5-5.1); SODIUM LEVEL 145 MMOL/L (136-145)
[2023-11-03] MEDS: IPRATROPIUM 0.5MG/ALBUTEROL 2.5MG INH SOL UD 3ML (DUONEB) NEB SCH ×3 (08:16→19:51)
[2023-11-03] MEDS: BUDESONIDE 0.25 MG/2 ML INHALATION SUSPENSION INH SCH ×2 (08:16→19:51)
[2023-11-03] MEDS: ADVAIR HFA 45/21MCG INHALER INH SCH ×2 (08:16→19:51)
[2023-11-03] MEDS: MONTELUKAST 10 MG TAB PO SCH (09:10)
[2023-11-03] MEDS: busPIRone 5 MG TAB PO SCH ×2 (09:11→21:30)
[2023-11-03] MEDS: ALPRAZolam 0.25 MG TAB PO PRN ×2 (09:11→15:56)
[2023-11-03] MEDS: methylPREDNISolone 40MG 1ML VIAL IV SCH ×2 (09:11→21:32)
[2023-11-03] MEDS: PANTOPRAZOLE 40MG VIAL IV SCH ×2 (09:12→21:32)
[2023-11-03] MEDS: ENOXAPARIN 40MG/0.4ML SYRINGE (J1650 PER 10MG) SC SCH (09:12)
[2023-11-03] MEDS: NICOTINE 21MG/24HR 1 EA TRANSDERMAL TD SCH (09:12)
[2023-11-03] MEDS: BENZONATATE 100MG CAPSULE PO SCH ×3 (10:11→21:31)
[2023-11-03] MEDS ORDERED: KCL 10MEQ/100ML SWI (KRUN) 10 MEQ in IV 1 EA IV ONE (13:00)
[2023-11-03] MEDS: SODIUM CHLORIDE 0.9% INJ 10 ML SYR IV SCH ×2 (15:14→23:36)
[2023-11-03] MEDS: MIRTAZAPINE 15 MG TAB PO SCH (21:31)
[2023-11-03] MEDS: ROSUVASTATIN 10 MG TAB (CRESTOR) PO SCH (21:31)
[2023-11-03] MEDS: SODIUM CHLORIDE 0.9% INJ 10 ML SYR IV PRN (21:36)
[2023-11-04] VITALS (7 sets, daily range): BP systolic 140–142; BP diastolic 70–78; TEMP 98.2–98.7; O2SAT 89–97
[2023-11-04] MEDS: IPRATROPIUM 0.5MG/ALBUTEROL 2.5MG INH SOL UD 3ML (DUONEB) NEB SCH ×4 (01:14→20:55)
[2023-11-04] MEDS: PIPERACILLIN/TAZOBACTAM SOD 4.5 GM in D5W MINI-BAG PLUS 50 ML IV SCH ×2 (02:34→08:17)
[2023-11-04] MEDS: KETOROLAC 30 MG/ML 1ML VIAL IV SCH ×3 (02:35→14:18)
[2023-11-04] MEDS: SODIUM CHLORIDE 0.9% INJ 10 ML SYR IV PRN ×6 (02:35→21:30)
[2023-11-04] MEDS: SODIUM CHLORIDE 0.9% INJ 10 ML SYR IV SCH ×3 (05:41→21:26)
[2023-11-04 06:08] LABS: BASO % 0.1 % (0.0-1.0); HEMATOCRIT 26.1 % (36.0-47.0); HEMOGLOBIN 7.9 g/dl (12.0-15.5); LYMPH # 0.6 10^3/uL (1.5-5.0); LYMPH % 5.6 % (24.0-44.0); MEAN CORPUSCULAR HEMOGLOBIN 28.1 pg (27.0-33.0); MEAN CORPUSCULAR HGB CONC 30.3 g/dl (32.0-36.5); MEAN CORPUSCULAR VOLUME 92.9 fl (80.0-96.0); MONO # 0.8 10^3/uL (0.0-0.8); MONO % 8.5 % (2.0-8.0); NEUTROPHILS # 8.2 10^3/uL (1.5-8.5); NEUTROPHILS % 83.9 % (36.0-66.0); PLATELET COUNT, AUTOMATED 308 10^3/uL (150-450); RED BLOOD COUNT 2.81 10^6/uL (4.00-5.40); WHITE BLOOD COUNT 9.8 10^3/uL (4.0-10.0)
[2023-11-04 06:46] LABS: BLOOD UREA NITROGEN 11 MG/DL (9-23); CALCIUM LEVEL 8.5 MG/DL (8.5-10.1); CARBON DIOXIDE LEVEL 35 MMOL/L (20-31); CHLORIDE LEVEL 105 MMOL/L (98-107); CREATININE FOR GFR 0.58 MG/DL (0.55-1.30); GLOMERULAR FILTRATION RATE > 60.0 (>51); GLUCOSE, FASTING 119 MG/DL (60-100); POTASSIUM SERUM 3.4 MMOL/L (3.5-5.1); SODIUM LEVEL 145 MMOL/L (136-145)
[2023-11-04] MEDS: ADVAIR HFA 45/21MCG INHALER INH SCH (07:32)
[2023-11-04] MEDS: BUDESONIDE 0.25 MG/2 ML INHALATION SUSPENSION INH SCH (07:33)
[2023-11-04] MEDS: ALPRAZolam 0.25 MG TAB PO PRN ×2 (08:15→21:30)
[2023-11-04] MEDS: methylPREDNISolone 40MG 1ML VIAL IV SCH ×2 (08:15→21:46)
[2023-11-04] MEDS: PANTOPRAZOLE 40MG VIAL IV SCH ×3 (08:16→21:46)
[2023-11-04] MEDS: NICOTINE 21MG/24HR 1 EA TRANSDERMAL TD SCH (08:16)
[2023-11-04] MEDS: busPIRone 5 MG TAB PO SCH ×2 (08:17→21:23)
[2023-11-04] MEDS: MONTELUKAST 10 MG TAB PO SCH (08:17)
[2023-11-04] MEDS: BENZONATATE 100MG CAPSULE PO SCH (08:17)
[2023-11-04] MEDS: ENOXAPARIN 40MG/0.4ML SYRINGE (J1650 PER 10MG) SC SCH (08:18)
[2023-11-04] MEDS ORDERED: ALPRAZolam 0.25 MG TAB PO ONE (09:50)
[2023-11-04] MEDS: guaiFENesin ER TABLET 600 MG TAB PO SCH ×2 (10:16→21:24)
[2023-11-04] MEDS: NYSTATIN 500,000U/5ML SUSP UDC PO SCH ×4 (10:16→21:24)
[2023-11-04 10:19] LABS: ABG BASE EXCESS 3.8 (-2.0-2.0); ABG HCO3 30.1 MMOL/L (22.0-26.0); ABG O2 SATURATION 94.7 % (95.0-99.0); ABG PARTIAL PRESSURE CO2 55.3 mmHg (35.0-45.0); ABG PARTIAL PRESSURE O2 73.9 mmHg (75.0-100.0); ABG STANDARD HCO3 27.8 MMOL/L. (22.0-26.0); ABG TOTAL CO2 31.8 MMOL/L (22.0-29.0); ABG pH (ARTERIAL) 7.354 UNITS (7.350-7.450)
[2023-11-04] MEDS ORDERED: ALPRAZolam 0.25 MG TAB PO PRN (12:00)
[2023-11-04] MEDS ORDERED: SODIUM CHLORIDE HYPERTONIC 3% 4ML NEB SOL INH SCH (12:00)
[2023-11-04] MEDS: SODIUM CHLORIDE HYPERTONIC 3% 4ML NEB SOL INH SCH ×3 (12:53→15:02)
[2023-11-04] MEDS: MIRTAZAPINE 15 MG TAB PO SCH (21:24)
[2023-11-04] MEDS: ROSUVASTATIN 10 MG TAB (CRESTOR) PO SCH (21:24)
[2023-11-04] MEDS: CALCIUM CARBONATE 500 MG CHEW U/D PO PRN (21:59)
[2023-11-05] MEDS: IPRATROPIUM 0.5MG/ALBUTEROL 2.5MG INH SOL UD 3ML (DUONEB) NEB SCH ×3 (02:00→11:53)
[2023-11-05] MEDS: SODIUM CHLORIDE HYPERTONIC 3% 4ML NEB SOL INH SCH ×4 (02:00→11:53)
[2023-11-05] MEDS: ALBUTEROL SULFATE 2.5MG/0.5ML INH NEB SOLN NEB PRN (03:18)
[2023-11-05] MEDS: SODIUM CHLORIDE 0.9% INJ 10 ML SYR IV SCH ×2 (05:00→13:48)
[2023-11-05] MEDS: SODIUM CHLORIDE 0.9% INJ 10 ML SYR IV PRN ×2 (05:22→05:23)
[2023-11-05 05:25] VITALS: BP 119/84; TEMP 98.1; O2SAT 93
[2023-11-05 05:26] LABS: BASO % 0.1 % (0.0-1.0); HEMATOCRIT 28.1 % (36.0-47.0); HEMOGLOBIN 8.6 g/dl (12.0-15.5); LYMPH # 0.7 10^3/uL (1.5-5.0); LYMPH % 5.7 % (24.0-44.0); MEAN CORPUSCULAR HEMOGLOBIN 28.8 pg (27.0-33.0); MEAN CORPUSCULAR HGB CONC 30.6 g/dl (32.0-36.5); MONO # 1.3 10^3/uL (0.0-0.8); MONO % 11.6 % (2.0-8.0); NEUTROPHILS # 9.2 10^3/uL (1.5-8.5); NEUTROPHILS % 80.3 % (36.0-66.0); PLATELET COUNT, AUTOMATED 392 10^3/uL (150-450); RED BLOOD COUNT 2.99 10^6/uL (4.00-5.40); WHITE BLOOD COUNT 11.4 10^3/uL (4.0-10.0)
[2023-11-05 05:57] LABS: BLOOD UREA NITROGEN 12 MG/DL (9-23); CALCIUM LEVEL 8.1 MG/DL (8.5-10.1); CARBON DIOXIDE LEVEL 37 MMOL/L (20-31); CHLORIDE LEVEL 106 MMOL/L (98-107); CREATININE FOR GFR 0.51 MG/DL (0.55-1.30); GLOMERULAR FILTRATION RATE > 60.0 (>51); GLUCOSE, FASTING 122 MG/DL (60-100); POTASSIUM SERUM 2.9 MMOL/L (3.5-5.1); SODIUM LEVEL 147 MMOL/L (136-145)
[2023-11-05] MEDS ORDERED: POTASSIUM CHLORIDE 10% LIQ 20MEQ/15ML UDC PO ONE (07:00)
[2023-11-05] MEDS: NYSTATIN 500,000U/5ML SUSP UDC PO SCH ×2 (09:19→13:48)
[2023-11-05] MEDS: busPIRone 5 MG TAB PO SCH (09:19)
[2023-11-05] MEDS: ENOXAPARIN 40MG/0.4ML SYRINGE (J1650 PER 10MG) SC SCH (09:19)
[2023-11-05] MEDS: methylPREDNISolone 40MG 1ML VIAL IV SCH (09:19)
[2023-11-05] MEDS: ALPRAZolam 0.25 MG TAB PO PRN ×2 (09:19→15:08)
[2023-11-05] MEDS: MONTELUKAST 10 MG TAB PO SCH (09:20)
[2023-11-05] MEDS: guaiFENesin ER TABLET 600 MG TAB PO SCH (09:20)
[2023-11-05] MEDS: PANTOPRAZOLE 40MG VIAL IV SCH (09:20)
[2023-11-05] MEDS: NICOTINE 21MG/24HR 1 EA TRANSDERMAL TD SCH (09:21)
[2023-11-05] MEDS ORDERED: LR 1,000 ML IV SCH (11:00)
[2023-11-05] MEDS ORDERED: POTASSIUM CHLORIDE 10MEQ SR TABLET PO ONE (13:00)
[2023-11-05] MEDS ORDERED: MUCI600T31 PO (13:38)
[2023-11-05] MEDS ORDERED: NYST-38 PO (13:38)
[2023-11-05] MEDS ORDERED: PROT1TAB2 PO (13:38)
[2023-11-05] MEDS ORDERED: NICO21PAT TD (13:38)
[2023-11-05] MEDS ORDERED: PRED20TA PO (13:41)
[2023-11-05] MEDS ORDERED: PRED10TA2 PO (13:41)
[2023-11-05] MEDS ORDERED: POTA-298 PO (13:43)
[2023-11-05 14:00] VITALS: BP 160/98; TEMP 97.9; O2SAT 95
[2023-11-05] MEDS ORDERED: POTASSIUM CHLORIDE 10MEQ SR TABLET PO SCH (21:00)
[2023-11-06] MEDS ORDERED: predniSONE 20 MG TAB PO SCH (09:00)
== END 2023-11-05 15:40 | disposition home health service (06) | DRG 329 ==
LOC: M ED 23:25 → EDBD 23:25 → M ED INP 10-29 04:24 → M PCU 10-29 05:28 → M ICU 10-29 15:27 → M PCU 11-01 02:15 → M MSPAV 11-03 17:44
PROVIDERS: ADMIT Internal Medicine; ATTEND General Practice
PROC: 0DN80ZZ Release Small Intestine, Open Approach (ICD-10-PCS; 2023-10-29)
PROC: 0DB80ZZ Excision of Small Intestine, Open Approach (ICD-10-PCS; principal; 2023-10-29 13:00)
PROC: B246ZZZ Ultrasonography of Right and Left Heart (ICD-10-PCS; 2023-10-31)
DX: K56.51 Intestinal adhesions [bands], with partial obstruction (principal); R57.0 Cardiogenic shock; J96.21 Acute and chronic respiratory failure with hypoxia; J96.22 Acute and chronic respiratory failure with hypercapnia; K55.029 Acute infarction of small intestine, extent unspecified; E87.20 Acidosis, unspecified; R18.8 Other ascites; E27.40 Unspecified adrenocortical insufficiency; J44.1 Chronic obstructive pulmonary disease with (acute) exacerbation; I97.710 Intraoperative cardiac arrest during cardiac surgery; E87.0 Hyperosmolality and hypernatremia; F41.9 Anxiety disorder, unspecified; F32.A Depression, unspecified; K44.9 Diaphragmatic hernia without obstruction or gangrene; M47.892 Other spondylosis, cervical region; M47.896 Other spondylosis, lumbar region; G43.909 Migraine, unspecified, not intractable, without status migrainosus; E78.00 Pure hypercholesterolemia, unspecified; F17.210 Nicotine dependence, cigarettes, uncomplicated; K21.9 Gastro-esophageal reflux disease without esophagitis; M21.371 Foot drop, right foot; E55.9 Vitamin D deficiency, unspecified; M81.0 Age-related osteoporosis without current pathological fracture; J30.9 Allergic rhinitis, unspecified; Z96.641 Presence of right artificial hip joint; Z90.79 Acquired absence of other genital organ(s); Z79.52 Long term (current) use of systemic steroids; Z79.899 Other long term (current) drug therapy; Z99.81 Dependence on supplemental oxygen; Z20.822 Contact with and (suspected) exposure to COVID-19; Z53.31 Laparoscopic surgical procedure converted to open procedure; I36.1 Nonrheumatic tricuspid (valve) insufficiency

== ENCOUNTER 2023-11-13 10:15 | Inpatient (IN) | payer MEDICARE, OTHER ==
[~2023-11-13] VITALS: Ht 160 cm; Wt 62.0 kg
[~2023-11-13 10:15] MED LIST changes: -FERR1TAB8 PO; -LOPE1CAP5 PO; -MAGN400T2 PO; -META1POW PO; -POTA-151 PO
[2023-11-13] MEDS ORDERED: MAG SULF 1GM/100ML (MAG RUN) 1 GM in IV 1 EA IV ONE ×2 (11:35→12:20)
[2023-11-13] MEDS ORDERED: MED REC IN PROGRESS XX SCH (11:45)
[2023-11-13] MEDS ORDERED: KCL 10MEQ/100ML SWI (KRUN) 10 MEQ in IV 1 EA IV ONE (12:45)
[2023-11-13] MEDS ORDERED: POTASSIUM CHLORIDE 10MEQ SR TABLET PO ONE (12:45)
[2023-11-13] MEDS ORDERED: LR 1,000 ML IV ONE (13:10)
[2023-11-13] MEDS ORDERED: CETI-24 PO (13:28)
[2023-11-13] MEDS ORDERED: HOME MED LIST COMPLETE! XX SCH (13:30)
[2023-11-13] MEDS ORDERED: ALBUTEROL SULFATE 2.5MG/0.5ML INH NEB SOLN INH PRN (14:05)
[2023-11-13] MEDS: MAG SULF 1GM/100ML (MAG RUN) 1 GM in IV 1 EA IV SCH ×2 (16:02→17:09)
[2023-11-13] MEDS: KCL 10MEQ/100ML SWI (KRUN) 10 MEQ in IV 1 EA IV SCH ×3 (16:02→18:36)
[2023-11-13] MEDS: D5W 1,000 ML IV SCH (16:03)
[2023-11-13] MEDS: ALPRAZolam 0.25 MG TAB PO PRN (16:14)
[2023-11-13] MEDS ORDERED: REMDESIVIR 200 MG in NS 250 ML IV ONE (17:00)
[2023-11-13] MEDS: ALBUTEROL 90 MCG/ACT 8GM HFA INHALER INH PRN (18:29)
[2023-11-13] MEDS: LOPERAMIDE 2 MG CAPLET PO SCH (18:34)
[2023-11-13] MEDS: LACTOBACILLUS ACIDOPHILUS CAP (BACID) PO SCH (18:35)
[2023-11-13] MEDS ORDERED: **hydrALAZINE HCL** 25 MG TAB PO PRN (20:20)
[2023-11-13 20:59] LABS: BLOOD UREA NITROGEN < 5 MG/DL (9-23); CALCIUM LEVEL 6.8 MG/DL (8.5-10.1); CARBON DIOXIDE LEVEL 36 MMOL/L (20-31); CHLORIDE LEVEL 108 MMOL/L (98-107); GLOMERULAR FILTRATION RATE > 60.0 (>51); GLUCOSE, FASTING 102 MG/DL (60-100); MAGNESIUM LEVEL 1.9 MG/DL (1.8-2.4); POTASSIUM SERUM 3.4 MMOL/L (3.5-5.1); SODIUM LEVEL 148 MMOL/L (136-145)
[2023-11-13] MEDS: METAMUCIL (PSYLLIUM) PACKET PO SCH (21:08)
[2023-11-13] MEDS: CETIRIZINE (ZyrTEC) 10 MG TAB PO SCH (21:09)
[2023-11-13] MEDS: guaiFENesin ER TABLET 600 MG TAB PO SCH (21:09)
[2023-11-13] MEDS: busPIRone 5 MG TAB PO SCH (21:10)
[2023-11-13 21:50] VITALS: BP 135/78; TEMP 98.1; O2SAT 97
[2023-11-13] MEDS: SYMBICORT 160/4.5MCG INHALER 6GM INH SCH (22:00)
[2023-11-13] MEDS: ROSUVASTATIN 10 MG TAB (CRESTOR) PO SCH (22:16)
[2023-11-14] MEDS: LOPERAMIDE 2 MG CAPLET PO SCH ×2 (00:01→06:09)
[2023-11-14] MEDS ORDERED: MIRTAZAPINE 15 MG TAB PO ONE (00:20)
[2023-11-14] MEDS: MAGNESIUM OXIDE 400MG TAB (MAG-OX) PO SCH ×3 (00:39→20:56)
[2023-11-14] MEDS: D5W 1,000 ML IV SCH ×2 (02:56→08:31)
[2023-11-14 05:48] VITALS: BP 109/66; TEMP 99.1; O2SAT 96
[2023-11-14 06:53] LABS: BASO % 0.1 % (0.0-1.0); EOS # 0.1 10^3/uL (0.0-0.5); EOS % 1.1 % (0.0-3.0); HEMATOCRIT 28.2 % (36.0-47.0); HEMOGLOBIN 8.4 g/dl (12.0-15.5); LYMPH # 1.7 10^3/uL (1.5-5.0); LYMPH % 21.2 % (24.0-44.0); MEAN CORPUSCULAR HEMOGLOBIN 27.6 pg (27.0-33.0); MEAN CORPUSCULAR HGB CONC 29.8 g/dl (32.0-36.5); MEAN CORPUSCULAR VOLUME 92.8 fl (80.0-96.0); MONO # 1.2 10^3/uL (0.0-0.8); MONO % 15.6 % (2.0-8.0); NEUTROPHILS # 4.9 10^3/uL (1.5-8.5); NEUTROPHILS % 61.7 % (36.0-66.0); PLATELET COUNT, AUTOMATED 479 10^3/uL (150-450); RED BLOOD COUNT 3.04 10^6/uL (4.00-5.40); WHITE BLOOD COUNT 7.9 10^3/uL (4.0-10.0)
[2023-11-14] MEDS: ALBUTEROL 90 MCG/ACT 8GM HFA INHALER INH PRN (07:07)
[2023-11-14] MEDS: SYMBICORT 160/4.5MCG INHALER 6GM INH SCH ×2 (07:08→19:47)
[2023-11-14 07:30] LABS: BLOOD UREA NITROGEN < 5 MG/DL (9-23); CALCIUM LEVEL 6.9 MG/DL (8.5-10.1); CARBON DIOXIDE LEVEL 39 MMOL/L (20-31); CHLORIDE LEVEL 104 MMOL/L (98-107); CREATININE FOR GFR 0.43 MG/DL (0.55-1.30); GLOMERULAR FILTRATION RATE > 60.0 (>51); GLUCOSE, FASTING 92 MG/DL (60-100); MAGNESIUM LEVEL 1.7 MG/DL (1.8-2.4); SODIUM LEVEL 145 MMOL/L (136-145)
[2023-11-14] MEDS ORDERED: TIOTROPIUM INHALER/CAPSULE (SPIRIVA) INH SCH (08:00)
[2023-11-14] MEDS: ENOXAPARIN 40MG/0.4ML SYRINGE (J1650 PER 10MG) SC SCH (08:19)
[2023-11-14] MEDS: METAMUCIL (PSYLLIUM) PACKET PO SCH ×2 (08:19→20:55)
[2023-11-14] MEDS: KCL 10MEQ/100ML SWI (KRUN) 10 MEQ in IV 1 EA IV SCH ×4 (08:19→15:24)
[2023-11-14] MEDS: busPIRone 5 MG TAB PO SCH ×2 (08:19→20:56)
[2023-11-14] MEDS: LACTOBACILLUS ACIDOPHILUS CAP (BACID) PO SCH ×2 (08:19→16:48)
[2023-11-14] MEDS: MONTELUKAST 10 MG TAB PO SCH (08:20)
[2023-11-14] MEDS: PANTOPRAZOLE 40MG TAB (PROTONIX) PO SCH (08:20)
[2023-11-14] MEDS: guaiFENesin ER TABLET 600 MG TAB PO SCH ×2 (08:20→20:56)
[2023-11-14] MEDS: predniSONE 20 MG TAB PO SCH (08:21)
[2023-11-14] MEDS: ALPRAZolam 0.25 MG TAB PO PRN ×2 (08:25→18:54)
[2023-11-14] MEDS ORDERED: ALBUTEROL SULFATE 2.5MG/0.5ML INH NEB SOLN NEB PRN (08:50)
[2023-11-14] MEDS ORDERED: POTASSIUM CHLORIDE 10MEQ SR TABLET PO SCH ×2 (09:00)
[2023-11-14] MEDS ORDERED: LOPERAMIDE 2 MG CAPLET PO PRN (10:35)
[2023-11-14 10:57] LABS: IRON (FE) 7 UG/DL (50-170); TOTAL IRON BINDING CAPACITY 173 UG/DL (250-425)
[2023-11-14 10:59] LABS: FOLATE 11.86 NG/ML (>5.4)
[2023-11-14 11:00] LABS: FERRITIN 30.4 NG/ML (7.3-270.7)
[2023-11-14 11:40] LABS: VITAMIN B12 LEVEL 1453 PG/ML (211-911)
[2023-11-14] MEDS: MAG SULF 1GM/100ML (MAG RUN) 1 GM in IV 1 EA IV SCH ×2 (12:02→14:30)
[2023-11-14 14:00] VITALS: BP 103/63; TEMP 98.4; O2SAT 95
[2023-11-14] MEDS: IPRATROPIUM 0.5MG/ALBUTEROL 2.5MG INH SOL UD 3ML (DUONEB) NEB SCH ×2 (15:42→19:47)
[2023-11-14] MEDS: REMDESIVIR 100 MG in NS 250 ML IV SCH (16:49)
[2023-11-14 17:55] LABS: BLOOD UREA NITROGEN < 5 MG/DL (9-23); CALCIUM LEVEL 6.8 MG/DL (8.5-10.1); CARBON DIOXIDE LEVEL 37 MMOL/L (20-31); CHLORIDE LEVEL 107 MMOL/L (98-107); CREATININE FOR GFR 0.52 MG/DL (0.55-1.30); GLOMERULAR FILTRATION RATE > 60.0 (>51); GLUCOSE, FASTING 132 MG/DL (60-100); MAGNESIUM LEVEL 2.1 MG/DL (1.8-2.4); POTASSIUM SERUM 4.4 MMOL/L (3.5-5.1); SODIUM LEVEL 146 MMOL/L (136-145)
[2023-11-14] MEDS ORDERED: FERRIC CARBOXYMALTOSE INJ 750 MG, VIAL MATE ADAPTER 1 EACH in NS 250 ML IV ONE (18:00)
[2023-11-14] MEDS ORDERED: D5W 1,000 ML IV SCH (19:10)
[2023-11-14 20:32] VITALS: BP 118/68; TEMP 98.4; O2SAT 94
[2023-11-14] MEDS: ROSUVASTATIN 10 MG TAB (CRESTOR) PO SCH (20:56)
[2023-11-14] MEDS: CETIRIZINE (ZyrTEC) 10 MG TAB PO SCH (20:56)
[2023-11-14] MEDS: MIRTAZAPINE 15 MG TAB PO SCH (20:56)
[2023-11-15] MEDS: IPRATROPIUM 0.5MG/ALBUTEROL 2.5MG INH SOL UD 3ML (DUONEB) NEB SCH ×4 (01:26→23:00)
[2023-11-15 06:00] VITALS: BP 90/56; TEMP 99; O2SAT 91
[2023-11-15 07:01] LABS: BASO % 0.2 % (0.0-1.0); EOS # 0.1 10^3/uL (0.0-0.5); HEMATOCRIT 26.8 % (36.0-47.0); HEMOGLOBIN 8.1 g/dl (12.0-15.5); LYMPH # 1.9 10^3/uL (1.5-5.0); LYMPH % 30.9 % (24.0-44.0); MEAN CORPUSCULAR HEMOGLOBIN 28.4 pg (27.0-33.0); MEAN CORPUSCULAR HGB CONC 30.2 g/dl (32.0-36.5); MONO # 0.8 10^3/uL (0.0-0.8); MONO % 13.3 % (2.0-8.0); NEUTROPHILS # 3.4 10^3/uL (1.5-8.5); NEUTROPHILS % 54.3 % (36.0-66.0); PLATELET COUNT, AUTOMATED 443 10^3/uL (150-450); RED BLOOD COUNT 2.85 10^6/uL (4.00-5.40); WHITE BLOOD COUNT 6.3 10^3/uL (4.0-10.0)
[2023-11-15] MEDS: SYMBICORT 160/4.5MCG INHALER 6GM INH SCH ×2 (07:26→22:59)
[2023-11-15 07:41] LABS: BLOOD UREA NITROGEN 6 MG/DL (9-23); CALCIUM LEVEL 7.5 MG/DL (8.5-10.1); CARBON DIOXIDE LEVEL 39 MMOL/L (20-31); CHLORIDE LEVEL 102 MMOL/L (98-107); CREATININE FOR GFR 0.46 MG/DL (0.55-1.30); GLOMERULAR FILTRATION RATE > 60.0 (>51); GLUCOSE, FASTING 86 MG/DL (60-100); POTASSIUM SERUM 3.2 MMOL/L (3.5-5.1); SODIUM LEVEL 142 MMOL/L (136-145)
[2023-11-15] MEDS ORDERED: KCL 10MEQ/100ML SWI (KRUN) 10 MEQ in IV 1 EA IV SCH (08:00)
[2023-11-15] MEDS ORDERED: POTASSIUM CHLORIDE 10MEQ SR TABLET PO ONE ×3 (09:00→21:00)
[2023-11-15] MEDS: METAMUCIL (PSYLLIUM) PACKET PO SCH ×2 (09:18→20:50)
[2023-11-15] MEDS: busPIRone 5 MG TAB PO SCH ×2 (09:19→21:25)
[2023-11-15] MEDS: FERROUS SULFATE 325MG TAB PO SCH (09:19)
[2023-11-15] MEDS: guaiFENesin ER TABLET 600 MG TAB PO SCH ×2 (09:20→20:50)
[2023-11-15] MEDS: MONTELUKAST 10 MG TAB PO SCH (09:20)
[2023-11-15] MEDS: MAGNESIUM OXIDE 400MG TAB (MAG-OX) PO SCH ×2 (09:20→20:49)
[2023-11-15] MEDS: PANTOPRAZOLE 40MG TAB (PROTONIX) PO SCH (09:21)
[2023-11-15] MEDS: predniSONE 20 MG TAB PO SCH (09:21)
[2023-11-15] MEDS: ENOXAPARIN 40MG/0.4ML SYRINGE (J1650 PER 10MG) SC SCH (09:21)
[2023-11-15] MEDS: LACTOBACILLUS ACIDOPHILUS CAP (BACID) PO SCH ×2 (09:21→17:54)
[2023-11-15] MEDS: ALPRAZolam 0.25 MG TAB PO PRN ×2 (09:30→18:04)
[2023-11-15] MEDS ORDERED: D5W 1,000 ML IV SCH (10:00)
[2023-11-15] MEDS: LOPERAMIDE 2 MG CAPLET PO SCH ×3 (10:54→23:39)
[2023-11-15] MEDS: ACETAMINOPHEN TAB 650MG DOSE (2X325MG) PO PRN (10:56)
[2023-11-15 14:00] VITALS: BP 101/66; TEMP 98.1; O2SAT 100
[2023-11-15] MEDS: REMDESIVIR 100 MG in NS 250 ML IV SCH (18:05)
[2023-11-15] MEDS: CETIRIZINE (ZyrTEC) 10 MG TAB PO SCH (20:50)
[2023-11-15] MEDS: MIRTAZAPINE 15 MG TAB PO SCH (20:50)
[2023-11-15] MEDS: ROSUVASTATIN 10 MG TAB (CRESTOR) PO SCH (20:50)
[2023-11-15 21:10] VITALS: BP 111/68; TEMP 98.1; O2SAT 97
[2023-11-16] MEDS: IPRATROPIUM 0.5MG/ALBUTEROL 2.5MG INH SOL UD 3ML (DUONEB) NEB SCH ×2 (01:48→08:07)
[2023-11-16 05:29] VITALS: BP 90/59; TEMP 98.6; O2SAT 95
[2023-11-16] MEDS: LOPERAMIDE 2 MG CAPLET PO SCH (05:30)
[2023-11-16 06:16] LABS: BASO % 0.1 % (0.0-1.0); EOS % 0.5 % (0.0-3.0); HEMATOCRIT 27.3 % (36.0-47.0); HEMOGLOBIN 8.1 g/dl (12.0-15.5); LYMPH # 1.7 10^3/uL (1.5-5.0); LYMPH % 21.3 % (24.0-44.0); MEAN CORPUSCULAR HEMOGLOBIN 27.6 pg (27.0-33.0); MEAN CORPUSCULAR HGB CONC 29.7 g/dl (32.0-36.5); MEAN CORPUSCULAR VOLUME 93.2 fl (80.0-96.0); MONO # 0.9 10^3/uL (0.0-0.8); MONO % 11.2 % (2.0-8.0); NEUTROPHILS # 5.2 10^3/uL (1.5-8.5); NEUTROPHILS % 66.4 % (36.0-66.0); PLATELET COUNT, AUTOMATED 447 10^3/uL (150-450); RED BLOOD COUNT 2.93 10^6/uL (4.00-5.40); WHITE BLOOD COUNT 7.8 10^3/uL (4.0-10.0)
[2023-11-16 06:29] LABS: BLOOD UREA NITROGEN 6 MG/DL (9-23); CALCIUM LEVEL 7.6 MG/DL (8.5-10.1); CARBON DIOXIDE LEVEL 39 MMOL/L (20-31); CHLORIDE LEVEL 104 MMOL/L (98-107); CREATININE FOR GFR 0.42 MG/DL (0.55-1.30); GLOMERULAR FILTRATION RATE > 60.0 (>51); GLUCOSE, FASTING 81 MG/DL (60-100); MAGNESIUM LEVEL 1.8 MG/DL (1.8-2.4); POTASSIUM SERUM 3.8 MMOL/L (3.5-5.1); SODIUM LEVEL 144 MMOL/L (136-145)
[2023-11-16] MEDS: SYMBICORT 160/4.5MCG INHALER 6GM INH SCH (08:07)
[2023-11-16] MEDS: METAMUCIL (PSYLLIUM) PACKET PO SCH (08:21)
[2023-11-16] MEDS: ENOXAPARIN 40MG/0.4ML SYRINGE (J1650 PER 10MG) SC SCH (08:22)
[2023-11-16] MEDS: ALPRAZolam 0.25 MG TAB PO PRN (08:24)
[2023-11-16] MEDS: busPIRone 5 MG TAB PO SCH (08:25)
[2023-11-16] MEDS: MONTELUKAST 10 MG TAB PO SCH (08:25)
[2023-11-16] MEDS: predniSONE 20 MG TAB PO SCH (08:26)
[2023-11-16] MEDS: FERROUS SULFATE 325MG TAB PO SCH (08:26)
[2023-11-16] MEDS: MAGNESIUM OXIDE 400MG TAB (MAG-OX) PO SCH (08:28)
[2023-11-16] MEDS: PANTOPRAZOLE 40MG TAB (PROTONIX) PO SCH (08:28)
[2023-11-16] MEDS: guaiFENesin ER TABLET 600 MG TAB PO SCH (08:29)
[2023-11-16] MEDS: LACTOBACILLUS ACIDOPHILUS CAP (BACID) PO SCH (08:29)
[2023-11-16] MEDS: ACETAMINOPHEN TAB 650MG DOSE (2X325MG) PO PRN (08:34)
[2023-11-16] MEDS ORDERED: PRED10TA2 PO (11:16)
[2023-11-16] MEDS ORDERED: MAGN400T2 PO (11:16)
[2023-11-16] MEDS ORDERED: POTA-151 PO (11:16)
[2023-11-16] MEDS ORDERED: FERR1TAB8 PO (11:16)
[2023-11-16] MEDS ORDERED: META1POW PO (11:16)
[2023-11-16] MEDS ORDERED: LOPE1CAP5 PO (11:23)
== END 2023-11-16 12:14 | disposition home health service (06) | DRG 391 ==
LOC: M ED 10:15 → M ED INP 10:16 → OBSVTOIN 13:10 → M MSPAV 21:30
PROVIDERS: ADMIT Internal Medicine; ATTEND Internal Medicine
DX: R19.7 Diarrhea, unspecified (principal); U07.1 COVID-19; E87.0 Hyperosmolality and hypernatremia; J96.11 Chronic respiratory failure with hypoxia; J96.12 Chronic respiratory failure with hypercapnia; K91.2 Postsurgical malabsorption, not elsewhere classified; J44.9 Chronic obstructive pulmonary disease, unspecified; K21.9 Gastro-esophageal reflux disease without esophagitis; G47.33 Obstructive sleep apnea (adult) (pediatric); D63.8 Anemia in other chronic diseases classified elsewhere; F41.9 Anxiety disorder, unspecified; F32.A Depression, unspecified; M54.2 Cervicalgia; M19.90 Unspecified osteoarthritis, unspecified site; G43.909 Migraine, unspecified, not intractable, without status migrainosus; E78.00 Pure hypercholesterolemia, unspecified; M81.0 Age-related osteoporosis without current pathological fracture; E55.9 Vitamin D deficiency, unspecified; E87.6 Hypokalemia; E83.42 Hypomagnesemia; Z79.899 Other long term (current) drug therapy; Z79.52 Long term (current) use of systemic steroids; Z99.81 Dependence on supplemental oxygen; F17.200 Nicotine dependence, unspecified, uncomplicated; Z96.642 Presence of left artificial hip joint

== ENCOUNTER → 2023-11-13 | Outpatient (CLI) | payer MEDICARE, OTHER ==
[~2023-11-13] MED LIST changes: +BUDE0.5S6 INH; +BUSP15TA47 PO; +FERR1TAB8 PO; +LOPE1CAP5 PO; +MAGN400T2 PO; +META1POW PO; +MIRT1TAB17 PO; +MUCI600T31 PO; +NYST-38 PO; +POTA-151 PO; +POTA-298 PO
[2023-11-13 09:27] LABS: BASO % 0.2 % (0.0-1.0); EOS # 0.1 10^3/uL (0.0-0.5); EOS % 1.2 % (0.0-3.0); HEMATOCRIT 30.6 % (36.0-47.0); HEMOGLOBIN 8.9 g/dl (12.0-15.5); LYMPH # 1.1 10^3/uL (1.5-5.0); LYMPH % 17.1 % (24.0-44.0); MEAN CORPUSCULAR HEMOGLOBIN 27.8 pg (27.0-33.0); MEAN CORPUSCULAR HGB CONC 29.1 g/dl (32.0-36.5); MEAN CORPUSCULAR VOLUME 95.6 fl (80.0-96.0); MONO # 0.6 10^3/uL (0.0-0.8); MONO % 9.7 % (2.0-8.0); NEUTROPHILS # 4.7 10^3/uL (1.5-8.5); NEUTROPHILS % 71.3 % (36.0-66.0); PLATELET COUNT, AUTOMATED 534 10^3/uL (150-450); WHITE BLOOD COUNT 6.6 10^3/uL (4.0-10.0)
[2023-11-13 09:43] LABS: ALBUMIN 2.1 G/DL (3.2-5.2); ALKALINE PHOSPHATASE 68 U/L (46-116); ALT/SGPT 13 U/L (7.0-40); AST/SGOT 12 U/L (<34); BILIRUBIN,TOTAL 0.2 MG/DL (0.3-1.2); BLOOD UREA NITROGEN < 5 MG/DL (9-23); CALCIUM LEVEL 7.1 MG/DL (8.5-10.1); CARBON DIOXIDE LEVEL 38 MMOL/L (20-31); CHLORIDE LEVEL 108 MMOL/L (98-107); CREATININE FOR GFR 0.53 MG/DL (0.55-1.30); GLOMERULAR FILTRATION RATE > 60.0 (>51); GLUCOSE, FASTING 99 MG/DL (60-100); MAGNESIUM LEVEL 0.8 MG/DL (1.8-2.4); POTASSIUM SERUM 2.3 MMOL/L (3.5-5.1); SODIUM LEVEL 151 MMOL/L (136-145); TOTAL PROTEIN 4.4 G/DL (5.7-8.2)
== END ==
LOC: M LAB 08:28
PROVIDERS: ATTEND Physician Assistant
DX: K55.9 Vascular disorder of intestine, unspecified (principal)

== ENCOUNTER → 2023-11-19 | Outpatient (REF) | payer MEDICARE, OTHER ==
[~2023-11-19] MED LIST changes: +FERR1TAB8 PO; +FERR325T3 PO; +LOPE1CAP5 PO; +MAGN400T2 PO; +META1POW PO; +META28.32 PO; +PANT40TA29 PO; +POTA-151 PO
[2023-11-19 15:00] LABS: BLOOD UREA NITROGEN 6 MG/DL (9-23); CALCIUM LEVEL 7.2 MG/DL (8.5-10.1); CARBON DIOXIDE LEVEL 38 MMOL/L (20-31); CHLORIDE LEVEL 104 MMOL/L (98-107); CREATININE FOR GFR 0.48 MG/DL (0.55-1.30); GLOMERULAR FILTRATION RATE > 60.0 (>51); GLUCOSE, FASTING 84 MG/DL (60-100); MAGNESIUM LEVEL 1.7 MG/DL (1.8-2.4); POTASSIUM SERUM 5.5 MMOL/L (3.5-5.1); SODIUM LEVEL 143 MMOL/L (136-145)
== END ==
LOC: M SHH 14:07
DX: E87.6 Hypokalemia (principal)

== ENCOUNTER 2023-11-21 03:54 | Inpatient (IN) | payer MEDICARE, OTHER ==
[~2023-11-21] VITALS: Ht 160 cm; Wt 61.2 kg
[~2023-11-21 03:54] MED LIST changes: -FERR325T3 PO; -META28.32 PO; -PANT40TA29 PO
[2023-11-21] MEDS ORDERED: NS 1,000 ML IV ONE (04:25)
[2023-11-21 04:54] LABS: BASO % 0.3 % (0.0-1.0); EOS % 0.3 % (0.0-3.0); HEMATOCRIT 32.9 % (36.0-47.0); HEMOGLOBIN 9.8 g/dl (12.0-15.5); LYMPH # 0.6 10^3/uL (1.5-5.0); LYMPH % 17.2 % (24.0-44.0); MEAN CORPUSCULAR HEMOGLOBIN 28.2 pg (27.0-33.0); MEAN CORPUSCULAR HGB CONC 29.8 g/dl (32.0-36.5); MEAN CORPUSCULAR VOLUME 94.8 fl (80.0-96.0); MONO # 0.3 10^3/uL (0.0-0.8); MONO % 9.2 % (2.0-8.0); NEUTROPHILS # 2.4 10^3/uL (1.5-8.5); NEUTROPHILS % 72.7 % (36.0-66.0); PLATELET COUNT, AUTOMATED 321 10^3/uL (150-450); RED BLOOD COUNT 3.47 10^6/uL (4.00-5.40); WHITE BLOOD COUNT 3.3 10^3/uL (4.0-10.0)
[2023-11-21 05:22] LABS: LIPASE 14 U/L (12-53)
[2023-11-21 05:27] LABS: ALBUMIN 1.6 G/DL (3.2-5.2); ALKALINE PHOSPHATASE 80 U/L (46-116); ALT/SGPT < 9 U/L (7.0-40); AST/SGOT 13 U/L (<34); BILIRUBIN,TOTAL 0.3 MG/DL (0.3-1.2); BLOOD UREA NITROGEN 6 MG/DL (9-23); CALCIUM LEVEL 7.5 MG/DL (8.5-10.1); CARBON DIOXIDE LEVEL 35 MMOL/L (20-31); CHLORIDE LEVEL 103 MMOL/L (98-107); CREATININE FOR GFR 0.46 MG/DL (0.55-1.30); GLOMERULAR FILTRATION RATE > 60.0 (>51); GLUCOSE, FASTING 97 MG/DL (60-100); POTASSIUM SERUM 4.2 MMOL/L (3.5-5.1); SODIUM LEVEL 142 MMOL/L (136-145)
[2023-11-21] MEDS ORDERED: IPRATROPIUM 0.5MG/ALBUTEROL 2.5MG INH SOL UD 3ML (DUONEB) NEB ONE (07:35)
[2023-11-21 07:39] LABS: RSV AMPLIFICATION NEGATIVE (NEGATIVE)
[2023-11-21] MEDS ORDERED: ISOVUE-370 76% 100ML VIAL As Ordered ONE (08:21)
[2023-11-21] MEDS: NICOTINE 21MG/24HR 1 EA TRANSDERMAL TD SCH (09:00)
[2023-11-21] MEDS ORDERED: PIPERACILLIN/TAZOBACTAM SOD 4.5 GM in D5W MINI-BAG PLUS 50 ML IV ONE (09:40)
[2023-11-21] MEDS ORDERED: MED REC IN PROGRESS XX SCH (09:50)
[2023-11-21 10:31] LABS: ABG BASE EXCESS 8.9 (-2.0-2.0); ABG HCO3 34.2 MMOL/L (22.0-26.0); ABG O2 SATURATION 97.2 % (95.0-99.0); ABG PARTIAL PRESSURE CO2 50.4 mmHg (35.0-45.0); ABG PARTIAL PRESSURE O2 91.2 mmHg (75.0-100.0); ABG STANDARD HCO3 32.7 MMOL/L. (22.0-26.0); ABG TOTAL CO2 35.7 MMOL/L (22.0-29.0); ABG pH (ARTERIAL) 7.449 UNITS (7.350-7.450)
[2023-11-21] MEDS ORDERED: ALPRAZolam 0.5 MG TAB PO STA (11:31)
[2023-11-21] MEDS ORDERED: MORPHINE 4 MG/ML 1ML VIAL IV PRN ×2 (11:35→12:00)
[2023-11-21] MEDS ORDERED: D5W/0.45% SODIUM CHLORIDE 1,000 ML IV SCH (11:35)
[2023-11-21] MEDS ORDERED: ACETAMINOPHEN 500 MG TAB PO PRN (11:35)
[2023-11-21] MEDS ORDERED: PIPERACILLIN/TAZOBACTAM SOD 4.5 GM in D5W MINI-BAG PLUS 50 ML IV SCH (11:35)
[2023-11-21] MEDS ORDERED: MORPHINE 2 MG/ML 1ML VIAL IV PRN ×2 (11:35→12:00)
[2023-11-21] MEDS ORDERED: MED REC CURRENTLY UNOBTAINABLE XX SCH (12:50)
[2023-11-21] MEDS ORDERED: GLUCAGON INJ 1MG VIAL SC PRN (12:50)
[2023-11-21] MEDS ORDERED: DEXTROSE 50% 50ML SYRINGE IV PRN (12:50)
[2023-11-21] MEDS ORDERED: GLUCOSE 4GM CHEW TABLET PO PRN (12:50)
[2023-11-21] MEDS: D5W/0.45% SODIUM CHLORIDE 1,000 ML IV SCH ×2 (13:19→21:50)
[2023-11-21] MEDS ORDERED: ONDANSETRON 4MG 2ML VIAL IV PRN (15:05)
[2023-11-21] MEDS ORDERED: FERR325T3 PO (15:31)
[2023-11-21] MEDS ORDERED: META28.32 PO (15:38)
[2023-11-21] MEDS ORDERED: PANT40TA29 PO (15:38)
[2023-11-21] MEDS ORDERED: MAGN400T2 PO (15:38)
[2023-11-21] MEDS ORDERED: NYST-38 PO (15:38)
[2023-11-21] MEDS ORDERED: LOPE1CAP5 PO (15:38)
[2023-11-21] MEDS ORDERED: MUCI600T31 PO (15:38)
[2023-11-21] MEDS ORDERED: MIRT1TAB17 PO (15:38)
[2023-11-21] MEDS ORDERED: HOME MED LIST COMPLETE! XX SCH (15:40)
[2023-11-21] MEDS ORDERED: PANTOPRAZOLE 40MG VIAL IV SCH (16:00)
[2023-11-21] MEDS ORDERED: IPRATROPIUM 0.5MG/ALBUTEROL 2.5MG INH SOL UD 3ML (DUONEB) NEB SCH (16:00)
[2023-11-21] MEDS: PIPERACILLIN/TAZOBACTAM SOD 4.5 GM in D5W MINI-BAG PLUS 50 ML IV SCH (17:16)
[2023-11-21] MEDS: PANTOPRAZOLE 40MG VIAL IV SCH (17:16)
[2023-11-21] MEDS ORDERED: FAT EMULSION IV 250 ML IV ONE (18:00)
[2023-11-21] MEDS: TIOTROPIUM INHALER/CAPSULE (SPIRIVA) INH SCH (18:05)
[2023-11-21] MEDS: AMINO AC/ELECTROLYTE/DEX/CALC 1,000 ML IV SCH (18:33)
[2023-11-21] MEDS: BUDESONIDE 0.5 MG/2 ML INHALATION SUSPENSION NEB SCH (19:38)
[2023-11-21] MEDS: FORMOTEROL FUMARATE 20 MCG/2 ML INHALATION SOLUTION (PERFOROMIST) INH SCH (19:38)
[2023-11-21] MEDS: INSULIN LISPRO (NovoLOG) PER UNIT SC SCH (19:48)
[2023-11-21] MEDS: busPIRone 5 MG TAB PO SCH (21:38)
[2023-11-21] MEDS: ROSUVASTATIN 10 MG TAB (CRESTOR) PO SCH (21:38)
[2023-11-21] MEDS: MIRTAZAPINE 15 MG TAB PO SCH (21:39)
[2023-11-21] MEDS: HEPARIN SOD (PORCINE) 5000UNITS/ML 1ML VIAL/SYRINGE SQ SCH (21:49)
[2023-11-22] VITALS (12 sets, daily range): BP systolic 90–99; BP diastolic 50–64; TEMP 97.9–98.7; O2SAT 92–99
[2023-11-22] MEDS: INSULIN LISPRO (NovoLOG) PER UNIT SC SCH ×5 (00:32→23:30)
[2023-11-22] MEDS: PIPERACILLIN/TAZOBACTAM SOD 4.5 GM in D5W MINI-BAG PLUS 50 ML IV SCH ×5 (00:33→23:26)
[2023-11-22] MEDS: ALPRAZolam 0.25 MG TAB PO PRN ×2 (03:44→23:27)
[2023-11-22] MEDS: HEPARIN SOD (PORCINE) 5000UNITS/ML 1ML VIAL/SYRINGE SQ SCH ×3 (06:30→22:00)
[2023-11-22 07:33] LABS: EOS % 0.6 % (0.0-3.0); HEMOGLOBIN 8.4 g/dl (12.0-15.5); LYMPH # 0.6 10^3/uL (1.5-5.0); LYMPH % 7.9 % (24.0-44.0); MEAN CORPUSCULAR HEMOGLOBIN 28.3 pg (27.0-33.0); MEAN CORPUSCULAR VOLUME 94.3 fl (80.0-96.0); MONO # 0.7 10^3/uL (0.0-0.8); MONO % 9.3 % (2.0-8.0); NEUTROPHILS # 5.7 10^3/uL (1.5-8.5); NEUTROPHILS % 81.6 % (36.0-66.0); PLATELET COUNT, AUTOMATED 242 10^3/uL (150-450); RED BLOOD COUNT 2.97 10^6/uL (4.00-5.40)
[2023-11-22] MEDS: D5W/0.45% SODIUM CHLORIDE 1,000 ML IV SCH (07:47)
[2023-11-22 08:16] LABS: PROCALCITONIN 1.86 ng/ml
[2023-11-22 08:19] LABS: ALBUMIN 1.3 G/DL (3.2-5.2); ALKALINE PHOSPHATASE 74 U/L (46-116); ALT/SGPT < 9 U/L (7.0-40); AST/SGOT 10 U/L (<34); BILIRUBIN,TOTAL 0.2 MG/DL (0.3-1.2); BLOOD UREA NITROGEN 6 MG/DL (9-23); CALCIUM LEVEL 7.5 MG/DL (8.5-10.1); CARBON DIOXIDE LEVEL 37 MMOL/L (20-31); CHLORIDE LEVEL 100 MMOL/L (98-107); CREATININE FOR GFR 0.39 MG/DL (0.55-1.30); GLOMERULAR FILTRATION RATE > 60.0 (>51); GLUCOSE, FASTING 88 MG/DL (60-100); MAGNESIUM LEVEL 1.8 MG/DL (1.8-2.4); POTASSIUM SERUM 3.5 MMOL/L (3.5-5.1); SODIUM LEVEL 139 MMOL/L (136-145); TOTAL PROTEIN 3.6 G/DL (5.7-8.2)
[2023-11-22] MEDS: TIOTROPIUM INHALER/CAPSULE (SPIRIVA) INH SCH (08:43)
[2023-11-22] MEDS: BUDESONIDE 0.5 MG/2 ML INHALATION SUSPENSION NEB SCH ×2 (08:43→19:03)
[2023-11-22] MEDS: FORMOTEROL FUMARATE 20 MCG/2 ML INHALATION SOLUTION (PERFOROMIST) INH SCH ×2 (08:43→19:01)
[2023-11-22] MEDS: NICOTINE 21MG/24HR 1 EA TRANSDERMAL TD SCH (08:57)
[2023-11-22] MEDS: busPIRone 5 MG TAB PO SCH ×2 (09:11→20:39)
[2023-11-22] MEDS: PANTOPRAZOLE 40MG VIAL IV SCH (09:11)
[2023-11-22] MEDS ORDERED: MAG SULF 1GM/100ML (MAG RUN) 1 GM in IV 1 EA IV ONE (11:00)
[2023-11-22] MEDS: ACETAMINOPHEN 500 MG TAB PO PRN (11:11)
[2023-11-22] MEDS ORDERED: SODIUM PHOSPHATE INJ 20 MMOL in D5W 250 ML IV ONE (12:00)
[2023-11-22] MEDS: KCL 10MEQ/100ML SWI (KRUN) 10 MEQ in IV 1 EA IV SCH ×2 (14:43→16:04)
[2023-11-22] MEDS: AMINO AC/ELECTROLYTE/DEX/CALC 1,000 ML IV SCH (17:13)
[2023-11-22] MEDS ORDERED: AMINO AC/ELECTROLYTE/DEX/CALC 1,000 ML IV SCH (18:00)
[2023-11-22] MEDS ORDERED: INSULIN LISPRO (NovoLOG) PER UNIT SC SCH (18:00)
[2023-11-22] MEDS ORDERED: FAT EMULSION IV 250 ML IV ONE (18:00)
[2023-11-22] MEDS: MIRTAZAPINE 15 MG TAB PO SCH (20:39)
[2023-11-22] MEDS: ROSUVASTATIN 10 MG TAB (CRESTOR) PO SCH (20:39)
[2023-11-23] VITALS (7 sets, daily range): BP systolic 95–100; BP diastolic 50–61; TEMP 98.4–99.2; O2SAT 94–98
[2023-11-23 05:06] LABS: EOS # 0.1 10^3/uL (0.0-0.5); EOS % 3.1 % (0.0-3.0); HEMATOCRIT 26.7 % (36.0-47.0); HEMOGLOBIN 8.1 g/dl (12.0-15.5); LYMPH # 0.5 10^3/uL (1.5-5.0); LYMPH % 11.1 % (24.0-44.0); MEAN CORPUSCULAR HEMOGLOBIN 28.4 pg (27.0-33.0); MEAN CORPUSCULAR HGB CONC 30.3 g/dl (32.0-36.5); MEAN CORPUSCULAR VOLUME 93.7 fl (80.0-96.0); MONO # 0.3 10^3/uL (0.0-0.8); MONO % 8.1 % (2.0-8.0); NEUTROPHILS # 3.3 10^3/uL (1.5-8.5); PLATELET COUNT, AUTOMATED 217 10^3/uL (150-450); RED BLOOD COUNT 2.85 10^6/uL (4.00-5.40); WHITE BLOOD COUNT 4.2 10^3/uL (4.0-10.0)
[2023-11-23] MEDS: PIPERACILLIN/TAZOBACTAM SOD 4.5 GM in D5W MINI-BAG PLUS 50 ML IV SCH ×4 (05:22→22:56)
[2023-11-23] MEDS: ACETAMINOPHEN 500 MG TAB PO PRN ×2 (05:30→17:46)
[2023-11-23 05:34] LABS: BLOOD UREA NITROGEN 6 MG/DL (9-23); CALCIUM LEVEL 7.3 MG/DL (8.5-10.1); CARBON DIOXIDE LEVEL 37 MMOL/L (20-31); CHLORIDE LEVEL 102 MMOL/L (98-107); CREATININE FOR GFR 0.45 MG/DL (0.55-1.30); GLOMERULAR FILTRATION RATE > 60.0 (>51); GLUCOSE, FASTING 104 MG/DL (60-100); PHOSPHORUS LEVEL 2.5 MG/DL (2.5-4.9); POTASSIUM SERUM 4.1 MMOL/L (3.5-5.1); SODIUM LEVEL 141 MMOL/L (136-145)
[2023-11-23] MEDS: INSULIN LISPRO (NovoLOG) PER UNIT SC SCH ×4 (05:50→23:08)
[2023-11-23] MEDS: BUDESONIDE 0.5 MG/2 ML INHALATION SUSPENSION NEB SCH ×2 (07:16→19:44)
[2023-11-23] MEDS: FORMOTEROL FUMARATE 20 MCG/2 ML INHALATION SOLUTION (PERFOROMIST) INH SCH ×2 (07:16→19:44)
[2023-11-23] MEDS: TIOTROPIUM INHALER/CAPSULE (SPIRIVA) INH SCH (07:16)
[2023-11-23] MEDS: busPIRone 5 MG TAB PO SCH ×2 (09:51→20:12)
[2023-11-23] MEDS: PANTOPRAZOLE 40MG VIAL IV SCH (09:51)
[2023-11-23] MEDS: AMINO AC/ELECTROLYTE/DEX/CALC 1,000 ML IV SCH (09:52)
[2023-11-23] MEDS: ALPRAZolam 0.25 MG TAB PO PRN ×2 (09:56→20:12)
[2023-11-23] MEDS: NICOTINE 21MG/24HR 1 EA TRANSDERMAL TD SCH (09:57)
[2023-11-23] MEDS ORDERED: LIDOCAINE 1% MDV 20ML VIAL As Ordered ONE ×2 (13:12→15:11)
[2023-11-23] MEDS: IPRATROPIUM 0.5MG/ALBUTEROL 2.5MG INH SOL UD 3ML (DUONEB) NEB PRN (15:15)
[2023-11-23] MEDS: SODIUM CHLORIDE 0.9% INJ 10 ML SYR IV SCH (17:50)
[2023-11-23] MEDS ORDERED: SODIUM CHLORIDE 0.9% INJ 10 ML SYR IV PRN (18:00)
[2023-11-23] MEDS ORDERED: FAT EMULSION IV 250 ML IV ONE (18:00)
[2023-11-23] MEDS: MIRTAZAPINE 15 MG TAB PO SCH (20:12)
[2023-11-23] MEDS: ROSUVASTATIN 10 MG TAB (CRESTOR) PO SCH (20:12)
[2023-11-23] MEDS: HEPARIN SOD (PORCINE) 5000UNITS/ML 1ML VIAL/SYRINGE SQ SCH (20:13)
[2023-11-24] VITALS (7 sets, daily range): BP systolic 91–111; BP diastolic 57–64; TEMP 97.6–99.1; O2SAT 94–97
[2023-11-24] MEDS: AMINO AC/ELECTROLYTE/DEX/CALC 1,000 ML IV SCH (01:56)
[2023-11-24] MEDS: PIPERACILLIN/TAZOBACTAM SOD 4.5 GM in D5W MINI-BAG PLUS 50 ML IV SCH ×4 (04:15→23:03)
[2023-11-24] MEDS: INSULIN LISPRO (NovoLOG) PER UNIT SC SCH ×4 (05:07→18:00)
[2023-11-24] MEDS: SODIUM CHLORIDE 0.9% INJ 10 ML SYR IV SCH ×2 (05:24→17:55)
[2023-11-24 05:26] LABS: BASO % 0.3 % (0.0-1.0); EOS # 0.1 10^3/uL (0.0-0.5); EOS % 3.3 % (0.0-3.0); HEMATOCRIT 26.9 % (36.0-47.0); HEMOGLOBIN 8.1 g/dl (12.0-15.5); LYMPH # 0.4 10^3/uL (1.5-5.0); MEAN CORPUSCULAR HEMOGLOBIN 28.1 pg (27.0-33.0); MEAN CORPUSCULAR HGB CONC 30.1 g/dl (32.0-36.5); MEAN CORPUSCULAR VOLUME 93.4 fl (80.0-96.0); MONO # 0.4 10^3/uL (0.0-0.8); NEUTROPHILS % 76.6 % (36.0-66.0); PLATELET COUNT, AUTOMATED 214 10^3/uL (150-450); RED BLOOD COUNT 2.88 10^6/uL (4.00-5.40); WHITE BLOOD COUNT 3.9 10^3/uL (4.0-10.0)
[2023-11-24 06:08] LABS: BLOOD UREA NITROGEN < 5 MG/DL (9-23); CALCIUM LEVEL 7.1 MG/DL (8.5-10.1); CARBON DIOXIDE LEVEL 40 MMOL/L (20-31); CHLORIDE LEVEL 101 MMOL/L (98-107); CREATININE FOR GFR 0.41 MG/DL (0.55-1.30); GLOMERULAR FILTRATION RATE > 60.0 (>51); GLUCOSE, FASTING 107 MG/DL (60-100); MAGNESIUM LEVEL 1.9 MG/DL (1.8-2.4); PHOSPHORUS LEVEL 2.3 MG/DL (2.5-4.9); POTASSIUM SERUM 3.8 MMOL/L (3.5-5.1); SODIUM LEVEL 141 MMOL/L (136-145)
[2023-11-24] MEDS ORDERED: NEUTRA-PHOS 1.5 GM PACKET PO SCH (07:10)
[2023-11-24] MEDS: TIOTROPIUM INHALER/CAPSULE (SPIRIVA) INH SCH (07:25)
[2023-11-24] MEDS: FORMOTEROL FUMARATE 20 MCG/2 ML INHALATION SOLUTION (PERFOROMIST) INH SCH ×2 (07:25→21:41)
[2023-11-24] MEDS: BUDESONIDE 0.5 MG/2 ML INHALATION SUSPENSION NEB SCH ×2 (07:25→21:41)
[2023-11-24] MEDS ORDERED: ISOVUE-370 76% 100ML VIAL As Ordered ONE (08:45)
[2023-11-24] MEDS ORDERED: NS 500 ML IV ONE (08:55)
[2023-11-24] MEDS: GASTROGRAFIN SOLUTION 30ML PO SCH ×2 (09:39→10:18)
[2023-11-24] MEDS: busPIRone 5 MG TAB PO SCH ×2 (09:41→20:55)
[2023-11-24] MEDS: PANTOPRAZOLE 40MG VIAL IV SCH (09:41)
[2023-11-24] MEDS: NICOTINE 21MG/24HR 1 EA TRANSDERMAL TD SCH (09:41)
[2023-11-24] MEDS: K-PHOS NEUTRAL 250MG TABLET (SOD.PHOSPHATE/POT.PHOSPHATE) PO SCH ×3 (09:41→20:55)
[2023-11-24] MEDS: HEPARIN SOD (PORCINE) 5000UNITS/ML 1ML VIAL/SYRINGE SQ SCH (09:42)
[2023-11-24] MEDS ORDERED: guaiFENesin ER TABLET 600 MG TAB PO PRN (13:45)
[2023-11-24] MEDS: ALPRAZolam 0.25 MG TAB PO PRN ×2 (14:04→22:18)
[2023-11-24] MEDS ORDERED: AMINO AC/ELECTROLYTE/DEX/CALC 1,000 ML IV SCH (18:00)
[2023-11-24] MEDS ORDERED: FAT EMULSION IV 250 ML IV ONE (18:00)
[2023-11-24] MEDS: ROSUVASTATIN 10 MG TAB (CRESTOR) PO SCH (20:55)
[2023-11-24] MEDS: MIRTAZAPINE 15 MG TAB PO SCH (20:55)
[2023-11-25] VITALS (11 sets, daily range): BP systolic 88–158; BP diastolic 50–63; TEMP 98–98.7; O2SAT 94–99
[2023-11-25] MEDS: PIPERACILLIN/TAZOBACTAM SOD 4.5 GM in D5W MINI-BAG PLUS 50 ML IV SCH ×4 (04:18→23:04)
[2023-11-25 05:01] LABS: EOS # 0.2 10^3/uL (0.0-0.5); EOS % 4.1 % (0.0-3.0); HEMATOCRIT 26.7 % (36.0-47.0); HEMOGLOBIN 8.1 g/dl (12.0-15.5); LYMPH # 0.7 10^3/uL (1.5-5.0); LYMPH % 17.8 % (24.0-44.0); MEAN CORPUSCULAR HEMOGLOBIN 28.4 pg (27.0-33.0); MEAN CORPUSCULAR HGB CONC 30.3 g/dl (32.0-36.5); MEAN CORPUSCULAR VOLUME 93.7 fl (80.0-96.0); MONO # 0.5 10^3/uL (0.0-0.8); MONO % 11.8 % (2.0-8.0); NEUTROPHILS # 2.7 10^3/uL (1.5-8.5); NEUTROPHILS % 64.6 % (36.0-66.0); PLATELET COUNT, AUTOMATED 251 10^3/uL (150-450); RED BLOOD COUNT 2.85 10^6/uL (4.00-5.40); WHITE BLOOD COUNT 4.2 10^3/uL (4.0-10.0)
[2023-11-25] MEDS: SODIUM CHLORIDE 0.9% INJ 10 ML SYR IV SCH ×2 (05:34→18:00)
[2023-11-25 05:37] LABS: BLOOD UREA NITROGEN < 5 MG/DL (9-23); CALCIUM LEVEL 7.1 MG/DL (8.5-10.1); CARBON DIOXIDE LEVEL 39 MMOL/L (20-31); CHLORIDE LEVEL 100 MMOL/L (98-107); CREATININE FOR GFR 0.45 MG/DL (0.55-1.30); GLOMERULAR FILTRATION RATE > 60.0 (>51); GLUCOSE, FASTING 108 MG/DL (60-100); MAGNESIUM LEVEL 1.8 MG/DL (1.8-2.4); PHOSPHORUS LEVEL 2.6 MG/DL (2.5-4.9); POTASSIUM SERUM 3.1 MMOL/L (3.5-5.1); SODIUM LEVEL 140 MMOL/L (136-145)
[2023-11-25] MEDS: INSULIN LISPRO (NovoLOG) PER UNIT SC SCH ×7 (05:41→23:08)
[2023-11-25] MEDS: KCL 10MEQ/100ML SWI (KRUN) 10 MEQ in IV 1 EA IV SCH ×4 (06:00→09:43)
[2023-11-25] MEDS: FORMOTEROL FUMARATE 20 MCG/2 ML INHALATION SOLUTION (PERFOROMIST) INH SCH ×2 (07:34→19:45)
[2023-11-25] MEDS: BUDESONIDE 0.5 MG/2 ML INHALATION SUSPENSION NEB SCH ×2 (07:34→19:45)
[2023-11-25] MEDS: IPRATROPIUM 0.5MG/ALBUTEROL 2.5MG INH SOL UD 3ML (DUONEB) NEB PRN ×3 (07:35→15:49)
[2023-11-25] MEDS: TIOTROPIUM INHALER/CAPSULE (SPIRIVA) INH SCH (07:35)
[2023-11-25] MEDS: NICOTINE 21MG/24HR 1 EA TRANSDERMAL TD SCH (08:36)
[2023-11-25] MEDS: PANTOPRAZOLE 40MG VIAL IV SCH (08:36)
[2023-11-25] MEDS: busPIRone 5 MG TAB PO SCH ×2 (08:36→20:18)
[2023-11-25] MEDS ORDERED: K-PHOS NEUTRAL 250MG TABLET (SOD.PHOSPHATE/POT.PHOSPHATE) PO SCH (09:00)
[2023-11-25] MEDS ORDERED: PREPARATION H OINTMENT (HEMORRHOID) PR PRN ×2 (09:35→10:45)
[2023-11-25 10:40] LABS: INR 1.07; PROTHROMBIN TIME 13.6 SECONDS (12.5-14.5)
[2023-11-25] MEDS: ALPRAZolam 0.25 MG TAB PO PRN ×2 (10:52→20:19)
[2023-11-25] MEDS: guaiFENesin ER TABLET 600 MG TAB PO SCH ×2 (10:53→20:19)
[2023-11-25] MEDS ORDERED: LIDOCAINE 1% MDV 20ML VIAL As Ordered ONE (11:42)
[2023-11-25 12:13] LABS: CLOSTRIDIUM DIFFICILE PCR NEGATIVE (NEGATIVE)
[2023-11-25] MEDS: LACTOBACILLUS ACIDOPHILUS CAP (BACID) PO SCH (13:50)
[2023-11-25] MEDS: ACETAMINOPHEN 500 MG TAB PO PRN ×2 (13:54→23:46)
[2023-11-25] MEDS: HEPARIN SOD (PORCINE) 5000UNITS/ML 1ML VIAL/SYRINGE SQ SCH ×2 (15:47→23:05)
[2023-11-25] MEDS ORDERED: FAT EMULSION IV 250 ML IV ONE (18:00)
[2023-11-25] MEDS ORDERED: MULTIVITAMIN -ADULT INJECTION 10 ML, ZINC/COPPER/MANGANESE/SELENIUM 1 ML in AMINO AC/EL... IV SCH (18:00)
[2023-11-25] MEDS ORDERED: INSULIN LISPRO (NovoLOG) PER UNIT SC SCH (18:00)
[2023-11-25] MEDS: ROSUVASTATIN 10 MG TAB (CRESTOR) PO SCH (20:18)
[2023-11-25] MEDS: MIRTAZAPINE 15 MG TAB PO SCH (20:19)
[2023-11-25] MEDS: K-PHOS NEUTRAL 250MG TABLET (SOD.PHOSPHATE/POT.PHOSPHATE) PO SCH (23:05)
[2023-11-26] VITALS (7 sets, daily range): BP systolic 107–136; BP diastolic 58–86; TEMP 97.7–98.1; O2SAT 93–97
[2023-11-26] MEDS: SODIUM CHLORIDE 0.9% INJ 10 ML SYR IV SCH ×2 (05:16→17:10)
[2023-11-26] MEDS: K-PHOS NEUTRAL 250MG TABLET (SOD.PHOSPHATE/POT.PHOSPHATE) PO SCH (05:18)
[2023-11-26] MEDS: PIPERACILLIN/TAZOBACTAM SOD 4.5 GM in D5W MINI-BAG PLUS 50 ML IV SCH (05:19)
[2023-11-26] MEDS: INSULIN LISPRO (NovoLOG) PER UNIT SC SCH ×3 (05:27→17:10)
[2023-11-26 05:34] LABS: BASO % 0.2 % (0.0-1.0); EOS # 0.1 10^3/uL (0.0-0.5); EOS % 2.2 % (0.0-3.0); HEMATOCRIT 27.7 % (36.0-47.0); HEMOGLOBIN 8.3 g/dl (12.0-15.5); LYMPH # 0.8 10^3/uL (1.5-5.0); LYMPH % 16.6 % (24.0-44.0); MEAN CORPUSCULAR HEMOGLOBIN 28.1 pg (27.0-33.0); MEAN CORPUSCULAR VOLUME 93.9 fl (80.0-96.0); MONO # 0.4 10^3/uL (0.0-0.8); MONO % 8.7 % (2.0-8.0); NEUTROPHILS # 3.2 10^3/uL (1.5-8.5); NEUTROPHILS % 70.1 % (36.0-66.0); PLATELET COUNT, AUTOMATED 256 10^3/uL (150-450); RED BLOOD COUNT 2.95 10^6/uL (4.00-5.40); WHITE BLOOD COUNT 4.6 10^3/uL (4.0-10.0)
[2023-11-26] MEDS: HEPARIN SOD (PORCINE) 5000UNITS/ML 1ML VIAL/SYRINGE SQ SCH ×3 (05:39→21:07)
[2023-11-26 06:08] LABS: BLOOD UREA NITROGEN 5 MG/DL (9-23); CALCIUM LEVEL 7.5 MG/DL (8.5-10.1); CARBON DIOXIDE LEVEL 39 MMOL/L (20-31); CHLORIDE LEVEL 105 MMOL/L (98-107); CREATININE FOR GFR 0.46 MG/DL (0.55-1.30); GLOMERULAR FILTRATION RATE > 60.0 (>51); GLUCOSE, FASTING 102 MG/DL (60-100); MAGNESIUM LEVEL 1.7 MG/DL (1.8-2.4); PHOSPHORUS LEVEL 3.2 MG/DL (2.5-4.9); POTASSIUM SERUM 3.3 MMOL/L (3.5-5.1); SODIUM LEVEL 144 MMOL/L (136-145)
[2023-11-26] MEDS ORDERED: MAG SULF 1GM/100ML (MAG RUN) 1 GM in IV 1 EA IV ONE ×2 (07:00→10:00)
[2023-11-26] MEDS: ACETAMINOPHEN 500 MG TAB PO PRN (08:23)
[2023-11-26] MEDS: PANTOPRAZOLE 40MG VIAL IV SCH (08:23)
[2023-11-26] MEDS: NICOTINE 21MG/24HR 1 EA TRANSDERMAL TD SCH (08:23)
[2023-11-26] MEDS: LACTOBACILLUS ACIDOPHILUS CAP (BACID) PO SCH (08:24)
[2023-11-26] MEDS: busPIRone 5 MG TAB PO SCH ×2 (08:24→21:08)
[2023-11-26] MEDS: ALPRAZolam 0.25 MG TAB PO PRN ×2 (08:24→18:35)
[2023-11-26] MEDS: KCL 10MEQ/100ML SWI (KRUN) 10 MEQ in IV 1 EA IV SCH ×4 (08:25→14:49)
[2023-11-26] MEDS: guaiFENesin ER TABLET 600 MG TAB PO SCH ×2 (08:26→21:07)
[2023-11-26] MEDS: FORMOTEROL FUMARATE 20 MCG/2 ML INHALATION SOLUTION (PERFOROMIST) INH SCH ×2 (08:44→19:31)
[2023-11-26] MEDS: BUDESONIDE 0.5 MG/2 ML INHALATION SUSPENSION NEB SCH ×2 (08:44→19:31)
[2023-11-26] MEDS: TIOTROPIUM INHALER/CAPSULE (SPIRIVA) INH SCH (08:44)
[2023-11-26] MEDS: LOMOTIL 2.5MG/0.025MG TABLET PO SCH ×2 (10:56→21:07)
[2023-11-26] MEDS: CIPROFLOXACIN 500MG TABLET PO SCH ×2 (10:56→17:08)
[2023-11-26] MEDS: metroNIDAZOLE (FLAGYL) 500MG TABLET PO SCH ×2 (13:41→21:08)
[2023-11-26] MEDS ORDERED: MAALOX 30 ML SUSP *UDC PO ONE (17:00)
[2023-11-26] MEDS ORDERED: MULTIVITAMIN -ADULT INJECTION 10 ML, ZINC/COPPER/MANGANESE/SELENIUM 1 ML in AMINO AC/EL... IV SCH (18:00)
[2023-11-26] MEDS ORDERED: FAT EMULSION IV 250 ML IV ONE (18:00)
[2023-11-26] MEDS: AMINO AC/ELECTROLYTE/DEX/CALC 2,000 ML IV SCH (18:35)
[2023-11-26] MEDS: CALCIUM CARBONATE 500 MG CHEW U/D PO PRN (18:44)
[2023-11-26] MEDS ORDERED: CALCIUM CARBONATE 500 MG CHEW U/D PO ONE (21:00)
[2023-11-26] MEDS: MIRTAZAPINE 15 MG TAB PO SCH (21:07)
[2023-11-26] MEDS: ROSUVASTATIN 10 MG TAB (CRESTOR) PO SCH (21:08)
[2023-11-27] MEDS: ACETAMINOPHEN 500 MG TAB PO PRN (00:01)
[2023-11-27] MEDS: INSULIN LISPRO (NovoLOG) PER UNIT SC SCH ×4 (00:01→18:00)
[2023-11-27 05:01] VITALS: BP 91/63; TEMP 97.9; O2SAT 99
[2023-11-27 06:02] LABS: BASO % 0.2 % (0.0-1.0); EOS # 0.1 10^3/uL (0.0-0.5); EOS % 2.2 % (0.0-3.0); HEMATOCRIT 28.2 % (36.0-47.0); HEMOGLOBIN 8.6 g/dl (12.0-15.5); LYMPH # 0.9 10^3/uL (1.5-5.0); LYMPH % 19.7 % (24.0-44.0); MEAN CORPUSCULAR HEMOGLOBIN 28.7 pg (27.0-33.0); MEAN CORPUSCULAR HGB CONC 30.5 g/dl (32.0-36.5); MONO # 0.4 10^3/uL (0.0-0.8); MONO % 8.1 % (2.0-8.0); NEUTROPHILS # 3.1 10^3/uL (1.5-8.5); PLATELET COUNT, AUTOMATED 297 10^3/uL (150-450); WHITE BLOOD COUNT 4.6 10^3/uL (4.0-10.0)
[2023-11-27] MEDS: HEPARIN SOD (PORCINE) 5000UNITS/ML 1ML VIAL/SYRINGE SQ SCH ×3 (06:16→21:13)
[2023-11-27] MEDS: SODIUM CHLORIDE 0.9% INJ 10 ML SYR IV SCH ×2 (06:16→17:37)
[2023-11-27] MEDS: CIPROFLOXACIN 500MG TABLET PO SCH ×2 (06:17→17:25)
[2023-11-27] MEDS: metroNIDAZOLE (FLAGYL) 500MG TABLET PO SCH (06:17)
[2023-11-27 06:27] LABS: BLOOD UREA NITROGEN 5 MG/DL (9-23); CALCIUM LEVEL 7.5 MG/DL (8.5-10.1); CARBON DIOXIDE LEVEL 36 MMOL/L (20-31); CHLORIDE LEVEL 103 MMOL/L (98-107); CREATININE FOR GFR 0.42 MG/DL (0.55-1.30); GLOMERULAR FILTRATION RATE > 60.0 (>51); GLUCOSE, FASTING 106 MG/DL (60-100); MAGNESIUM LEVEL 2.1 MG/DL (1.8-2.4); PHOSPHORUS LEVEL 2.3 MG/DL (2.5-4.9); POTASSIUM SERUM 3.8 MMOL/L (3.5-5.1); SODIUM LEVEL 141 MMOL/L (136-145)
[2023-11-27] MEDS: TIOTROPIUM INHALER/CAPSULE (SPIRIVA) INH SCH (07:51)
[2023-11-27] MEDS: BUDESONIDE 0.5 MG/2 ML INHALATION SUSPENSION NEB SCH ×2 (07:51→19:52)
[2023-11-27] MEDS: FORMOTEROL FUMARATE 20 MCG/2 ML INHALATION SOLUTION (PERFOROMIST) INH SCH ×2 (07:52→19:52)
[2023-11-27] MEDS: NICOTINE 21MG/24HR 1 EA TRANSDERMAL TD SCH (08:07)
[2023-11-27] MEDS: PANTOPRAZOLE 40MG VIAL IV SCH (08:08)
[2023-11-27] MEDS: LACTOBACILLUS ACIDOPHILUS CAP (BACID) PO SCH (08:08)
[2023-11-27] MEDS: busPIRone 5 MG TAB PO SCH ×2 (08:09→20:14)
[2023-11-27] MEDS: guaiFENesin ER TABLET 600 MG TAB PO SCH ×2 (08:09→20:14)
[2023-11-27] MEDS: CALCIUM CARBONATE 500 MG CHEW U/D PO PRN (08:09)
[2023-11-27] MEDS: LOMOTIL 2.5MG/0.025MG TABLET PO SCH ×2 (08:09→20:15)
[2023-11-27] MEDS: ALPRAZolam 0.25 MG TAB PO PRN ×2 (08:17→20:15)
[2023-11-27] MEDS ORDERED: K-PHOS NEUTRAL 250MG TABLET (SOD.PHOSPHATE/POT.PHOSPHATE) PO SCH (09:00)
[2023-11-27] MEDS: AMINO AC/ELECTROLYTE/DEX/CALC 2,000 ML IV SCH (10:27)
[2023-11-27 14:00] VITALS: BP 113/73; TEMP 97.9; O2SAT 96
[2023-11-27] MEDS: IPRATROPIUM 0.5MG/ALBUTEROL 2.5MG INH SOL UD 3ML (DUONEB) NEB PRN (14:23)
[2023-11-27] MEDS: K-PHOS NEUTRAL 250MG TABLET (SOD.PHOSPHATE/POT.PHOSPHATE) PO SCH ×2 (15:05→20:15)
[2023-11-27] MEDS ORDERED: MULTIVITAMIN -ADULT INJECTION 10 ML, ZINC/COPPER/MANGANESE/SELENIUM 1 ML in AMINO AC/EL... IV SCH (18:00)
[2023-11-27] MEDS ORDERED: FAT EMULSION IV 250 ML IV ONE (18:00)
[2023-11-27 18:47] VITALS: BP 108/68; TEMP 98.6; O2SAT 98
[2023-11-27 19:47] VITALS: O2SAT 95
[2023-11-27] MEDS: ROSUVASTATIN 10 MG TAB (CRESTOR) PO SCH (20:14)
[2023-11-27] MEDS: MIRTAZAPINE 15 MG TAB PO SCH (20:15)
[2023-11-28] MEDS: INSULIN LISPRO (NovoLOG) PER UNIT SC SCH ×4 (00:08→17:31)
[2023-11-28 05:29] VITALS: BP 88/60; TEMP 97.5; O2SAT 96
[2023-11-28 05:52] VITALS: BP 94/60
[2023-11-28 06:05] LABS: BASO % 0.4 % (0.0-1.0); EOS % 0.2 % (0.0-3.0); HEMATOCRIT 28.4 % (36.0-47.0); HEMOGLOBIN 8.6 g/dl (12.0-15.5); LYMPH # 0.9 10^3/uL (1.5-5.0); LYMPH % 16.1 % (24.0-44.0); MEAN CORPUSCULAR HEMOGLOBIN 28.6 pg (27.0-33.0); MEAN CORPUSCULAR HGB CONC 30.3 g/dl (32.0-36.5); MEAN CORPUSCULAR VOLUME 94.4 fl (80.0-96.0); MONO # 0.3 10^3/uL (0.0-0.8); MONO % 6.2 % (2.0-8.0); NEUTROPHILS # 3.9 10^3/uL (1.5-8.5); NEUTROPHILS % 74.5 % (36.0-66.0); PLATELET COUNT, AUTOMATED 339 10^3/uL (150-450); RED BLOOD COUNT 3.01 10^6/uL (4.00-5.40); WHITE BLOOD COUNT 5.3 10^3/uL (4.0-10.0)
[2023-11-28] MEDS: CIPROFLOXACIN 500MG TABLET PO SCH ×2 (06:13→17:42)
[2023-11-28] MEDS: HEPARIN SOD (PORCINE) 5000UNITS/ML 1ML VIAL/SYRINGE SQ SCH ×3 (06:13→21:11)
[2023-11-28] MEDS: SODIUM CHLORIDE 0.9% INJ 10 ML SYR IV SCH ×2 (06:14→18:00)
[2023-11-28] MEDS: ALPRAZolam 0.25 MG TAB PO PRN ×2 (06:22→14:55)
[2023-11-28 06:38] LABS: BLOOD UREA NITROGEN 7 MG/DL (9-23); CALCIUM LEVEL 7.6 MG/DL (8.5-10.1); CARBON DIOXIDE LEVEL 36 MMOL/L (20-31); CHLORIDE LEVEL 103 MMOL/L (98-107); CREATININE FOR GFR 0.39 MG/DL (0.55-1.30); GLOMERULAR FILTRATION RATE > 60.0 (>51); GLUCOSE, FASTING 120 MG/DL (60-100); MAGNESIUM LEVEL 1.8 MG/DL (1.8-2.4); PHOSPHORUS LEVEL 2.5 MG/DL (2.5-4.9); POTASSIUM SERUM 3.4 MMOL/L (3.5-5.1); SODIUM LEVEL 141 MMOL/L (136-145)
[2023-11-28] MEDS: BUDESONIDE 0.5 MG/2 ML INHALATION SUSPENSION NEB SCH ×2 (07:13→19:36)
[2023-11-28] MEDS: TIOTROPIUM INHALER/CAPSULE (SPIRIVA) INH SCH (07:13)
[2023-11-28] MEDS: FORMOTEROL FUMARATE 20 MCG/2 ML INHALATION SOLUTION (PERFOROMIST) INH SCH ×2 (07:13→19:36)
[2023-11-28] MEDS ORDERED: POTASSIUM CHLORIDE 10MEQ SR TABLET PO ONE (08:00)
[2023-11-28] MEDS: PANTOPRAZOLE 40MG TAB (PROTONIX) PO SCH (08:26)
[2023-11-28] MEDS: guaiFENesin ER TABLET 600 MG TAB PO SCH ×2 (08:26→21:11)
[2023-11-28] MEDS: LACTOBACILLUS ACIDOPHILUS CAP (BACID) PO SCH (08:26)
[2023-11-28] MEDS: NICOTINE 21MG/24HR 1 EA TRANSDERMAL TD SCH (08:27)
[2023-11-28] MEDS: LOMOTIL 2.5MG/0.025MG TABLET PO SCH (08:30)
[2023-11-28] MEDS: busPIRone 5 MG TAB PO SCH ×2 (08:30→21:10)
[2023-11-28] MEDS ORDERED: METAMUCIL (PSYLLIUM) PACKET PO SCH (09:00)
[2023-11-28] MEDS ORDERED: LOPERAMIDE 2 MG CAPLET PO SCH (09:00)
[2023-11-28] MEDS ORDERED: ONDANSETRON 4MG ORAL DISINTEGRATING TAB PO PRN (09:25)
[2023-11-28] MEDS ORDERED: LACTATED RINGER'S 1000 ML IV STA (09:25)
[2023-11-28 12:03] VITALS: BP 103/67
[2023-11-28 14:00] VITALS: BP 103/66; TEMP 97.7; O2SAT 97
[2023-11-28] MEDS: LOPERAMIDE 2 MG CAPLET PO SCH ×2 (14:55→21:10)
[2023-11-28] MEDS ORDERED: AMINO AC/ELECTROLYTE/DEX/CALC 2,000 ML IV SCH (18:00)
[2023-11-28] MEDS ORDERED: FAT EMULSION IV 250 ML IV ONE (18:00)
[2023-11-28 19:30] VITALS: O2SAT 95
[2023-11-28] MEDS: IPRATROPIUM 0.5MG/ALBUTEROL 2.5MG INH SOL UD 3ML (DUONEB) NEB PRN (19:36)
[2023-11-28] MEDS: ROSUVASTATIN 10 MG TAB (CRESTOR) PO SCH (21:10)
[2023-11-28] MEDS: CALCIUM CARBONATE 500 MG CHEW U/D PO PRN (21:10)
[2023-11-28] MEDS: MIRTAZAPINE 15 MG TAB PO SCH (21:11)
[2023-11-28] MEDS: METAMUCIL (PSYLLIUM) PACKET PO SCH (21:11)
[2023-11-28] MEDS: ACETAMINOPHEN 500 MG TAB PO PRN (21:20)
[2023-11-28 22:44] VITALS: BP 104/70; TEMP 98.1; O2SAT 96
[2023-11-29] MEDS: INSULIN LISPRO (NovoLOG) PER UNIT SC SCH ×4 (00:31→17:46)
[2023-11-29] MEDS: ALPRAZolam 0.25 MG TAB PO PRN ×3 (00:31→19:57)
[2023-11-29 05:53] VITALS: BP 104/68; TEMP 98.1; O2SAT 97
[2023-11-29] MEDS: CIPROFLOXACIN 500MG TABLET PO SCH ×2 (06:04→17:46)
[2023-11-29] MEDS: HEPARIN SOD (PORCINE) 5000UNITS/ML 1ML VIAL/SYRINGE SQ SCH ×3 (06:04→21:34)
[2023-11-29] MEDS: SODIUM CHLORIDE 0.9% INJ 10 ML SYR IV SCH ×2 (06:05→17:53)
[2023-11-29] MEDS: ACETAMINOPHEN 500 MG TAB PO PRN (06:06)
[2023-11-29 06:21] LABS: BASO % 0.2 % (0.0-1.0); EOS % 0.2 % (0.0-3.0); HEMATOCRIT 29.4 % (36.0-47.0); LYMPH % 17.5 % (24.0-44.0); MEAN CORPUSCULAR HEMOGLOBIN 29.1 pg (27.0-33.0); MEAN CORPUSCULAR HGB CONC 30.6 g/dl (32.0-36.5); MEAN CORPUSCULAR VOLUME 95.1 fl (80.0-96.0); MONO # 0.4 10^3/uL (0.0-0.8); NEUTROPHILS # 4.3 10^3/uL (1.5-8.5); PLATELET COUNT, AUTOMATED 407 10^3/uL (150-450); RED BLOOD COUNT 3.09 10^6/uL (4.00-5.40); WHITE BLOOD COUNT 5.8 10^3/uL (4.0-10.0)
[2023-11-29 06:45] LABS: BLOOD UREA NITROGEN 6 MG/DL (9-23); CALCIUM LEVEL 7.8 MG/DL (8.5-10.1); CARBON DIOXIDE LEVEL 34 MMOL/L (20-31); CHLORIDE LEVEL 106 MMOL/L (98-107); GLOMERULAR FILTRATION RATE > 60.0 (>51); GLUCOSE, FASTING 113 MG/DL (60-100); MAGNESIUM LEVEL 1.8 MG/DL (1.8-2.4); PHOSPHORUS LEVEL 3.2 MG/DL (2.5-4.9); POTASSIUM SERUM 3.9 MMOL/L (3.5-5.1); SODIUM LEVEL 142 MMOL/L (136-145)
[2023-11-29] MEDS: FORMOTEROL FUMARATE 20 MCG/2 ML INHALATION SOLUTION (PERFOROMIST) INH SCH ×2 (07:17→20:00)
[2023-11-29] MEDS: BUDESONIDE 0.5 MG/2 ML INHALATION SUSPENSION NEB SCH ×2 (07:17→20:00)
[2023-11-29] MEDS: TIOTROPIUM INHALER/CAPSULE (SPIRIVA) INH SCH (07:17)
[2023-11-29] MEDS: LACTOBACILLUS ACIDOPHILUS CAP (BACID) PO SCH (09:11)
[2023-11-29] MEDS: busPIRone 5 MG TAB PO SCH ×2 (09:11→19:53)
[2023-11-29] MEDS: METAMUCIL (PSYLLIUM) PACKET PO SCH ×2 (09:11→19:54)
[2023-11-29] MEDS: LOPERAMIDE 2 MG CAPLET PO SCH ×3 (09:12→19:54)
[2023-11-29] MEDS: PANTOPRAZOLE 40MG TAB (PROTONIX) PO SCH (09:12)
[2023-11-29] MEDS: guaiFENesin ER TABLET 600 MG TAB PO SCH ×2 (09:12→19:54)
[2023-11-29] MEDS: NICOTINE 21MG/24HR 1 EA TRANSDERMAL TD SCH (09:12)
[2023-11-29] MEDS: SUCRALFATE 1 GM TAB PO SCH ×3 (12:35→19:54)
[2023-11-29 15:04] VITALS: BP 104/69; TEMP 97.5; O2SAT 97
[2023-11-29] MEDS: CALCIUM CARBONATE 500 MG CHEW U/D PO PRN (16:50)
[2023-11-29] MEDS: AMINO AC/ELECTROLYTE/DEX/CALC 2,000 ML IV SCH (17:47)
[2023-11-29] MEDS ORDERED: FAT EMULSION IV 250 ML IV ONE (18:00)
[2023-11-29] MEDS: MIRTAZAPINE 15 MG TAB PO SCH (19:53)
[2023-11-29] MEDS: ROSUVASTATIN 10 MG TAB (CRESTOR) PO SCH (19:54)
[2023-11-29 21:47] VITALS: BP 103/72; TEMP 98.4; O2SAT 94
[2023-11-30] MEDS: INSULIN LISPRO (NovoLOG) PER UNIT SC SCH ×5 (00:07→17:26)
[2023-11-30] MEDS: ACETAMINOPHEN 500 MG TAB PO PRN ×2 (01:27→09:29)
[2023-11-30] MEDS: CIPROFLOXACIN 500MG TABLET PO SCH ×2 (05:45→17:24)
[2023-11-30] MEDS: SODIUM CHLORIDE 0.9% INJ 10 ML SYR IV SCH ×2 (05:46→17:29)
[2023-11-30] MEDS: HEPARIN SOD (PORCINE) 5000UNITS/ML 1ML VIAL/SYRINGE SQ SCH ×3 (05:46→21:12)
[2023-11-30 06:27] LABS: BLOOD UREA NITROGEN 6 MG/DL (9-23); CALCIUM LEVEL 8.3 MG/DL (8.5-10.1); CARBON DIOXIDE LEVEL 36 MMOL/L (20-31); CHLORIDE LEVEL 102 MMOL/L (98-107); CREATININE FOR GFR 0.42 MG/DL (0.55-1.30); GLOMERULAR FILTRATION RATE > 60.0 (>51); GLUCOSE, FASTING 106 MG/DL (60-100); MAGNESIUM LEVEL 1.8 MG/DL (1.8-2.4); PHOSPHORUS LEVEL 3.7 MG/DL (2.5-4.9); POTASSIUM SERUM 3.5 MMOL/L (3.5-5.1); SODIUM LEVEL 140 MMOL/L (136-145)
[2023-11-30 06:37] VITALS: BP 95/62; TEMP 98.1; O2SAT 97
[2023-11-30] MEDS: FORMOTEROL FUMARATE 20 MCG/2 ML INHALATION SOLUTION (PERFOROMIST) INH SCH ×2 (07:27→19:54)
[2023-11-30] MEDS: TIOTROPIUM INHALER/CAPSULE (SPIRIVA) INH SCH (07:27)
[2023-11-30] MEDS: BUDESONIDE 0.5 MG/2 ML INHALATION SUSPENSION NEB SCH ×2 (07:27→19:54)
[2023-11-30] MEDS: NICOTINE 21MG/24HR 1 EA TRANSDERMAL TD SCH (08:47)
[2023-11-30] MEDS: LACTOBACILLUS ACIDOPHILUS CAP (BACID) PO SCH (08:48)
[2023-11-30] MEDS: guaiFENesin ER TABLET 600 MG TAB PO SCH ×2 (08:48→20:01)
[2023-11-30] MEDS: busPIRone 5 MG TAB PO SCH ×2 (08:48→20:01)
[2023-11-30] MEDS: PANTOPRAZOLE 40MG TAB (PROTONIX) PO SCH (08:48)
[2023-11-30] MEDS: LOPERAMIDE 2 MG CAPLET PO SCH ×3 (08:49→20:01)
[2023-11-30] MEDS: METAMUCIL (PSYLLIUM) PACKET PO SCH ×2 (08:49→20:00)
[2023-11-30] MEDS: SUCRALFATE 1 GM TAB PO SCH ×4 (08:49→20:01)
[2023-11-30] MEDS: ALPRAZolam 0.25 MG TAB PO PRN ×2 (08:55→17:45)
[2023-11-30 09:51] VITALS: BP 94/65
[2023-11-30] MEDS: POTASSIUM CHLORIDE 10MEQ SR TABLET PO SCH (10:50)
[2023-11-30] MEDS: MAGNESIUM OXIDE 400MG TAB (MAG-OX) PO SCH (10:50)
[2023-11-30 14:00] VITALS: BP 102/63; TEMP 97.3; O2SAT 97
[2023-11-30] MEDS: CALCIUM CARBONATE 500 MG CHEW U/D PO PRN ×2 (15:32→16:27)
[2023-11-30] MEDS: AMINO AC/ELECTROLYTE/DEX/CALC 2,000 ML IV SCH (17:23)
[2023-11-30] MEDS ORDERED: FAT EMULSION IV 250 ML IV ONE (18:00)
[2023-11-30] MEDS ORDERED: MULTIVITAMIN -ADULT INJECTION 10 ML, ZINC/COPPER/MANGANESE/SELENIUM 1 ML in AMINO AC/EL... IV SCH (18:00)
[2023-11-30] MEDS ORDERED: MAALOX 30 ML SUSP *UDC PO ONE (19:00)
[2023-11-30] MEDS: IPRATROPIUM 0.5MG/ALBUTEROL 2.5MG INH SOL UD 3ML (DUONEB) NEB PRN (19:52)
[2023-11-30] MEDS: MIRTAZAPINE 15 MG TAB PO SCH (20:01)
[2023-11-30] MEDS: ROSUVASTATIN 10 MG TAB (CRESTOR) PO SCH (20:01)
[2023-11-30 22:46] VITALS: BP 111/72; TEMP 98.1; O2SAT 96
[2023-12-01] MEDS: INSULIN LISPRO (NovoLOG) PER UNIT SC SCH ×6 (00:06→12:00)
[2023-12-01] MEDS: HEPARIN SOD (PORCINE) 5000UNITS/ML 1ML VIAL/SYRINGE SQ SCH (05:37)
[2023-12-01] MEDS: SODIUM CHLORIDE 0.9% INJ 10 ML SYR IV SCH (05:37)
[2023-12-01] MEDS: ALPRAZolam 0.25 MG TAB PO PRN (05:47)
[2023-12-01 06:00] VITALS: BP 97/59; TEMP 98.2; O2SAT 96
[2023-12-01 06:06] LABS: BASO % 0.2 % (0.0-1.0); EOS % 0.1 % (0.0-3.0); HEMATOCRIT 29.5 % (36.0-47.0); LYMPH # 1.6 10^3/uL (1.5-5.0); LYMPH % 16.1 % (24.0-44.0); MEAN CORPUSCULAR HEMOGLOBIN 29.3 pg (27.0-33.0); MEAN CORPUSCULAR HGB CONC 30.5 g/dl (32.0-36.5); MEAN CORPUSCULAR VOLUME 96.1 fl (80.0-96.0); MONO # 0.5 10^3/uL (0.0-0.8); MONO % 4.8 % (2.0-8.0); NEUTROPHILS # 7.8 10^3/uL (1.5-8.5); NEUTROPHILS % 77.8 % (36.0-66.0); PLATELET COUNT, AUTOMATED 508 10^3/uL (150-450); RED BLOOD COUNT 3.07 10^6/uL (4.00-5.40)
[2023-12-01 06:36] LABS: BLOOD UREA NITROGEN 6 MG/DL (9-23); CALCIUM LEVEL 8.4 MG/DL (8.5-10.1); CARBON DIOXIDE LEVEL 39 MMOL/L (20-31); CHLORIDE LEVEL 99 MMOL/L (98-107); CREATININE FOR GFR 0.44 MG/DL (0.55-1.30); GLOMERULAR FILTRATION RATE > 60.0 (>51); GLUCOSE, FASTING 112 MG/DL (60-100); PHOSPHORUS LEVEL 3.3 MG/DL (2.5-4.9); SODIUM LEVEL 138 MMOL/L (136-145)
[2023-12-01] MEDS ORDERED: SYMBICORT 160/4.5MCG INHALER 6GM INH SCH (08:00)
[2023-12-01] MEDS: METAMUCIL (PSYLLIUM) PACKET PO SCH (08:26)
[2023-12-01] MEDS: PANTOPRAZOLE 40MG TAB (PROTONIX) PO SCH (08:27)
[2023-12-01] MEDS: LACTOBACILLUS ACIDOPHILUS CAP (BACID) PO SCH (08:27)
[2023-12-01] MEDS: LOPERAMIDE 2 MG CAPLET PO SCH (08:27)
[2023-12-01] MEDS: guaiFENesin ER TABLET 600 MG TAB PO SCH (08:27)
[2023-12-01] MEDS: MAGNESIUM OXIDE 400MG TAB (MAG-OX) PO SCH (08:28)
[2023-12-01] MEDS: SUCRALFATE 1 GM TAB PO SCH ×2 (08:28→12:00)
[2023-12-01] MEDS: POTASSIUM CHLORIDE 10MEQ SR TABLET PO SCH (08:28)
[2023-12-01] MEDS: busPIRone 5 MG TAB PO SCH (08:29)
[2023-12-01] MEDS: NICOTINE 21MG/24HR 1 EA TRANSDERMAL TD SCH (08:35)
[2023-12-01] MEDS: ACETAMINOPHEN 500 MG TAB PO PRN (08:45)
[2023-12-01] MEDS ORDERED: POTA-136 PO ×2 (09:20→15:20)
[2023-12-01] MEDS ORDERED: SUCR1TA PO (09:20)
[2023-12-01] MEDS ORDERED: META28.32 PO (09:20)
[2023-12-01] MEDS ORDERED: RISATAB3 PO (09:20)
[2023-12-01] MEDS: TIOTROPIUM INHALER/CAPSULE (SPIRIVA) INH SCH (11:27)
== END 2023-12-01 12:19 | disposition home or self-care (01) | DRG 393 ==
LOC: M ED 03:54 → M ED INP 11:25 → M ICU 11-22 09:22 → M MSPAV 11-26 22:20
PROVIDERS: ADMIT Internal Medicine; ATTEND Internal Medicine
PROC: 0W9G3ZZ Drainage of Peritoneal Cavity, Percutaneous Approach (ICD-10-PCS; 2023-11-23)
PROC: 02HV33Z Insertion of Infusion Device into Superior Vena Cava, Percutaneous Approach (ICD-10-PCS; principal; 2023-11-23 13:19)
PROC: 0W9G30Z Drainage of Peritoneal Cavity with Drainage Device, Percutaneous Approach (ICD-10-PCS; 2023-11-25)
DX: K91.89 Other postprocedural complications and disorders of digestive system (principal); K65.9 Peritonitis, unspecified; E43 Unspecified severe protein-calorie malnutrition; K56.7 Ileus, unspecified; J96.11 Chronic respiratory failure with hypoxia; J96.12 Chronic respiratory failure with hypercapnia; R18.8 Other ascites; K90.821 Short bowel syndrome with colon in continuity; K21.9 Gastro-esophageal reflux disease without esophagitis; J44.9 Chronic obstructive pulmonary disease, unspecified; K66.8 Other specified disorders of peritoneum; E83.39 Other disorders of phosphorus metabolism; K29.70 Gastritis, unspecified, without bleeding; E88.09 Other disorders of plasma-protein metabolism, not elsewhere classified; E86.0 Dehydration; K29.80 Duodenitis without bleeding; B96.1 Klebsiella pneumoniae [K. pneumoniae] as the cause of diseases classified elsewhere; E87.6 Hypokalemia; F41.9 Anxiety disorder, unspecified; F32.A Depression, unspecified; E78.5 Hyperlipidemia, unspecified; R31.9 Hematuria, unspecified; R19.7 Diarrhea, unspecified; G47.33 Obstructive sleep apnea (adult) (pediatric); L89.151 Pressure ulcer of sacral region, stage 1; M54.2 Cervicalgia; G43.909 Migraine, unspecified, not intractable, without status migrainosus; M81.0 Age-related osteoporosis without current pathological fracture; M19.90 Unspecified osteoarthritis, unspecified site; Z79.899 Other long term (current) drug therapy; Z99.81 Dependence on supplemental oxygen

== ENCOUNTER → 2023-12-04 | Outpatient (CLI) | payer MEDICARE, OTHER ==
[~2023-12-04] MED LIST changes: +FERR325T3 PO; +META28.32 PO; +PANT40TA29 PO; +POTA-136 PO; +RISATAB3 PO; +SUCR1TA PO
[2023-12-04 11:33] LABS: ALBUMIN 1.9 G/DL (3.2-5.2); ALKALINE PHOSPHATASE 81 U/L (46-116); ALT/SGPT 23 U/L (7.0-40); AST/SGOT 30 U/L (<34); BILIRUBIN,TOTAL 0.2 MG/DL (0.3-1.2); BLOOD UREA NITROGEN 9 MG/DL (9-23); CALCIUM LEVEL 8.3 MG/DL (8.5-10.1); CARBON DIOXIDE LEVEL 39 MMOL/L (20-31); CHLORIDE LEVEL 98 MMOL/L (98-107); CREATININE FOR GFR 0.39 MG/DL (0.55-1.30); GLOMERULAR FILTRATION RATE > 60.0 (>51); GLUCOSE, FASTING 105 MG/DL (60-100); POTASSIUM SERUM 4.1 MMOL/L (3.5-5.1); SODIUM LEVEL 138 MMOL/L (136-145); TOTAL PROTEIN 4.9 G/DL (5.7-8.2)
== END ==
LOC: M LAB 10:03
PROVIDERS: ATTEND Internal Medicine
DX: Z51.81 Encounter for therapeutic drug level monitoring (principal)

== ENCOUNTER → 2023-12-07 | Outpatient (REF) | payer MEDICARE, OTHER ==
[2023-12-07 18:30] LABS: ALBUMIN 1.7 G/DL (3.2-5.2); ALKALINE PHOSPHATASE 79 U/L (46-116); ALT/SGPT 23 U/L (7.0-40); AST/SGOT 22 U/L (<34); BILIRUBIN,TOTAL 0.2 MG/DL (0.3-1.2); BLOOD UREA NITROGEN 10 MG/DL (9-23); CALCIUM LEVEL 8.1 MG/DL (8.5-10.1); CARBON DIOXIDE LEVEL 36 MMOL/L (20-31); CHLORIDE LEVEL 99 MMOL/L (98-107); CREATININE FOR GFR 0.39 MG/DL (0.55-1.30); GLOMERULAR FILTRATION RATE > 60.0 (>51); GLUCOSE, FASTING 76 MG/DL (60-100); POTASSIUM SERUM 4.3 MMOL/L (3.5-5.1); SODIUM LEVEL 138 MMOL/L (136-145); TOTAL PROTEIN 4.9 G/DL (5.7-8.2)
== END ==
LOC: M SHH 17:12
PROVIDERS: ATTEND Internal Medicine
DX: Z51.81 Encounter for therapeutic drug level monitoring (principal); Z79.899 Other long term (current) drug therapy

== ENCOUNTER → 2023-12-10 | Outpatient (CLI) | payer MEDICARE, OTHER ==
[2023-12-10 13:04] LABS: ALBUMIN 1.9 G/DL (3.2-5.2); ALKALINE PHOSPHATASE 76 U/L (46-116); ALT/SGPT 31 U/L (7.0-40); AST/SGOT 26 U/L (<34); BILIRUBIN,TOTAL < 0.2 MG/DL (0.3-1.2); BLOOD UREA NITROGEN 10 MG/DL (9-23); CALCIUM LEVEL 8.3 MG/DL (8.5-10.1); CARBON DIOXIDE LEVEL 36 MMOL/L (20-31); CHLORIDE LEVEL 102 MMOL/L (98-107); CREATININE FOR GFR 0.42 MG/DL (0.55-1.30); GLOMERULAR FILTRATION RATE > 60.0 (>51); GLUCOSE, FASTING 107 MG/DL (60-100); POTASSIUM SERUM 3.8 MMOL/L (3.5-5.1); SODIUM LEVEL 139 MMOL/L (136-145); TOTAL PROTEIN 5.2 G/DL (5.7-8.2)
== END ==
LOC: M LAB 11:39
PROVIDERS: ATTEND Family Medicine
DX: E44.0 Moderate protein-calorie malnutrition (principal); Z48.815 Encounter for surgical aftercare following surgery on the digestive system

== ENCOUNTER → 2023-12-14 | Outpatient (REF) | payer MEDICARE, OTHER ==
[2023-12-14 16:35] LABS: BASO % 0.2 % (0.0-1.0); EOS # 0.1 10^3/uL (0.0-0.5); EOS % 0.5 % (0.0-3.0); HEMATOCRIT 33.6 % (36.0-47.0); LYMPH # 2.2 10^3/uL (1.5-5.0); LYMPH % 24.2 % (24.0-44.0); MEAN CORPUSCULAR HEMOGLOBIN 27.5 pg (27.0-33.0); MEAN CORPUSCULAR HGB CONC 29.8 g/dl (32.0-36.5); MEAN CORPUSCULAR VOLUME 92.6 fl (80.0-96.0); MONO # 0.6 10^3/uL (0.0-0.8); MONO % 6.9 % (2.0-8.0); NEUTROPHILS # 6.1 10^3/uL (1.5-8.5); NEUTROPHILS % 67.2 % (36.0-66.0); PLATELET COUNT, AUTOMATED 374 10^3/uL (150-450); RED BLOOD COUNT 3.63 10^6/uL (4.00-5.40); WHITE BLOOD COUNT 9.1 10^3/uL (4.0-10.0)
[2023-12-14 16:58] LABS: ALBUMIN 2.2 G/DL (3.2-5.2); ALKALINE PHOSPHATASE 80 U/L (46-116); ALT/SGPT 22 U/L (7.0-40); AST/SGOT 21 U/L (<34); BILIRUBIN,TOTAL 0.2 MG/DL (0.3-1.2); BLOOD UREA NITROGEN 12 MG/DL (9-23); CALCIUM LEVEL 8.6 MG/DL (8.5-10.1); CARBON DIOXIDE LEVEL 33 MMOL/L (20-31); CHLORIDE LEVEL 98 MMOL/L (98-107); CREATININE FOR GFR 0.39 MG/DL (0.55-1.30); GLOMERULAR FILTRATION RATE > 60.0 (>51); GLUCOSE, FASTING 93 MG/DL (60-100); MAGNESIUM LEVEL 1.9 MG/DL (1.8-2.4); PHOSPHORUS LEVEL 4.5 MG/DL (2.5-4.9); SODIUM LEVEL 135 MMOL/L (136-145); TOTAL PROTEIN 5.8 G/DL (5.7-8.2); TRIGLYCERIDES LEVEL 143 MG/DL (<150)
== END ==
LOC: M SHH 15:47
PROVIDERS: ATTEND Internal Medicine
DX: E43 Unspecified severe protein-calorie malnutrition (principal); R19.7 Diarrhea, unspecified; K29.00 Acute gastritis without bleeding; K29.50 Unspecified chronic gastritis without bleeding

== ENCOUNTER → 2023-12-17 | Outpatient (CLI) | payer MEDICARE, OTHER ==
[2023-12-17 13:15] LABS: ALBUMIN 2.1 G/DL (3.2-5.2); ALKALINE PHOSPHATASE 72 U/L (46-116); ALT/SGPT 20 U/L (7.0-40); AST/SGOT 15 U/L (<34); BILIRUBIN,TOTAL < 0.2 MG/DL (0.3-1.2); BLOOD UREA NITROGEN 11 MG/DL (9-23); CALCIUM LEVEL 8.4 MG/DL (8.5-10.1); CARBON DIOXIDE LEVEL 35 MMOL/L (20-31); CHLORIDE LEVEL 102 MMOL/L (98-107); GLOMERULAR FILTRATION RATE > 60.0 (>51); GLUCOSE, FASTING 98 MG/DL (60-100); POTASSIUM SERUM 3.8 MMOL/L (3.5-5.1); SODIUM LEVEL 141 MMOL/L (136-145); TOTAL PROTEIN 5.3 G/DL (5.7-8.2)
== END ==
LOC: M LAB 11:38
PROVIDERS: ATTEND Physician Assistant
DX: Z48.815 Encounter for surgical aftercare following surgery on the digestive system (principal); E44.0 Moderate protein-calorie malnutrition

== ENCOUNTER → 2023-12-17 | Outpatient (CLI) | payer MEDICARE, OTHER ==
[2023-12-17 13:15] LABS: ALBUMIN 2.1 G/DL (3.2-5.2); ALKALINE PHOSPHATASE 71 U/L (46-116); ALT/SGPT 20 U/L (7.0-40); AST/SGOT 15 U/L (<34); BILIRUBIN,TOTAL < 0.2 MG/DL (0.3-1.2); BLOOD UREA NITROGEN 11 MG/DL (9-23); CALCIUM LEVEL 8.5 MG/DL (8.5-10.1); CARBON DIOXIDE LEVEL 35 MMOL/L (20-31); CHLORIDE LEVEL 102 MMOL/L (98-107); CREATININE FOR GFR 0.41 MG/DL (0.55-1.30); GLOMERULAR FILTRATION RATE > 60.0 (>51); GLUCOSE, FASTING 97 MG/DL (60-100); POTASSIUM SERUM 3.8 MMOL/L (3.5-5.1); SODIUM LEVEL 141 MMOL/L (136-145); TOTAL PROTEIN 5.3 G/DL (5.7-8.2)
== END ==
LOC: M LAB 11:43
PROVIDERS: ATTEND Internal Medicine
DX: E87.5 Hyperkalemia (principal); Z48.815 Encounter for surgical aftercare following surgery on the digestive system; E44.0 Moderate protein-calorie malnutrition

== ENCOUNTER → 2023-12-21 | Outpatient (REF) | payer MEDICARE, OTHER ==
[2023-12-21 14:25] LABS: ALBUMIN 2.2 G/DL (3.2-5.2); ALKALINE PHOSPHATASE 95 U/L (46-116); ALT/SGPT 21 U/L (7.0-40); AST/SGOT 48 U/L (<34); BILIRUBIN,TOTAL 0.2 MG/DL (0.3-1.2); BLOOD UREA NITROGEN 13 MG/DL (9-23); CALCIUM LEVEL 8.5 MG/DL (8.5-10.1); CARBON DIOXIDE LEVEL 23 MMOL/L (20-31); CHLORIDE LEVEL 104 MMOL/L (98-107); CREATININE FOR GFR 0.37 MG/DL (0.55-1.30); GLOMERULAR FILTRATION RATE > 60.0 (>51); GLUCOSE, FASTING 67 MG/DL (60-100); POTASSIUM SERUM 5.3 MMOL/L (3.5-5.1); SODIUM LEVEL 134 MMOL/L (136-145); TOTAL PROTEIN 5.6 G/DL (5.7-8.2)
== END ==
LOC: M SHH 13:08
PROVIDERS: ATTEND Internal Medicine
DX: Z48.815 Encounter for surgical aftercare following surgery on the digestive system (principal); E44.0 Moderate protein-calorie malnutrition

== ENCOUNTER → 2023-12-22 | Outpatient (REF) | payer MEDICARE, OTHER | LOC: M LAB REF 10:59 | PROVIDERS: ATTEND Internal Medicine Pulmonary Disease | DX: R05.9 Cough, unspecified (principal) ==

== ENCOUNTER → 2023-12-24 | Outpatient (CLI) | payer MEDICARE, OTHER ==
[2023-12-24 11:52] LABS: ALBUMIN 2.1 G/DL (3.2-5.2); ALKALINE PHOSPHATASE 70 U/L (46-116); ALT/SGPT 18 U/L (7.0-40); AST/SGOT 12 U/L (<34); BILIRUBIN,TOTAL < 0.2 MG/DL (0.3-1.2); BLOOD UREA NITROGEN 12 MG/DL (9-23); CARBON DIOXIDE LEVEL 36 MMOL/L (20-31); CHLORIDE LEVEL 99 MMOL/L (98-107); CREATININE FOR GFR 0.43 MG/DL (0.55-1.30); GLOMERULAR FILTRATION RATE > 60.0 (>51); GLUCOSE, FASTING 97 MG/DL (60-100); SODIUM LEVEL 139 MMOL/L (136-145); TOTAL PROTEIN 5.6 G/DL (5.7-8.2)
== END ==
LOC: M LAB 10:18
PROVIDERS: ATTEND Internal Medicine
DX: E88.09 Other disorders of plasma-protein metabolism, not elsewhere classified (principal); Z51.89 Encounter for other specified aftercare

== ENCOUNTER → 2023-12-31 | Outpatient (CLI) | payer MEDICARE, OTHER ==
[2023-12-31 13:32] LABS: ALBUMIN 2.3 G/DL (3.2-5.2); ALKALINE PHOSPHATASE 78 U/L (46-116); ALT/SGPT 14 U/L (7.0-40); AST/SGOT 11 U/L (<34); BILIRUBIN,TOTAL 0.2 MG/DL (0.3-1.2); BLOOD UREA NITROGEN 13 MG/DL (9-23); CALCIUM LEVEL 8.8 MG/DL (8.5-10.1); CARBON DIOXIDE LEVEL 35 MMOL/L (20-31); CHLORIDE LEVEL 99 MMOL/L (98-107); CREATININE FOR GFR 0.43 MG/DL (0.55-1.30); GLOMERULAR FILTRATION RATE > 60.0 (>51); GLUCOSE, FASTING 106 MG/DL (60-100); POTASSIUM SERUM 3.8 MMOL/L (3.5-5.1); SODIUM LEVEL 137 MMOL/L (136-145); TOTAL PROTEIN 5.5 G/DL (5.7-8.2)
== END ==
LOC: M LAB 12:00
PROVIDERS: ATTEND Internal Medicine
DX: E88.09 Other disorders of plasma-protein metabolism, not elsewhere classified (principal); Z51.89 Encounter for other specified aftercare

== ENCOUNTER → 2024-01-04 | Outpatient (REF) | payer MEDICARE, OTHER ==
[2024-01-04 13:49] LABS: ALBUMIN 2.2 G/DL (3.2-5.2); ALKALINE PHOSPHATASE 70 U/L (46-116); ALT/SGPT 12 U/L (7.0-40); AST/SGOT 14 U/L (<34); BILIRUBIN,TOTAL < 0.2 MG/DL (0.3-1.2); BLOOD UREA NITROGEN 13 MG/DL (9-23); CALCIUM LEVEL 8.7 MG/DL (8.5-10.1); CARBON DIOXIDE LEVEL 34 MMOL/L (20-31); CHLORIDE LEVEL 100 MMOL/L (98-107); CREATININE FOR GFR 0.43 MG/DL (0.55-1.30); GLOMERULAR FILTRATION RATE > 60.0 (>51); GLUCOSE, FASTING 79 MG/DL (60-100); POTASSIUM SERUM 4.1 MMOL/L (3.5-5.1); SODIUM LEVEL 138 MMOL/L (136-145); TOTAL PROTEIN 5.4 G/DL (5.7-8.2)
== END ==
LOC: M SHH 12:38
PROVIDERS: ATTEND Internal Medicine
DX: E44.0 Moderate protein-calorie malnutrition (principal); Z48.815 Encounter for surgical aftercare following surgery on the digestive system

== ENCOUNTER → 2024-01-04 | Outpatient (REF) | payer MEDICARE, OTHER ==
[2024-01-04 13:11] LABS: BASO % 0.1 % (0.0-1.0); EOS # 0.1 10^3/uL (0.0-0.5); HEMATOCRIT 32.1 % (36.0-47.0); HEMOGLOBIN 9.6 g/dl (12.0-15.5); LYMPH # 2.4 10^3/uL (1.5-5.0); LYMPH % 27.7 % (24.0-44.0); MEAN CORPUSCULAR HEMOGLOBIN 26.4 pg (27.0-33.0); MEAN CORPUSCULAR HGB CONC 29.9 g/dl (32.0-36.5); MEAN CORPUSCULAR VOLUME 88.2 fl (80.0-96.0); MONO # 0.6 10^3/uL (0.0-0.8); MONO % 6.9 % (2.0-8.0); NEUTROPHILS # 5.6 10^3/uL (1.5-8.5); NEUTROPHILS % 63.8 % (36.0-66.0); PLATELET COUNT, AUTOMATED 441 10^3/uL (150-450); RED BLOOD COUNT 3.64 10^6/uL (4.00-5.40); WHITE BLOOD COUNT 8.7 10^3/uL (4.0-10.0)
[2024-01-04 13:52] LABS: ALBUMIN 2.2 G/DL (3.2-5.2); ALKALINE PHOSPHATASE 72 U/L (46-116); ALT/SGPT 11 U/L (7.0-40); AST/SGOT 16 U/L (<34); BILIRUBIN,TOTAL < 0.2 MG/DL (0.3-1.2); BLOOD UREA NITROGEN 13 MG/DL (9-23); CALCIUM LEVEL 8.7 MG/DL (8.5-10.1); CARBON DIOXIDE LEVEL 32 MMOL/L (20-31); CHLORIDE LEVEL 101 MMOL/L (98-107); CREATININE FOR GFR 0.45 MG/DL (0.55-1.30); GLOMERULAR FILTRATION RATE > 60.0 (>51); GLUCOSE, FASTING 76 MG/DL (60-100); MAGNESIUM LEVEL 1.6 MG/DL (1.8-2.4); PHOSPHORUS LEVEL 4.5 MG/DL (2.5-4.9); POTASSIUM SERUM 4.1 MMOL/L (3.5-5.1); SODIUM LEVEL 138 MMOL/L (136-145); TOTAL PROTEIN 5.3 G/DL (5.7-8.2); TRIGLYCERIDES LEVEL 165 MG/DL (<150)
== END ==
LOC: M SHH 12:41
PROVIDERS: ATTEND Surgery
DX: E44.0 Moderate protein-calorie malnutrition (principal); K55.011 Focal (segmental) acute (reversible) ischemia of small intestine

== ENCOUNTER → 2024-01-19 | Outpatient (CLI) | payer MEDICARE, OTHER ==
[2024-01-19 12:09] LABS: BASO % 0.2 % (0.0-1.0); EOS # 0.1 10^3/uL (0.0-0.5); EOS % 0.6 % (0.0-3.0); HEMATOCRIT 39.1 % (36.0-47.0); HEMOGLOBIN 11.6 g/dl (12.0-15.5); LYMPH # 2.4 10^3/uL (1.5-5.0); LYMPH % 20.9 % (24.0-44.0); MEAN CORPUSCULAR HEMOGLOBIN 25.5 pg (27.0-33.0); MEAN CORPUSCULAR HGB CONC 29.7 g/dl (32.0-36.5); MEAN CORPUSCULAR VOLUME 85.9 fl (80.0-96.0); MONO # 0.6 10^3/uL (0.0-0.8); MONO % 5.1 % (2.0-8.0); NEUTROPHILS # 8.2 10^3/uL (1.5-8.5); NEUTROPHILS % 72.8 % (36.0-66.0); PLATELET COUNT, AUTOMATED 469 10^3/uL (150-450); RED BLOOD COUNT 4.55 10^6/uL (4.00-5.40); WHITE BLOOD COUNT 11.2 10^3/uL (4.0-10.0)
[2024-01-19 12:41] LABS: ALBUMIN 2.5 G/DL (3.2-5.2); ALKALINE PHOSPHATASE 86 U/L (46-116); ALT/SGPT 10 U/L (7.0-40); AST/SGOT 10 U/L (<34); BILIRUBIN,TOTAL 0.2 MG/DL (0.3-1.2); BLOOD UREA NITROGEN 10 MG/DL (9-23); CALCIUM LEVEL 8.7 MG/DL (8.5-10.1); CARBON DIOXIDE LEVEL 37 MMOL/L (20-31); CHLORIDE LEVEL 98 MMOL/L (98-107); CREATININE FOR GFR 0.57 MG/DL (0.55-1.30); GLOMERULAR FILTRATION RATE > 60.0 (>51); GLUCOSE, FASTING 98 MG/DL (60-100); POTASSIUM SERUM 3.8 MMOL/L (3.5-5.1); SODIUM LEVEL 140 MMOL/L (136-145); TOTAL PROTEIN 5.8 G/DL (5.7-8.2)
== END ==
LOC: M LAB 11:39
PROVIDERS: ATTEND Family Medicine
DX: R10.9 Unspecified abdominal pain (principal)

== ENCOUNTER 2024-02-04 12:57 | Inpatient (IN) | payer MEDICARE, OTHER ==
[~2024-02-04] VITALS: Ht 160 cm; Wt 53.8 kg
[~2024-02-04 12:57] MED LIST changes: -ACET-683 PO; -CALC200T15 PO; -MYLA1SUS PO; -ONDA4TAB6 PO; -SIME1CAP PO
[2024-02-04 15:28] LABS: BASO % 0.2 % (0.0-1.0); EOS # 0.1 10^3/uL (0.0-0.5); EOS % 0.4 % (0.0-3.0); HEMOGLOBIN 11.4 g/dl (12.0-15.5); LYMPH # 2.2 10^3/uL (1.5-5.0); MEAN CORPUSCULAR HGB CONC 30.8 g/dl (32.0-36.5); MEAN CORPUSCULAR VOLUME 81.1 fl (80.0-96.0); MONO # 0.7 10^3/uL (0.0-0.8); MONO % 5.3 % (2.0-8.0); NEUTROPHILS # 10.5 10^3/uL (1.5-8.5); NEUTROPHILS % 77.7 % (36.0-66.0); PLATELET COUNT, AUTOMATED 425 10^3/uL (150-450); RED BLOOD COUNT 4.56 10^6/uL (4.00-5.40); WHITE BLOOD COUNT 13.5 10^3/uL (4.0-10.0)
[2024-02-04] MEDS: KCL 10MEQ/100ML SWI (KRUN) 10 MEQ in IV 1 EA IV ONE ×2 (16:05→19:14)
[2024-02-04 16:16] LABS: MAGNESIUM LEVEL < 0.5 MG/DL (1.8-2.4)
[2024-02-04] MEDS: MAG SULF 1GM/100ML (MAG RUN) 1 GM in IV 1 EA IV ONE ×3 (16:24→19:13)
[2024-02-04 17:59] LABS: ALBUMIN 1.9 G/DL (3.2-5.2); ALKALINE PHOSPHATASE 81 U/L (46-116); ALT/SGPT < 9 U/L (7.0-40); AST/SGOT 12 U/L (<34); BILIRUBIN,TOTAL 0.2 MG/DL (0.3-1.2); BLOOD UREA NITROGEN 7 MG/DL (9-23); CALCIUM LEVEL 6.1 MG/DL (8.5-10.1); CARBON DIOXIDE LEVEL 36 MMOL/L (20-31); CHLORIDE LEVEL 96 MMOL/L (98-107); CREATININE FOR GFR 0.42 MG/DL (0.55-1.30); GLOMERULAR FILTRATION RATE > 60.0 (>51); GLUCOSE, FASTING 95 MG/DL (60-100); POTASSIUM SERUM 2.8 MMOL/L (3.5-5.1); SODIUM LEVEL 138 MMOL/L (136-145)
[2024-02-04] MEDS ORDERED: MYLA1SUS PO (18:18)
[2024-02-04] MEDS ORDERED: ONDA4TAB6 PO (18:18)
[2024-02-04] MEDS ORDERED: SUCR1TAB56 PO (18:18)
[2024-02-04] MEDS ORDERED: PANT20TA51 PO (18:18)
[2024-02-04] MEDS ORDERED: ACET-683 PO (18:18)
[2024-02-04] MEDS ORDERED: CALC200T15 PO (18:18)
[2024-02-04] MEDS ORDERED: SIME1CAP PO (18:18)
[2024-02-04] MEDS ORDERED: HOME MED LIST COMPLETE! XX SCH (18:35)
[2024-02-04] MEDS: GASTROGRAFIN SOLUTION 30ML PO SCH (18:58)
[2024-02-04] MEDS ORDERED: NS 1,000 ML IV SCH (19:00)
[2024-02-04] MEDS: ONDANSETRON 4MG 2ML VIAL IV ONE (19:03)
[2024-02-04] MEDS ORDERED: LR 1,000 ML IV SCH (19:05)
[2024-02-04] MEDS ORDERED: POTASSIUM CHLORIDE INJ 20 MEQ in LR 1,000 ML IV SCH (19:11)
[2024-02-04] MEDS: POTASSIUM CHLORIDE 10MEQ SR TABLET PO ONE (19:15)
[2024-02-04] MEDS: HYOSCYAMINE SULFATE 0.125 MG SUBL TABLET PO ONE (19:33)
[2024-02-04] MEDS: MAALOX 30 ML SUSP *UDC PO ONE (19:33)
[2024-02-04] MEDS: ALPRAZolam 0.25 MG TAB PO ONE (19:33)
[2024-02-04] MEDS ORDERED: ISOVUE-370 76% 100ML VIAL As Ordered ONE (20:22)
[2024-02-04] MEDS: POTASSIUM CHLORIDE INJ 20 MEQ in LR 1,000 ML IV SCH (20:48)
[2024-02-04] MEDS: PIPERACILLIN/TAZOBACTAM SOD 3.375 GM in D5W MINI-BAG PLUS 50 ML IV ONE (21:51)
[2024-02-04] MEDS: ALBUTEROL SULFATE 2.5MG/0.5ML INH NEB SOLN NEB STA (23:44)
[2024-02-05 00:34] LABS: VENOUS BASE EXCESS 6.9 (-2.0-2.0); VENOUS O2 SATURATION 87.9 % (60.0-80.0); VENOUS PARTIAL PRESSURE CO2 53.8 mmHg (38.0-50.0); VENOUS PARTIAL PRESSURE O2 56.4 mmHg (30.0-50.0); VENOUS PH 7.405 UNITS (7.330-7.430); VENOUS STANDARD HCO3 30.5 MMOL/L; VENOUS TOTAL CO2 34.6 MMOL/L (24.0-28.0)
[2024-02-05 01:20] VITALS: BP 102/60; TEMP 97.7; O2SAT 92
[2024-02-05] MEDS: ALPRAZolam 0.25 MG TAB PO PRN (01:47)
[2024-02-05] MEDS: MIRTAZAPINE 15 MG TAB PO SCH (01:48)
[2024-02-05] MEDS: PANTOPRAZOLE 40MG VIAL IV SCH (01:48)
[2024-02-05] MEDS: KCL 10MEQ/100ML SWI (KRUN) 100 ML IV SCH (02:37)
[2024-02-05] MEDS ORDERED: ONDANSETRON 4MG 2ML VIAL IV PRN (03:20)
[2024-02-05] MEDS: PIPERACILLIN/TAZOBACTAM SOD 3.375 GM in D5W MINI-BAG PLUS 50 ML IV SCH (04:03)
[2024-02-05] MEDS: CALCIUM GLUCONATE 1,000 MG in D5W MINI-BAG PLUS 100 ML IV STA (04:37)
[2024-02-05] MEDS: LR 1,000 ML IV SCH (05:25)
[2024-02-05 05:50] VITALS: BP 91/63; TEMP 97.7; O2SAT 99
[2024-02-05 06:06] LABS: HEMATOCRIT 32.2 % (36.0-47.0); HEMOGLOBIN 9.8 g/dl (12.0-15.5)
[2024-02-05] MEDS: ALBUTEROL SULFATE 2.5MG/0.5ML INH NEB SOLN INH PRN (07:49)
[2024-02-05 08:32] LABS: BASO % 0.4 % (0.0-1.0); EOS # 0.2 10^3/uL (0.0-0.5); EOS % 2.5 % (0.0-3.0); LYMPH # 1.4 10^3/uL (1.5-5.0); LYMPH % 18.6 % (24.0-44.0); MEAN CORPUSCULAR HEMOGLOBIN 24.9 pg (27.0-33.0); MEAN CORPUSCULAR HGB CONC 30.2 g/dl (32.0-36.5); MEAN CORPUSCULAR VOLUME 82.7 fl (80.0-96.0); MONO # 0.5 10^3/uL (0.0-0.8); MONO % 6.9 % (2.0-8.0); NEUTROPHILS # 5.4 10^3/uL (1.5-8.5); NEUTROPHILS % 71.2 % (36.0-66.0); PLATELET COUNT, AUTOMATED 414 10^3/uL (150-450); RED BLOOD COUNT 3.93 10^6/uL (4.00-5.40); WHITE BLOOD COUNT 7.6 10^3/uL (4.0-10.0)
[2024-02-05 08:47] LABS: PROCALCITONIN 0.05 ng/ml
[2024-02-05 08:48] LABS: BLOOD UREA NITROGEN < 5 MG/DL (9-23); CARBON DIOXIDE LEVEL 34 MMOL/L (20-31); CHLORIDE LEVEL 101 MMOL/L (98-107); CREATININE FOR GFR 0.41 MG/DL (0.55-1.30); GLOMERULAR FILTRATION RATE > 60.0 (>51); GLUCOSE, FASTING 107 MG/DL (60-100); MAGNESIUM LEVEL 1.5 MG/DL (1.8-2.4); POTASSIUM SERUM 3.2 MMOL/L (3.5-5.1); SODIUM LEVEL 138 MMOL/L (136-145)
[2024-02-05] MEDS: SUCRALFATE 1 GM TAB PO SCH (09:20)
[2024-02-05] MEDS: busPIRone 5 MG TAB PO SCH (09:20)
[2024-02-05] MEDS: FERROUS SULFATE 325MG TAB PO SCH (09:20)
[2024-02-05] MEDS: LACTOBACILLUS ACIDOPHILUS CAP (BACID) PO SCH (09:20)
[2024-02-05] MEDS: MONTELUKAST 10 MG TAB PO SCH (09:20)
[2024-02-05 09:41] LABS: CLOSTRIDIUM DIFFICILE PCR NEGATIVE (NEGATIVE)
[2024-02-05] MEDS: MAG SULF 1GM/100ML (MAG RUN) 1 GM in IV 1 EA IV SCH (11:58)
[2024-02-05] MEDS ORDERED: LIDOCAINE 1% MDV 20ML VIAL As Ordered ONE (12:35)
[2024-02-05 13:06] LABS: CALCIUM LEVEL 6.9 MG/DL (8.5-10.1)
[2024-02-05 14:00] VITALS: BP 94/65; TEMP 97.7; O2SAT 99
[2024-02-05] MEDS: ACETAMINOPHEN TAB 650MG DOSE (2X325MG) PO PRN (14:12)
[2024-02-05] MEDS: SODIUM CHLORIDE 0.9% INJ 10 ML SYR IV PRN (14:29)
[2024-02-05 17:09] LABS: BLOOD UREA NITROGEN < 5 MG/DL (9-23); CALCIUM LEVEL 7.8 MG/DL (8.5-10.1); CARBON DIOXIDE LEVEL 32 MMOL/L (20-31); CHLORIDE LEVEL 103 MMOL/L (98-107); CREATININE FOR GFR 0.39 MG/DL (0.55-1.30); GLOMERULAR FILTRATION RATE > 60.0 (>51); GLUCOSE, FASTING 86 MG/DL (60-100); POTASSIUM SERUM 3.8 MMOL/L (3.5-5.1); SODIUM LEVEL 137 MMOL/L (136-145)
[2024-02-05] MEDS: POTASSIUM CHLORIDE 10% LIQ 20MEQ/15ML UDC PO ONE (17:49)
[2024-02-05] MEDS: SODIUM CHLORIDE 0.9% INJ 10 ML SYR IV SCH (17:50)
[2024-02-05 19:09] LABS: MAGNESIUM LEVEL 2.2 MG/DL (1.8-2.4)
[2024-02-05 20:20] VITALS: BP 97/67; TEMP 98.1; O2SAT 99
[2024-02-05] MEDS ORDERED: CETIRIZINE (ZyrTEC) 10 MG TAB PO SCH (21:00)
[2024-02-06] VITALS (9 sets, daily range): BP systolic 102–124; BP diastolic 64–85; TEMP 97.3–98.1; O2SAT 92–100
[2024-02-06 06:16] LABS: HEMOGLOBIN 9.7 g/dl (12.0-15.5); RED BLOOD COUNT 3.91 10^6/uL (4.00-5.40); WHITE BLOOD COUNT 7.3 10^3/uL (4.0-10.0)
[2024-02-06 06:17] LABS: BASO % 0.3 % (0.0-1.0); EOS # 0.2 10^3/uL (0.0-0.5); EOS % 3.3 % (0.0-3.0); HEMATOCRIT 32.8 % (36.0-47.0); LYMPH % 13.9 % (24.0-44.0); MEAN CORPUSCULAR HEMOGLOBIN 24.8 pg (27.0-33.0); MEAN CORPUSCULAR HGB CONC 29.6 g/dl (32.0-36.5); MEAN CORPUSCULAR VOLUME 83.9 fl (80.0-96.0); MONO # 0.4 10^3/uL (0.0-0.8); MONO % 5.2 % (2.0-8.0); NEUTROPHILS # 5.6 10^3/uL (1.5-8.5); NEUTROPHILS % 76.8 % (36.0-66.0); PLATELET COUNT, AUTOMATED 396 10^3/uL (150-450)
[2024-02-06 06:38] LABS: ALBUMIN 1.6 G/DL (3.2-5.2); BLOOD UREA NITROGEN < 5 MG/DL (9-23); CALCIUM LEVEL 7.6 MG/DL (8.5-10.1); CARBON DIOXIDE LEVEL 34 MMOL/L (20-31); CHLORIDE LEVEL 107 MMOL/L (98-107); CREATININE FOR GFR 0.44 MG/DL (0.55-1.30); GLOMERULAR FILTRATION RATE > 60.0 (>51); GLUCOSE, FASTING 89 MG/DL (60-100); MAGNESIUM LEVEL 1.6 MG/DL (1.8-2.4); PHOSPHORUS LEVEL 3.5 MG/DL (2.5-4.9); POTASSIUM SERUM 3.7 MMOL/L (3.5-5.1); SODIUM LEVEL 143 MMOL/L (136-145)
[2024-02-06] MEDS: MAG SULF 1GM/100ML (MAG RUN) 1 GM in IV 1 EA IV SCH (07:44)
[2024-02-06] MEDS ORDERED: propofoL 200 MG/20 ML VIAL As Ordered ONE (09:38)
[2024-02-06] MEDS: MAGNESIUM OXIDE 400MG TAB (MAG-OX) PO SCH (11:12)
[2024-02-06] MEDS: LACTOBACILLUS ACIDOPHILUS CAP (BACID) PO SCH (20:12)
[2024-02-07] VITALS (8 sets, daily range): BP systolic 102–124; BP diastolic 64–80; TEMP 97.7–98.8; O2SAT 93–98
[2024-02-07 06:13] LABS: HEMATOCRIT 33.3 % (36.0-47.0); HEMOGLOBIN 9.8 g/dl (12.0-15.5); LYMPH % 8.8 % (24.0-44.0); MEAN CORPUSCULAR HEMOGLOBIN 24.5 pg (27.0-33.0); MEAN CORPUSCULAR HGB CONC 29.4 g/dl (32.0-36.5); MEAN CORPUSCULAR VOLUME 83.3 fl (80.0-96.0); MONO % 5.3 % (2.0-8.0); NEUTROPHILS % 83.6 % (36.0-66.0); PLATELET COUNT, AUTOMATED 383 10^3/uL (150-450); WHITE BLOOD COUNT 16.8 10^3/uL (4.0-10.0)
[2024-02-07 06:14] LABS: BASO % 0.2 % (0.0-1.0); EOS # 0.3 10^3/uL (0.0-0.5); EOS % 1.8 % (0.0-3.0); LYMPH # 1.5 10^3/uL (1.5-5.0); MONO # 0.9 10^3/uL (0.0-0.8)
[2024-02-07 06:39] LABS: BLOOD UREA NITROGEN < 5 MG/DL (9-23); CARBON DIOXIDE LEVEL 34 MMOL/L (20-31); CHLORIDE LEVEL 102 MMOL/L (98-107); CREATININE FOR GFR 0.49 MG/DL (0.55-1.30); GLOMERULAR FILTRATION RATE > 60.0 (>51); GLUCOSE, FASTING 92 MG/DL (60-100); MAGNESIUM LEVEL 1.5 MG/DL (1.8-2.4); POTASSIUM SERUM 3.4 MMOL/L (3.5-5.1); SODIUM LEVEL 139 MMOL/L (136-145)
[2024-02-07] MEDS: MAG SULF 1GM/100ML (MAG RUN) 1 GM in IV 1 EA IV SCH (08:50)
[2024-02-07] MEDS: MAGNESIUM OXIDE 400MG TAB (MAG-OX) PO SCH (08:50)
[2024-02-07] MEDS: ENOXAPARIN 40MG/0.4ML SYRINGE (J1650 PER 10MG) SC SCH (08:50)
[2024-02-07] MEDS: POTASSIUM CHLORIDE 10MEQ SR TABLET PO SCH (08:52)
[2024-02-07] MEDS: KCL 10MEQ/100ML SWI (KRUN) 10 MEQ in IV 1 EA IV SCH (11:45)
[2024-02-07] MEDS: SIMETHICONE 80MG CHEW TAB PO PRN (14:58)
[2024-02-08 05:42] VITALS: BP 121/74; TEMP 97.9; O2SAT 98
[2024-02-08 06:08] LABS: WHITE BLOOD COUNT 6.1 10^3/uL (4.0-10.0)
[2024-02-08 06:09] LABS: BASO % 0.3 % (0.0-1.0); EOS # 0.3 10^3/uL (0.0-0.5); EOS % 4.9 % (0.0-3.0); HEMATOCRIT 29.2 % (36.0-47.0); HEMOGLOBIN 8.6 g/dl (12.0-15.5); LYMPH # 1.2 10^3/uL (1.5-5.0); MEAN CORPUSCULAR HEMOGLOBIN 24.8 pg (27.0-33.0); MEAN CORPUSCULAR HGB CONC 29.5 g/dl (32.0-36.5); MEAN CORPUSCULAR VOLUME 84.1 fl (80.0-96.0); MONO # 0.4 10^3/uL (0.0-0.8); MONO % 6.2 % (2.0-8.0); NEUTROPHILS # 4.2 10^3/uL (1.5-8.5); NEUTROPHILS % 68.3 % (36.0-66.0); PLATELET COUNT, AUTOMATED 298 10^3/uL (150-450); RED BLOOD COUNT 3.47 10^6/uL (4.00-5.40)
[2024-02-08 06:15] LABS: BLOOD UREA NITROGEN < 5 MG/DL (9-23); CARBON DIOXIDE LEVEL 33 MMOL/L (20-31); CHLORIDE LEVEL 106 MMOL/L (98-107); CREATININE FOR GFR 0.43 MG/DL (0.55-1.30); GLOMERULAR FILTRATION RATE > 60.0 (>51); GLUCOSE, FASTING 92 MG/DL (60-100); MAGNESIUM LEVEL 1.5 MG/DL (1.8-2.4); POTASSIUM SERUM 3.7 MMOL/L (3.5-5.1); SODIUM LEVEL 142 MMOL/L (136-145)
[2024-02-08] MEDS: MAG SULF 1GM/100ML (MAG RUN) 1 GM in IV 1 EA IV SCH (07:57)
[2024-02-08] MEDS: ALBUTEROL 90 MCG/ACT 8GM HFA INHALER INH PRN (07:58)
[2024-02-08 08:02] LABS: ALBUMIN 2.2 G/DL (3.2-5.2)
[2024-02-08] MEDS: METAMUCIL (PSYLLIUM) PACKET PO SCH (10:58)
[2024-02-08] MEDS ORDERED: GLUCAGON INJ 1MG VIAL As Ordered ONE (11:43)
[2024-02-08] MEDS: HYDROCORTISONE 2.5% 20GM OINTMENT TOP SCH (12:07)
[2024-02-08] MEDS ORDERED: NEULUMEX 0.1% SUSPENSION 450ML BOTTLE (FORMERLY VOLUMEN) As Ordered ONE (12:38)
[2024-02-08 14:40] VITALS: BP 118/74; TEMP 97.7; O2SAT 99
[2024-02-08] MEDS: MORPHINE 2 MG/ML 1ML VIAL IV PRN (15:46)
[2024-02-08] MEDS ORDERED: ANUSOL HC CREAM 30GM TOP SCH (21:00)
[2024-02-08 21:20] VITALS: BP 94/60; TEMP 96.8; O2SAT 98
[2024-02-09 05:30] VITALS: BP 100/62; TEMP 97.7; O2SAT 97
[2024-02-09 05:40] LABS: BASO % 0.5 % (0.0-1.0); EOS # 0.2 10^3/uL (0.0-0.5); EOS % 4.7 % (0.0-3.0); LYMPH % 24.3 % (24.0-44.0); MEAN CORPUSCULAR HEMOGLOBIN 24.1 pg (27.0-33.0); MEAN CORPUSCULAR HGB CONC 28.1 g/dl (32.0-36.5); MEAN CORPUSCULAR VOLUME 85.8 fl (80.0-96.0); MONO # 0.3 10^3/uL (0.0-0.8); MONO % 7.9 % (2.0-8.0); NEUTROPHILS # 2.5 10^3/uL (1.5-8.5); NEUTROPHILS % 62.1 % (36.0-66.0); PLATELET COUNT, AUTOMATED 274 10^3/uL (150-450); RED BLOOD COUNT 3.73 10^6/uL (4.00-5.40)
[2024-02-09 05:58] LABS: BLOOD UREA NITROGEN < 5 MG/DL (9-23); CALCIUM LEVEL 8.1 MG/DL (8.5-10.1); CARBON DIOXIDE LEVEL 35 MMOL/L (20-31); CHLORIDE LEVEL 106 MMOL/L (98-107); CREATININE FOR GFR 0.45 MG/DL (0.55-1.30); GLOMERULAR FILTRATION RATE > 60.0 (>51); GLUCOSE, FASTING 91 MG/DL (60-100); MAGNESIUM LEVEL 1.8 MG/DL (1.8-2.4); SODIUM LEVEL 141 MMOL/L (136-145)
[2024-02-09 14:45] VITALS: BP 116/76; TEMP 98.4; O2SAT 98
[2024-02-09] MEDS: CHOLESTYRAMINE 4GM PWD PKT PO SCH (16:53)
[2024-02-09 22:00] VITALS: BP 125/79; TEMP 98.1; O2SAT 98
[2024-02-10 05:43] LABS: BASO % 0.3 % (0.0-1.0); EOS # 0.3 10^3/uL (0.0-0.5); EOS % 3.6 % (0.0-3.0); HEMATOCRIT 30.7 % (36.0-47.0); HEMOGLOBIN 8.9 g/dl (12.0-15.5); LYMPH # 1.8 10^3/uL (1.5-5.0); LYMPH % 24.4 % (24.0-44.0); MEAN CORPUSCULAR HEMOGLOBIN 24.6 pg (27.0-33.0); MEAN CORPUSCULAR VOLUME 84.8 fl (80.0-96.0); MONO # 0.5 10^3/uL (0.0-0.8); MONO % 6.1 % (2.0-8.0); NEUTROPHILS # 4.9 10^3/uL (1.5-8.5); NEUTROPHILS % 65.3 % (36.0-66.0); PLATELET COUNT, AUTOMATED 310 10^3/uL (150-450); RED BLOOD COUNT 3.62 10^6/uL (4.00-5.40); WHITE BLOOD COUNT 7.5 10^3/uL (4.0-10.0)
[2024-02-10 05:57] LABS: BLOOD UREA NITROGEN 6 MG/DL (9-23); CALCIUM LEVEL 8.1 MG/DL (8.5-10.1); CARBON DIOXIDE LEVEL 34 MMOL/L (20-31); CHLORIDE LEVEL 106 MMOL/L (98-107); CREATININE FOR GFR 0.48 MG/DL (0.55-1.30); GLOMERULAR FILTRATION RATE > 60.0 (>51); GLUCOSE, FASTING 87 MG/DL (60-100); MAGNESIUM LEVEL 1.5 MG/DL (1.8-2.4); POTASSIUM SERUM 4.1 MMOL/L (3.5-5.1); SODIUM LEVEL 140 MMOL/L (136-145)
[2024-02-10 06:00] VITALS: BP 100/67; TEMP 97.3; O2SAT 98
[2024-02-10] MEDS: MAG SULF 1GM/100ML (MAG RUN) 1 GM in IV 1 EA IV SCH (07:46)
[2024-02-10] MEDS: DICYCLOMINE 10 MG CAP PO SCH (10:25)
[2024-02-10] MEDS: LOMOTIL 2.5MG/0.025MG TABLET PO SCH (10:25)
[2024-02-10] MEDS: TIOTROPIUM INHALER/CAPSULE (SPIRIVA) INH SCH (11:41)
[2024-02-10 14:00] VITALS: BP 98/62; TEMP 97.8; O2SAT 99
[2024-02-10] MEDS: BUDESONIDE 0.5 MG/2 ML INHALATION SUSPENSION NEB PRN (17:56)
[2024-02-10 18:34] VITALS: BP 111/75
[2024-02-10] MEDS: CALCIUM CARBONATE 500 MG CHEW U/D PO ONE (20:16)
[2024-02-11 05:29] LABS: BASO % 0.2 % (0.0-1.0); EOS # 0.1 10^3/uL (0.0-0.5); EOS % 1.6 % (0.0-3.0); HEMOGLOBIN 9.4 g/dl (12.0-15.5); LYMPH # 1.7 10^3/uL (1.5-5.0); LYMPH % 18.5 % (24.0-44.0); MEAN CORPUSCULAR HEMOGLOBIN 24.9 pg (27.0-33.0); MEAN CORPUSCULAR HGB CONC 29.4 g/dl (32.0-36.5); MEAN CORPUSCULAR VOLUME 84.7 fl (80.0-96.0); MONO # 0.6 10^3/uL (0.0-0.8); MONO % 6.3 % (2.0-8.0); NEUTROPHILS # 6.5 10^3/uL (1.5-8.5); NEUTROPHILS % 73.1 % (36.0-66.0); PLATELET COUNT, AUTOMATED 316 10^3/uL (150-450); RED BLOOD COUNT 3.78 10^6/uL (4.00-5.40); WHITE BLOOD COUNT 8.9 10^3/uL (4.0-10.0)
[2024-02-11 05:53] LABS: BLOOD UREA NITROGEN 6 MG/DL (9-23); CALCIUM LEVEL 8.1 MG/DL (8.5-10.1); CARBON DIOXIDE LEVEL 33 MMOL/L (20-31); CHLORIDE LEVEL 108 MMOL/L (98-107); CREATININE FOR GFR 0.45 MG/DL (0.55-1.30); GLOMERULAR FILTRATION RATE > 60.0 (>51); GLUCOSE, FASTING 85 MG/DL (60-100); MAGNESIUM LEVEL 1.6 MG/DL (1.8-2.4); POTASSIUM SERUM 4.7 MMOL/L (3.5-5.1); SODIUM LEVEL 141 MMOL/L (136-145)
[2024-02-11 06:36] VITALS: BP 105/65; TEMP 98.4; O2SAT 97
[2024-02-11] MEDS: MAG SULF 1GM/100ML (MAG RUN) 1 GM in IV 1 EA IV SCH (08:14)
[2024-02-11] MEDS: MAGNESIUM OXIDE 400MG TAB (MAG-OX) PO SCH (08:54)
[2024-02-11 14:00] VITALS: BP 106/65; TEMP 98.4; O2SAT 95
[2024-02-11] MEDS: MORPHINE 2 MG/ML 1ML VIAL IV ONE (14:50)
[2024-02-11 21:00] VITALS: BP 102/68; TEMP 98.6; O2SAT 93
[2024-02-12 04:46] LABS: BASO % 0.3 % (0.0-1.0); EOS # 0.2 10^3/uL (0.0-0.5); EOS % 1.9 % (0.0-3.0); HEMATOCRIT 31.7 % (36.0-47.0); HEMOGLOBIN 9.3 g/dl (12.0-15.5); LYMPH # 2.1 10^3/uL (1.5-5.0); LYMPH % 26.4 % (24.0-44.0); MEAN CORPUSCULAR HEMOGLOBIN 24.5 pg (27.0-33.0); MEAN CORPUSCULAR HGB CONC 29.3 g/dl (32.0-36.5); MEAN CORPUSCULAR VOLUME 83.6 fl (80.0-96.0); MONO # 0.6 10^3/uL (0.0-0.8); NEUTROPHILS # 5.1 10^3/uL (1.5-8.5); PLATELET COUNT, AUTOMATED 285 10^3/uL (150-450); RED BLOOD COUNT 3.79 10^6/uL (4.00-5.40); WHITE BLOOD COUNT 7.9 10^3/uL (4.0-10.0)
[2024-02-12 05:12] LABS: BLOOD UREA NITROGEN 7 MG/DL (9-23); CALCIUM LEVEL 7.9 MG/DL (8.5-10.1); CARBON DIOXIDE LEVEL 35 MMOL/L (20-31); CHLORIDE LEVEL 105 MMOL/L (98-107); CREATININE FOR GFR 0.49 MG/DL (0.55-1.30); GLOMERULAR FILTRATION RATE > 60.0 (>51); GLUCOSE, FASTING 81 MG/DL (60-100); MAGNESIUM LEVEL 1.8 MG/DL (1.8-2.4); POTASSIUM SERUM 4.6 MMOL/L (3.5-5.1); SODIUM LEVEL 140 MMOL/L (136-145)
[2024-02-12 06:06] VITALS: BP 96/58; TEMP 97.2; O2SAT 98
[2024-02-12] MEDS ORDERED: DIPH1TAB81 PO ×2 (11:28→12:03)
[2024-02-12] MEDS ORDERED: CHOL4PW PO (11:28)
[2024-02-12] MEDS ORDERED: DICY1CAP8 PO (12:03)
[2024-02-12] MEDS ORDERED: MAGN400T2 PO (14:35)
[2024-02-12] MEDS ORDERED: POTA-151 PO (14:35)
== END 2024-02-12 13:07 | disposition home or self-care (01) | DRG 871 ==
LOC: M ED 14:08 → M ED INP 22:11 → ENRESERV 23:55 → M MSPAV 02-05 01:17
PROVIDERS: ADMIT Internal Medicine; ATTEND Internal Medicine
PROC: 02HV33Z Insertion of Infusion Device into Superior Vena Cava, Percutaneous Approach (ICD-10-PCS; 2024-02-05)
PROC: 0DB78ZX Excision of Stomach, Pylorus, Via Natural or Artificial Opening Endoscopic, Diagnostic (ICD-10-PCS; 2024-02-06)
PROC: 0DB98ZX Excision of Duodenum, Via Natural or Artificial Opening Endoscopic, Diagnostic (ICD-10-PCS; 2024-02-06)
PROC: 30233J1 Transfusion of Nonautologous Serum Albumin into Peripheral Vein, Percutaneous Approach (ICD-10-PCS; principal; 2024-02-07)
DX: A41.9 Sepsis, unspecified organism (principal); K65.1 Peritoneal abscess; J96.11 Chronic respiratory failure with hypoxia; J96.12 Chronic respiratory failure with hypercapnia; E87.3 Alkalosis; R18.8 Other ascites; K91.2 Postsurgical malabsorption, not elsewhere classified; I47.20 Ventricular tachycardia, unspecified; E46 Unspecified protein-calorie malnutrition; K56.600 Partial intestinal obstruction, unspecified as to cause; K91.89 Other postprocedural complications and disorders of digestive system; J44.9 Chronic obstructive pulmonary disease, unspecified; F41.9 Anxiety disorder, unspecified; F32.A Depression, unspecified; E87.6 Hypokalemia; D50.9 Iron deficiency anemia, unspecified; R21 Rash and other nonspecific skin eruption; E83.42 Hypomagnesemia; K29.70 Gastritis, unspecified, without bleeding; K21.9 Gastro-esophageal reflux disease without esophagitis; K52.9 Noninfective gastroenteritis and colitis, unspecified; E83.51 Hypocalcemia; E88.09 Other disorders of plasma-protein metabolism, not elsewhere classified; G47.33 Obstructive sleep apnea (adult) (pediatric); E78.5 Hyperlipidemia, unspecified; M21.371 Foot drop, right foot; M54.2 Cervicalgia; G89.29 Other chronic pain; G43.909 Migraine, unspecified, not intractable, without status migrainosus; M81.0 Age-related osteoporosis without current pathological fracture; M19.90 Unspecified osteoarthritis, unspecified site; Z90.79 Acquired absence of other genital organ(s); Z96.641 Presence of right artificial hip joint; Z86.74 Personal history of sudden cardiac arrest; Z99.81 Dependence on supplemental oxygen; Z87.891 Personal history of nicotine dependence

== ENCOUNTER → 2024-02-04 | Outpatient (CLI) | payer MEDICARE, OTHER ==
[~2024-02-04] MED LIST changes: +ACET-683 PO; -BUDE0.5S6 INH; +BUDE0.5S6 NEB; +CALC200T15 PO; +MYLA1SUS PO; +ONDA4TAB6 PO; +SIME1CAP PO
[2024-02-04 11:04] LABS: BASO # 0.1 10^3/uL (0.0-0.2); BASO % 0.3 % (0.0-1.0); EOS # 0.1 10^3/uL (0.0-0.5); EOS % 0.3 % (0.0-3.0); HEMOGLOBIN 12.4 g/dl (12.0-15.5); LYMPH # 2.9 10^3/uL (1.5-5.0); LYMPH % 14.4 % (24.0-44.0); MEAN CORPUSCULAR HEMOGLOBIN 24.4 pg (27.0-33.0); MEAN CORPUSCULAR HGB CONC 30.2 g/dl (32.0-36.5); MEAN CORPUSCULAR VOLUME 80.7 fl (80.0-96.0); MONO # 0.9 10^3/uL (0.0-0.8); MONO % 4.3 % (2.0-8.0); NEUTROPHILS % 80.2 % (36.0-66.0); PLATELET COUNT, AUTOMATED 509 10^3/uL (150-450); RED BLOOD COUNT 5.08 10^6/uL (4.00-5.40); WHITE BLOOD COUNT 19.9 10^3/uL (4.0-10.0)
[2024-02-04 11:50] LABS: ALBUMIN 2.1 G/DL (3.2-5.2); ALKALINE PHOSPHATASE 90 U/L (46-116); ALT/SGPT < 9 U/L (7.0-40); AST/SGOT 14 U/L (<34); BILIRUBIN,TOTAL 0.3 MG/DL (0.3-1.2); BLOOD UREA NITROGEN 7 MG/DL (9-23); CALCIUM LEVEL 6.1 MG/DL (8.5-10.1); CARBON DIOXIDE LEVEL 38 MMOL/L (20-31); CHLORIDE LEVEL 95 MMOL/L (98-107); CREATININE FOR GFR 0.47 MG/DL (0.55-1.30); GLOMERULAR FILTRATION RATE > 60.0 (>51); GLUCOSE, FASTING 94 MG/DL (60-100); POTASSIUM SERUM 2.9 MMOL/L (3.5-5.1); SODIUM LEVEL 139 MMOL/L (136-145); TOTAL PROTEIN 5.2 G/DL (5.7-8.2)
== END ==
LOC: M LAB 10:26
PROVIDERS: ATTEND Family Medicine
DX: R19.7 Diarrhea, unspecified (principal); R10.84 Generalized abdominal pain

== ENCOUNTER → 2024-02-16 | Outpatient (CLI) | payer MEDICARE, OTHER ==
[~2024-02-16] MED LIST changes: +ACET-683 PO; +CALC200T15 PO; +CHOL4PW PO; +DICY1CAP8 PO; +DIPH1TAB81 PO; +MYLA1SUS PO; +ONDA4TAB6 PO; +SIME1CAP PO
[2024-02-16 13:03] LABS: ALBUMIN 2.5 G/DL (3.2-5.2); ALKALINE PHOSPHATASE 101 U/L (46-116); ALT/SGPT 12 U/L (7.0-40); AST/SGOT 24 U/L (<34); BILIRUBIN,TOTAL 0.2 MG/DL (0.3-1.2); BLOOD UREA NITROGEN 24 MG/DL (9-23); CALCIUM LEVEL 8.8 MG/DL (8.5-10.1); CARBON DIOXIDE LEVEL 35 MMOL/L (20-31); CHLORIDE LEVEL 96 MMOL/L (98-107); CREATININE FOR GFR 0.53 MG/DL (0.55-1.30); GLOMERULAR FILTRATION RATE > 60.0 (>51); GLUCOSE, FASTING 92 MG/DL (60-100); MAGNESIUM LEVEL 1.7 MG/DL (1.8-2.4); POTASSIUM SERUM 3.6 MMOL/L (3.5-5.1); SODIUM LEVEL 135 MMOL/L (136-145); TOTAL PROTEIN 5.4 G/DL (5.7-8.2)
== END ==
LOC: M LAB 11:38
PROVIDERS: ATTEND Internal Medicine
DX: R10.9 Unspecified abdominal pain (principal)

== ENCOUNTER 2024-02-23 19:12 | Inpatient (IN) | payer MEDICARE, OTHER ==
[~2024-02-23] VITALS: Ht 152.4 cm; Wt 50.4 kg
[~2024-02-23 19:12] MED LIST changes: -ROSU40TA4 PO; +ROSU40TA63 PO
[2024-02-23] MEDS ORDERED: ONDANSETRON 4MG 2ML VIAL As Ordered ONE (20:07)
[2024-02-23] MEDS ORDERED: MORPHINE 4 MG/ML 1ML VIAL As Ordered ONE (20:07)
[2024-02-23] MEDS: NS 1,000 ML IV ONE ×2 (20:12→22:24)
[2024-02-23] MEDS: MORPHINE 4 MG/ML 1ML VIAL IV ONE ×2 (20:13→20:55)
[2024-02-23] MEDS: ONDANSETRON 4MG 2ML VIAL IV ONE (20:13)
[2024-02-23 22:24] VITALS: BP 120/74
[2024-02-23] MEDS: LORazepam 2 MG/ML 1ML VIAL IV STA (22:24)
[2024-02-23] MEDS: METOPROLOL 5 MG/5 ML VIAL IV SCH (22:24)
[2024-02-23 22:30] LABS: BASO % 0.3 % (0.0-1.0); EOS % 0.2 % (0.0-3.0); HEMATOCRIT 48.9 % (36.0-47.0); HEMOGLOBIN 14.3 g/dl (12.0-15.5); LYMPH # 1.5 10^3/uL (1.5-5.0); LYMPH % 10.6 % (24.0-44.0); MEAN CORPUSCULAR HEMOGLOBIN 24.3 pg (27.0-33.0); MEAN CORPUSCULAR HGB CONC 29.2 g/dl (32.0-36.5); MEAN CORPUSCULAR VOLUME 83.2 fl (80.0-96.0); MONO # 0.6 10^3/uL (0.0-0.8); MONO % 3.9 % (2.0-8.0); NEUTROPHILS % 84.4 % (36.0-66.0); PLATELET COUNT, AUTOMATED 599 10^3/uL (150-450); RED BLOOD COUNT 5.88 10^6/uL (4.00-5.40); WHITE BLOOD COUNT 14.2 10^3/uL (4.0-10.0)
[2024-02-23 22:44] LABS: LIPASE 19 U/L (12-53)
[2024-02-23 22:47] LABS: ALBUMIN 1.8 G/DL (3.2-5.2); ALKALINE PHOSPHATASE 119 U/L (46-116); ALT/SGPT 19 U/L (7.0-40); AST/SGOT 32 U/L (<34); BILIRUBIN,DIRECT 0.1 MG/DL (<0.4); BILIRUBIN,TOTAL 0.2 MG/DL (0.3-1.2); BLOOD UREA NITROGEN 16 MG/DL (9-23); CALCIUM LEVEL 8.8 MG/DL (8.5-10.1); CARBON DIOXIDE LEVEL 26 MMOL/L (20-31); CHLORIDE LEVEL 102 MMOL/L (98-107); GLOMERULAR FILTRATION RATE > 60.0 (>51); GLUCOSE, FASTING 102 MG/DL (60-100); SODIUM LEVEL 137 MMOL/L (136-145); TOTAL PROTEIN 4.6 G/DL (5.7-8.2)
[2024-02-23] MEDS ORDERED: ISOVUE-370 76% 100ML VIAL As Ordered ONE (23:15)
[2024-02-24] VITALS (33 sets, daily range): BP systolic 60–108; BP diastolic 30–84; TEMP 97–100; O2SAT 95–100
[2024-02-24] MEDS: PIPERACILLIN/TAZOBACTAM SOD 4.5 GM in D5W MINI-BAG PLUS 50 ML IV ONE (01:10)
[2024-02-24] MEDS: NS 1,000 ML IV ONE ×2 (01:11→12:52)
[2024-02-24 02:11] LABS: CK-MB VALUE MASS < 1.0 NG/ML (<3.6); CPK CREATINE PHOSPHOKINASE 32 U/L (34-145); MB/CK RELATIVE INDEX 3.12 (< OR =4)
[2024-02-24] MEDS ORDERED: LIDOCAINE 2% 100MG/5ML SDV (FOR ANES.) As Ordered ONE (03:01)
[2024-02-24] MEDS ORDERED: fentaNYL 250 MCG/5 ML INJECTION As Ordered ONE (03:01)
[2024-02-24] MEDS ORDERED: dexmedeTOMIDine (4MCG/ML)200MCG/50ML BTL (PRECEDEX) As Ordered ONE (03:01)
[2024-02-24] MEDS ORDERED: VASOPRESSIN INJ 20UNITS/ML 1ML VIAL As Ordered ONE (03:01)
[2024-02-24] MEDS ORDERED: ETOMIDATE INJ 20MG/10ML VIAL As Ordered ONE (03:01)
[2024-02-24] MEDS ORDERED: CALCIUM CHLORIDE 10% 1 GM/10 ML SYR As Ordered ONE (03:01)
[2024-02-24] MEDS ORDERED: ROCURONIUM BROMIDE 50MG/5ML VIAL As Ordered ONE (03:01)
[2024-02-24] MEDS ORDERED: propofoL 200 MG/20 ML VIAL As Ordered ONE (03:01)
[2024-02-24] MEDS ORDERED: SUGAMMADEX SODIUM 500 MG/5 ML VIAL (BRIDION) As Ordered ONE (03:01)
[2024-02-24] MEDS ORDERED: MIDAZOLAM INJ 2MG/2ML VIAL As Ordered ONE (03:01)
[2024-02-24] MEDS ORDERED: METOCLOPRAMIDE INJ 10MG/2ML VIAL As Ordered ONE (03:01)
[2024-02-24] MEDS ORDERED: ACETAMINOPHEN 1000MG 100ML IV BAG As Ordered ONE (03:17)
[2024-02-24] MEDS ORDERED: PHENYLephrine 500MCG 5ML (100MCG/ML) SYRINGE As Ordered ONE (03:55)
[2024-02-24] MEDS ORDERED: ONDANSETRON 4MG 2ML VIAL IV PRN (04:55)
[2024-02-24] MEDS ORDERED: HYDROMORPHONE HCL 0.5 MG/ 0.5 ML SYRINGE IV PRN (04:55)
[2024-02-24] MEDS: ALBUTEROL SULFATE 2.5MG/0.5ML INH NEB SOLN INH ONE (04:55)
[2024-02-24] MEDS ORDERED: fentaNYL 100 MCG/2 ML INJECTION IV PRN (04:55)
[2024-02-24] MEDS ORDERED: LR 1,000 ML IV SCH (04:55)
[2024-02-24] MEDS: NS 1,000 ML IV SCH (06:28)
[2024-02-24] MEDS: IPRATROPIUM 0.5MG/ALBUTEROL 2.5MG INH SOL UD 3ML (DUONEB) NEB SCH ×2 (07:16→11:18)
[2024-02-24] MEDS: PIPERACILLIN/TAZOBACTAM SOD 3.375 GM in D5W MINI-BAG PLUS 50 ML IV SCH (07:41)
[2024-02-24] MEDS ORDERED: ALBUTEROL SULFATE 2.5MG/0.5ML INH NEB SOLN NEB SCH (08:00)
[2024-02-24] MEDS ORDERED: LOMO2.5T PO (09:01)
[2024-02-24] MEDS ORDERED: CHOL4PW PO (09:01)
[2024-02-24] MEDS ORDERED: HOME MED LIST COMPLETE! XX SCH (09:05)
[2024-02-24] MEDS: PANTOPRAZOLE 40MG VIAL IV SCH (09:30)
[2024-02-24] MEDS: ENOXAPARIN 30MG/0.3ML SYRINGE (J1650 PER 10MG) SC SCH (09:30)
[2024-02-24] MEDS: MORPHINE 2 MG/ML 1ML VIAL IV PRN ×2 (09:30→22:16)
[2024-02-24] MEDS: NORCO, ANEXSIA 5/325MG TABLET (HYDROcodone/ACETAMINOPHEN) PO PRN (10:41)
[2024-02-24] MEDS ORDERED: BUDESONIDE 0.5 MG/2 ML INHALATION SUSPENSION NEB PRN (12:05)
[2024-02-24] MEDS ORDERED: ALBUTEROL 90 MCG/ACT 8GM HFA INHALER INH PRN (12:05)
[2024-02-24] MEDS: ALPRAZolam 0.25 MG TAB PO PRN (12:13)
[2024-02-24] MEDS ORDERED: PILL CUTTER 1 EACH XX PRN (12:15)
[2024-02-24] MEDS: busPIRone 10 MG TAB PO SCH (12:23)
[2024-02-24] MEDS: KETOROLAC 30 MG/ML 1ML VIAL IV PRN (14:14)
[2024-02-24 14:53] LABS: HEMATOCRIT 34.3 % (36.0-47.0); MEAN CORPUSCULAR HEMOGLOBIN 24.4 pg (27.0-33.0); MEAN CORPUSCULAR HGB CONC 28.9 g/dl (32.0-36.5); MEAN CORPUSCULAR VOLUME 84.5 fl (80.0-96.0); RED BLOOD COUNT 4.06 10^6/uL (4.00-5.40); WHITE BLOOD COUNT 25.9 10^3/uL (4.0-10.0)
[2024-02-24 15:15] LABS: HEMOGLOBIN 9.9 g/dl (12.0-15.5); PLATELET COUNT, AUTOMATED 291 10^3/uL (150-450)
[2024-02-24 15:18] LABS: ALBUMIN 1.5 G/DL (3.2-5.2); ALKALINE PHOSPHATASE 59 U/L (46-116); ALT/SGPT 13 U/L (7.0-40); AST/SGOT 25 U/L (<34); BILIRUBIN,TOTAL 0.4 MG/DL (0.3-1.2); BLOOD UREA NITROGEN 14 MG/DL (9-23); CARBON DIOXIDE LEVEL 26 MMOL/L (20-31); CHLORIDE LEVEL 108 MMOL/L (98-107); CREATININE FOR GFR 0.75 MG/DL (0.55-1.30); GLOMERULAR FILTRATION RATE > 60.0 (>51); GLUCOSE, FASTING 87 MG/DL (60-100); POTASSIUM SERUM 4.6 MMOL/L (3.5-5.1); SODIUM LEVEL 138 MMOL/L (136-145); TOTAL PROTEIN 3.3 G/DL (5.7-8.2)
[2024-02-24] MEDS: LR 1,000 ML IV ONE (15:22)
[2024-02-24] MEDS ORDERED: PANTOPRAZOLE 20 MG TAB PO SCH (21:00)
[2024-02-24] MEDS: NOREPINEPHRINE 4MG IN D5 250ML 4 MG in IV 1 EA IV SCH (21:28)
[2024-02-25] VITALS (65 sets, daily range): BP systolic 80–124; BP diastolic 51–88; TEMP 97.6–100; O2SAT 93–100
[2024-02-25 05:39] LABS: HEMATOCRIT 40.9 % (36.0-47.0); MEAN CORPUSCULAR HEMOGLOBIN 25.7 pg (27.0-33.0); MEAN CORPUSCULAR HGB CONC 30.6 g/dl (32.0-36.5); PLATELET COUNT, AUTOMATED 283 10^3/uL (150-450); RED BLOOD COUNT 4.87 10^6/uL (4.00-5.40); WHITE BLOOD COUNT 27.1 10^3/uL (4.0-10.0)
[2024-02-25 05:45] LABS: HEMOGLOBIN 12.5 g/dl (12.0-15.5)
[2024-02-25 05:59] LABS: ALBUMIN 1.6 G/DL (3.2-5.2); ALKALINE PHOSPHATASE 89 U/L (46-116); ALT/SGPT 12 U/L (7.0-40); AST/SGOT 31 U/L (<34); BILIRUBIN,TOTAL 1.2 MG/DL (0.3-1.2); BLOOD UREA NITROGEN 12 MG/DL (9-23); CARBON DIOXIDE LEVEL 26 MMOL/L (20-31); CHLORIDE LEVEL 106 MMOL/L (98-107); CREATININE FOR GFR 0.54 MG/DL (0.55-1.30); GLOMERULAR FILTRATION RATE > 60.0 (>51); GLUCOSE, FASTING 98 MG/DL (60-100); MAGNESIUM LEVEL 1.5 MG/DL (1.8-2.4); POTASSIUM SERUM 3.9 MMOL/L (3.5-5.1); SODIUM LEVEL 135 MMOL/L (136-145); TOTAL PROTEIN 3.9 G/DL (5.7-8.2)
[2024-02-25] MEDS: MAG SULF 1GM/100ML (MAG RUN) 1 GM in IV 1 EA IV SCH (06:50)
[2024-02-25] MEDS: DOCUSATE SOD LIQ 100MG/10ML UDC PO SCH (08:08)
[2024-02-25] MEDS: NORCO, ANEXSIA 5/325MG TABLET (HYDROcodone/ACETAMINOPHEN) PO PRN (08:21)
[2024-02-25] MEDS: BUDESONIDE 0.5 MG/2 ML INHALATION SUSPENSION NEB SCH (11:33)
[2024-02-26] VITALS (48 sets, daily range): BP systolic 93–136; BP diastolic 52–83; TEMP 97–101.6; O2SAT 86–100
[2024-02-26 04:22] LABS: HEMOGLOBIN 12.1 g/dl (12.0-15.5); MEAN CORPUSCULAR HEMOGLOBIN 25.7 pg (27.0-33.0); MEAN CORPUSCULAR HGB CONC 30.3 g/dl (32.0-36.5); MEAN CORPUSCULAR VOLUME 85.1 fl (80.0-96.0); PLATELET COUNT, AUTOMATED 205 10^3/uL (150-450)
[2024-02-26 05:10] LABS: ALBUMIN 1.5 G/DL (3.2-5.2); ALKALINE PHOSPHATASE 98 U/L (46-116); ALT/SGPT 15 U/L (7.0-40); AST/SGOT 25 U/L (<34); BILIRUBIN,TOTAL 0.2 MG/DL (0.3-1.2); BLOOD UREA NITROGEN 8 MG/DL (9-23); CALCIUM LEVEL 8.5 MG/DL (8.5-10.1); CARBON DIOXIDE LEVEL 27 MMOL/L (20-31); CHLORIDE LEVEL 106 MMOL/L (98-107); GLOMERULAR FILTRATION RATE > 60.0 (>51); GLUCOSE, FASTING 89 MG/DL (60-100); MAGNESIUM LEVEL 1.9 MG/DL (1.8-2.4); POTASSIUM SERUM 3.8 MMOL/L (3.5-5.1); SODIUM LEVEL 136 MMOL/L (136-145); TOTAL PROTEIN 3.8 G/DL (5.7-8.2)
[2024-02-26] MEDS ORDERED: SODIUM CHLORIDE NASAL 0.65% SPRAY BTL (OCEAN) PRN (07:30)
[2024-02-26] MEDS: ALPRAZolam 0.5 MG TAB PO ONE (08:12)
[2024-02-26] MEDS: KETOROLAC 30 MG/ML 1ML VIAL IV ONE (08:13)
[2024-02-26] MEDS: SODIUM CHLORIDE 0.9% NASAL GEL 15GM (AYR) SCH (11:07)
[2024-02-26] MEDS: ACETAMINOPHEN *IV* 1,000 MG in IV 1 EA IV ONE (20:32)
[2024-02-26] MEDS: ONDANSETRON 4MG 2ML VIAL IV PRN (20:33)
[2024-02-26] MEDS: D5W/0.9% SODIUM CHLORIDE 1,000 ML IV SCH (20:33)
[2024-02-26 20:47] LABS: ABG BASE EXCESS -3.7 (-2.0-2.0); ABG HCO3 24.3 MMOL/L (22.0-26.0); ABG O2 SATURATION 97.6 % (95.0-99.0); ABG PARTIAL PRESSURE CO2 57.2 mmHg (35.0-45.0); ABG PARTIAL PRESSURE O2 97.6 mmHg (75.0-100.0); ABG STANDARD HCO3 21.4 MMOL/L. (22.0-26.0); ABG TOTAL CO2 26.1 MMOL/L (22.0-29.0)
[2024-02-26 20:48] LABS: ABG pH (ARTERIAL) 7.246 UNITS (7.350-7.450)
[2024-02-26] MEDS: methylPREDNISolone 40MG 1ML VIAL IV SCH (21:00)
[2024-02-26 22:33] LABS: BLOOD UREA NITROGEN 9 MG/DL (9-23); CALCIUM LEVEL 8.7 MG/DL (8.5-10.1); CARBON DIOXIDE LEVEL 26 MMOL/L (20-31); CHLORIDE LEVEL 103 MMOL/L (98-107); CREATININE FOR GFR 0.42 MG/DL (0.55-1.30); GLOMERULAR FILTRATION RATE > 60.0 (>51); GLUCOSE, FASTING 73 MG/DL (60-100); SODIUM LEVEL 138 MMOL/L (136-145)
[2024-02-27] VITALS (17 sets, daily range): BP systolic 102–141; BP diastolic 65–90; PULSE 112; TEMP 97–99; O2SAT 98–100
[2024-02-27 00:50] LABS: VENOUS BASE EXCESS -4.9 (-2.0-2.0); VENOUS HCO3 20.1 MMOL/L (23.0-27.0); VENOUS O2 SATURATION 99.5 % (60.0-80.0); VENOUS PARTIAL PRESSURE CO2 37.2 mmHg (38.0-50.0); VENOUS PARTIAL PRESSURE O2 191.5 mmHg (30.0-50.0); VENOUS PH 7.351 UNITS (7.330-7.430); VENOUS STANDARD HCO3 20.5 MMOL/L; VENOUS TOTAL CO2 21.3 MMOL/L (24.0-28.0)
[2024-02-27 05:58] LABS: HEMATOCRIT 39.5 % (36.0-47.0); MEAN CORPUSCULAR HGB CONC 30.4 g/dl (32.0-36.5); MEAN CORPUSCULAR VOLUME 85.5 fl (80.0-96.0); PLATELET COUNT, AUTOMATED 188 10^3/uL (150-450); RED BLOOD COUNT 4.62 10^6/uL (4.00-5.40); WHITE BLOOD COUNT 10.8 10^3/uL (4.0-10.0)
[2024-02-27 06:24] LABS: ALBUMIN 1.5 G/DL (3.2-5.2); ALKALINE PHOSPHATASE 97 U/L (46-116); ALT/SGPT 18 U/L (7.0-40); AST/SGOT 20 U/L (<34); BILIRUBIN,TOTAL 0.2 MG/DL (0.3-1.2); BLOOD UREA NITROGEN 8 MG/DL (9-23); CALCIUM LEVEL 8.9 MG/DL (8.5-10.1); CARBON DIOXIDE LEVEL 27 MMOL/L (20-31); CHLORIDE LEVEL 104 MMOL/L (98-107); CREATININE FOR GFR 0.42 MG/DL (0.55-1.30); GLOMERULAR FILTRATION RATE > 60.0 (>51); GLUCOSE, FASTING 136 MG/DL (60-100); MAGNESIUM LEVEL 1.6 MG/DL (1.8-2.4); POTASSIUM SERUM 3.8 MMOL/L (3.5-5.1); SODIUM LEVEL 139 MMOL/L (136-145)
[2024-02-27] MEDS: BISACODYL 10MG SUPP PR SCH (12:17)
[2024-02-27] MEDS: MAG SULF 1GM/100ML (MAG RUN) 1 GM in IV 1 EA IV ONE ×2 (12:17→21:20)
[2024-02-27] MEDS: ALBUTEROL SULFATE 2.5MG/0.5ML INH NEB SOLN INH PRN (20:22)
[2024-02-27] MEDS: ALBUTEROL SULFATE 2.5MG/0.5ML INH NEB SOLN NEB ONE (20:27)
[2024-02-28] VITALS: BP 112/64; TEMP 97.1; O2SAT 99
[2024-02-28 04:00] VITALS: BP 114/69; TEMP 97; O2SAT 100
[2024-02-28 05:37] LABS: HEMATOCRIT 36.2 % (36.0-47.0); MEAN CORPUSCULAR HEMOGLOBIN 25.6 pg (27.0-33.0); MEAN CORPUSCULAR HGB CONC 30.4 g/dl (32.0-36.5); MEAN CORPUSCULAR VOLUME 84.4 fl (80.0-96.0); PLATELET COUNT, AUTOMATED 187 10^3/uL (150-450); RED BLOOD COUNT 4.29 10^6/uL (4.00-5.40); WHITE BLOOD COUNT 6.7 10^3/uL (4.0-10.0)
[2024-02-28 06:08] LABS: ALBUMIN 1.5 G/DL (3.2-5.2); ALKALINE PHOSPHATASE 73 U/L (46-116); ALT/SGPT 14 U/L (7.0-40); AST/SGOT 11 U/L (<34); BILIRUBIN,TOTAL 0.2 MG/DL (0.3-1.2); BLOOD UREA NITROGEN 6 MG/DL (9-23); CALCIUM LEVEL 8.5 MG/DL (8.5-10.1); CARBON DIOXIDE LEVEL 34 MMOL/L (20-31); CHLORIDE LEVEL 106 MMOL/L (98-107); CREATININE FOR GFR 0.37 MG/DL (0.55-1.30); GLOMERULAR FILTRATION RATE > 60.0 (>51); GLUCOSE, FASTING 155 MG/DL (60-100); MAGNESIUM LEVEL 1.8 MG/DL (1.8-2.4); POTASSIUM SERUM 3.1 MMOL/L (3.5-5.1); SODIUM LEVEL 143 MMOL/L (136-145); TOTAL PROTEIN 3.9 G/DL (5.7-8.2)
[2024-02-28 07:12] VITALS: O2SAT 98
[2024-02-28 07:27] VITALS: BP 143/84; TEMP 96.9; O2SAT 99
[2024-02-28] MEDS: methylPREDNISolone 125MG 2ML VIAL IV ONE (08:37)
[2024-02-28 08:41] LABS: ABG HCO3 28.2 MMOL/L (22.0-26.0); ABG O2 SATURATION 95.1 % (95.0-99.0); ABG PARTIAL PRESSURE CO2 45.6 mmHg (35.0-45.0); ABG PARTIAL PRESSURE O2 63.7 mmHg (75.0-100.0); ABG STANDARD HCO3 27.1 MMOL/L. (22.0-26.0); ABG TOTAL CO2 29.6 MMOL/L (22.0-29.0); ABG pH (ARTERIAL) 7.409 UNITS (7.350-7.450)
[2024-02-28] MEDS: MORPHINE 2 MG/ML 1ML VIAL IV ONE (08:43)
[2024-02-28 08:51] LABS: CK-MB VALUE MASS 1.3 NG/ML (<3.6)
[2024-02-28 08:52] LABS: CPK CREATINE PHOSPHOKINASE 36 U/L (34-145); MB/CK RELATIVE INDEX 3.61 (< OR =4)
[2024-02-28] MEDS ORDERED: cloNIDine 0.1MG TABLET PO ONE (09:20)
[2024-02-28] MEDS: LORazepam 1 MG TAB PO ONE ×2 (09:50→14:12)
[2024-02-28] MEDS: D5W/0.9% SODIUM CHLORIDE 1,000 ML IV SCH (09:51)
[2024-02-28] MEDS: KCL 10MEQ/100ML SWI (KRUN) 10 MEQ in IV 1 EA IV SCH (09:51)
[2024-02-28 11:20] VITALS: O2SAT 98
[2024-02-28] MEDS: methylPREDNISolone 125MG 2ML VIAL IV SCH (14:12)
[2024-02-28 20:06] VITALS: BP 135/84; TEMP 97; O2SAT 98
[2024-02-29] VITALS (17 sets, daily range): BP systolic 96–145; BP diastolic 64–96; TEMP 97–98.7; O2SAT 85–100
[2024-02-29 05:49] LABS: HEMATOCRIT 36.9 % (36.0-47.0); HEMOGLOBIN 11.6 g/dl (12.0-15.5); MEAN CORPUSCULAR HEMOGLOBIN 25.6 pg (27.0-33.0); MEAN CORPUSCULAR HGB CONC 31.4 g/dl (32.0-36.5); MEAN CORPUSCULAR VOLUME 81.5 fl (80.0-96.0); PLATELET COUNT, AUTOMATED 229 10^3/uL (150-450); RED BLOOD COUNT 4.53 10^6/uL (4.00-5.40); WHITE BLOOD COUNT 11.5 10^3/uL (4.0-10.0)
[2024-02-29 06:25] LABS: ALBUMIN 1.8 G/DL (3.2-5.2); ALKALINE PHOSPHATASE 75 U/L (46-116); ALT/SGPT 16 U/L (7.0-40); AST/SGOT 17 U/L (<34); BILIRUBIN,TOTAL 0.5 MG/DL (0.3-1.2); BLOOD UREA NITROGEN 7 MG/DL (9-23); CALCIUM LEVEL 8.2 MG/DL (8.5-10.1); CARBON DIOXIDE LEVEL 32 MMOL/L (20-31); CHLORIDE LEVEL 108 MMOL/L (98-107); CREATININE FOR GFR 0.37 MG/DL (0.55-1.30); GLOMERULAR FILTRATION RATE > 60.0 (>51); GLUCOSE, FASTING 134 MG/DL (60-100); MAGNESIUM LEVEL 1.6 MG/DL (1.8-2.4); SODIUM LEVEL 145 MMOL/L (136-145); TOTAL PROTEIN 4.3 G/DL (5.7-8.2)
[2024-02-29] MEDS: POTASSIUM CHLORIDE 10MEQ SR TABLET PO ONE (08:14)
[2024-02-29] MEDS: MAG SULF 1GM/100ML (MAG RUN) 1 GM in IV 1 EA IV SCH (08:21)
[2024-02-29] MEDS ORDERED: SENOKOT S TAB PO PRN (08:40)
[2024-02-29] MEDS ORDERED: BISACODYL 10MG SUPP PR PRN (08:40)
[2024-02-29] MEDS: POTASSIUM CHLORIDE 10MEQ SR TABLET PO SCH (09:33)
[2024-02-29] MEDS: LORazepam 1 MG TAB PO ONE (09:33)
[2024-02-29] MEDS: CIPRODEX OTIC SUSP 7.5ML AD SCH (10:16)
[2024-02-29] MEDS: MORPHINE 2 MG/ML 1ML VIAL IV ONE (10:17)
[2024-02-29] MEDS: guaiFENesin DM LIQ 10ML UD PO ONE (10:17)
[2024-02-29 13:34] LABS: MAGNESIUM LEVEL 2.1 MG/DL (1.8-2.4); POTASSIUM SERUM 3.9 MMOL/L (3.5-5.1)
[2024-02-29] MEDS ORDERED: guaiFENesin DM LIQ 10ML UD PO PRN (14:00)
[2024-02-29] MEDS: predniSONE 20 MG TAB PO SCH (14:09)
[2024-02-29 18:32] LABS: ABG BASE EXCESS 0.3 (-2.0-2.0); ABG HCO3 27.7 MMOL/L (22.0-26.0); ABG O2 SATURATION 89.7 % (95.0-99.0); ABG PARTIAL PRESSURE CO2 56.7 mmHg (35.0-45.0); ABG PARTIAL PRESSURE O2 58.1 mmHg (75.0-100.0); ABG STANDARD HCO3 24.6 MMOL/L. (22.0-26.0); ABG TOTAL CO2 29.4 MMOL/L (22.0-29.0); ABG pH (ARTERIAL) 7.306 UNITS (7.350-7.450)
[2024-02-29] MEDS: ALBUTEROL SULFATE 2.5MG/0.5ML INH NEB SOLN NEB ONE (20:25)
[2024-02-29] MEDS: AUGMENTIN 875 MG TAB PO SCH (21:00)
[2024-02-29 22:54] LABS: ABG BASE EXCESS 1.8 (-2.0-2.0); ABG HCO3 28.7 MMOL/L (22.0-26.0); ABG O2 SATURATION 98.4 % (95.0-99.0); ABG PARTIAL PRESSURE CO2 54.6 mmHg (35.0-45.0); ABG PARTIAL PRESSURE O2 127.6 mmHg (75.0-100.0); ABG STANDARD HCO3 26.1 MMOL/L. (22.0-26.0); ABG TOTAL CO2 30.3 MMOL/L (22.0-29.0); ABG pH (ARTERIAL) 7.338 UNITS (7.350-7.450)
[2024-02-29] MEDS: NS 250 ML IV ONE (23:48)
[2024-03-01] VITALS (81 sets, daily range): BP systolic 76–140; BP diastolic 49–106; TEMP 97–99; O2SAT 87–100
[2024-03-01 00:33] LABS: APPEARANCE, URINE HAZY (CLEAR); BACTERIA, URINE AUTO NEGATIVE (NEGATIVE); BILIRUBIN, URINE AUTO NEGATIVE (NEGATIVE); BLOOD, URINE BLOOD 2+ (NEGATIVE); CALCIUM OXALATE CRYSTALS SMALL; COLOR, URINE YELLOW (YELLOW); GLUCOSE, URINE (UA) AUTO NEGATIVE (NEGATIVE); KETONE, URINE AUTO NEGATIVE (NEGATIVE); LEUKOCYTE ESTERASE, URINE AUTO NEGATIVE (NEGATIVE); MUCUS, URINE SMALL (NEGATIVE); NITRITE, URINE AUTO NEGATIVE (NEGATIVE); PROTEIN, URINE AUTO 1+ mg/dL (NEGATIVE); RBC, URINE AUTO 161 /HPF (0-3); SQUAMOUS EPITHELIAL CELL UR AU 0 /HPF (0-6); UROBILINOGEN, URINE AUTO 0.2 mg/dL (0.0-2.0); WBC, URINE AUTO 1 /HPF (0-3)
[2024-03-01 02:10] LABS: VENOUS BASE EXCESS 3.1 (-2.0-2.0); VENOUS HCO3 29.8 MMOL/L (23.0-27.0); VENOUS O2 SATURATION 82.5 % (60.0-80.0); VENOUS PARTIAL PRESSURE CO2 54.5 mmHg (38.0-50.0); VENOUS PARTIAL PRESSURE O2 44.6 mmHg (30.0-50.0); VENOUS PH 7.356 UNITS (7.330-7.430); VENOUS STANDARD HCO3 26.9 MMOL/L; VENOUS TOTAL CO2 31.5 MMOL/L (24.0-28.0)
[2024-03-01] MEDS ORDERED: MORPHINE 2 MG/ML 1ML VIAL IV PRN (03:35)
[2024-03-01] MEDS ORDERED: PHENYLEPHRINE 10MG/ML 1ML VIAL As Ordered ONE (03:44)
[2024-03-01] MEDS: ETOMIDATE INJ 20MG/10ML VIAL IV STA (03:50)
[2024-03-01] MEDS: NS 1,000 ML IV ONE (03:50)
[2024-03-01] MEDS: ROCURONIUM BROMIDE 50MG/5ML VIAL IV SCH (03:51)
[2024-03-01] MEDS: MIDAZOLAM INJ 2MG/2ML VIAL IV STA (03:52)
[2024-03-01] MEDS: PHENYLephrine 500MCG 5ML (100MCG/ML) SYRINGE IV ONE (03:54)
[2024-03-01] MEDS: MIDAZOLAM 100MG/100ML-0.9%NACL 100 MG in IV 1 EA IV SCH (04:10)
[2024-03-01] MEDS ORDERED: FENTANYL DRIP LOCK BOX KEY 1 EACH XX PRN (05:00)
[2024-03-01] MEDS: fentaNYL CITRATE/NaCl 1,000 MCG in IV 1 EA IV SCH (05:02)
[2024-03-01 05:28] LABS: HEMATOCRIT 38.1 % (36.0-47.0); HEMOGLOBIN 11.4 g/dl (12.0-15.5); MEAN CORPUSCULAR HEMOGLOBIN 25.4 pg (27.0-33.0); MEAN CORPUSCULAR HGB CONC 29.9 g/dl (32.0-36.5); MEAN CORPUSCULAR VOLUME 84.9 fl (80.0-96.0); PLATELET COUNT, AUTOMATED 238 10^3/uL (150-450); RED BLOOD COUNT 4.49 10^6/uL (4.00-5.40); WHITE BLOOD COUNT 13.4 10^3/uL (4.0-10.0)
[2024-03-01 05:43] LABS: ABG BASE EXCESS 0.2 (-2.0-2.0); ABG HCO3 26.5 MMOL/L (22.0-26.0); ABG O2 SATURATION 97.8 % (95.0-99.0); ABG PARTIAL PRESSURE CO2 49.7 mmHg (35.0-45.0); ABG PARTIAL PRESSURE O2 110.5 mmHg (75.0-100.0); ABG STANDARD HCO3 24.7 MMOL/L. (22.0-26.0); ABG pH (ARTERIAL) 7.344 UNITS (7.350-7.450)
[2024-03-01 06:01] LABS: ALBUMIN 1.8 G/DL (3.2-5.2); ALKALINE PHOSPHATASE 73 U/L (46-116); ALT/SGPT 22 U/L (7.0-40); AST/SGOT 24 U/L (<34); BILIRUBIN,TOTAL 0.4 MG/DL (0.3-1.2); BLOOD UREA NITROGEN 9 MG/DL (9-23); CARBON DIOXIDE LEVEL 30 MMOL/L (20-31); CHLORIDE LEVEL 112 MMOL/L (98-107); CREATININE FOR GFR 0.33 MG/DL (0.55-1.30); GLOMERULAR FILTRATION RATE > 60.0 (>51); GLUCOSE, FASTING 142 MG/DL (60-100); MAGNESIUM LEVEL 1.8 MG/DL (1.8-2.4); POTASSIUM SERUM 3.5 MMOL/L (3.5-5.1); SODIUM LEVEL 147 MMOL/L (136-145)
[2024-03-01] MEDS: LR 1,000 ML IV ONE (08:02)
[2024-03-01] MEDS: PANTOPRAZOLE 40MG VIAL IV SCH (08:33)
[2024-03-01] MEDS: methylPREDNISolone 125MG 2ML VIAL IV SCH (08:47)
[2024-03-01] MEDS ORDERED: methylPREDNISolone 40MG 1ML VIAL IV SCH (09:00)
[2024-03-01] MEDS: MIDAZOLAM INJ 2MG/2ML VIAL IV ONE (12:01)
[2024-03-01] MEDS: D5W 1,000 ML IV SCH (14:56)
[2024-03-01] MEDS: NOREPINEPHRINE 4MG IN D5 250ML 4 MG in IV 1 EA IV SCH (16:52)
[2024-03-02] VITALS (54 sets, daily range): BP systolic 86–160; BP diastolic 52–105; TEMP 98.1–99; O2SAT 96–100
[2024-03-02 04:15] LABS: HEMOGLOBIN 11.4 g/dl (12.0-15.5); MEAN CORPUSCULAR HEMOGLOBIN 25.5 pg (27.0-33.0); PLATELET COUNT, AUTOMATED 278 10^3/uL (150-450); RED BLOOD COUNT 4.47 10^6/uL (4.00-5.40); WHITE BLOOD COUNT 13.4 10^3/uL (4.0-10.0)
[2024-03-02 04:34] LABS: ALBUMIN 1.8 G/DL (3.2-5.2); ALKALINE PHOSPHATASE 72 U/L (46-116); ALT/SGPT 14 U/L (7.0-40); AST/SGOT 13 U/L (<34); BILIRUBIN,TOTAL 0.2 MG/DL (0.3-1.2); BLOOD UREA NITROGEN 10 MG/DL (9-23); CALCIUM LEVEL 8.3 MG/DL (8.5-10.1); CARBON DIOXIDE LEVEL 33 MMOL/L (20-31); CHLORIDE LEVEL 108 MMOL/L (98-107); CREATININE FOR GFR 0.35 MG/DL (0.55-1.30); GLOMERULAR FILTRATION RATE > 60.0 (>51); GLUCOSE, FASTING 136 MG/DL (60-100); MAGNESIUM LEVEL 1.8 MG/DL (1.8-2.4); POTASSIUM SERUM 3.7 MMOL/L (3.5-5.1); SODIUM LEVEL 143 MMOL/L (136-145)
[2024-03-02 06:09] LABS: ABG BASE EXCESS 3.8 (-2.0-2.0); ABG HCO3 31.1 MMOL/L (22.0-26.0); ABG O2 SATURATION 84.3 % (95.0-99.0); ABG PARTIAL PRESSURE CO2 59.6 mmHg (35.0-45.0); ABG STANDARD HCO3 27.6 MMOL/L. (22.0-26.0); ABG TOTAL CO2 32.9 MMOL/L (22.0-29.0); ABG pH (ARTERIAL) 7.335 UNITS (7.350-7.450)
[2024-03-02 06:12] LABS: ABG PARTIAL PRESSURE O2 46.3 mmHg (75.0-100.0)
[2024-03-02] MEDS: ENOXAPARIN 40MG/0.4ML SYRINGE (J1650 PER 10MG) SC SCH (09:18)
[2024-03-02 10:47] LABS: ABG BASE EXCESS 7.1 (-2.0-2.0); ABG HCO3 32.2 MMOL/L (22.0-26.0); ABG O2 SATURATION 97.9 % (95.0-99.0); ABG PARTIAL PRESSURE CO2 47.4 mmHg (35.0-45.0); ABG PARTIAL PRESSURE O2 89.5 mmHg (75.0-100.0); ABG TOTAL CO2 33.7 MMOL/L (22.0-29.0)
[2024-03-02] MEDS: IPRATROPIUM 0.5MG/ALBUTEROL 2.5MG INH SOL UD 3ML (DUONEB) NEB SCH (11:47)
[2024-03-02] MEDS: MORPHINE 2 MG/ML 1ML VIAL IV PRN (12:25)
[2024-03-02] MEDS ORDERED: IBUPROFEN 400MG TAB PO PRN (14:55)
[2024-03-02] MEDS: ACETAMINOPHEN *IV* 1,000 MG in IV 1 EA IV ONE (15:13)
[2024-03-02] MEDS: ONDANSETRON 4MG 2ML VIAL IV PRN (16:53)
[2024-03-02] MEDS: MORPHINE 4 MG/ML 1ML VIAL IV PRN ×2 (16:53→22:16)
[2024-03-02] MEDS: LORazepam 2 MG/ML 1ML VIAL IV PRN (16:54)
[2024-03-02] MEDS ORDERED: ACETAMINOPHEN TAB 650MG DOSE (2X325MG) PO PRN (20:00)
[2024-03-03 21:45] VITALS: BP 117/59; TEMP 98.9; O2SAT 99
[2024-03-03 21:54] VITALS: BP 111/69; TEMP 97.5; O2SAT 99
[2024-03-03] MEDS: MIRTAZAPINE 15 MG TAB PO SCH (22:44)
[2024-03-03] MEDS: busPIRone 5 MG TAB PO SCH (22:44)
[2024-03-03] MEDS: ADVAIR HFA 115/21MCG INHALER INH SCH (23:17)
[2024-03-03] MEDS: IPRATROPIUM 0.5MG/ALBUTEROL 2.5MG INH SOL UD 3ML (DUONEB) NEB SCH (23:19)
[2024-03-04] VITALS (14 sets, daily range): BP systolic 83–103; BP diastolic 49–66; TEMP 97.3–98.2; O2SAT 96–100
[2024-03-04] MEDS: ENOXAPARIN 40MG/0.4ML SYRINGE (J1650 PER 10MG) SC SCH (08:07)
[2024-03-04 08:24] LABS: BASO % 0.1 % (0.0-1.0); EOS # 0.1 10^3/uL (0.0-0.5); EOS % 0.5 % (0.0-3.0); HEMATOCRIT 36.7 % (36.0-47.0); HEMOGLOBIN 11.1 g/dl (12.0-15.5); LYMPH # 1.3 10^3/uL (1.5-5.0); LYMPH % 6.8 % (24.0-44.0); MEAN CORPUSCULAR HEMOGLOBIN 25.6 pg (27.0-33.0); MEAN CORPUSCULAR HGB CONC 30.2 g/dl (32.0-36.5); MEAN CORPUSCULAR VOLUME 84.8 fl (80.0-96.0); MONO % 5.3 % (2.0-8.0); NEUTROPHILS # 16.4 10^3/uL (1.5-8.5); NEUTROPHILS % 86.7 % (36.0-66.0); PLATELET COUNT, AUTOMATED 247 10^3/uL (150-450); RED BLOOD COUNT 4.33 10^6/uL (4.00-5.40); WHITE BLOOD COUNT 18.9 10^3/uL (4.0-10.0)
[2024-03-04] MEDS ORDERED: FUROSEMIDE 40 MG TAB PO SCH (09:00)
[2024-03-04 09:17] LABS: BLOOD UREA NITROGEN 8 MG/DL (9-23); CARBON DIOXIDE LEVEL 38 MMOL/L (20-31); CHLORIDE LEVEL 101 MMOL/L (98-107); CREATININE FOR GFR 0.31 MG/DL (0.55-1.30); GLOMERULAR FILTRATION RATE > 60.0 (>51); GLUCOSE, FASTING 78 MG/DL (60-100); POTASSIUM SERUM 2.9 MMOL/L (3.5-5.1); SODIUM LEVEL 142 MMOL/L (136-145)
[2024-03-04] MEDS: AUGMENTIN 875 MG TAB PO SCH (09:50)
[2024-03-04] MEDS: LACTOBACILLUS ACIDOPHILUS CAP (BACID) PO SCH (09:50)
[2024-03-04] MEDS: POTASSIUM CHLORIDE 10MEQ SR TABLET PO ONE (11:32)
[2024-03-04] MEDS: MAG SULF 1GM/100ML (MAG RUN) 1 GM in IV 1 EA IV SCH (11:33)
[2024-03-04] MEDS: ACETAMINOPHEN TAB 650MG DOSE (2X325MG) PO PRN (11:42)
[2024-03-04] MEDS: FUROSEMIDE 40 MG TAB PO SCH (11:42)
[2024-03-04] MEDS: guaiFENesin ER TABLET 600 MG TAB PO SCH (12:45)
[2024-03-04] MEDS: KCL 10MEQ/100ML SWI (KRUN) 10 MEQ in IV 1 EA IV SCH (12:46)
[2024-03-04] MEDS: NS 1,000 ML IV ONE (14:06)
[2024-03-04] MEDS: PIPERACILLIN/TAZOBACTAM SOD 4.5 GM in D5W MINI-BAG PLUS 50 ML IV SCH (15:12)
[2024-03-04] MEDS: MIDODRINE 5 MG TAB PO SCH (16:26)
[2024-03-04 18:28] LABS: BLOOD UREA NITROGEN 6 MG/DL (9-23); CALCIUM LEVEL 7.3 MG/DL (8.5-10.1); CARBON DIOXIDE LEVEL 38 MMOL/L (20-31); CHLORIDE LEVEL 102 MMOL/L (98-107); CREATININE FOR GFR 0.31 MG/DL (0.55-1.30); GLOMERULAR FILTRATION RATE > 60.0 (>51); GLUCOSE, FASTING 87 MG/DL (60-100); POTASSIUM SERUM 3.2 MMOL/L (3.5-5.1); SODIUM LEVEL 141 MMOL/L (136-145)
[2024-03-04 18:41] LABS: CLOSTRIDIUM DIFFICILE PCR NEGATIVE (NEGATIVE)
[2024-03-04] MEDS: MAGNESIUM OXIDE 400MG TAB (MAG-OX) PO SCH (20:13)
[2024-03-04] MEDS: KCL 10MEQ/100ML SWI (KRUN) 10 MEQ in IV 1 EA IV ONE (20:14)
[2024-03-04] MEDS: MORPHINE 2 MG/ML 1ML VIAL IV PRN (23:49)
[2024-03-05 00:22] VITALS: BP 90/50; TEMP 98.7; O2SAT 97
[2024-03-05 07:57] VITALS: BP 94/53; TEMP 98.5; O2SAT 97
[2024-03-05 08:17] LABS: BASO % 0.1 % (0.0-1.0); EOS # 0.2 10^3/uL (0.0-0.5); EOS % 1.2 % (0.0-3.0); HEMATOCRIT 36.8 % (36.0-47.0); HEMOGLOBIN 11.1 g/dl (12.0-15.5); LYMPH # 1.2 10^3/uL (1.5-5.0); MEAN CORPUSCULAR HEMOGLOBIN 25.6 pg (27.0-33.0); MEAN CORPUSCULAR HGB CONC 30.2 g/dl (32.0-36.5); MEAN CORPUSCULAR VOLUME 84.8 fl (80.0-96.0); MONO # 0.8 10^3/uL (0.0-0.8); MONO % 5.4 % (2.0-8.0); NEUTROPHILS # 12.4 10^3/uL (1.5-8.5); NEUTROPHILS % 84.8 % (36.0-66.0); PLATELET COUNT, AUTOMATED 312 10^3/uL (150-450); RED BLOOD COUNT 4.34 10^6/uL (4.00-5.40); WHITE BLOOD COUNT 14.6 10^3/uL (4.0-10.0)
[2024-03-05 08:52] LABS: BLOOD UREA NITROGEN 5 MG/DL (9-23); CALCIUM LEVEL 7.5 MG/DL (8.5-10.1); CARBON DIOXIDE LEVEL 38 MMOL/L (20-31); CHLORIDE LEVEL 99 MMOL/L (98-107); CREATININE FOR GFR 0.32 MG/DL (0.55-1.30); GLOMERULAR FILTRATION RATE > 60.0 (>51); GLUCOSE, FASTING 77 MG/DL (60-100); MAGNESIUM LEVEL 1.8 MG/DL (1.8-2.4); POTASSIUM SERUM 2.7 MMOL/L (3.5-5.1); SODIUM LEVEL 140 MMOL/L (136-145)
[2024-03-05] MEDS: POTASSIUM CHLORIDE 10MEQ SR TABLET PO SCH (09:13)
[2024-03-05] MEDS: KCL 10MEQ/100ML SWI (KRUN) 10 MEQ in IV 1 EA IV SCH (10:12)
[2024-03-05] MEDS: ALBUTEROL SULFATE 2.5MG/0.5ML INH NEB SOLN NEB PRN (10:43)
[2024-03-05] MEDS: NYSTATIN 500,000U/5ML SUSP UDC SS SCH (11:17)
[2024-03-05 11:47] VITALS: BP 90/55; TEMP 97.7; O2SAT 100
[2024-03-05 12:13] LABS: APPEARANCE, URINE CLEAR (CLEAR); BACTERIA, URINE AUTO NEGATIVE (NEGATIVE); BILIRUBIN, URINE AUTO NEGATIVE (NEGATIVE); BLOOD, URINE BLOOD 1+ (NEGATIVE); COLOR, URINE YELLOW (YELLOW); GLUCOSE, URINE (UA) AUTO NEGATIVE (NEGATIVE); KETONE, URINE AUTO TRACE mg/dL (NEGATIVE); LEUKOCYTE ESTERASE, URINE AUTO TRACE (NEGATIVE); NITRITE, URINE AUTO NEGATIVE (NEGATIVE); PROTEIN, URINE AUTO NEGATIVE (NEGATIVE); RBC, URINE AUTO 14 /HPF (0-3); SPECIFIC GRAVITY URINE AUTO 1.025 (1.002-1.035); SQUAMOUS EPITHELIAL CELL UR AU 0 /HPF (0-6); UROBILINOGEN, URINE AUTO 0.2 mg/dL (0.0-2.0); WBC, URINE AUTO 9 /HPF (0-3)
[2024-03-05] MEDS: LOPERAMIDE 2 MG CAPLET PO ONE (14:41)
[2024-03-05 14:51] LABS: IONIZED CALCIUM 4.4 MG/DL (4.5-5.3)
[2024-03-05 15:24] LABS: BLOOD UREA NITROGEN 5 MG/DL (9-23); CALCIUM LEVEL 7.4 MG/DL (8.5-10.1); CARBON DIOXIDE LEVEL 39 MMOL/L (20-31); CHLORIDE LEVEL 101 MMOL/L (98-107); CREATININE FOR GFR 0.33 MG/DL (0.55-1.30); GLOMERULAR FILTRATION RATE > 60.0 (>51); GLUCOSE, FASTING 84 MG/DL (60-100); PHOSPHORUS LEVEL 1.5 MG/DL (2.5-4.9); POTASSIUM SERUM 3.2 MMOL/L (3.5-5.1); SODIUM LEVEL 141 MMOL/L (136-145)
[2024-03-05 15:49] VITALS: BP 93/50; TEMP 99.1; O2SAT 100
[2024-03-05] MEDS: LOPERAMIDE 2 MG CAPLET PO PRN (18:45)
[2024-03-05 19:50] VITALS: BP 86/42; TEMP 96.8; O2SAT 100
[2024-03-05] MEDS: ALPRAZolam 0.25 MG TAB PO PRN (22:09)
[2024-03-05 23:38] VITALS: BP 102/50; TEMP 97.2; O2SAT 100
[2024-03-06 04:00] VITALS: BP 92/56; TEMP 97.4; O2SAT 99
[2024-03-06 05:56] LABS: BASO % 0.1 % (0.0-1.0); EOS # 0.3 10^3/uL (0.0-0.5); EOS % 2.4 % (0.0-3.0); HEMATOCRIT 35.1 % (36.0-47.0); HEMOGLOBIN 10.7 g/dl (12.0-15.5); LYMPH % 8.3 % (24.0-44.0); MEAN CORPUSCULAR HEMOGLOBIN 25.4 pg (27.0-33.0); MEAN CORPUSCULAR HGB CONC 30.5 g/dl (32.0-36.5); MEAN CORPUSCULAR VOLUME 83.4 fl (80.0-96.0); MONO % 8.3 % (2.0-8.0); NEUTROPHILS # 9.2 10^3/uL (1.5-8.5); NEUTROPHILS % 80.5 % (36.0-66.0); PLATELET COUNT, AUTOMATED 335 10^3/uL (150-450); RED BLOOD COUNT 4.21 10^6/uL (4.00-5.40); WHITE BLOOD COUNT 11.4 10^3/uL (4.0-10.0)
[2024-03-06 06:35] LABS: BLOOD UREA NITROGEN < 5 MG/DL (9-23); CARBON DIOXIDE LEVEL 37 MMOL/L (20-31); CHLORIDE LEVEL 103 MMOL/L (98-107); CREATININE FOR GFR 0.31 MG/DL (0.55-1.30); GLOMERULAR FILTRATION RATE > 60.0 (>51); GLUCOSE, FASTING 83 MG/DL (60-100); MAGNESIUM LEVEL 1.6 MG/DL (1.8-2.4); SODIUM LEVEL 144 MMOL/L (136-145)
[2024-03-06] MEDS: POTASSIUM PHOSPHATE INJ 30 MMOL in D5W 500 ML IV ONE (06:45)
[2024-03-06 07:52] VITALS: BP 104/58; TEMP 98.1
[2024-03-06] MEDS: POTASSIUM CHLORIDE 10MEQ SR TABLET PO SCH (08:12)
[2024-03-06] MEDS: METAMUCIL (PSYLLIUM) PACKET PO SCH (10:11)
[2024-03-06] MEDS: PERCOCET 5MG/325MG TAB PO PRN (10:12)
[2024-03-06 12:07] VITALS: BP 117/66; TEMP 98.4; O2SAT 97
[2024-03-06] MEDS: LOMOTIL 2.5MG/0.025MG TABLET PO SCH (14:13)
[2024-03-06 15:45] VITALS: BP 93/51; TEMP 97.4; O2SAT 100
[2024-03-06 19:55] VITALS: BP 100/60; TEMP 97.8; O2SAT 99
[2024-03-06] MEDS: MORPHINE 2 MG/ML 1ML VIAL IV PRN (22:21)
[2024-03-06 23:53] VITALS: BP 95/54; TEMP 97.8; O2SAT 98
[2024-03-07 03:37] VITALS: BP 106/63; TEMP 97.5; O2SAT 96
[2024-03-07] MEDS: SODIUM CHLORIDE 0.9% INJ 10 ML SYR IV SCH (06:15)
[2024-03-07 06:39] LABS: EOS # 0.4 10^3/uL (0.0-0.5); EOS % 4.3 % (0.0-3.0); HEMATOCRIT 35.9 % (36.0-47.0); LYMPH # 1.4 10^3/uL (1.5-5.0); LYMPH % 15.7 % (24.0-44.0); MEAN CORPUSCULAR HEMOGLOBIN 25.6 pg (27.0-33.0); MEAN CORPUSCULAR HGB CONC 30.6 g/dl (32.0-36.5); MEAN CORPUSCULAR VOLUME 83.5 fl (80.0-96.0); MONO % 11.1 % (2.0-8.0); NEUTROPHILS # 6.3 10^3/uL (1.5-8.5); NEUTROPHILS % 68.5 % (36.0-66.0); PLATELET COUNT, AUTOMATED 366 10^3/uL (150-450); WHITE BLOOD COUNT 9.2 10^3/uL (4.0-10.0)
[2024-03-07 07:06] LABS: BLOOD UREA NITROGEN < 5 MG/DL (9-23); CALCIUM LEVEL 7.8 MG/DL (8.5-10.1); CARBON DIOXIDE LEVEL 39 MMOL/L (20-31); CHLORIDE LEVEL 101 MMOL/L (98-107); CREATININE FOR GFR 0.39 MG/DL (0.55-1.30); GLOMERULAR FILTRATION RATE > 60.0 (>51); GLUCOSE, FASTING 74 MG/DL (60-100); MAGNESIUM LEVEL 1.6 MG/DL (1.8-2.4); POTASSIUM SERUM 3.5 MMOL/L (3.5-5.1); SODIUM LEVEL 142 MMOL/L (136-145)
[2024-03-07 07:28] VITALS: BP 112/51; TEMP 97.6; O2SAT 98
[2024-03-07] MEDS: SODIUM CHLORIDE NASAL 0.65% SPRAY BTL (OCEAN) PRN (08:54)
[2024-03-07 12:44] VITALS: BP 108/65; TEMP 97.9; O2SAT 98
[2024-03-07 15:26] VITALS: BP 110/67; TEMP 99; O2SAT 99
[2024-03-07] MEDS: MAGNESIUM OXIDE 400MG TAB (MAG-OX) PO SCH (16:30)
[2024-03-07] MEDS: SIMETHICONE 80MG CHEW TAB PO PRN (16:37)
[2024-03-07] MEDS: PROMETHAZINE 25MG/ML 1ML VIAL IV ONE (17:59)
[2024-03-07] MEDS: SODIUM CHLORIDE 0.9% INJ 10 ML SYR IV PRN (18:51)
[2024-03-07 19:08] VITALS: BP 95/58; TEMP 98.4; O2SAT 95
[2024-03-07 23:00] VITALS: BP 82/50; TEMP 97.8; O2SAT 96
[2024-03-07] MEDS: NS 500 ML IV ONE (23:25)
[2024-03-08] VITALS (56 sets, daily range): BP systolic 80–137; BP diastolic 38–74; TEMP 96.8–100; O2SAT 85–100
[2024-03-08] MEDS: NS 500 ML IV STA (00:43)
[2024-03-08] MEDS: HYDROCORTISONE 100MG/2ML VIAL IV ONE (01:34)
[2024-03-08] MEDS: MIDODRINE 5 MG TAB PO ONE (03:31)
[2024-03-08 06:10] LABS: BASO % 0.1 % (0.0-1.0); EOS % 0.4 % (0.0-3.0); HEMATOCRIT 35.4 % (36.0-47.0); HEMOGLOBIN 10.8 g/dl (12.0-15.5); LYMPH # 0.6 10^3/uL (1.5-5.0); LYMPH % 5.5 % (24.0-44.0); MEAN CORPUSCULAR HEMOGLOBIN 25.1 pg (27.0-33.0); MEAN CORPUSCULAR HGB CONC 30.5 g/dl (32.0-36.5); MEAN CORPUSCULAR VOLUME 82.3 fl (80.0-96.0); MONO # 0.4 10^3/uL (0.0-0.8); MONO % 3.5 % (2.0-8.0); NEUTROPHILS # 9.7 10^3/uL (1.5-8.5); PLATELET COUNT, AUTOMATED 356 10^3/uL (150-450); WHITE BLOOD COUNT 10.7 10^3/uL (4.0-10.0)
[2024-03-08 06:38] LABS: BLOOD UREA NITROGEN < 5 MG/DL (9-23); CALCIUM LEVEL 7.8 MG/DL (8.5-10.1); CARBON DIOXIDE LEVEL 36 MMOL/L (20-31); CHLORIDE LEVEL 100 MMOL/L (98-107); CREATININE FOR GFR 0.39 MG/DL (0.55-1.30); GLOMERULAR FILTRATION RATE > 60.0 (>51); GLUCOSE, FASTING 81 MG/DL (60-100); MAGNESIUM LEVEL 1.5 MG/DL (1.8-2.4); PHOSPHORUS LEVEL 2.8 MG/DL (2.5-4.9); POTASSIUM SERUM 3.3 MMOL/L (3.5-5.1); SODIUM LEVEL 140 MMOL/L (136-145)
[2024-03-08] MEDS: HYDROCORTISONE 100MG/2ML VIAL IV SCH (08:21)
[2024-03-08] MEDS: MIDODRINE 5 MG TAB PO SCH (08:24)
[2024-03-08] MEDS: NOREPINEPHRINE 4MG IN D5 250ML 4 MG in IV 1 EA IV SCH (09:54)
[2024-03-08] MEDS: KCL 40MEQ in NS 1000ML 1,000 ML IV SCH (13:07)
[2024-03-08] MEDS: POTASSIUM CHLORIDE 10MEQ SR TABLET PO ONE ×2 (13:07→17:31)
[2024-03-08] MEDS: MAG SULF 1GM/100ML (MAG RUN) 1 GM in IV 1 EA IV SCH (13:52)
[2024-03-08] MEDS ORDERED: NOREPINEPHRINE 4MG IN D5 250ML 4 MG in IV 1 EA IV SCH (14:22)
[2024-03-09] VITALS (19 sets, daily range): BP systolic 77–111; BP diastolic 48–69; TEMP 97.4–98.6; O2SAT 89–100
[2024-03-09] MEDS: LR 1,000 ML IV SCH ×2 (00:03→09:00)
[2024-03-09 04:59] LABS: BASO % 0.1 % (0.0-1.0); EOS # 0.1 10^3/uL (0.0-0.5); EOS % 1.1 % (0.0-3.0); HEMATOCRIT 35.9 % (36.0-47.0); LYMPH # 1.2 10^3/uL (1.5-5.0); LYMPH % 14.2 % (24.0-44.0); MEAN CORPUSCULAR HEMOGLOBIN 25.5 pg (27.0-33.0); MEAN CORPUSCULAR HGB CONC 30.6 g/dl (32.0-36.5); MEAN CORPUSCULAR VOLUME 83.3 fl (80.0-96.0); MONO # 0.9 10^3/uL (0.0-0.8); NEUTROPHILS # 6.2 10^3/uL (1.5-8.5); NEUTROPHILS % 73.1 % (36.0-66.0); PLATELET COUNT, AUTOMATED 405 10^3/uL (150-450); RED BLOOD COUNT 4.31 10^6/uL (4.00-5.40); WHITE BLOOD COUNT 8.5 10^3/uL (4.0-10.0)
[2024-03-09 05:24] LABS: C REACTIVE PROTEIN QUANTITATIV 4.9 MG/DL (<1.0)
[2024-03-09 05:26] LABS: BLOOD UREA NITROGEN 6 MG/DL (9-23); CALCIUM LEVEL 7.8 MG/DL (8.5-10.1); CARBON DIOXIDE LEVEL 36 MMOL/L (20-31); CHLORIDE LEVEL 105 MMOL/L (98-107); CREATININE FOR GFR 0.44 MG/DL (0.55-1.30); GLOMERULAR FILTRATION RATE > 60.0 (>51); GLUCOSE, FASTING 87 MG/DL (60-100); POTASSIUM SERUM 3.1 MMOL/L (3.5-5.1); SODIUM LEVEL 143 MMOL/L (136-145)
[2024-03-09 05:33] LABS: PROCALCITONIN 0.12 ng/ml
[2024-03-09] MEDS ORDERED: KCL 10MEQ/100ML SWI (KRUN) 10 MEQ in IV 1 EA IV SCH (06:00)
[2024-03-09] MEDS: KCL 20MEQ IN 100ML SWI (KRUN) 20 MEQ in IV 1 EA IV ONE (06:29)
[2024-03-09] MEDS: POTASSIUM CHLORIDE 10MEQ SR TABLET PO ONE (06:29)
[2024-03-09] MEDS: LOPERAMIDE 2 MG CAPLET PO ONE ×4 (08:49→20:34)
[2024-03-09] MEDS: KCL 20MEQ IN 100ML SWI (KRUN) 20 MEQ in IV 1 EA IV SCH (08:51)
[2024-03-09] MEDS ORDERED: PERCOCET 5MG/325MG TAB PO ONE (13:00)
[2024-03-09] MEDS: NEOSPORIN OINT 0.9 GM PKT TOP ONE (13:25)
[2024-03-09] MEDS ORDERED: SODIUM CHLORIDE 0.9% INJ 10 ML SYR IV PRN (13:25)
[2024-03-09] MEDS: MORPHINE 2 MG/ML 1ML VIAL IV ONE (14:01)
[2024-03-09] MEDS: CHOLESTYRAMINE 4GM PWD PKT PO ONE (14:04)
[2024-03-09] MEDS: PERCOCET 5MG/325MG TAB PO ONE (14:47)
[2024-03-09] MEDS: KETOROLAC 30 MG/ML 1ML VIAL IV ONE (14:47)
[2024-03-09] MEDS: SODIUM CHLORIDE 0.9% INJ 10 ML SYR IV SCH (18:00)
[2024-03-10 03:54] VITALS: BP 94/71; TEMP 98; O2SAT 99
[2024-03-10 06:48] LABS: BASO % 0.3 % (0.0-1.0); EOS # 0.3 10^3/uL (0.0-0.5); EOS % 2.6 % (0.0-3.0); HEMOGLOBIN 10.3 g/dl (12.0-15.5); LYMPH # 1.6 10^3/uL (1.5-5.0); LYMPH % 14.7 % (24.0-44.0); MEAN CORPUSCULAR HEMOGLOBIN 25.8 pg (27.0-33.0); MEAN CORPUSCULAR HGB CONC 31.2 g/dl (32.0-36.5); MEAN CORPUSCULAR VOLUME 82.7 fl (80.0-96.0); MONO # 0.9 10^3/uL (0.0-0.8); MONO % 8.9 % (2.0-8.0); NEUTROPHILS # 7.7 10^3/uL (1.5-8.5); NEUTROPHILS % 73.1 % (36.0-66.0); PLATELET COUNT, AUTOMATED 345 10^3/uL (150-450); RED BLOOD COUNT 3.99 10^6/uL (4.00-5.40); WHITE BLOOD COUNT 10.6 10^3/uL (4.0-10.0)
[2024-03-10 07:13] LABS: BLOOD UREA NITROGEN < 5 MG/DL (9-23); CALCIUM LEVEL 7.4 MG/DL (8.5-10.1); CARBON DIOXIDE LEVEL 30 MMOL/L (20-31); CHLORIDE LEVEL 106 MMOL/L (98-107); CREATININE FOR GFR 0.36 MG/DL (0.55-1.30); GLOMERULAR FILTRATION RATE > 60.0 (>51); GLUCOSE, FASTING 71 MG/DL (60-100); MAGNESIUM LEVEL 1.4 MG/DL (1.8-2.4); POTASSIUM SERUM 3.4 MMOL/L (3.5-5.1); SODIUM LEVEL 140 MMOL/L (136-145)
[2024-03-10 07:47] VITALS: BP 95/57; TEMP 97.1; O2SAT 97
[2024-03-10] MEDS: LOMOTIL 2.5MG/0.025MG TABLET PO ONE (09:42)
[2024-03-10] MEDS: POTASSIUM CHLORIDE 10MEQ SR TABLET PO ONE (09:43)
[2024-03-10] MEDS: MAG SULF 1GM/100ML (MAG RUN) 1 GM in IV 1 EA IV SCH (09:49)
[2024-03-10] MEDS: CHOLESTYRAMINE 4GM PWD PKT PO ONE (11:08)
[2024-03-10 11:54] VITALS: BP 99/68; TEMP 98.1; O2SAT 100
[2024-03-10] MEDS: LOMOTIL 2.5MG/0.025MG TABLET PO SCH (12:18)
[2024-03-10 16:06] VITALS: BP 101/65; TEMP 97.6; O2SAT 99
[2024-03-10] MEDS: CHOLESTYRAMINE 4GM PWD PKT PO SCH (16:32)
[2024-03-10 19:07] LABS: IONIZED CALCIUM 4.5 MG/DL (4.5-5.3)
[2024-03-10 19:29] LABS: CLOSTRIDIUM DIFFICILE PCR NEGATIVE (NEGATIVE)
[2024-03-10 19:45] LABS: PROCALCITONIN 0.99 ng/ml
[2024-03-10 19:50] LABS: BLOOD UREA NITROGEN < 5 MG/DL (9-23); CALCIUM LEVEL 7.3 MG/DL (8.5-10.1); CARBON DIOXIDE LEVEL 33 MMOL/L (20-31); CHLORIDE LEVEL 105 MMOL/L (98-107); CREATININE FOR GFR 0.33 MG/DL (0.55-1.30); GLOMERULAR FILTRATION RATE > 60.0 (>51); GLUCOSE, FASTING 77 MG/DL (60-100); MAGNESIUM LEVEL 1.7 MG/DL (1.8-2.4); POTASSIUM SERUM 3.6 MMOL/L (3.5-5.1); SODIUM LEVEL 141 MMOL/L (136-145)
[2024-03-10 20:11] VITALS: BP 94/60; TEMP 98; O2SAT 98
[2024-03-10] MEDS: CALCIUM CARBONATE 500 MG CHEW U/D PO ONE (22:38)
[2024-03-10 23:54] VITALS: BP 97/63; TEMP 98.8; O2SAT 99
[2024-03-11 03:46] VITALS: BP 94/61; TEMP 97.9; O2SAT 99
[2024-03-11 06:22] LABS: BASO % 0.3 % (0.0-1.0); EOS # 0.2 10^3/uL (0.0-0.5); EOS % 1.8 % (0.0-3.0); HEMATOCRIT 35.8 % (36.0-47.0); HEMOGLOBIN 10.8 g/dl (12.0-15.5); LYMPH # 1.5 10^3/uL (1.5-5.0); LYMPH % 13.7 % (24.0-44.0); MEAN CORPUSCULAR HEMOGLOBIN 25.4 pg (27.0-33.0); MEAN CORPUSCULAR HGB CONC 30.2 g/dl (32.0-36.5); MEAN CORPUSCULAR VOLUME 84.2 fl (80.0-96.0); MONO # 0.9 10^3/uL (0.0-0.8); NEUTROPHILS # 8.2 10^3/uL (1.5-8.5); NEUTROPHILS % 75.7 % (36.0-66.0); PLATELET COUNT, AUTOMATED 349 10^3/uL (150-450); RED BLOOD COUNT 4.25 10^6/uL (4.00-5.40); WHITE BLOOD COUNT 10.8 10^3/uL (4.0-10.0)
[2024-03-11 06:52] LABS: BLOOD UREA NITROGEN < 5 MG/DL (9-23); CALCIUM LEVEL 7.4 MG/DL (8.5-10.1); CARBON DIOXIDE LEVEL 28 MMOL/L (20-31); CHLORIDE LEVEL 104 MMOL/L (98-107); CREATININE FOR GFR 0.35 MG/DL (0.55-1.30); GLOMERULAR FILTRATION RATE > 60.0 (>51); GLUCOSE, FASTING 74 MG/DL (60-100); MAGNESIUM LEVEL 1.6 MG/DL (1.8-2.4); POTASSIUM SERUM 3.5 MMOL/L (3.5-5.1); SODIUM LEVEL 139 MMOL/L (136-145)
[2024-03-11] MEDS ORDERED: COSYNTROPIN 0.25 MG/ML 1ML VIAL IV ONE (07:30)
[2024-03-11 07:58] VITALS: BP 97/65; TEMP 98.8; O2SAT 100
[2024-03-11] MEDS: ALPRAZolam 0.5 MG TAB PO ONE ×3 (08:35→17:09)
[2024-03-11] MEDS: MAG SULF 1GM/100ML (MAG RUN) 1 GM in IV 1 EA IV SCH (08:38)
[2024-03-11] MEDS: MAALOX 30 ML SUSP *UDC PO ONE (10:31)
[2024-03-11] MEDS: FLUDROCORTISONE ACETATE 0.1 MG TAB PO SCH (10:32)
[2024-03-11] MEDS: CHOLESTYRAMINE 4GM PWD PKT PO SCH (11:04)
[2024-03-11 12:33] VITALS: BP 89/66; TEMP 98.1; O2SAT 100
[2024-03-11] MEDS ORDERED: MAALOX 30 ML SUSP *UDC PO PRN (13:00)
[2024-03-11 14:28] LABS: ALKALINE PHOSPHATASE 92 U/L (46-116); ALT/SGPT 18 U/L (7.0-40); AST/SGOT 18 U/L (<34); BILIRUBIN,DIRECT 0.2 MG/DL (<0.4); BILIRUBIN,TOTAL 0.3 MG/DL (0.3-1.2)
[2024-03-11 16:12] VITALS: BP 94/61; TEMP 98.4; O2SAT 100
[2024-03-11 20:00] VITALS: BP 104/60; TEMP 97.5; O2SAT 99
[2024-03-11] MEDS: ALPRAZolam 0.5 MG TAB PO SCH (21:00)
[2024-03-11] MEDS: HYDROCORTISONE 5MG TABLET PO SCH (21:27)
[2024-03-12] VITALS (11 sets, daily range): BP systolic 94–105; BP diastolic 53–67; TEMP 97.2–98.6; O2SAT 98–100
[2024-03-12 06:31] LABS: BASO % 0.3 % (0.0-1.0); EOS # 0.2 10^3/uL (0.0-0.5); EOS % 1.7 % (0.0-3.0); HEMATOCRIT 39.2 % (36.0-47.0); HEMOGLOBIN 11.9 g/dl (12.0-15.5); LYMPH # 1.6 10^3/uL (1.5-5.0); LYMPH % 17.4 % (24.0-44.0); MEAN CORPUSCULAR HEMOGLOBIN 25.2 pg (27.0-33.0); MEAN CORPUSCULAR HGB CONC 30.4 g/dl (32.0-36.5); MEAN CORPUSCULAR VOLUME 82.9 fl (80.0-96.0); MONO # 0.8 10^3/uL (0.0-0.8); MONO % 8.4 % (2.0-8.0); NEUTROPHILS # 6.6 10^3/uL (1.5-8.5); NEUTROPHILS % 71.5 % (36.0-66.0); PLATELET COUNT, AUTOMATED 328 10^3/uL (150-450); RED BLOOD COUNT 4.73 10^6/uL (4.00-5.40); WHITE BLOOD COUNT 9.2 10^3/uL (4.0-10.0)
[2024-03-12 07:00] LABS: BLOOD UREA NITROGEN 5 MG/DL (9-23); CALCIUM LEVEL 7.4 MG/DL (8.5-10.1); CARBON DIOXIDE LEVEL 31 MMOL/L (20-31); CHLORIDE LEVEL 104 MMOL/L (98-107); CREATININE FOR GFR 0.41 MG/DL (0.55-1.30); GLOMERULAR FILTRATION RATE > 60.0 (>51); GLUCOSE, FASTING 86 MG/DL (60-100); MAGNESIUM LEVEL 1.8 MG/DL (1.8-2.4); SODIUM LEVEL 140 MMOL/L (136-145)
[2024-03-12] MEDS ORDERED: PERCOCET PO (08:29)
[2024-03-12] MEDS ORDERED: MIDO5TA PO (08:29)
[2024-03-12] MEDS ORDERED: DIPH1TAB81 PO (08:29)
[2024-03-12] MEDS ORDERED: CORT5TAB2 PO (08:33)
[2024-03-12] MEDS ORDERED: FLUD0.1T PO (08:33)
[2024-03-12] MEDS ORDERED: SELF1KIT MC (08:34)
[2024-03-12] MEDS: ALPRAZolam 0.5 MG TAB PO SCH (08:45)
[2024-03-12] MEDS: CALCIUM GLUCONATE 1,000 MG in D5W MINI-BAG PLUS 100 ML IV ONE (08:45)
[2024-03-12] MEDS: POTASSIUM CHLORIDE 10MEQ SR TABLET PO SCH (08:58)
[2024-03-12] MEDS: MAG SULF 1GM/100ML (MAG RUN) 1 GM in IV 1 EA IV SCH (10:18)
[2024-03-12 12:55] LABS: IONIZED CALCIUM 4.6 MG/DL (4.5-5.3)
[2024-03-12 13:28] LABS: MAGNESIUM LEVEL 2.4 MG/DL (1.8-2.4); POTASSIUM SERUM 3.3 MMOL/L (3.5-5.1)
[2024-03-12] MEDS: FUROSEMIDE injection 250 MG in D5W 225 ML IV SCH (14:02)
[2024-03-12] MEDS: AMINO AC/ELECTROLYTE/DEX/CALC 2,000 ML IV SCH (19:01)
[2024-03-12] MEDS: FAT EMULSION IV 250 ML IV ONE (19:01)
[2024-03-13] VITALS (11 sets, daily range): BP systolic 80–103; BP diastolic 48–60; TEMP 97.9–99; O2SAT 97–99
[2024-03-13 06:38] LABS: HEMATOCRIT 30.6 % (36.0-47.0); MEAN CORPUSCULAR HEMOGLOBIN 25.8 pg (27.0-33.0); MEAN CORPUSCULAR HGB CONC 30.7 g/dl (32.0-36.5); MEAN CORPUSCULAR VOLUME 84.1 fl (80.0-96.0); PLATELET COUNT, AUTOMATED 302 10^3/uL (150-450); RED BLOOD COUNT 3.64 10^6/uL (4.00-5.40); WHITE BLOOD COUNT 9.6 10^3/uL (4.0-10.0)
[2024-03-13 06:40] LABS: HEMOGLOBIN 9.4 g/dl (12.0-15.5)
[2024-03-13 07:11] LABS: BLOOD UREA NITROGEN 6 MG/DL (9-23); CALCIUM LEVEL 7.3 MG/DL (8.5-10.1); CARBON DIOXIDE LEVEL > 40.0 MMOL/L (20-31); CHLORIDE LEVEL 99 MMOL/L (98-107); GLOMERULAR FILTRATION RATE > 60.0 (>51); GLUCOSE, FASTING 87 MG/DL (60-100); MAGNESIUM LEVEL 1.7 MG/DL (1.8-2.4); POTASSIUM SERUM 3.2 MMOL/L (3.5-5.1); SODIUM LEVEL 144 MMOL/L (136-145)
[2024-03-13] MEDS: POTASSIUM CHLORIDE 10% LIQ 20MEQ/15ML UDC PO SCH (09:00)
[2024-03-13] MEDS: CALCIUM GLUCONATE 1,000 MG in D5W MINI-BAG PLUS 100 ML IV ONE (09:44)
[2024-03-13] MEDS: MAG SULF 1GM/100ML (MAG RUN) 1 GM in IV 1 EA IV SCH (11:18)
[2024-03-13] MEDS: AMINO AC/ELECTROLYTE/DEX/CALC 2,000 ML IV SCH (17:46)
[2024-03-13] MEDS: FAT EMULSION IV 250 ML IV ONE (17:46)
[2024-03-13] MEDS: POTASSIUM CHLORIDE 10MEQ SR TABLET PO SCH (20:57)
[2024-03-13] MEDS ORDERED: NS 250 ML IV ONE (22:35)
[2024-03-14] VITALS (10 sets, daily range): BP systolic 84–114; BP diastolic 48–67; TEMP 97–98.1; O2SAT 98–100
[2024-03-14] MEDS: NS 500 ML IV ONE (03:59)
[2024-03-14 06:39] LABS: BASO % 0.4 % (0.0-1.0); EOS # 0.1 10^3/uL (0.0-0.5); EOS % 1.8 % (0.0-3.0); HEMATOCRIT 28.2 % (36.0-47.0); HEMOGLOBIN 7.8 g/dl (12.0-15.5); LYMPH # 1.2 10^3/uL (1.5-5.0); LYMPH % 16.6 % (24.0-44.0); MEAN CORPUSCULAR HEMOGLOBIN 25.9 pg (27.0-33.0); MEAN CORPUSCULAR HGB CONC 27.7 g/dl (32.0-36.5); MEAN CORPUSCULAR VOLUME 93.7 fl (80.0-96.0); MONO # 0.5 10^3/uL (0.0-0.8); MONO % 6.6 % (2.0-8.0); NEUTROPHILS # 5.5 10^3/uL (1.5-8.5); NEUTROPHILS % 74.2 % (36.0-66.0); PLATELET COUNT, AUTOMATED 256 10^3/uL (150-450); RED BLOOD COUNT 3.01 10^6/uL (4.00-5.40); WHITE BLOOD COUNT 7.4 10^3/uL (4.0-10.0)
[2024-03-14 08:56] LABS: HEMATOCRIT 30.3 % (36.0-47.0); HEMOGLOBIN 8.9 g/dl (12.0-15.5)
[2024-03-14 09:16] LABS: ABG BASE EXCESS 13.1 (-2.0-2.0); ABG HCO3 40.1 MMOL/L (22.0-26.0); ABG O2 SATURATION 97.8 % (95.0-99.0); ABG PARTIAL PRESSURE O2 109.6 mmHg (75.0-100.0); ABG STANDARD HCO3 36.9 MMOL/L. (22.0-26.0); ABG TOTAL CO2 42.2 MMOL/L (22.0-29.0); ABG pH (ARTERIAL) 7.397 UNITS (7.350-7.450)
[2024-03-14 09:18] LABS: ABG PARTIAL PRESSURE CO2 66.7 mmHg (35.0-45.0)
[2024-03-14 09:36] LABS: PREALBUMIN 6.4 MG/DL (10.0-40.0)
[2024-03-14 09:45] LABS: ALBUMIN 2.2 G/DL (3.2-5.2); BLOOD UREA NITROGEN 12 MG/DL (9-23); CALCIUM LEVEL 8.2 MG/DL (8.5-10.1); CARBON DIOXIDE LEVEL > 40.0 MMOL/L (20-31); CHLORIDE LEVEL 98 MMOL/L (98-107); CREATININE FOR GFR 0.32 MG/DL (0.55-1.30); GLOMERULAR FILTRATION RATE > 60.0 (>51); GLUCOSE, FASTING 83 MG/DL (60-100); POTASSIUM SERUM 3.9 MMOL/L (3.5-5.1); SODIUM LEVEL 143 MMOL/L (136-145)
[2024-03-14] MEDS: flumazeniL 0.5MG/5ML VIAL IV STA (10:20)
[2024-03-14] MEDS: POTASSIUM CHLORIDE 10MEQ SR TABLET PO ONE (10:25)
[2024-03-14] MEDS: CALCIUM GLUCONATE 1,000 MG in D5W MINI-BAG PLUS 100 ML IV ONE (10:38)
[2024-03-14] MEDS: MAG SULF 1GM/100ML (MAG RUN) 1 GM in IV 1 EA IV ONE (12:06)
[2024-03-14 12:08] LABS: ABG BASE EXCESS 16.1 (-2.0-2.0); ABG HCO3 42.8 MMOL/L (22.0-26.0); ABG O2 SATURATION 98.9 % (95.0-99.0); ABG PARTIAL PRESSURE O2 130.5 mmHg (75.0-100.0); ABG TOTAL CO2 44.8 MMOL/L (22.0-29.0); ABG pH (ARTERIAL) 7.434 UNITS (7.350-7.450)
[2024-03-14 12:11] LABS: ABG PARTIAL PRESSURE CO2 65.3 mmHg (35.0-45.0)
[2024-03-14] MEDS: MULTIVITAMIN -ADULT INJECTION 10 ML, ZINC/COPPER/MANGANESE/SELENIUM 1 ML in AMINO AC/EL... IV SCH (18:32)
[2024-03-14] MEDS: FAT EMULSION IV 250 ML IV ONE (18:32)
[2024-03-14] MEDS: ALPRAZolam 0.25 MG TAB PO PRN (19:27)
[2024-03-15] VITALS (8 sets, daily range): BP systolic 75–116; BP diastolic 53–66; TEMP 97.2–98.6; O2SAT 94–100
[2024-03-15 07:49] LABS: BASO % 0.2 % (0.0-1.0); EOS # 0.2 10^3/uL (0.0-0.5); EOS % 1.7 % (0.0-3.0); HEMATOCRIT 26.6 % (36.0-47.0); LYMPH # 1.2 10^3/uL (1.5-5.0); LYMPH % 14.1 % (24.0-44.0); MEAN CORPUSCULAR HEMOGLOBIN 25.8 pg (27.0-33.0); MEAN CORPUSCULAR HGB CONC 30.1 g/dl (32.0-36.5); MEAN CORPUSCULAR VOLUME 85.8 fl (80.0-96.0); MONO # 0.6 10^3/uL (0.0-0.8); NEUTROPHILS # 6.6 10^3/uL (1.5-8.5); NEUTROPHILS % 76.5 % (36.0-66.0); PLATELET COUNT, AUTOMATED 275 10^3/uL (150-450); WHITE BLOOD COUNT 8.7 10^3/uL (4.0-10.0)
[2024-03-15 08:23] LABS: BLOOD UREA NITROGEN 13 MG/DL (9-23); CARBON DIOXIDE LEVEL > 40.0 MMOL/L (20-31); CHLORIDE LEVEL 100 MMOL/L (98-107); CREATININE FOR GFR 0.27 MG/DL (0.55-1.30); GLOMERULAR FILTRATION RATE > 60.0 (>51); GLUCOSE, FASTING 102 MG/DL (60-100); MAGNESIUM LEVEL 1.7 MG/DL (1.8-2.4); POTASSIUM SERUM 4.1 MMOL/L (3.5-5.1); SODIUM LEVEL 141 MMOL/L (136-145)
[2024-03-15] MEDS: MAG SULF 1GM/100ML (MAG RUN) 1 GM in IV 1 EA IV ONE (14:16)
[2024-03-15] MEDS: INSULIN LISPRO (NovoLOG) PER UNIT SC SCH (18:23)
[2024-03-15] MEDS: FAT EMULSION IV 250 ML IV ONE (18:24)
[2024-03-15] MEDS: AMINO AC/ELECTROLYTE/DEX/CALC 2,000 ML IV SCH (18:25)
[2024-03-15] MEDS: CALCIUM CARBONATE 500 MG CHEW U/D PO ONE (19:59)
[2024-03-16 00:05] VITALS: BP 102/68; TEMP 97.9; O2SAT 98
[2024-03-16 04:09] VITALS: BP 94/58; TEMP 97.1; O2SAT 97
[2024-03-16 05:41] LABS: BASO % 0.4 % (0.0-1.0); EOS # 0.2 10^3/uL (0.0-0.5); EOS % 2.1 % (0.0-3.0); HEMATOCRIT 25.6 % (36.0-47.0); HEMOGLOBIN 7.7 g/dl (12.0-15.5); LYMPH # 1.1 10^3/uL (1.5-5.0); LYMPH % 13.8 % (24.0-44.0); MEAN CORPUSCULAR HEMOGLOBIN 25.7 pg (27.0-33.0); MEAN CORPUSCULAR HGB CONC 30.1 g/dl (32.0-36.5); MEAN CORPUSCULAR VOLUME 85.3 fl (80.0-96.0); MONO # 0.7 10^3/uL (0.0-0.8); MONO % 8.5 % (2.0-8.0); NEUTROPHILS # 5.8 10^3/uL (1.5-8.5); NEUTROPHILS % 74.8 % (36.0-66.0); PLATELET COUNT, AUTOMATED 319 10^3/uL (150-450); WHITE BLOOD COUNT 7.8 10^3/uL (4.0-10.0)
[2024-03-16 06:14] LABS: ALKALINE PHOSPHATASE 89 U/L (46-116); ALT/SGPT 12 U/L (7.0-40); AST/SGOT 14 U/L (<34); BILIRUBIN,TOTAL 0.2 MG/DL (0.3-1.2); BLOOD UREA NITROGEN 12 MG/DL (9-23); CALCIUM LEVEL 8.2 MG/DL (8.5-10.1); CARBON DIOXIDE LEVEL 38 MMOL/L (20-31); CHLORIDE LEVEL 103 MMOL/L (98-107); CREATININE FOR GFR 0.29 MG/DL (0.55-1.30); GLOMERULAR FILTRATION RATE > 60.0 (>51); GLUCOSE, FASTING 98 MG/DL (60-100); MAGNESIUM LEVEL 1.7 MG/DL (1.8-2.4); PHOSPHORUS LEVEL 3.3 MG/DL (2.5-4.9); SODIUM LEVEL 141 MMOL/L (136-145)
[2024-03-16 07:43] VITALS: BP 102/65; TEMP 98; O2SAT 97
== END 2024-03-16 15:19 | disposition home health service (06) | DRG 853 ==
LOC: EDBD 19:12 → M ED 19:12 → M ED INP 02-24 01:30 → M PCU 02-24 05:40 → M ICU 02-24 19:32 → M PCU 02-27 10:39 → M ICU 02-29 21:20 → M MSPAV 03-03 21:49 → M PCU 03-04 14:45 → M ICU 03-08 09:09 → M PCU 03-09 16:33
PROVIDERS: ADMIT Surgery; ATTEND Student in an Organized Health Care Education/Training Program
PROC: 30233J1 Transfusion of Nonautologous Serum Albumin into Peripheral Vein, Percutaneous Approach (ICD-10-PCS; 2024-02-24)
PROC: 30233N1 Transfusion of Nonautologous Red Blood Cells into Peripheral Vein, Percutaneous Approach (ICD-10-PCS; 2024-02-24)
PROC: 0DB80ZZ Excision of Small Intestine, Open Approach (ICD-10-PCS; principal; 2024-02-24 02:30)
PROC: 04HK33Z Insertion of Infusion Device into Right Femoral Artery, Percutaneous Approach (ICD-10-PCS; 2024-02-25)
PROC: 0BH17EZ Insertion of Endotracheal Airway into Trachea, Via Natural or Artificial Opening (ICD-10-PCS; 2024-03-01)
PROC: 02HV33Z Insertion of Infusion Device into Superior Vena Cava, Percutaneous Approach (ICD-10-PCS; 2024-03-01)
PROC: 5A1945Z Respiratory Ventilation, 24-96 Consecutive Hours (ICD-10-PCS; 2024-03-01)
PROC: B246ZZZ Ultrasonography of Right and Left Heart (ICD-10-PCS; 2024-03-10)
DX: A41.9 Sepsis, unspecified organism (principal); K63.1 Perforation of intestine (nontraumatic); R65.21 Severe sepsis with septic shock; K65.1 Peritoneal abscess; G92.8 Other toxic encephalopathy; J96.20 Acute and chronic respiratory failure, unspecified whether with hypoxia or hypercapnia; R57.1 Hypovolemic shock; E43 Unspecified severe protein-calorie malnutrition; J96.11 Chronic respiratory failure with hypoxia; J96.12 Chronic respiratory failure with hypercapnia; E87.1 Hypo-osmolality and hyponatremia; J44.1 Chronic obstructive pulmonary disease with (acute) exacerbation; K56.609 Unspecified intestinal obstruction, unspecified as to partial versus complete obstruction; E87.0 Hyperosmolality and hypernatremia; B37.0 Candidal stomatitis; K91.2 Postsurgical malabsorption, not elsewhere classified; K55.9 Vascular disorder of intestine, unspecified; I95.9 Hypotension, unspecified; G47.33 Obstructive sleep apnea (adult) (pediatric); E83.42 Hypomagnesemia; E83.51 Hypocalcemia; F17.200 Nicotine dependence, unspecified, uncomplicated; E88.09 Other disorders of plasma-protein metabolism, not elsewhere classified; E78.5 Hyperlipidemia, unspecified; D50.9 Iron deficiency anemia, unspecified; K21.9 Gastro-esophageal reflux disease without esophagitis; M21.371 Foot drop, right foot; M54.2 Cervicalgia; G89.29 Other chronic pain; G43.909 Migraine, unspecified, not intractable, without status migrainosus; M81.0 Age-related osteoporosis without current pathological fracture; M19.90 Unspecified osteoarthritis, unspecified site; F32.A Depression, unspecified; F41.9 Anxiety disorder, unspecified; Z90.79 Acquired absence of other genital organ(s); Z96.642 Presence of left artificial hip joint; Z79.899 Other long term (current) drug therapy; Z86.74 Personal history of sudden cardiac arrest; Z99.81 Dependence on supplemental oxygen; K66.0 Peritoneal adhesions (postprocedural) (postinfection); E87.6 Hypokalemia; R33.9 Retention of urine, unspecified; R19.7 Diarrhea, unspecified; R62.7 Adult failure to thrive

== ENCOUNTER → 2024-03-22 | Outpatient (REF) | payer MEDICARE, OTHER ==
[~2024-03-22] MED LIST changes: +CORT5TAB2 PO; +FLUD0.1T PO; +LOMO2.5T PO; +MIDO5TA PO; +PERCOCET PO; +SELF1KIT MC
== END ==
LOC: M SHH 13:19
PROVIDERS: ATTEND Family Medicine
DX: E43 Unspecified severe protein-calorie malnutrition (principal)

== ENCOUNTER → 2024-03-23 | Outpatient (CLI) | payer MEDICARE, OTHER ==
[2024-03-23 13:29] LABS: BASO % 0.2 % (0.0-1.0); EOS # 0.1 10^3/uL (0.0-0.5); EOS % 1.1 % (0.0-3.0); HEMATOCRIT 30.4 % (36.0-47.0); LYMPH % 9.9 % (24.0-44.0); MEAN CORPUSCULAR HEMOGLOBIN 25.6 pg (27.0-33.0); MEAN CORPUSCULAR HGB CONC 29.6 g/dl (32.0-36.5); MEAN CORPUSCULAR VOLUME 86.6 fl (80.0-96.0); MONO # 0.8 10^3/uL (0.0-0.8); MONO % 7.2 % (2.0-8.0); NEUTROPHILS # 8.5 10^3/uL (1.5-8.5); PLATELET COUNT, AUTOMATED 499 10^3/uL (150-450); RED BLOOD COUNT 3.51 10^6/uL (4.00-5.40); WHITE BLOOD COUNT 10.5 10^3/uL (4.0-10.0)
[2024-03-23 13:49] LABS: ALBUMIN 2.7 G/DL (3.2-5.2); ALKALINE PHOSPHATASE 172 U/L (46-116); ALT/SGPT 40 U/L (7.0-40); AST/SGOT 37 U/L (<34); BILIRUBIN,TOTAL 0.2 MG/DL (0.3-1.2); BLOOD UREA NITROGEN 15 MG/DL (9-23); CALCIUM LEVEL 9.4 MG/DL (8.5-10.1); CARBON DIOXIDE LEVEL 36 MMOL/L (20-31); CHLORIDE LEVEL 100 MMOL/L (98-107); GLOMERULAR FILTRATION RATE > 60.0 (>51); GLUCOSE, FASTING 113 MG/DL (60-100); PHOSPHORUS LEVEL 3.6 MG/DL (2.5-4.9); POTASSIUM SERUM 4.2 MMOL/L (3.5-5.1); SODIUM LEVEL 140 MMOL/L (136-145); TOTAL PROTEIN 5.5 G/DL (5.7-8.2); TRIGLYCERIDES LEVEL 156 MG/DL (<150)
== END ==
LOC: M LAB 12:48
PROVIDERS: ATTEND Family Medicine
DX: E43 Unspecified severe protein-calorie malnutrition (principal)

== ENCOUNTER → 2024-03-28 | Outpatient (REF) | payer MEDICARE, OTHER ==
[2024-03-28 15:16] LABS: BASO % 0.3 % (0.0-1.0); EOS # 0.1 10^3/uL (0.0-0.5); EOS % 0.6 % (0.0-3.0); HEMATOCRIT 32.5 % (36.0-47.0); HEMOGLOBIN 9.6 g/dl (12.0-15.5); LYMPH # 0.9 10^3/uL (1.5-5.0); MEAN CORPUSCULAR HGB CONC 29.5 g/dl (32.0-36.5); MEAN CORPUSCULAR VOLUME 91.3 fl (80.0-96.0); MONO # 0.6 10^3/uL (0.0-0.8); MONO % 4.4 % (2.0-8.0); NEUTROPHILS # 11.8 10^3/uL (1.5-8.5); PLATELET COUNT, AUTOMATED 493 10^3/uL (150-450); RED BLOOD COUNT 3.56 10^6/uL (4.00-5.40); WHITE BLOOD COUNT 13.5 10^3/uL (4.0-10.0)
[2024-03-28 15:34] LABS: ALKALINE PHOSPHATASE 162 U/L (46-116); ALT/SGPT 107 U/L (7.0-40); AST/SGOT 44 U/L (<34); BILIRUBIN,TOTAL 0.3 MG/DL (0.3-1.2); BLOOD UREA NITROGEN 20 MG/DL (9-23); CALCIUM LEVEL 9.1 MG/DL (8.5-10.1); CARBON DIOXIDE LEVEL 37 MMOL/L (20-31); CHLORIDE LEVEL 99 MMOL/L (98-107); CREATININE FOR GFR 0.39 MG/DL (0.55-1.30); GLOMERULAR FILTRATION RATE > 60.0 (>51); GLUCOSE, FASTING 69 MG/DL (60-100); MAGNESIUM LEVEL 2.1 MG/DL (1.8-2.4); PHOSPHORUS LEVEL 3.7 MG/DL (2.5-4.9); POTASSIUM SERUM 4.6 MMOL/L (3.5-5.1); PREALBUMIN 42.2 MG/DL (10.0-40.0); SODIUM LEVEL 140 MMOL/L (136-145); TOTAL PROTEIN 5.4 G/DL (5.7-8.2); TRIGLYCERIDES LEVEL 168 MG/DL (<150)
== END ==
LOC: M SHH 14:44
PROVIDERS: ATTEND Family Medicine
DX: K90.49 Malabsorption due to intolerance, not elsewhere classified (principal)

== ENCOUNTER → 2024-04-11 | Outpatient (REF) | payer MEDICARE, OTHER ==
[~2024-04-11] MED LIST changes: +ONDA-282 PO; -ONDA4TAB6 PO
[2024-04-11 13:50] LABS: BASO % 0.4 % (0.0-1.0); EOS # 0.1 10^3/uL (0.0-0.5); EOS % 0.6 % (0.0-3.0); HEMATOCRIT 40.5 % (36.0-47.0); HEMOGLOBIN 11.7 g/dl (12.0-15.5); LYMPH # 1.5 10^3/uL (1.5-5.0); LYMPH % 13.7 % (24.0-44.0); MEAN CORPUSCULAR HEMOGLOBIN 26.9 pg (27.0-33.0); MEAN CORPUSCULAR HGB CONC 28.9 g/dl (32.0-36.5); MEAN CORPUSCULAR VOLUME 93.1 fl (80.0-96.0); MONO # 0.7 10^3/uL (0.0-0.8); MONO % 6.4 % (2.0-8.0); NEUTROPHILS # 8.6 10^3/uL (1.5-8.5); NEUTROPHILS % 78.4 % (36.0-66.0); PLATELET COUNT, AUTOMATED 274 10^3/uL (150-450); RED BLOOD COUNT 4.35 10^6/uL (4.00-5.40)
[2024-04-11 14:20] LABS: ALBUMIN 3.5 G/DL (3.2-5.2); ALKALINE PHOSPHATASE 135 U/L (46-116); ALT/SGPT 43 U/L (7.0-40); AST/SGOT 15 U/L (<34); BILIRUBIN,TOTAL 0.3 MG/DL (0.3-1.2); BLOOD UREA NITROGEN 27 MG/DL (9-23); CALCIUM LEVEL 9.2 MG/DL (8.5-10.1); CARBON DIOXIDE LEVEL 34 MMOL/L (20-31); CHLORIDE LEVEL 104 MMOL/L (98-107); CREATININE FOR GFR 0.37 MG/DL (0.55-1.30); GLOMERULAR FILTRATION RATE > 60.0 (>51); GLUCOSE, FASTING 93 MG/DL (60-100); MAGNESIUM LEVEL 1.8 MG/DL (1.8-2.4); PHOSPHORUS LEVEL 3.7 MG/DL (2.5-4.9); POTASSIUM SERUM 3.8 MMOL/L (3.5-5.1); SODIUM LEVEL 142 MMOL/L (136-145); TOTAL PROTEIN 6.1 G/DL (5.7-8.2); TRIGLYCERIDES LEVEL 102 MG/DL (<150)
[2024-04-11 14:21] LABS: PREALBUMIN 36.9 MG/DL (10.0-40.0)
== END ==
LOC: M SHH 13:27
PROVIDERS: ATTEND Family Medicine
DX: E43 Unspecified severe protein-calorie malnutrition (principal)

== ENCOUNTER → 2024-04-13 | Outpatient (CLI) | payer MEDICARE, OTHER ==
[2024-04-13 11:37] LABS: ABG BASE EXCESS 6.5 (-2.0-2.0); ABG HCO3 34.1 MMOL/L (22.0-26.0); ABG O2 SATURATION 93.2 % (95.0-99.0); ABG PARTIAL PRESSURE O2 66.7 mmHg (75.0-100.0); ABG STANDARD HCO3 30.3 MMOL/L. (22.0-26.0); ABG TOTAL CO2 36.1 MMOL/L (22.0-29.0); ABG pH (ARTERIAL) 7.341 UNITS (7.350-7.450)
[2024-04-13 12:40] LABS: ABG PARTIAL PRESSURE CO2 64.5 mmHg (35.0-45.0)
== END ==
LOC: M LAB 11:08
PROVIDERS: ATTEND Internal Medicine Critical Care Medicine
DX: J44.9 Chronic obstructive pulmonary disease, unspecified (principal)

== ENCOUNTER → 2024-04-18 | Outpatient (REF) | payer MEDICARE, OTHER ==
[2024-04-18 14:54] LABS: BASO % 0.1 % (0.0-1.0); EOS % 0.2 % (0.0-3.0); HEMATOCRIT 39.4 % (36.0-47.0); HEMOGLOBIN 11.5 g/dl (12.0-15.5); LYMPH # 0.6 10^3/uL (1.5-5.0); LYMPH % 5.4 % (24.0-44.0); MEAN CORPUSCULAR HEMOGLOBIN 27.7 pg (27.0-33.0); MEAN CORPUSCULAR HGB CONC 29.2 g/dl (32.0-36.5); MEAN CORPUSCULAR VOLUME 94.9 fl (80.0-96.0); MONO # 0.2 10^3/uL (0.0-0.8); MONO % 2.2 % (2.0-8.0); NEUTROPHILS # 9.8 10^3/uL (1.5-8.5); NEUTROPHILS % 91.7 % (36.0-66.0); PLATELET COUNT, AUTOMATED 248 10^3/uL (150-450); RED BLOOD COUNT 4.15 10^6/uL (4.00-5.40); WHITE BLOOD COUNT 10.7 10^3/uL (4.0-10.0)
[2024-04-18 15:33] LABS: ALBUMIN 3.6 G/DL (3.2-5.2); ALKALINE PHOSPHATASE 134 U/L (46-116); ALT/SGPT 57 U/L (7.0-40); AST/SGOT 21 U/L (<34); BILIRUBIN,TOTAL 0.3 MG/DL (0.3-1.2); BLOOD UREA NITROGEN 22 MG/DL (9-23); CALCIUM LEVEL 9.4 MG/DL (8.5-10.1); CARBON DIOXIDE LEVEL 36 MMOL/L (20-31); CHLORIDE LEVEL 101 MMOL/L (98-107); CREATININE FOR GFR 0.35 MG/DL (0.55-1.30); GLOMERULAR FILTRATION RATE > 60.0 (>51); GLUCOSE, FASTING 121 MG/DL (60-100); MAGNESIUM LEVEL 1.9 MG/DL (1.8-2.4); PHOSPHORUS LEVEL 3.3 MG/DL (2.5-4.9); POTASSIUM SERUM 4.5 MMOL/L (3.5-5.1); SODIUM LEVEL 142 MMOL/L (136-145); TOTAL PROTEIN 6.3 G/DL (5.7-8.2); TRIGLYCERIDES LEVEL 95 MG/DL (<150)
== END ==
LOC: M SHH 14:24 → M LAB REF 14:24
PROVIDERS: ATTEND Family Medicine
DX: K90.49 Malabsorption due to intolerance, not elsewhere classified (principal)

== ENCOUNTER 2024-04-23 00:04 | Emergency (ER) | payer MEDICARE, OTHER ==
[~2024-04-23] VITALS: Ht 160 cm; Wt 55.3 kg
[2024-04-23 00:24] VITALS: TEMP 97.6
[2024-04-23 00:56] LABS: VENOUS BASE EXCESS 7.5 (-2.0-2.0); VENOUS HCO3 33.4 MMOL/L (23.0-27.0); VENOUS O2 SATURATION 95.7 % (60.0-80.0); VENOUS PARTIAL PRESSURE CO2 52.6 mmHg (38.0-50.0); VENOUS PARTIAL PRESSURE O2 72.7 mmHg (30.0-50.0); VENOUS PH 7.421 UNITS (7.330-7.430); VENOUS STANDARD HCO3 31.3 MMOL/L
[2024-04-23 00:59] LABS: BASO % 0.2 % (0.0-1.0); EOS # 0.1 10^3/uL (0.0-0.5); EOS % 0.9 % (0.0-3.0); HEMOGLOBIN 11.6 g/dl (12.0-15.5); LYMPH # 1.8 10^3/uL (1.5-5.0); LYMPH % 21.4 % (24.0-44.0); MEAN CORPUSCULAR HEMOGLOBIN 27.8 pg (27.0-33.0); MEAN CORPUSCULAR HGB CONC 29.7 g/dl (32.0-36.5); MEAN CORPUSCULAR VOLUME 93.5 fl (80.0-96.0); MONO # 0.8 10^3/uL (0.0-0.8); MONO % 9.2 % (2.0-8.0); NEUTROPHILS # 5.8 10^3/uL (1.5-8.5); NEUTROPHILS % 68.1 % (36.0-66.0); PLATELET COUNT, AUTOMATED 262 10^3/uL (150-450); RED BLOOD COUNT 4.17 10^6/uL (4.00-5.40); WHITE BLOOD COUNT 8.6 10^3/uL (4.0-10.0)
[2024-04-23 01:24] LABS: CK-MB VALUE MASS < 1.0 NG/ML (<3.6)
[2024-04-23 01:26] LABS: ALBUMIN 3.5 G/DL (3.2-5.2); ALKALINE PHOSPHATASE 124 U/L (46-116); ALT/SGPT 72 U/L (7.0-40); AST/SGOT 39 U/L (<34); BILIRUBIN,DIRECT < 0.1 MG/DL (<0.4); BILIRUBIN,TOTAL 0.3 MG/DL (0.3-1.2); BLOOD UREA NITROGEN 18 MG/DL (9-23); CALCIUM LEVEL 9.3 MG/DL (8.5-10.1); CARBON DIOXIDE LEVEL 37 MMOL/L (20-31); CHLORIDE LEVEL 102 MMOL/L (98-107); CREATININE FOR GFR 0.41 MG/DL (0.55-1.30); GLOMERULAR FILTRATION RATE > 60.0 (>51); GLUCOSE, FASTING 101 MG/DL (60-100); POTASSIUM SERUM 4.1 MMOL/L (3.5-5.1); SODIUM LEVEL 143 MMOL/L (136-145)
[2024-04-23 01:38] LABS: PROCALCITONIN 0.05 ng/ml
[2024-04-23 01:40] LABS: CPK CREATINE PHOSPHOKINASE < 15 U/L (34-145)
[2024-04-23] MEDS: IPRATROPIUM 0.5MG/ALBUTEROL 2.5MG INH SOL UD 3ML (DUONEB) NEB ONE (01:48)
[2024-04-23 02:25] LABS: VENOUS BASE EXCESS 8.4 (-2.0-2.0); VENOUS HCO3 36.6 MMOL/L (23.0-27.0); VENOUS PARTIAL PRESSURE CO2 70.2 mmHg (38.0-50.0); VENOUS PARTIAL PRESSURE O2 144.8 mmHg (30.0-50.0); VENOUS PH 7.335 UNITS (7.330-7.430); VENOUS STANDARD HCO3 32.2 MMOL/L; VENOUS TOTAL CO2 38.8 MMOL/L (24.0-28.0)
[2024-04-23] MEDS: LORazepam 2 MG/ML 1ML VIAL IV STA (02:29)
[2024-04-23 03:30] VITALS: BP 115/65; O2SAT 98
== END 2024-04-23 04:07 | disposition home or self-care (01) ==
LOC: M ED 00:04
DX: J44.9 Chronic obstructive pulmonary disease, unspecified (principal); F41.1 Generalized anxiety disorder; K21.9 Gastro-esophageal reflux disease without esophagitis; Z87.442 Personal history of urinary calculi; Z90.49 Acquired absence of other specified parts of digestive tract; Z99.81 Dependence on supplemental oxygen; F17.200 Nicotine dependence, unspecified, uncomplicated; Z79.899 Other long term (current) drug therapy
CPT/HCPCS: 71045; 80048; 80076; 82550; 82553; 82803; 83605; 84145; 84484; 85025; 87040; 87486; 87581; 87633; 87798; 93005; 93041; 94760; 96374; 99285; J2060

== ENCOUNTER → 2024-04-25 | Outpatient (REF) | payer MEDICARE, OTHER ==
[2024-04-25 13:47] LABS: BASO % 0.2 % (0.0-1.0); EOS # 0.1 10^3/uL (0.0-0.5); EOS % 0.4 % (0.0-3.0); HEMATOCRIT 40.1 % (36.0-47.0); HEMOGLOBIN 12.1 g/dl (12.0-15.5); LYMPH # 1.5 10^3/uL (1.5-5.0); MEAN CORPUSCULAR HEMOGLOBIN 28.1 pg (27.0-33.0); MEAN CORPUSCULAR HGB CONC 30.2 g/dl (32.0-36.5); MONO # 0.6 10^3/uL (0.0-0.8); MONO % 5.7 % (2.0-8.0); NEUTROPHILS % 80.3 % (36.0-66.0); PLATELET COUNT, AUTOMATED 287 10^3/uL (150-450); RED BLOOD COUNT 4.31 10^6/uL (4.00-5.40); WHITE BLOOD COUNT 11.2 10^3/uL (4.0-10.0)
[2024-04-25 14:06] LABS: ALBUMIN 3.7 G/DL (3.2-5.2); ALKALINE PHOSPHATASE 125 U/L (46-116); ALT/SGPT 49 U/L (7.0-40); AST/SGOT 17 U/L (<34); BILIRUBIN,TOTAL 0.4 MG/DL (0.3-1.2); BLOOD UREA NITROGEN 22 MG/DL (9-23); CALCIUM LEVEL 9.6 MG/DL (8.5-10.1); CARBON DIOXIDE LEVEL 38 MMOL/L (20-31); CHLORIDE LEVEL 101 MMOL/L (98-107); CREATININE FOR GFR 0.35 MG/DL (0.55-1.30); GLOMERULAR FILTRATION RATE > 60.0 (>51); GLUCOSE, FASTING 88 MG/DL (60-100); PHOSPHORUS LEVEL 3.9 MG/DL (2.5-4.9); POTASSIUM SERUM 4.3 MMOL/L (3.5-5.1); SODIUM LEVEL 142 MMOL/L (136-145); TOTAL PROTEIN 6.3 G/DL (5.7-8.2); TRIGLYCERIDES LEVEL 66 MG/DL (<150)
== END ==
LOC: M SHH 13:03
PROVIDERS: ATTEND Family Medicine
DX: E43 Unspecified severe protein-calorie malnutrition (principal)

== ENCOUNTER → 2024-05-02 | Outpatient (REF) | payer MEDICARE, OTHER ==
[~2024-05-02] MED LIST changes: +MORP1SOL4 PO
[2024-05-02 13:46] LABS: BASO % 0.2 % (0.0-1.0); EOS # 0.1 10^3/uL (0.0-0.5); EOS % 0.8 % (0.0-3.0); HEMATOCRIT 41.7 % (36.0-47.0); HEMOGLOBIN 12.4 g/dl (12.0-15.5); LYMPH # 1.2 10^3/uL (1.5-5.0); LYMPH % 18.7 % (24.0-44.0); MEAN CORPUSCULAR HGB CONC 29.7 g/dl (32.0-36.5); MEAN CORPUSCULAR VOLUME 94.1 fl (80.0-96.0); MONO # 0.5 10^3/uL (0.0-0.8); MONO % 8.5 % (2.0-8.0); NEUTROPHILS # 4.5 10^3/uL (1.5-8.5); NEUTROPHILS % 71.5 % (36.0-66.0); PLATELET COUNT, AUTOMATED 233 10^3/uL (150-450); RED BLOOD COUNT 4.43 10^6/uL (4.00-5.40); WHITE BLOOD COUNT 6.3 10^3/uL (4.0-10.0)
[2024-05-02 14:11] LABS: ALBUMIN 3.5 G/DL (3.2-5.2); ALKALINE PHOSPHATASE 120 U/L (46-116); ALT/SGPT 90 U/L (7.0-40); AST/SGOT 39 U/L (<34); BILIRUBIN,TOTAL 0.3 MG/DL (0.3-1.2); BLOOD UREA NITROGEN 20 MG/DL (9-23); CALCIUM LEVEL 9.2 MG/DL (8.5-10.1); CARBON DIOXIDE LEVEL 39 MMOL/L (20-31); CHLORIDE LEVEL 100 MMOL/L (98-107); CREATININE FOR GFR 0.35 MG/DL (0.55-1.30); GLOMERULAR FILTRATION RATE > 60.0 (>51); GLUCOSE, FASTING 112 MG/DL (60-100); MAGNESIUM LEVEL 1.7 MG/DL (1.8-2.4); PHOSPHORUS LEVEL 3.6 MG/DL (2.5-4.9); POTASSIUM SERUM 4.2 MMOL/L (3.5-5.1); SODIUM LEVEL 142 MMOL/L (136-145); TOTAL PROTEIN 6.1 G/DL (5.7-8.2); TRIGLYCERIDES LEVEL 48 MG/DL (<150)
== END ==
LOC: M SHH 13:17
PROVIDERS: ATTEND Family Medicine
DX: E43 Unspecified severe protein-calorie malnutrition (principal)

== ENCOUNTER → 2024-05-03 | Outpatient (CLI) | payer MEDICARE, OTHER ==
[~2024-05-03] MED LIST changes: +ALPR0.5T3 PO; +BROV15NE NEB; +MIDO10TA PO
== END ==
LOC: M PAL 07:47
PROVIDERS: ATTEND Nurse Practitioner Family
DX: J96.01 Acute respiratory failure with hypoxia (principal); J44.89 Other specified chronic obstructive pulmonary disease; R10.0 Acute abdomen; F41.0 Panic disorder [episodic paroxysmal anxiety]; R19.7 Diarrhea, unspecified; F17.210 Nicotine dependence, cigarettes, uncomplicated; R68.2 Dry mouth, unspecified; T88.9XXA Complication of surgical and medical care, unspecified, initial encounter; R53.83 Other fatigue; Z79.891 Long term (current) use of opiate analgesic; Z51.5 Encounter for palliative care

== ENCOUNTER → 2024-05-09 | Outpatient (REF) | payer MEDICARE, OTHER ==
[~2024-05-09] MED LIST changes: -ALPR0.5T3 PO; -BROV15NE NEB; -MIDO10TA PO
[2024-05-09 15:05] LABS: BASO % 0.3 % (0.0-1.0); EOS # 0.1 10^3/uL (0.0-0.5); HEMATOCRIT 42.1 % (36.0-47.0); HEMOGLOBIN 12.5 g/dl (12.0-15.5); LYMPH # 1.1 10^3/uL (1.5-5.0); LYMPH % 14.5 % (24.0-44.0); MEAN CORPUSCULAR HEMOGLOBIN 28.1 pg (27.0-33.0); MEAN CORPUSCULAR HGB CONC 29.7 g/dl (32.0-36.5); MEAN CORPUSCULAR VOLUME 94.6 fl (80.0-96.0); MONO # 0.7 10^3/uL (0.0-0.8); MONO % 8.6 % (2.0-8.0); NEUTROPHILS # 5.9 10^3/uL (1.5-8.5); NEUTROPHILS % 75.3 % (36.0-66.0); PLATELET COUNT, AUTOMATED 225 10^3/uL (150-450); RED BLOOD COUNT 4.45 10^6/uL (4.00-5.40); WHITE BLOOD COUNT 7.9 10^3/uL (4.0-10.0)
[2024-05-09 15:26] LABS: ALBUMIN 3.8 G/DL (3.2-5.2); ALKALINE PHOSPHATASE 122 U/L (46-116); ALT/SGPT 38 U/L (7.0-40); AST/SGOT 22 U/L (<34); BILIRUBIN,TOTAL 0.2 MG/DL (0.3-1.2); BLOOD UREA NITROGEN 22 MG/DL (9-23); CALCIUM LEVEL 9.6 MG/DL (8.5-10.1); CARBON DIOXIDE LEVEL 40 MMOL/L (20-31); CHLORIDE LEVEL 97 MMOL/L (98-107); CREATININE FOR GFR 0.32 MG/DL (0.55-1.30); GLOMERULAR FILTRATION RATE > 60.0 (>51); GLUCOSE, FASTING 79 MG/DL (60-100); MAGNESIUM LEVEL 2.1 MG/DL (1.8-2.4); PHOSPHORUS LEVEL 4.2 MG/DL (2.5-4.9); POTASSIUM SERUM 4.3 MMOL/L (3.5-5.1); PREALBUMIN 18.4 MG/DL (10.0-40.0); SODIUM LEVEL 141 MMOL/L (136-145); TOTAL PROTEIN 6.4 G/DL (5.7-8.2); TRIGLYCERIDES LEVEL 69 MG/DL (<150)
== END ==
LOC: M SHH 14:40
PROVIDERS: ATTEND Family Medicine
DX: E43 Unspecified severe protein-calorie malnutrition (principal)

== ENCOUNTER 2024-05-15 07:12 | Inpatient (IN) | payer MEDICARE, OTHER ==
[~2024-05-15] VITALS: Ht 160 cm; Wt 52.2 kg
[2024-05-15 08:41] LABS: VENOUS BASE EXCESS 9.5 (-2.0-2.0); VENOUS HCO3 39.1 MMOL/L (23.0-27.0); VENOUS O2 SATURATION 97.5 % (60.0-80.0); VENOUS PARTIAL PRESSURE CO2 81.9 mmHg (38.0-50.0); VENOUS PARTIAL PRESSURE O2 98.3 mmHg (30.0-50.0); VENOUS PH 7.297 UNITS (7.330-7.430); VENOUS STANDARD HCO3 33.3 MMOL/L; VENOUS TOTAL CO2 41.6 MMOL/L (24.0-28.0)
[2024-05-15] MEDS: IPRATROPIUM 0.5MG/ALBUTEROL 2.5MG INH SOL UD 3ML (DUONEB) NEB PRN (08:42)
[2024-05-15 08:51] LABS: BASO % 0.2 % (0.0-1.0); EOS % 0.2 % (0.0-3.0); HEMATOCRIT 40.6 % (36.0-47.0); HEMOGLOBIN 11.8 g/dl (12.0-15.5); LYMPH # 0.8 10^3/uL (1.5-5.0); LYMPH % 6.5 % (24.0-44.0); MEAN CORPUSCULAR HEMOGLOBIN 27.4 pg (27.0-33.0); MEAN CORPUSCULAR HGB CONC 29.1 g/dl (32.0-36.5); MEAN CORPUSCULAR VOLUME 94.4 fl (80.0-96.0); MONO # 0.4 10^3/uL (0.0-0.8); MONO % 3.7 % (2.0-8.0); NEUTROPHILS # 10.5 10^3/uL (1.5-8.5); NEUTROPHILS % 89.1 % (36.0-66.0); PLATELET COUNT, AUTOMATED 268 10^3/uL (150-450); WHITE BLOOD COUNT 11.8 10^3/uL (4.0-10.0)
[2024-05-15 09:21] LABS: THYROID STIMULATING HORMONE 1.037 uIU/ML (0.55-4.78)
[2024-05-15 09:25] LABS: ALBUMIN 3.5 G/DL (3.2-5.2); ALKALINE PHOSPHATASE 109 U/L (46-116); ALT/SGPT 44 U/L (7.0-40); AST/SGOT 22 U/L (<34); BILIRUBIN,DIRECT < 0.1 MG/DL (<0.4); BILIRUBIN,TOTAL 0.2 MG/DL (0.3-1.2); BLOOD UREA NITROGEN 21 MG/DL (9-23); CALCIUM LEVEL 9.3 MG/DL (8.5-10.1); CARBON DIOXIDE LEVEL > 40.0 MMOL/L (20-31); CHLORIDE LEVEL 99 MMOL/L (98-107); CREATININE FOR GFR 0.31 MG/DL (0.55-1.30); GLOMERULAR FILTRATION RATE > 60.0 (>51); GLUCOSE, FASTING 111 MG/DL (60-100); POTASSIUM SERUM 4.6 MMOL/L (3.5-5.1); SODIUM LEVEL 141 MMOL/L (136-145); TOTAL PROTEIN 6.1 G/DL (5.7-8.2)
[2024-05-15] MEDS: ALPRAZolam 0.25 MG TAB PO ONE (09:36)
[2024-05-15] MEDS: IPRATROPIUM 0.5MG/ALBUTEROL 2.5MG INH SOL UD 3ML (DUONEB) NEB ONE (09:45)
[2024-05-15 09:59] LABS: ABG BASE EXCESS 10.3 (-2.0-2.0); ABG HCO3 39.8 MMOL/L (22.0-26.0); ABG O2 SATURATION 97.2 % (95.0-99.0); ABG PARTIAL PRESSURE O2 90.4 mmHg (75.0-100.0); ABG STANDARD HCO3 34.1 MMOL/L. (22.0-26.0); ABG TOTAL CO2 42.3 MMOL/L (22.0-29.0)
[2024-05-15 10:00] LABS: ABG PARTIAL PRESSURE CO2 80.9 mmHg (35.0-45.0)
[2024-05-15] MEDS ORDERED: ALPR0.5T3 PO (11:20)
[2024-05-15] MEDS ORDERED: IPRA0.00 INH (11:20)
[2024-05-15] MEDS ORDERED: MIDO10TA PO (11:29)
[2024-05-15] MEDS ORDERED: MONT10TA97 PO (11:31)
[2024-05-15] MEDS ORDERED: BROV15NE NEB (11:31)
[2024-05-15] MEDS ORDERED: HOME MED LIST COMPLETE! XX SCH (11:35)
[2024-05-15] MEDS ORDERED: IPRATROPIUM 0.5MG/ALBUTEROL 2.5MG INH SOL UD 3ML (DUONEB) NEB SCH (12:00)
[2024-05-15] MEDS ORDERED: ACETAMINOPHEN 500 MG TAB PO PRN (12:20)
[2024-05-15] MEDS ORDERED: ONDANSETRON 4MG ORAL DISINTEGRATING TAB PO PRN (12:20)
[2024-05-15 12:21] VITALS: BP 137/65; TEMP 97.9; O2SAT 90
[2024-05-15] MEDS: methylPREDNISolone 40MG 1ML VIAL IV SCH ×2 (13:51→20:17)
[2024-05-15] MEDS: SUCRALFATE 1 GM TAB PO SCH (13:51)
[2024-05-15] MEDS: ENOXAPARIN 40MG/0.4ML SYRINGE (J1650 PER 10MG) SC SCH (13:52)
[2024-05-15] MEDS: AZITHROMYCIN 250MG TABLET PO SCH (13:52)
[2024-05-15] MEDS: ALPRAZolam 0.5 MG TAB PO ONE (13:52)
[2024-05-15 14:29] LABS: VENOUS BASE EXCESS 9.7 (-2.0-2.0); VENOUS HCO3 37.9 MMOL/L (23.0-27.0); VENOUS O2 SATURATION 99.6 % (60.0-80.0); VENOUS PARTIAL PRESSURE CO2 68.9 mmHg (38.0-50.0); VENOUS PH 7.358 UNITS (7.330-7.430); VENOUS STANDARD HCO3 33.6 MMOL/L
[2024-05-15] MEDS: IPRATROPIUM 0.5MG/ALBUTEROL 2.5MG INH SOL UD 3ML (DUONEB) NEB SCH (14:54)
[2024-05-15] MEDS ORDERED: LOMOTIL 2.5MG/0.025MG TABLET PO PRN (15:40)
[2024-05-15 16:00] VITALS: BP 132/65; TEMP 98.1; O2SAT 99
[2024-05-15] MEDS: MIDODRINE 5 MG TAB PO SCH (17:11)
[2024-05-15] MEDS: CALCIUM CARBONATE 500 MG CHEW U/D PO PRN (17:11)
[2024-05-15] MEDS: FORMOTEROL FUMARATE 20 MCG/2 ML INHALATION SOLUTION (PERFOROMIST) INH SCH (19:13)
[2024-05-15] MEDS: BUDESONIDE 0.5 MG/2 ML INHALATION SUSPENSION NEB SCH (19:13)
[2024-05-15] MEDS: GLYCOPYRROLATE INJ 0.2 MG/ML 2 ML VIAL NEB SCH (19:14)
[2024-05-15 20:00] VITALS: BP 130/68; TEMP 97.5; O2SAT 95
[2024-05-15] MEDS: MIRTAZAPINE 15 MG TAB PO SCH (20:17)
[2024-05-15] MEDS: MAGNESIUM OXIDE 400MG TAB (MAG-OX) PO SCH (20:17)
[2024-05-15] MEDS: busPIRone 10 MG TAB PO SCH (20:17)
[2024-05-15] MEDS: PANTOPRAZOLE 20 MG TAB PO SCH (20:18)
[2024-05-15] MEDS: CETIRIZINE (ZyrTEC) 10 MG TAB PO SCH (20:18)
[2024-05-15] MEDS: ALPRAZolam 0.5 MG TAB PO PRN (20:18)
[2024-05-15] MEDS: MONTELUKAST 10 MG TAB PO SCH (20:19)
[2024-05-15] MEDS: FAT EMULSION IV 250 ML IV ONE (20:36)
[2024-05-15] MEDS: AMINO AC/ELECTROLYTE/DEX/CALC 2,000 ML IV SCH (20:37)
[2024-05-16] VITALS: BP 142/74; TEMP 97.9; O2SAT 94
[2024-05-16 04:00] VITALS: BP 156/77; TEMP 97.9; O2SAT 94
[2024-05-16] MEDS: MORPHINE SULFATE ORAL SOLN 10 MG/5 ML UD PO PRN (06:27)
[2024-05-16 08:00] VITALS: BP 121/61; TEMP 98.6; O2SAT 97
[2024-05-16 08:43] LABS: BASO % 0.1 % (0.0-1.0); HEMATOCRIT 39.2 % (36.0-47.0); HEMOGLOBIN 11.8 g/dl (12.0-15.5); LYMPH # 1.7 10^3/uL (1.5-5.0); LYMPH % 20.5 % (24.0-44.0); MEAN CORPUSCULAR HGB CONC 30.1 g/dl (32.0-36.5); MEAN CORPUSCULAR VOLUME 93.1 fl (80.0-96.0); MONO % 12.2 % (2.0-8.0); NEUTROPHILS # 5.4 10^3/uL (1.5-8.5); PLATELET COUNT, AUTOMATED 287 10^3/uL (150-450); RED BLOOD COUNT 4.21 10^6/uL (4.00-5.40); WHITE BLOOD COUNT 8.1 10^3/uL (4.0-10.0)
[2024-05-16 09:18] LABS: BLOOD UREA NITROGEN 19 MG/DL (9-23); CALCIUM LEVEL 9.2 MG/DL (8.5-10.1); CARBON DIOXIDE LEVEL > 40.0 MMOL/L (20-31); CHLORIDE LEVEL 97 MMOL/L (98-107); CREATININE FOR GFR 0.37 MG/DL (0.55-1.30); GLOMERULAR FILTRATION RATE > 60.0 (>51); GLUCOSE, FASTING 119 MG/DL (60-100); POTASSIUM SERUM 4.3 MMOL/L (3.5-5.1); SODIUM LEVEL 141 MMOL/L (136-145)
[2024-05-16 12:00] VITALS: BP 109/58; O2SAT 96
[2024-05-16] MEDS: MIDODRINE 5 MG TAB PO SCH (17:43)
[2024-05-16 18:00] VITALS: BP 123/71; TEMP 98.2; O2SAT 97
[2024-05-16 20:12] VITALS: BP 119/71; TEMP 98.1; O2SAT 94
[2024-05-16] MEDS: TPN IV SCH (20:17)
[2024-05-17 05:02] VITALS: BP 117/71; TEMP 99; O2SAT 94
[2024-05-17 06:11] LABS: BASO % 0.1 % (0.0-1.0); HEMATOCRIT 38.2 % (36.0-47.0); HEMOGLOBIN 11.3 g/dl (12.0-15.5); LYMPH # 1.3 10^3/uL (1.5-5.0); LYMPH % 17.5 % (24.0-44.0); MEAN CORPUSCULAR HEMOGLOBIN 27.9 pg (27.0-33.0); MEAN CORPUSCULAR HGB CONC 29.6 g/dl (32.0-36.5); MEAN CORPUSCULAR VOLUME 94.3 fl (80.0-96.0); MONO # 0.7 10^3/uL (0.0-0.8); NEUTROPHILS # 5.5 10^3/uL (1.5-8.5); NEUTROPHILS % 73.3 % (36.0-66.0); PLATELET COUNT, AUTOMATED 264 10^3/uL (150-450); RED BLOOD COUNT 4.05 10^6/uL (4.00-5.40); WHITE BLOOD COUNT 7.5 10^3/uL (4.0-10.0)
[2024-05-17 06:39] LABS: BLOOD UREA NITROGEN 23 MG/DL (9-23); CALCIUM LEVEL 9.1 MG/DL (8.5-10.1); CARBON DIOXIDE LEVEL > 40.0 MMOL/L (20-31); CHLORIDE LEVEL 99 MMOL/L (98-107); CREATININE FOR GFR 0.37 MG/DL (0.55-1.30); GLOMERULAR FILTRATION RATE > 60.0 (>51); GLUCOSE, FASTING 108 MG/DL (60-100); POTASSIUM SERUM 4.3 MMOL/L (3.5-5.1); SODIUM LEVEL 142 MMOL/L (136-145)
[2024-05-17] MEDS: DICYCLOMINE 10 MG CAP PO PRN (08:20)
[2024-05-17] MEDS ORDERED: NON-FORMULARY COMPOUNDED MEDICATION IV SCH (09:00)
[2024-05-17 09:38] LABS: ALBUMIN 3.3 G/DL (3.2-5.2); ALKALINE PHOSPHATASE 97 U/L (46-116); ALT/SGPT 81 U/L (7.0-40); AST/SGOT 39 U/L (<34); BILIRUBIN,DIRECT < 0.1 MG/DL (<0.4); BILIRUBIN,TOTAL 0.2 MG/DL (0.3-1.2); TOTAL PROTEIN 5.6 G/DL (5.7-8.2)
[2024-05-17] MEDS ORDERED: PRED20TA PO (10:08)
[2024-05-18] MEDS ORDERED: predniSONE 20 MG TAB PO SCH (09:00)
== END 2024-05-17 11:34 | disposition home or self-care (01) | DRG 189 ==
LOC: M ED 07:12 → M ED INP 11:18 → M ICU 12:18 → M MSPAV 05-16 17:54
PROVIDERS: ADMIT Internal Medicine Pulmonary Disease; ATTEND Internal Medicine
DX: J96.22 Acute and chronic respiratory failure with hypercapnia (principal); E43 Unspecified severe protein-calorie malnutrition; J44.1 Chronic obstructive pulmonary disease with (acute) exacerbation; F13.20 Sedative, hypnotic or anxiolytic dependence, uncomplicated; K91.2 Postsurgical malabsorption, not elsewhere classified; F11.20 Opioid dependence, uncomplicated; J96.21 Acute and chronic respiratory failure with hypoxia; F32.A Depression, unspecified; E78.5 Hyperlipidemia, unspecified; G47.33 Obstructive sleep apnea (adult) (pediatric); F41.0 Panic disorder [episodic paroxysmal anxiety]; I95.89 Other hypotension; Z99.81 Dependence on supplemental oxygen; M21.371 Foot drop, right foot; R62.7 Adult failure to thrive; K21.9 Gastro-esophageal reflux disease without esophagitis; M54.2 Cervicalgia; M81.0 Age-related osteoporosis without current pathological fracture; G43.909 Migraine, unspecified, not intractable, without status migrainosus; M19.90 Unspecified osteoarthritis, unspecified site; Z79.899 Other long term (current) drug therapy; J32.9 Chronic sinusitis, unspecified; Z96.642 Presence of left artificial hip joint

== ENCOUNTER → 2024-05-23 | Outpatient (REF) | payer MEDICARE, OTHER ==
[~2024-05-23] MED LIST changes: +ALPR0.5T3 PO; +BROV15NE NEB; +MIDO10TA PO
[2024-05-23 16:18] LABS: BASO % 0.1 % (0.0-1.0); HEMATOCRIT 38.1 % (36.0-47.0); HEMOGLOBIN 11.3 g/dl (12.0-15.5); LYMPH # 0.5 10^3/uL (1.5-5.0); LYMPH % 5.1 % (24.0-44.0); MEAN CORPUSCULAR HEMOGLOBIN 27.8 pg (27.0-33.0); MEAN CORPUSCULAR HGB CONC 29.7 g/dl (32.0-36.5); MEAN CORPUSCULAR VOLUME 93.8 fl (80.0-96.0); MONO # 0.1 10^3/uL (0.0-0.8); MONO % 1.4 % (2.0-8.0); NEUTROPHILS # 8.7 10^3/uL (1.5-8.5); NEUTROPHILS % 93.1 % (36.0-66.0); PLATELET COUNT, AUTOMATED 221 10^3/uL (150-450); RED BLOOD COUNT 4.06 10^6/uL (4.00-5.40); WHITE BLOOD COUNT 9.4 10^3/uL (4.0-10.0)
[2024-05-23 16:55] LABS: ALBUMIN 3.3 G/DL (3.2-5.2); ALKALINE PHOSPHATASE 122 U/L (46-116); ALT/SGPT 186 U/L (7.0-40); AST/SGOT 62 U/L (<34); BILIRUBIN,TOTAL 0.2 MG/DL (0.3-1.2); BLOOD UREA NITROGEN 19 MG/DL (9-23); CARBON DIOXIDE LEVEL 36 MMOL/L (20-31); CHLORIDE LEVEL 103 MMOL/L (98-107); CREATININE FOR GFR 0.38 MG/DL (0.55-1.30); GLOMERULAR FILTRATION RATE > 60.0 (>51); GLUCOSE, FASTING 102 MG/DL (60-100); PHOSPHORUS LEVEL 3.2 MG/DL (2.5-4.9); POTASSIUM SERUM 4.4 MMOL/L (3.5-5.1); SODIUM LEVEL 140 MMOL/L (136-145); TOTAL PROTEIN 5.7 G/DL (5.7-8.2); TRIGLYCERIDES LEVEL 61 MG/DL (<150)
[2024-05-23 16:56] LABS: PREALBUMIN 28.9 MG/DL (10.0-40.0)
== END ==
LOC: M SHH 15:58
PROVIDERS: ATTEND Family Medicine
DX: E43 Unspecified severe protein-calorie malnutrition (principal)

== ENCOUNTER → 2024-05-24 | Outpatient (CLI) | payer MEDICARE, OTHER ==
[~2024-05-24] MED LIST changes: +BUSP30TA PO; +MORP10SO2 PO; +YUPE175S NEB
== END ==
LOC: M PAL 14:29
PROVIDERS: ATTEND Nurse Practitioner Adult Health
DX: J96.01 Acute respiratory failure with hypoxia (principal); J44.89 Other specified chronic obstructive pulmonary disease; R10.84 Generalized abdominal pain; F41.0 Panic disorder [episodic paroxysmal anxiety]; R53.83 Other fatigue; Z79.891 Long term (current) use of opiate analgesic; Z51.5 Encounter for palliative care; Z79.899 Other long term (current) drug therapy; Z90.710 Acquired absence of both cervix and uterus; Z90.722 Acquired absence of ovaries, bilateral; Z90.79 Acquired absence of other genital organ(s); Z99.81 Dependence on supplemental oxygen; Z99.89 Dependence on other enabling machines and devices

== ENCOUNTER → 2024-05-30 | Outpatient (REF) | payer MEDICARE, OTHER ==
[~2024-05-30] MED LIST changes: -BUSP30TA PO; -MORP10SO2 PO; -YUPE175S NEB
[2024-05-30 16:31] LABS: BASO % 0.3 % (0.0-1.0); EOS % 0.1 % (0.0-3.0); HEMOGLOBIN 11.9 g/dl (12.0-15.5); LYMPH % 12.6 % (24.0-44.0); MEAN CORPUSCULAR HEMOGLOBIN 27.2 pg (27.0-33.0); MEAN CORPUSCULAR HGB CONC 28.3 g/dl (32.0-36.5); MEAN CORPUSCULAR VOLUME 95.9 fl (80.0-96.0); MONO # 0.5 10^3/uL (0.0-0.8); MONO % 7.1 % (2.0-8.0); NEUTROPHILS % 79.8 % (36.0-66.0); PLATELET COUNT, AUTOMATED 215 10^3/uL (150-450); RED BLOOD COUNT 4.38 10^6/uL (4.00-5.40); WHITE BLOOD COUNT 7.6 10^3/uL (4.0-10.0)
[2024-05-30 16:40] LABS: ALBUMIN 3.4 G/DL (3.2-5.2); ALKALINE PHOSPHATASE 123 U/L (46-116); ALT/SGPT 64 U/L (7.0-40); AST/SGOT 23 U/L (<34); BILIRUBIN,TOTAL 0.3 MG/DL (0.3-1.2); BLOOD UREA NITROGEN 20 MG/DL (9-23); CALCIUM LEVEL 9.5 MG/DL (8.5-10.1); CARBON DIOXIDE LEVEL 38 MMOL/L (20-31); CHLORIDE LEVEL 96 MMOL/L (98-107); CREATININE FOR GFR 0.35 MG/DL (0.55-1.30); GLOMERULAR FILTRATION RATE > 60.0 (>51); GLUCOSE, FASTING 78 MG/DL (60-100); PHOSPHORUS LEVEL 3.5 MG/DL (2.5-4.9); POTASSIUM SERUM 4.1 MMOL/L (3.5-5.1); PREALBUMIN 21.7 MG/DL (10.0-40.0); SODIUM LEVEL 141 MMOL/L (136-145); TRIGLYCERIDES LEVEL 48 MG/DL (<150)
== END ==
LOC: M SHH 15:23
PROVIDERS: ATTEND Family Medicine
DX: E43 Unspecified severe protein-calorie malnutrition (principal); K90.49 Malabsorption due to intolerance, not elsewhere classified

== ENCOUNTER 2024-06-02 06:53 | Inpatient (IN) | payer MEDICARE, OTHER ==
[~2024-06-02] VITALS: Ht 170.2 cm; Wt 54.2 kg
[2024-06-02] VITALS (9 sets, daily range): BP systolic 96–130; BP diastolic 51–89; TEMP 99.2–101.2; O2SAT 89–97
[2024-06-02 07:34] LABS: VENOUS O2 SATURATION 99.2 % (60.0-80.0)
[2024-06-02 07:38] LABS: BASO % 0.2 % (0.0-1.0); EOS % 0.1 % (0.0-3.0); HEMATOCRIT 38.2 % (36.0-47.0); HEMOGLOBIN 11.2 g/dl (12.0-15.5); LYMPH # 0.8 10^3/uL (1.5-5.0); LYMPH % 7.1 % (24.0-44.0); MEAN CORPUSCULAR HEMOGLOBIN 27.3 pg (27.0-33.0); MEAN CORPUSCULAR HGB CONC 29.3 g/dl (32.0-36.5); MEAN CORPUSCULAR VOLUME 93.2 fl (80.0-96.0); MONO # 0.7 10^3/uL (0.0-0.8); MONO % 6.9 % (2.0-8.0); NEUTROPHILS # 9.1 10^3/uL (1.5-8.5); NEUTROPHILS % 84.9 % (36.0-66.0); PLATELET COUNT, AUTOMATED 225 10^3/uL (150-450); WHITE BLOOD COUNT 10.8 10^3/uL (4.0-10.0)
[2024-06-02 07:40] LABS: ABG BASE EXCESS 8.5 (-2.0-2.0); ABG HCO3 41.9 MMOL/L (22.0-26.0); ABG PARTIAL PRESSURE CO2 128.7 mmHg (35.0-45.0); ABG PARTIAL PRESSURE O2 208.2 mmHg (75.0-100.0); ABG STANDARD HCO3 32.3 MMOL/L. (22.0-26.0); ABG TOTAL CO2 45.8 MMOL/L (22.0-29.0)
[2024-06-02 07:43] LABS: VENOUS PARTIAL PRESSURE CO2 149.4 mmHg (38.0-50.0); VENOUS PH 7.111 UNITS (7.330-7.430)
[2024-06-02 07:44] LABS: VENOUS BASE EXCESS 11.9 (-2.0-2.0); VENOUS HCO3 46.5 MMOL/L (23.0-27.0); VENOUS PARTIAL PRESSURE O2 201.6 mmHg (30.0-50.0); VENOUS STANDARD HCO3 35.7 MMOL/L; VENOUS TOTAL CO2 51.1 MMOL/L (24.0-28.0)
[2024-06-02 08:03] LABS: CK-MB VALUE MASS 2.2 NG/ML (<3.6)
[2024-06-02 08:05] LABS: CPK CREATINE PHOSPHOKINASE 30 U/L (34-145); MB/CK RELATIVE INDEX 7.33 (< OR =4)
[2024-06-02 08:06] LABS: THYROXINE (T4) 4.9 UG/DL (4.5-10.9)
[2024-06-02 08:07] LABS: FREE T4 0.97 NG/DL (0.89-1.76); THYROID STIMULATING HORMONE 1.333 uIU/ML (0.55-4.78)
[2024-06-02] MEDS: methylPREDNISolone 125MG 2ML VIAL IV ONE (08:10)
[2024-06-02] MEDS: NS 1,000 ML IV SCH (08:10)
[2024-06-02 08:54] LABS: ALBUMIN 3.4 G/DL (3.2-5.2); ALKALINE PHOSPHATASE 127 U/L (46-116); ALT/SGPT 97 U/L (7.0-40); AST/SGOT 53 U/L (<34); BILIRUBIN,DIRECT 0.1 MG/DL (<0.4); BILIRUBIN,TOTAL 0.3 MG/DL (0.3-1.2); BLOOD UREA NITROGEN 25 MG/DL (9-23); CALCIUM LEVEL 8.9 MG/DL (8.5-10.1); CARBON DIOXIDE LEVEL > 40.0 MMOL/L (20-31); CHLORIDE LEVEL 90 MMOL/L (98-107); GLOMERULAR FILTRATION RATE > 60.0 (>51); GLUCOSE, FASTING 110 MG/DL (60-100); POTASSIUM SERUM 4.8 MMOL/L (3.5-5.1); SODIUM LEVEL 131 MMOL/L (136-145)
[2024-06-02] MEDS: FAMOTIDINE 20 MG TAB PO SCH (09:00)
[2024-06-02 09:08] LABS: PROCALCITONIN 0.04 ng/ml
[2024-06-02 09:11] LABS: ABG BASE EXCESS 6.5 (-2.0-2.0); ABG O2 SATURATION 95.7 % (95.0-99.0); ABG PARTIAL PRESSURE O2 89.1 mmHg (75.0-100.0); ABG STANDARD HCO3 30.3 MMOL/L. (22.0-26.0); ABG TOTAL CO2 41.2 MMOL/L (22.0-29.0)
[2024-06-02 09:14] LABS: ABG PARTIAL PRESSURE CO2 102.8 mmHg (35.0-45.0); ABG pH (ARTERIAL) 7.186 UNITS (7.350-7.450)
[2024-06-02] MEDS ORDERED: LORazepam 2 MG/ML 1ML VIAL IV PRN (09:50)
[2024-06-02 10:11] LABS: CK-MB VALUE MASS 2.7 NG/ML (<3.6); MB/CK RELATIVE INDEX 6.27 (< OR =4)
[2024-06-02] MEDS: PIPERACILLIN/TAZOBACTAM SOD 4.5 GM in D5W MINI-BAG PLUS 50 ML IV ONE (10:18)
[2024-06-02] MEDS: IPRATROPIUM 0.5MG/ALBUTEROL 2.5MG INH SOL UD 3ML (DUONEB) NEB ONE (10:52)
[2024-06-02] MEDS: BUDESONIDE 0.5 MG/2 ML INHALATION SUSPENSION NEB SCH (11:42)
[2024-06-02] MEDS: IPRATROPIUM 0.5MG/ALBUTEROL 2.5MG INH SOL UD 3ML (DUONEB) NEB SCH (11:42)
[2024-06-02] MEDS ORDERED: ALPRAZolam 0.5 MG TAB PO SCH (13:00)
[2024-06-02 13:14] LABS: ABG BASE EXCESS 10.2 (-2.0-2.0); ABG HCO3 39.7 MMOL/L (22.0-26.0); ABG O2 SATURATION 97.6 % (95.0-99.0); ABG PARTIAL PRESSURE CO2 81.5 mmHg (35.0-45.0); ABG PARTIAL PRESSURE O2 106.5 mmHg (75.0-100.0); ABG STANDARD HCO3 33.9 MMOL/L. (22.0-26.0); ABG TOTAL CO2 42.2 MMOL/L (22.0-29.0); ABG pH (ARTERIAL) 7.305 UNITS (7.350-7.450)
[2024-06-02] MEDS: AZITHROMYCIN INJ 500 MG, VIAL MATE ADAPTER 1 EACH in NS 250 ML IV SCH (15:04)
[2024-06-02] MEDS ORDERED: LOMO2.5T PO (15:45)
[2024-06-02] MEDS ORDERED: YUPE175S NEB (15:45)
[2024-06-02] MEDS ORDERED: MORP10SO2 PO (15:45)
[2024-06-02] MEDS ORDERED: BUSP30TA PO (15:45)
[2024-06-02] MEDS ORDERED: ALPR0.5T3 PO (15:45)
[2024-06-02] MEDS ORDERED: HOME MED LIST COMPLETE! XX SCH (15:50)
[2024-06-02] MEDS: ALPRAZolam 0.5 MG TAB PO PRN (15:56)
[2024-06-02] MEDS: ACETAMINOPHEN TAB 650MG DOSE (2X325MG) PO ONE (15:56)
[2024-06-02] MEDS ORDERED: PIPERACILLIN/TAZOBACTAM SOD 4.5 GM in D5W MINI-BAG PLUS 50 ML IV SCH (16:00)
[2024-06-02] MEDS: LORazepam 2 MG/ML 1ML VIAL IV PRN (16:12)
[2024-06-02] MEDS: ACETAMINOPHEN *IV* 500 MG in IV 1 EA IV ONE (16:53)
[2024-06-02] MEDS: PIPERACILLIN/TAZOBACTAM SOD 4.5 GM in D5W MINI-BAG PLUS 50 ML IV SCH (17:33)
[2024-06-02] MEDS ORDERED: VANCOMYCIN HCL 1,000 MG, VIAL MATE ADAPTER 1 EACH in D5W 250 ML IV SCH (19:05)
[2024-06-02] MEDS: VANCOMYCIN HCL 1,000 MG, VIAL MATE ADAPTER 1 EACH in D5W 250 ML IV ONE (19:32)
[2024-06-03] VITALS (25 sets, daily range): BP systolic 102–136; BP diastolic 55–88; TEMP 97.4–100.2; O2SAT 87–99
[2024-06-03] MEDS ORDERED: IPRATROPIUM 0.5MG/ALBUTEROL 2.5MG INH SOL UD 3ML (DUONEB) NEB ONE (02:40)
[2024-06-03] MEDS: VANCOMYCIN HCL 750 MG, VIAL MATE ADAPTER 1 EACH in D5W 250 ML IV SCH ×2 (04:07→12:30)
[2024-06-03] MEDS: ACETAMINOPHEN TAB 650MG DOSE (2X325MG) PO PRN (04:07)
[2024-06-03 05:44] LABS: ABG BASE EXCESS 13.6 (-2.0-2.0); ABG HCO3 39.3 MMOL/L (22.0-26.0); ABG O2 SATURATION 97.6 % (95.0-99.0); ABG PARTIAL PRESSURE CO2 56.2 mmHg (35.0-45.0); ABG PARTIAL PRESSURE O2 95.4 mmHg (75.0-100.0); ABG STANDARD HCO3 37.4 MMOL/L. (22.0-26.0); ABG TOTAL CO2 41.1 MMOL/L (22.0-29.0); ABG pH (ARTERIAL) 7.463 UNITS (7.350-7.450)
[2024-06-03 05:50] LABS: BASO % 0.2 % (0.0-1.0); HEMATOCRIT 31.8 % (36.0-47.0); HEMOGLOBIN 9.8 g/dl (12.0-15.5); LYMPH # 1.1 10^3/uL (1.5-5.0); LYMPH % 17.8 % (24.0-44.0); MEAN CORPUSCULAR HEMOGLOBIN 27.8 pg (27.0-33.0); MEAN CORPUSCULAR HGB CONC 30.8 g/dl (32.0-36.5); MEAN CORPUSCULAR VOLUME 90.1 fl (80.0-96.0); MONO # 0.8 10^3/uL (0.0-0.8); NEUTROPHILS # 4.5 10^3/uL (1.5-8.5); NEUTROPHILS % 69.8 % (36.0-66.0); PLATELET COUNT, AUTOMATED 172 10^3/uL (150-450); RED BLOOD COUNT 3.53 10^6/uL (4.00-5.40); WHITE BLOOD COUNT 6.4 10^3/uL (4.0-10.0)
[2024-06-03] MEDS: methylPREDNISolone 40MG 1ML VIAL IV SCH (06:05)
[2024-06-03 06:41] LABS: PROCALCITONIN 0.31 ng/ml
[2024-06-03 06:42] LABS: ALBUMIN 2.8 G/DL (3.2-5.2); ALKALINE PHOSPHATASE 103 U/L (46-116); ALT/SGPT 76 U/L (7.0-40); AST/SGOT 35 U/L (<34); BILIRUBIN,TOTAL 0.5 MG/DL (0.3-1.2); BLOOD UREA NITROGEN 15 MG/DL (9-23); CALCIUM LEVEL 9.1 MG/DL (8.5-10.1); CARBON DIOXIDE LEVEL > 40.0 MMOL/L (20-31); CHLORIDE LEVEL 94 MMOL/L (98-107); CREATININE FOR GFR 0.51 MG/DL (0.55-1.30); GLOMERULAR FILTRATION RATE > 60.0 (>51); GLUCOSE, FASTING 124 MG/DL (60-100); POTASSIUM SERUM 3.4 MMOL/L (3.5-5.1); SODIUM LEVEL 136 MMOL/L (136-145)
[2024-06-03] MEDS: FORMOTEROL FUMARATE 20 MCG/2 ML INHALATION SOLUTION (PERFOROMIST) INH SCH (07:42)
[2024-06-03] MEDS: GLYCOPYRROLATE INJ 0.2 MG/ML 2 ML VIAL NEB SCH (07:43)
[2024-06-03] MEDS: MONTELUKAST 10 MG TAB PO SCH (08:22)
[2024-06-03] MEDS: ENOXAPARIN 40MG/0.4ML SYRINGE (J1650 PER 10MG) SC SCH (08:22)
[2024-06-03] MEDS: POTASSIUM CHLORIDE 10MEQ SR TABLET PO ONE ×2 (11:18→13:55)
[2024-06-03] MEDS ORDERED: SODIUM CHLORIDE 0.9% INJ 10 ML SYR IV PRN (16:45)
[2024-06-03] MEDS: LOPERAMIDE 2 MG CAPLET PO PRN (17:32)
[2024-06-03] MEDS: SODIUM CHLORIDE 0.9% INJ 10 ML SYR IV SCH (18:37)
[2024-06-03] MEDS: MIRTAZAPINE 15 MG TAB PO SCH (20:16)
[2024-06-03] MEDS: TPN IV SCH (20:16)
[2024-06-04] VITALS (25 sets, daily range): BP systolic 112–146; BP diastolic 55–76; TEMP 97.4–98.5; O2SAT 88–100
[2024-06-04] MEDS: IPRATROPIUM 0.5MG/ALBUTEROL 2.5MG INH SOL UD 3ML (DUONEB) NEB ONE ×2 (05:38→05:44)
[2024-06-04 06:46] LABS: BASO % 0.2 % (0.0-1.0); EOS % 0.2 % (0.0-3.0); HEMATOCRIT 34.9 % (36.0-47.0); HEMOGLOBIN 10.3 g/dl (12.0-15.5); LYMPH # 1.2 10^3/uL (1.5-5.0); LYMPH % 19.9 % (24.0-44.0); MEAN CORPUSCULAR HEMOGLOBIN 27.5 pg (27.0-33.0); MEAN CORPUSCULAR HGB CONC 29.5 g/dl (32.0-36.5); MEAN CORPUSCULAR VOLUME 93.1 fl (80.0-96.0); MONO # 0.8 10^3/uL (0.0-0.8); MONO % 12.1 % (2.0-8.0); NEUTROPHILS # 4.2 10^3/uL (1.5-8.5); NEUTROPHILS % 67.4 % (36.0-66.0); PLATELET COUNT, AUTOMATED 191 10^3/uL (150-450); RED BLOOD COUNT 3.75 10^6/uL (4.00-5.40); WHITE BLOOD COUNT 6.2 10^3/uL (4.0-10.0)
[2024-06-04 07:15] LABS: ALKALINE PHOSPHATASE 97 U/L (46-116); ALT/SGPT 76 U/L (7.0-40); AST/SGOT 32 U/L (<34); BILIRUBIN,TOTAL 0.3 MG/DL (0.3-1.2); BLOOD UREA NITROGEN 18 MG/DL (9-23); CALCIUM LEVEL 8.8 MG/DL (8.5-10.1); CARBON DIOXIDE LEVEL 39 MMOL/L (20-31); CHLORIDE LEVEL 102 MMOL/L (98-107); CREATININE FOR GFR 0.39 MG/DL (0.55-1.30); GLOMERULAR FILTRATION RATE > 60.0 (>51); GLUCOSE, FASTING 131 MG/DL (60-100); MAGNESIUM LEVEL 1.8 MG/DL (1.8-2.4); POTASSIUM SERUM 4.4 MMOL/L (3.5-5.1); SODIUM LEVEL 141 MMOL/L (136-145); TOTAL PROTEIN 5.3 G/DL (5.7-8.2)
[2024-06-04] MEDS: AZITHROMYCIN 250MG TABLET PO SCH (08:33)
[2024-06-04] MEDS: NICOTINE 21MG/24HR 1 EA TRANSDERMAL TD SCH (10:08)
[2024-06-04] MEDS: CALCIUM CARBONATE 500 MG CHEW U/D PO PRN (20:48)
[2024-06-05] VITALS (8 sets, daily range): BP systolic 93–142; BP diastolic 50–75; TEMP 97–98; O2SAT 95–99
[2024-06-05 05:14] LABS: BASO % 0.2 % (0.0-1.0); EOS % 0.7 % (0.0-3.0); HEMATOCRIT 34.9 % (36.0-47.0); HEMOGLOBIN 10.3 g/dl (12.0-15.5); LYMPH # 1.2 10^3/uL (1.5-5.0); LYMPH % 20.3 % (24.0-44.0); MEAN CORPUSCULAR HEMOGLOBIN 27.5 pg (27.0-33.0); MEAN CORPUSCULAR HGB CONC 29.5 g/dl (32.0-36.5); MEAN CORPUSCULAR VOLUME 93.3 fl (80.0-96.0); MONO # 0.6 10^3/uL (0.0-0.8); MONO % 10.4 % (2.0-8.0); NEUTROPHILS % 68.1 % (36.0-66.0); PLATELET COUNT, AUTOMATED 187 10^3/uL (150-450); RED BLOOD COUNT 3.74 10^6/uL (4.00-5.40); WHITE BLOOD COUNT 5.9 10^3/uL (4.0-10.0)
[2024-06-05 05:36] LABS: BLOOD UREA NITROGEN 20 MG/DL (9-23); CALCIUM LEVEL 8.9 MG/DL (8.5-10.1); CARBON DIOXIDE LEVEL > 40.0 MMOL/L (20-31); CHLORIDE LEVEL 99 MMOL/L (98-107); CREATININE FOR GFR 0.46 MG/DL (0.55-1.30); GLOMERULAR FILTRATION RATE > 60.0 (>51); GLUCOSE, FASTING 128 MG/DL (60-100); MAGNESIUM LEVEL 1.8 MG/DL (1.8-2.4); POTASSIUM SERUM 3.7 MMOL/L (3.5-5.1); SODIUM LEVEL 141 MMOL/L (136-145)
[2024-06-05 09:51] LABS: ABG O2 SATURATION 97.9 % (95.0-99.0); ABG PARTIAL PRESSURE O2 116.6 mmHg (75.0-100.0); ABG STANDARD HCO3 33.8 MMOL/L. (22.0-26.0); ABG TOTAL CO2 41.4 MMOL/L (22.0-29.0); ABG pH (ARTERIAL) 7.315 UNITS (7.350-7.450)
[2024-06-05 09:52] LABS: ABG PARTIAL PRESSURE CO2 78.3 mmHg (35.0-45.0)
[2024-06-05] MEDS: NS 1,000 ML IV ONE (12:08)
[2024-06-05] MEDS ORDERED: LOMOTIL 2.5MG/0.025MG TABLET PO PRN (14:10)
[2024-06-05] MEDS ORDERED: DICYCLOMINE 10 MG CAP PO PRN (14:10)
[2024-06-05] MEDS: MORPHINE SULFATE ORAL SOLN 10 MG/5 ML UD PO PRN (23:31)
[2024-06-06] VITALS (8 sets, daily range): BP systolic 108–133; BP diastolic 51–62; TEMP 96.7–97.6; O2SAT 94–99
[2024-06-06] MEDS: busPIRone 10 MG TAB PO SCH (01:31)
[2024-06-06 06:04] LABS: BASO % 0.3 % (0.0-1.0); EOS # 0.1 10^3/uL (0.0-0.5); EOS % 0.9 % (0.0-3.0); HEMOGLOBIN 10.5 g/dl (12.0-15.5); LYMPH # 1.4 10^3/uL (1.5-5.0); LYMPH % 21.7 % (24.0-44.0); MEAN CORPUSCULAR HEMOGLOBIN 27.6 pg (27.0-33.0); MEAN CORPUSCULAR HGB CONC 29.2 g/dl (32.0-36.5); MEAN CORPUSCULAR VOLUME 94.5 fl (80.0-96.0); MONO # 0.6 10^3/uL (0.0-0.8); MONO % 9.2 % (2.0-8.0); NEUTROPHILS # 4.4 10^3/uL (1.5-8.5); NEUTROPHILS % 67.6 % (36.0-66.0); PLATELET COUNT, AUTOMATED 175 10^3/uL (150-450); RED BLOOD COUNT 3.81 10^6/uL (4.00-5.40); WHITE BLOOD COUNT 6.5 10^3/uL (4.0-10.0)
[2024-06-06 06:41] LABS: BLOOD UREA NITROGEN 22 MG/DL (9-23); CALCIUM LEVEL 8.7 MG/DL (8.5-10.1); CARBON DIOXIDE LEVEL 33 MMOL/L (20-31); CHLORIDE LEVEL 105 MMOL/L (98-107); GLOMERULAR FILTRATION RATE > 60.0 (>51); GLUCOSE, FASTING 107 MG/DL (60-100); MAGNESIUM LEVEL 1.8 MG/DL (1.8-2.4); POTASSIUM SERUM 3.8 MMOL/L (3.5-5.1); SODIUM LEVEL 141 MMOL/L (136-145)
[2024-06-06] MEDS ORDERED: AZIT-12 PO (11:17)
[2024-06-06] MEDS ORDERED: CALC200T15 PO (11:17)
[2024-06-06] MEDS ORDERED: PRED20TA PO (11:17)
== END 2024-06-06 13:47 | disposition home health service (06) | DRG 189 ==
LOC: M ED 06:53 → M ED INP 09:49 → M ICU 13:37 → M PCU 06-03 21:35
PROVIDERS: ADMIT Internal Medicine Critical Care Medicine; ATTEND Internal Medicine Critical Care Medicine
DX: J96.22 Acute and chronic respiratory failure with hypercapnia (principal); G93.41 Metabolic encephalopathy; E43 Unspecified severe protein-calorie malnutrition; J44.1 Chronic obstructive pulmonary disease with (acute) exacerbation; E87.3 Alkalosis; F17.210 Nicotine dependence, cigarettes, uncomplicated; R68.0 Hypothermia, not associated with low environmental temperature; G47.33 Obstructive sleep apnea (adult) (pediatric); J96.21 Acute and chronic respiratory failure with hypoxia; E78.5 Hyperlipidemia, unspecified; K21.9 Gastro-esophageal reflux disease without esophagitis; M21.371 Foot drop, right foot; M54.2 Cervicalgia; G89.29 Other chronic pain; G43.909 Migraine, unspecified, not intractable, without status migrainosus; G47.00 Insomnia, unspecified; M81.0 Age-related osteoporosis without current pathological fracture; E87.6 Hypokalemia; M19.90 Unspecified osteoarthritis, unspecified site; F32.A Depression, unspecified; F41.9 Anxiety disorder, unspecified; Z90.79 Acquired absence of other genital organ(s); Z11.52 Encounter for screening for COVID-19; Z79.899 Other long term (current) drug therapy; Z99.81 Dependence on supplemental oxygen; Z71.6 Tobacco abuse counseling; Z86.74 Personal history of sudden cardiac arrest

== ENCOUNTER → 2024-06-13 | Outpatient (REF) | payer MEDICARE, OTHER ==
[~2024-06-13] MED LIST changes: +BUSP30TA PO; +MORP10SO2 PO; +YUPE175S NEB
[2024-06-13 18:27] LABS: BASO % 0.3 % (0.0-1.0); HEMATOCRIT 37.6 % (36.0-47.0); LYMPH # 0.5 10^3/uL (1.5-5.0); LYMPH % 6.6 % (24.0-44.0); MEAN CORPUSCULAR HGB CONC 29.3 g/dl (32.0-36.5); MEAN CORPUSCULAR VOLUME 92.2 fl (80.0-96.0); MONO # 0.2 10^3/uL (0.0-0.8); MONO % 2.8 % (2.0-8.0); NEUTROPHILS # 7.1 10^3/uL (1.5-8.5); PLATELET COUNT, AUTOMATED 282 10^3/uL (150-450); RED BLOOD COUNT 4.08 10^6/uL (4.00-5.40); WHITE BLOOD COUNT 7.9 10^3/uL (4.0-10.0)
[2024-06-13 18:55] LABS: ALBUMIN 3.4 G/DL (3.2-5.2); ALKALINE PHOSPHATASE 137 U/L (46-116); ALT/SGPT 131 U/L (7.0-40); AST/SGOT 46 U/L (<34); BILIRUBIN,TOTAL 0.2 MG/DL (0.3-1.2); BLOOD UREA NITROGEN 22 MG/DL (9-23); CALCIUM LEVEL 9.4 MG/DL (8.5-10.1); CARBON DIOXIDE LEVEL 38 MMOL/L (20-31); CHLORIDE LEVEL 100 MMOL/L (98-107); CREATININE FOR GFR 0.38 MG/DL (0.55-1.30); GLOMERULAR FILTRATION RATE > 60.0 (>51); GLUCOSE, FASTING 125 MG/DL (60-100); PHOSPHORUS LEVEL 3.5 MG/DL (2.5-4.9); POTASSIUM SERUM 4.7 MMOL/L (3.5-5.1); PREALBUMIN 34.8 MG/DL (10.0-40.0); SODIUM LEVEL 141 MMOL/L (136-145); TOTAL PROTEIN 6.1 G/DL (5.7-8.2); TRIGLYCERIDES LEVEL 97 MG/DL (<150)
== END ==
LOC: M SHH 17:20
PROVIDERS: ATTEND Family Medicine
DX: E43 Unspecified severe protein-calorie malnutrition (principal)

== ENCOUNTER → 2024-06-20 | Outpatient (REF) | payer MEDICARE, OTHER ==
[2024-06-20 15:46] LABS: BASO % 0.4 % (0.0-1.0); HEMATOCRIT 38.8 % (36.0-47.0); HEMOGLOBIN 11.5 g/dl (12.0-15.5); LYMPH # 1.8 10^3/uL (1.5-5.0); LYMPH % 22.1 % (24.0-44.0); MEAN CORPUSCULAR HEMOGLOBIN 27.2 pg (27.0-33.0); MEAN CORPUSCULAR HGB CONC 29.6 g/dl (32.0-36.5); MEAN CORPUSCULAR VOLUME 91.7 fl (80.0-96.0); MONO # 0.7 10^3/uL (0.0-0.8); MONO % 8.7 % (2.0-8.0); NEUTROPHILS # 5.7 10^3/uL (1.5-8.5); NEUTROPHILS % 68.7 % (36.0-66.0); PLATELET COUNT, AUTOMATED 234 10^3/uL (150-450); RED BLOOD COUNT 4.23 10^6/uL (4.00-5.40); WHITE BLOOD COUNT 8.2 10^3/uL (4.0-10.0)
[2024-06-20 15:56] LABS: ALBUMIN 3.5 G/DL (3.2-5.2); ALKALINE PHOSPHATASE 124 U/L (46-116); ALT/SGPT 63 U/L (7.0-40); AST/SGOT 26 U/L (<34); BILIRUBIN,TOTAL 0.3 MG/DL (0.3-1.2); BLOOD UREA NITROGEN 23 MG/DL (9-23); CALCIUM LEVEL 9.1 MG/DL (8.5-10.1); CARBON DIOXIDE LEVEL 36 MMOL/L (20-31); CHLORIDE LEVEL 100 MMOL/L (98-107); CREATININE FOR GFR 0.38 MG/DL (0.55-1.30); GLOMERULAR FILTRATION RATE > 60.0 (>51); GLUCOSE, FASTING 69 MG/DL (60-100); MAGNESIUM LEVEL 1.9 MG/DL (1.8-2.4); PHOSPHORUS LEVEL 4.2 MG/DL (2.5-4.9); POTASSIUM SERUM 4.1 MMOL/L (3.5-5.1); PREALBUMIN 34.4 MG/DL (10.0-40.0); SODIUM LEVEL 140 MMOL/L (136-145); TOTAL PROTEIN 6.2 G/DL (5.7-8.2); TRIGLYCERIDES LEVEL 83 MG/DL (<150)
== END ==
LOC: M SHH 14:52
PROVIDERS: ATTEND Family Medicine
DX: K90.49 Malabsorption due to intolerance, not elsewhere classified (principal)

== ENCOUNTER → 2024-06-27 | Outpatient (REF) | payer MEDICARE, OTHER ==
[2024-06-27 14:18] LABS: BASO % 0.3 % (0.0-1.0); HEMATOCRIT 40.1 % (36.0-47.0); HEMOGLOBIN 11.6 g/dl (12.0-15.5); LYMPH # 1.1 10^3/uL (1.5-5.0); LYMPH % 16.5 % (24.0-44.0); MEAN CORPUSCULAR HEMOGLOBIN 26.5 pg (27.0-33.0); MEAN CORPUSCULAR HGB CONC 28.9 g/dl (32.0-36.5); MEAN CORPUSCULAR VOLUME 91.6 fl (80.0-96.0); MONO # 0.6 10^3/uL (0.0-0.8); MONO % 8.5 % (2.0-8.0); NEUTROPHILS # 5.1 10^3/uL (1.5-8.5); NEUTROPHILS % 74.6 % (36.0-66.0); PLATELET COUNT, AUTOMATED 190 10^3/uL (150-450); RED BLOOD COUNT 4.38 10^6/uL (4.00-5.40); WHITE BLOOD COUNT 6.8 10^3/uL (4.0-10.0)
[2024-06-27 14:41] LABS: ALBUMIN 3.4 G/DL (3.2-5.2); ALKALINE PHOSPHATASE 129 U/L (46-116); ALT/SGPT 41 U/L (7.0-40); AST/SGOT 22 U/L (<34); BILIRUBIN,TOTAL 0.3 MG/DL (0.3-1.2); BLOOD UREA NITROGEN 21 MG/DL (9-23); CALCIUM LEVEL 9.3 MG/DL (8.5-10.1); CARBON DIOXIDE LEVEL 40 MMOL/L (20-31); CHLORIDE LEVEL 102 MMOL/L (98-107); CREATININE FOR GFR 0.37 MG/DL (0.55-1.30); GLOMERULAR FILTRATION RATE > 60.0 (>51); GLUCOSE, FASTING 80 MG/DL (60-100); MAGNESIUM LEVEL 1.9 MG/DL (1.8-2.4); PHOSPHORUS LEVEL 4.2 MG/DL (2.5-4.9); POTASSIUM SERUM 4.4 MMOL/L (3.5-5.1); PREALBUMIN 24.2 MG/DL (10.0-40.0); SODIUM LEVEL 143 MMOL/L (136-145); TOTAL PROTEIN 6.2 G/DL (5.7-8.2); TRIGLYCERIDES LEVEL 64 MG/DL (<150)
== END ==
LOC: M SHH 13:49
PROVIDERS: ATTEND Family Medicine
DX: E43 Unspecified severe protein-calorie malnutrition (principal)

== ENCOUNTER → 2024-06-30 | Outpatient (CLI) | payer MEDICARE, OTHER ==
[~2024-06-30] VITALS: Ht 160 cm; Wt 58.6 kg
[~2024-06-30] MED LIST changes: +BROV15NE INH; -BROV15NE NEB; +BUDE0.5S6 INH; -BUDE0.5S6 NEB; +DOXY100T PO; +FLON1SPR NARES; +GABA-1490 PO; -GABA600T4 PO; -ROSU40TA63 PO; +ROSU40TA81 PO; +TPN; +YUPE175S INH; -YUPE175S NEB
[2024-06-30 13:08] VITALS: BP 117/71; O2SAT 94
== END ==
LOC: M PAL 12:56
PROVIDERS: ATTEND Nurse Practitioner Adult Health
DX: J44.89 Other specified chronic obstructive pulmonary disease (principal); R10.84 Generalized abdominal pain; F41.0 Panic disorder [episodic paroxysmal anxiety]; R53.83 Other fatigue; I25.2 Old myocardial infarction; Z51.5 Encounter for palliative care; Z79.891 Long term (current) use of opiate analgesic; Z79.899 Other long term (current) drug therapy; Z87.442 Personal history of urinary calculi; Z90.710 Acquired absence of both cervix and uterus; Z90.722 Acquired absence of ovaries, bilateral; Z90.79 Acquired absence of other genital organ(s); Z99.81 Dependence on supplemental oxygen; Z99.89 Dependence on other enabling machines and devices

== ENCOUNTER → 2024-07-04 | Outpatient (REF) | payer MEDICARE, OTHER ==
[~2024-07-04] MED LIST changes: -BROV15NE INH; +BROV15NE NEB; -BUDE0.5S6 INH; +BUDE0.5S6 NEB; -DOXY100T PO; -FLON1SPR NARES; -GABA-1490 PO; +GABA600T4 PO; +ROSU40TA63 PO; -ROSU40TA81 PO; -TPN; -YUPE175S INH; +YUPE175S NEB
[2024-07-04 16:05] LABS: BASO % 0.2 % (0.0-1.0); HEMATOCRIT 38.2 % (36.0-47.0); HEMOGLOBIN 11.3 g/dl (12.0-15.5); LYMPH % 17.3 % (24.0-44.0); MEAN CORPUSCULAR HEMOGLOBIN 27.1 pg (27.0-33.0); MEAN CORPUSCULAR HGB CONC 29.6 g/dl (32.0-36.5); MEAN CORPUSCULAR VOLUME 91.6 fl (80.0-96.0); MONO # 0.6 10^3/uL (0.0-0.8); MONO % 9.9 % (2.0-8.0); NEUTROPHILS # 4.3 10^3/uL (1.5-8.5); NEUTROPHILS % 72.4 % (36.0-66.0); PLATELET COUNT, AUTOMATED 255 10^3/uL (150-450); RED BLOOD COUNT 4.17 10^6/uL (4.00-5.40)
[2024-07-04 16:34] LABS: PREALBUMIN 20.7 MG/DL (10.0-40.0)
[2024-07-04 16:35] LABS: ALBUMIN 3.5 G/DL (3.2-5.2); ALKALINE PHOSPHATASE 129 U/L (46-116); ALT/SGPT 40 U/L (7.0-40); AST/SGOT 33 U/L (<34); BILIRUBIN,TOTAL 0.2 MG/DL (0.3-1.2); BLOOD UREA NITROGEN 19 MG/DL (9-23); CALCIUM LEVEL 9.2 MG/DL (8.5-10.1); CARBON DIOXIDE LEVEL 38 MMOL/L (20-31); CHLORIDE LEVEL 102 MMOL/L (98-107); GLOMERULAR FILTRATION RATE > 60.0 (>51); GLUCOSE, FASTING 102 MG/DL (60-100); PHOSPHORUS LEVEL 3.8 MG/DL (2.5-4.9); POTASSIUM SERUM 3.9 MMOL/L (3.5-5.1); SODIUM LEVEL 142 MMOL/L (136-145); TOTAL PROTEIN 6.2 G/DL (5.7-8.2); TRIGLYCERIDES LEVEL 57 MG/DL (<150)
== END ==
LOC: M SHH 14:49
PROVIDERS: ATTEND Family Medicine
DX: E43 Unspecified severe protein-calorie malnutrition (principal)

== ENCOUNTER → 2024-07-12 | Outpatient (REF) | payer MEDICARE, OTHER ==
[~2024-07-12] MED LIST changes: +BROV15NE INH; -BROV15NE NEB; +BUDE0.5S6 INH; -BUDE0.5S6 NEB; +DOXY100T PO; +FLON1SPR NARES; +GABA-1490 PO; -GABA600T4 PO; -ROSU40TA63 PO; +ROSU40TA81 PO; +TPN; +YUPE175S INH; -YUPE175S NEB
[2024-07-12 16:36] LABS: BASO % 0.2 % (0.0-1.0); HEMATOCRIT 39.1 % (36.0-47.0); HEMOGLOBIN 11.2 g/dl (12.0-15.5); LYMPH % 11.9 % (24.0-44.0); MEAN CORPUSCULAR HEMOGLOBIN 26.2 pg (27.0-33.0); MEAN CORPUSCULAR HGB CONC 28.6 g/dl (32.0-36.5); MEAN CORPUSCULAR VOLUME 91.6 fl (80.0-96.0); MONO # 0.8 10^3/uL (0.0-0.8); MONO % 9.7 % (2.0-8.0); NEUTROPHILS # 6.4 10^3/uL (1.5-8.5); PLATELET COUNT, AUTOMATED 278 10^3/uL (150-450); RED BLOOD COUNT 4.27 10^6/uL (4.00-5.40); WHITE BLOOD COUNT 8.2 10^3/uL (4.0-10.0)
[2024-07-12 17:00] LABS: PREALBUMIN 24.1 MG/DL (10.0-40.0)
[2024-07-12 17:02] LABS: ALBUMIN 3.7 G/DL (3.2-5.2); ALKALINE PHOSPHATASE 156 U/L (46-116); ALT/SGPT 242 U/L (7.0-40); AST/SGOT 183 U/L (<34); BILIRUBIN,TOTAL 0.4 MG/DL (0.3-1.2); BLOOD UREA NITROGEN 23 MG/DL (9-23); CALCIUM LEVEL 9.3 MG/DL (8.5-10.1); CARBON DIOXIDE LEVEL > 40.0 MMOL/L (20-31); CHLORIDE LEVEL 97 MMOL/L (98-107); CREATININE FOR GFR 0.37 MG/DL (0.55-1.30); GLOMERULAR FILTRATION RATE > 60.0 (>51); GLUCOSE, FASTING 81 MG/DL (60-100); MAGNESIUM LEVEL 2.2 MG/DL (1.8-2.4); PHOSPHORUS LEVEL 3.8 MG/DL (2.5-4.9); POTASSIUM SERUM 3.9 MMOL/L (3.5-5.1); SODIUM LEVEL 141 MMOL/L (136-145); TOTAL PROTEIN 6.5 G/DL (5.7-8.2); TRIGLYCERIDES LEVEL 62 MG/DL (<150)
== END ==
LOC: M SHH 16:13
PROVIDERS: ATTEND Family Medicine
DX: E43 Unspecified severe protein-calorie malnutrition (principal); K90.49 Malabsorption due to intolerance, not elsewhere classified

== ENCOUNTER 2024-07-15 07:24 | Inpatient (IN) | payer MEDICARE, OTHER ==
[2024-07-15] VITALS (11 sets, daily range): BP systolic 127–132; BP diastolic 60–71; TEMP 97.2–98.1; O2SAT 88–97
[~2024-07-15] VITALS: Ht 160 cm; Wt 58.2 kg
[~2024-07-15 07:24] MED LIST changes: -DOXY100T PO; -FLON1SPR NARES; -TPN
[2024-07-15 07:46] LABS: BASO % 0.2 % (0.0-1.0); EOS % 0.1 % (0.0-3.0); HEMATOCRIT 38.7 % (36.0-47.0); LYMPH # 0.8 10^3/uL (1.5-5.0); LYMPH % 9.5 % (24.0-44.0); MEAN CORPUSCULAR HEMOGLOBIN 26.4 pg (27.0-33.0); MEAN CORPUSCULAR HGB CONC 28.4 g/dl (32.0-36.5); MONO # 0.9 10^3/uL (0.0-0.8); MONO % 10.3 % (2.0-8.0); NEUTROPHILS # 6.7 10^3/uL (1.5-8.5); NEUTROPHILS % 79.7 % (36.0-66.0); PLATELET COUNT, AUTOMATED 248 10^3/uL (150-450); RED BLOOD COUNT 4.16 10^6/uL (4.00-5.40); WHITE BLOOD COUNT 8.5 10^3/uL (4.0-10.0)
[2024-07-15] MEDS: IPRATROPIUM 0.5MG/ALBUTEROL 2.5MG INH SOL UD 3ML (DUONEB) NEB SCH (08:00)
[2024-07-15 08:26] LABS: ALBUMIN 3.4 G/DL (3.2-5.2); ALKALINE PHOSPHATASE 134 U/L (46-116); ALT/SGPT 139 U/L (7.0-40); AST/SGOT 33 U/L (<34); BILIRUBIN,DIRECT < 0.1 MG/DL (<0.4); BILIRUBIN,TOTAL 0.2 MG/DL (0.3-1.2); BLOOD UREA NITROGEN 21 MG/DL (9-23); CALCIUM LEVEL 8.8 MG/DL (8.5-10.1); CARBON DIOXIDE LEVEL > 40.0 MMOL/L (20-31); CHLORIDE LEVEL 95 MMOL/L (98-107); CREATININE FOR GFR 0.31 MG/DL (0.55-1.30); GLOMERULAR FILTRATION RATE > 60.0 (>51); GLUCOSE, FASTING 135 MG/DL (60-100); POTASSIUM SERUM 4.6 MMOL/L (3.5-5.1); SODIUM LEVEL 139 MMOL/L (136-145); TOTAL PROTEIN 6.2 G/DL (5.7-8.2)
[2024-07-15 08:30] LABS: ABG BASE EXCESS 11.4 (-2.0-2.0); ABG O2 SATURATION 95.1 % (95.0-99.0); ABG PARTIAL PRESSURE O2 81.8 mmHg (75.0-100.0); ABG STANDARD HCO3 35.1 MMOL/L. (22.0-26.0); ABG pH (ARTERIAL) 7.252 UNITS (7.350-7.450)
[2024-07-15 08:33] LABS: ABG PARTIAL PRESSURE CO2 97.5 mmHg (35.0-45.0)
[2024-07-15] MEDS: guaiFENesin ER TABLET 600 MG TAB PO SCH (09:00)
[2024-07-15] MEDS ORDERED: AZIT500T5 PO (10:08)
[2024-07-15] MEDS ORDERED: ALBU2.5V10 INH (10:08)
[2024-07-15] MEDS ORDERED: MORP1SOL4 PO (10:24)
[2024-07-15] MEDS ORDERED: HOME MED LIST COMPLETE! XX SCH (10:30)
[2024-07-15] MEDS ORDERED: CALCIUM CARBONATE 500 MG CHEW U/D PO PRN (10:50)
[2024-07-15] MEDS ORDERED: LOMOTIL 2.5MG/0.025MG TABLET PO PRN (10:50)
[2024-07-15] MEDS ORDERED: DICYCLOMINE 10 MG CAP PO PRN (10:50)
[2024-07-15] MEDS ORDERED: ALBUTEROL 90 MCG/ACT 8GM HFA INHALER INH PRN (10:50)
[2024-07-15] MEDS ORDERED: ALBUTEROL SULFATE 2.5MG/0.5ML INH NEB SOLN INH PRN (10:50)
[2024-07-15] MEDS: SODIUM CHLORIDE 0.9% INJ 10 ML SYR IV PRN (10:55)
[2024-07-15] MEDS: SODIUM CHLORIDE 0.9% INJ 10 ML SYR IV SCH (10:55)
[2024-07-15] MEDS: methylPREDNISolone 40MG 1ML VIAL IV SCH (12:49)
[2024-07-15] MEDS: ENOXAPARIN 40MG/0.4ML SYRINGE (J1650 PER 10MG) SC SCH (12:50)
[2024-07-15 12:59] LABS: ABG BASE EXCESS 10.1 (-2.0-2.0); ABG HCO3 36.8 MMOL/L (22.0-26.0); ABG O2 SATURATION 98.7 % (95.0-99.0); ABG PARTIAL PRESSURE CO2 60.2 mmHg (35.0-45.0); ABG PARTIAL PRESSURE O2 142.7 mmHg (75.0-100.0); ABG STANDARD HCO3 33.9 MMOL/L. (22.0-26.0); ABG TOTAL CO2 38.6 MMOL/L (22.0-29.0); ABG pH (ARTERIAL) 7.404 UNITS (7.350-7.450)
[2024-07-15 13:24] LABS: PROCALCITONIN 0.08 ng/ml
[2024-07-15] MEDS: MIDODRINE 5 MG TAB PO SCH (13:45)
[2024-07-15] MEDS: AZITHROMYCIN 250MG TABLET PO SCH (13:49)
[2024-07-15] MEDS: SUCRALFATE 1 GM TAB PO SCH (13:49)
[2024-07-15] MEDS: ALPRAZolam 0.5 MG TAB PO PRN (13:49)
[2024-07-15] MEDS: SYMBICORT 160/4.5MCG INHALER 6GM INH SCH (19:25)
[2024-07-15] MEDS: FORMOTEROL FUMARATE 20 MCG/2 ML INHALATION SOLUTION (PERFOROMIST) INH SCH (19:25)
[2024-07-15] MEDS: BUDESONIDE 0.5 MG/2 ML INHALATION SUSPENSION INH PRN (19:25)
[2024-07-15] MEDS: MIRTAZAPINE 15 MG TAB PO SCH (20:16)
[2024-07-15] MEDS: MAGNESIUM OXIDE 400MG TAB (MAG-OX) PO SCH (20:18)
[2024-07-15] MEDS: busPIRone 10 MG TAB PO SCH (20:18)
[2024-07-15] MEDS: MONTELUKAST 10 MG TAB PO SCH (20:18)
[2024-07-15] MEDS: CETIRIZINE (ZyrTEC) 10 MG TAB PO SCH (20:18)
[2024-07-15] MEDS: SALMETEROL DISKUS 50MCG INHALER (SEREVENT) INH SCH (20:37)
[2024-07-15] MEDS: PANTOPRAZOLE 20 MG TAB PO SCH (21:00)
[2024-07-15] MEDS: TPN IV SCH (21:48)
[2024-07-16] VITALS (24 sets, daily range): BP systolic 95–125; BP diastolic 54–62; TEMP 97.3–99; O2SAT 89–98
[2024-07-16] MEDS: MORPHINE SULFATE ORAL SOLN 10 MG/5 ML UD PO PRN (00:37)
[2024-07-16 05:33] LABS: HEMATOCRIT 38.2 % (36.0-47.0); HEMOGLOBIN 10.9 g/dl (12.0-15.5); LYMPH # 0.5 10^3/uL (1.5-5.0); LYMPH % 7.3 % (24.0-44.0); MEAN CORPUSCULAR HEMOGLOBIN 25.8 pg (27.0-33.0); MEAN CORPUSCULAR HGB CONC 28.5 g/dl (32.0-36.5); MEAN CORPUSCULAR VOLUME 90.5 fl (80.0-96.0); MONO # 0.4 10^3/uL (0.0-0.8); MONO % 7.2 % (2.0-8.0); NEUTROPHILS # 5.2 10^3/uL (1.5-8.5); NEUTROPHILS % 85.2 % (36.0-66.0); PLATELET COUNT, AUTOMATED 241 10^3/uL (150-450); RED BLOOD COUNT 4.22 10^6/uL (4.00-5.40); WHITE BLOOD COUNT 6.1 10^3/uL (4.0-10.0)
[2024-07-16 05:59] LABS: ABG BASE EXCESS 14.2 (-2.0-2.0); ABG HCO3 46.3 MMOL/L (22.0-26.0); ABG O2 SATURATION 98.9 % (95.0-99.0); ABG PARTIAL PRESSURE O2 199.1 mmHg (75.0-100.0); ABG STANDARD HCO3 38.1 MMOL/L. (22.0-26.0); ABG TOTAL CO2 49.8 MMOL/L (22.0-29.0); ABG pH (ARTERIAL) 7.218 UNITS (7.350-7.450)
[2024-07-16 06:02] LABS: ABG PARTIAL PRESSURE CO2 116.2 mmHg (35.0-45.0)
[2024-07-16 06:05] LABS: ALBUMIN 3.4 G/DL (3.2-5.2); ALKALINE PHOSPHATASE 124 U/L (46-116); ALT/SGPT 105 U/L (7.0-40); AST/SGOT 21 U/L (<34); BILIRUBIN,TOTAL 0.2 MG/DL (0.3-1.2); BLOOD UREA NITROGEN 20 MG/DL (9-23); CALCIUM LEVEL 9.5 MG/DL (8.5-10.1); CARBON DIOXIDE LEVEL > 40.0 MMOL/L (20-31); CHLORIDE LEVEL 98 MMOL/L (98-107); CREATININE FOR GFR 0.35 MG/DL (0.55-1.30); GLOMERULAR FILTRATION RATE > 60.0 (>51); GLUCOSE, FASTING 131 MG/DL (60-100); MAGNESIUM LEVEL 2.3 MG/DL (1.8-2.4); POTASSIUM SERUM 4.7 MMOL/L (3.5-5.1); SODIUM LEVEL 142 MMOL/L (136-145); TOTAL PROTEIN 6.2 G/DL (5.7-8.2)
[2024-07-16 12:54] LABS: ABG BASE EXCESS 12.7 (-2.0-2.0); ABG HCO3 38.6 MMOL/L (22.0-26.0); ABG O2 SATURATION 97.1 % (95.0-99.0); ABG PARTIAL PRESSURE CO2 56.1 mmHg (35.0-45.0); ABG PARTIAL PRESSURE O2 89.9 mmHg (75.0-100.0); ABG STANDARD HCO3 36.5 MMOL/L. (22.0-26.0); ABG TOTAL CO2 40.4 MMOL/L (22.0-29.0); ABG pH (ARTERIAL) 7.456 UNITS (7.350-7.450)
[2024-07-16] MEDS: methylPREDNISolone 40MG 1ML VIAL IV SCH (17:15)
[2024-07-17] VITALS (15 sets, daily range): BP systolic 113–120; BP diastolic 56–77; TEMP 97.2–98.4; O2SAT 92–98
[2024-07-17 05:04] LABS: BASO % 0.1 % (0.0-1.0); HEMATOCRIT 36.7 % (36.0-47.0); HEMOGLOBIN 10.2 g/dl (12.0-15.5); LYMPH # 1.4 10^3/uL (1.5-5.0); LYMPH % 18.2 % (24.0-44.0); MEAN CORPUSCULAR HEMOGLOBIN 25.6 pg (27.0-33.0); MEAN CORPUSCULAR HGB CONC 27.8 g/dl (32.0-36.5); MEAN CORPUSCULAR VOLUME 92.2 fl (80.0-96.0); MONO % 13.1 % (2.0-8.0); NEUTROPHILS # 5.1 10^3/uL (1.5-8.5); NEUTROPHILS % 68.5 % (36.0-66.0); PLATELET COUNT, AUTOMATED 223 10^3/uL (150-450); RED BLOOD COUNT 3.98 10^6/uL (4.00-5.40); WHITE BLOOD COUNT 7.5 10^3/uL (4.0-10.0)
[2024-07-17 05:30] LABS: ALBUMIN 3.1 G/DL (3.2-5.2); ALKALINE PHOSPHATASE 108 U/L (46-116); ALT/SGPT 78 U/L (7.0-40); AST/SGOT 14 U/L (<34); BILIRUBIN,TOTAL 0.2 MG/DL (0.3-1.2); BLOOD UREA NITROGEN 22 MG/DL (9-23); CALCIUM LEVEL 9.1 MG/DL (8.5-10.1); CARBON DIOXIDE LEVEL > 40.0 MMOL/L (20-31); CHLORIDE LEVEL 101 MMOL/L (98-107); CREATININE FOR GFR 0.42 MG/DL (0.55-1.30); GLOMERULAR FILTRATION RATE > 60.0 (>51); GLUCOSE, FASTING 129 MG/DL (60-100); POTASSIUM SERUM 4.1 MMOL/L (3.5-5.1); SODIUM LEVEL 143 MMOL/L (136-145); TOTAL PROTEIN 5.6 G/DL (5.7-8.2)
[2024-07-17] MEDS: predniSONE 20 MG TAB PO SCH (08:27)
[2024-07-17] MEDS ORDERED: PRED10TA2 PO (08:58)
[2024-07-17] MEDS ORDERED: PRED20TA PO (08:58)
[2024-07-17] MEDS: IPRATROPIUM 0.5MG/ALBUTEROL 2.5MG INH SOL UD 3ML (DUONEB) NEB PRN (11:17)
[2024-07-17] MEDS: ACETAMINOPHEN 500 MG TAB PO PRN (12:09)
== END 2024-07-17 12:13 | disposition home health service (06) | DRG 189 ==
LOC: M ED 07:27 → M ED INP 09:31 → M PCU 16:05
PROVIDERS: ADMIT Internal Medicine; ATTEND Internal Medicine
DX: J96.21 Acute and chronic respiratory failure with hypoxia (principal); J44.1 Chronic obstructive pulmonary disease with (acute) exacerbation; K90.829 Short bowel syndrome, unspecified; E87.29 Other acidosis; J96.22 Acute and chronic respiratory failure with hypercapnia; G47.33 Obstructive sleep apnea (adult) (pediatric); I95.9 Hypotension, unspecified; E78.5 Hyperlipidemia, unspecified; F41.9 Anxiety disorder, unspecified; F32.A Depression, unspecified; M19.90 Unspecified osteoarthritis, unspecified site; G43.909 Migraine, unspecified, not intractable, without status migrainosus; M81.0 Age-related osteoporosis without current pathological fracture; R94.5 Abnormal results of liver function studies; I45.10 Unspecified right bundle-branch block; K21.9 Gastro-esophageal reflux disease without esophagitis; G47.00 Insomnia, unspecified; Z90.49 Acquired absence of other specified parts of digestive tract; Z86.74 Personal history of sudden cardiac arrest; Z90.79 Acquired absence of other genital organ(s); Z96.642 Presence of left artificial hip joint; Z99.81 Dependence on supplemental oxygen; Z79.2 Long term (current) use of antibiotics; Z79.899 Other long term (current) drug therapy; Z11.52 Encounter for screening for COVID-19; M21.371 Foot drop, right foot

== ENCOUNTER → 2024-07-18 | Outpatient (REF) | payer MEDICARE, OTHER ==
[~2024-07-18] MED LIST changes: +DOXY100T PO; +FLON1SPR NARES; +TPN
[2024-07-18 13:53] LABS: BASO % 0.2 % (0.0-1.0); HEMATOCRIT 38.3 % (36.0-47.0); HEMOGLOBIN 10.6 g/dl (12.0-15.5); LYMPH # 1.1 10^3/uL (1.5-5.0); LYMPH % 13.3 % (24.0-44.0); MEAN CORPUSCULAR HEMOGLOBIN 25.5 pg (27.0-33.0); MEAN CORPUSCULAR HGB CONC 27.7 g/dl (32.0-36.5); MEAN CORPUSCULAR VOLUME 92.3 fl (80.0-96.0); MONO % 12.7 % (2.0-8.0); NEUTROPHILS # 5.9 10^3/uL (1.5-8.5); NEUTROPHILS % 73.6 % (36.0-66.0); PLATELET COUNT, AUTOMATED 221 10^3/uL (150-450); RED BLOOD COUNT 4.15 10^6/uL (4.00-5.40)
[2024-07-18 14:21] LABS: PREALBUMIN 26.5 MG/DL (10.0-40.0)
[2024-07-18 14:24] LABS: ALBUMIN 3.4 G/DL (3.2-5.2); ALKALINE PHOSPHATASE 114 U/L (46-116); ALT/SGPT 146 U/L (7.0-40); AST/SGOT 65 U/L (<34); BILIRUBIN,TOTAL 0.3 MG/DL (0.3-1.2); BLOOD UREA NITROGEN 24 MG/DL (9-23); CALCIUM LEVEL 9.3 MG/DL (8.5-10.1); CARBON DIOXIDE LEVEL > 40.0 MMOL/L (20-31); CHLORIDE LEVEL 99 MMOL/L (98-107); CREATININE FOR GFR 0.41 MG/DL (0.55-1.30); GLOMERULAR FILTRATION RATE > 60.0 (>51); GLUCOSE, FASTING 99 MG/DL (60-100); PHOSPHORUS LEVEL 4.1 MG/DL (2.5-4.9); POTASSIUM SERUM 3.8 MMOL/L (3.5-5.1); SODIUM LEVEL 143 MMOL/L (136-145); TRIGLYCERIDES LEVEL 90 MG/DL (<150)
== END ==
LOC: M SHH 13:20
PROVIDERS: ATTEND Family Medicine
DX: E43 Unspecified severe protein-calorie malnutrition (principal)

== ENCOUNTER 2024-07-19 18:12 | Inpatient (IN) | payer MEDICARE, OTHER ==
[~2024-07-19] VITALS: Ht 160 cm; Wt 60.4 kg
[~2024-07-19 18:12] MED LIST changes: -DOXY100T PO; -FLON1SPR NARES; -TPN
[2024-07-19 18:39] LABS: BASO % 0.2 % (0.0-1.0); HEMATOCRIT 37.3 % (36.0-47.0); HEMOGLOBIN 10.8 g/dl (12.0-15.5); LYMPH # 0.7 10^3/uL (1.5-5.0); LYMPH % 10.9 % (24.0-44.0); MEAN CORPUSCULAR HEMOGLOBIN 26.2 pg (27.0-33.0); MEAN CORPUSCULAR VOLUME 90.5 fl (80.0-96.0); MONO # 0.8 10^3/uL (0.0-0.8); MONO % 12.4 % (2.0-8.0); NEUTROPHILS % 76.2 % (36.0-66.0); PLATELET COUNT, AUTOMATED 198 10^3/uL (150-450); RED BLOOD COUNT 4.12 10^6/uL (4.00-5.40); WHITE BLOOD COUNT 6.6 10^3/uL (4.0-10.0)
[2024-07-19 19:21] LABS: CPK CREATINE PHOSPHOKINASE < 15 U/L (34-145)
[2024-07-19] MEDS: IPRATROPIUM 0.5MG/ALBUTEROL 2.5MG INH SOL UD 3ML (DUONEB) NEB PRN (19:23)
[2024-07-19 19:24] LABS: BLOOD UREA NITROGEN 15 MG/DL (9-23); CALCIUM LEVEL 9.4 MG/DL (8.5-10.1); CARBON DIOXIDE LEVEL > 40.0 MMOL/L (20-31); CHLORIDE LEVEL 99 MMOL/L (98-107); CK-MB VALUE MASS < 1.0 NG/ML (<3.6); CREATININE FOR GFR 0.34 MG/DL (0.55-1.30); GLOMERULAR FILTRATION RATE > 60.0 (>51); GLUCOSE, FASTING 81 MG/DL (60-100); SODIUM LEVEL 143 MMOL/L (136-145)
[2024-07-19] MEDS ORDERED: ISOVUE-370 76% 100ML VIAL As Ordered ONE (19:35)
[2024-07-19 19:44] LABS: ABG BASE EXCESS 13.5 (-2.0-2.0); ABG HCO3 43.3 MMOL/L (22.0-26.0); ABG O2 SATURATION 98.9 % (95.0-99.0); ABG PARTIAL PRESSURE CO2 88.3 mmHg (35.0-45.0); ABG PARTIAL PRESSURE O2 174.8 mmHg (75.0-100.0); ABG STANDARD HCO3 37.4 MMOL/L. (22.0-26.0); ABG pH (ARTERIAL) 7.308 UNITS (7.350-7.450)
[2024-07-19 20:09] LABS: CK-MB VALUE MASS < 1.0 NG/ML (<3.6)
[2024-07-19 20:10] LABS: CPK CREATINE PHOSPHOKINASE < 15 U/L (34-145)
[2024-07-19] MEDS: guaiFENesin SYRUP 200MG 10ML UDC PO ONE (20:48)
[2024-07-19] MEDS ORDERED: MOM 30ML SUSPENSION UDC PO PRN (21:45)
[2024-07-19] MEDS: LORazepam 2 MG/ML 1ML VIAL IV PRN (22:38)
[2024-07-19] MEDS: DOXYCYCLINE HYCLATE 100MG TABLET PO SCH (22:39)
[2024-07-19] MEDS ORDERED: IPRA0.00 INH (22:50)
[2024-07-19] MEDS ORDERED: HOME MED LIST COMPLETE! XX SCH (23:00)
[2024-07-20] VITALS (27 sets, daily range): BP systolic 119–148; BP diastolic 59–80; TEMP 97.1–98.6; O2SAT 83–100
[2024-07-20] MEDS: methylPREDNISolone 40MG 1ML VIAL IV SCH (00:37)
[2024-07-20] MEDS ORDERED: DICYCLOMINE 10 MG CAP PO PRN (01:05)
[2024-07-20] MEDS ORDERED: TPN (01:51)
[2024-07-20] MEDS: IPRATROPIUM 0.5MG/ALBUTEROL 2.5MG INH SOL UD 3ML (DUONEB) NEB SCH (02:09)
[2024-07-20] MEDS: ALPRAZolam 0.5 MG TAB PO PRN (03:00)
[2024-07-20 05:31] LABS: HEMATOCRIT 37.1 % (36.0-47.0); HEMOGLOBIN 10.9 g/dl (12.0-15.5); MEAN CORPUSCULAR HEMOGLOBIN 26.1 pg (27.0-33.0); MEAN CORPUSCULAR HGB CONC 29.4 g/dl (32.0-36.5); MEAN CORPUSCULAR VOLUME 88.8 fl (80.0-96.0); PLATELET COUNT, AUTOMATED 206 10^3/uL (150-450); RED BLOOD COUNT 4.18 10^6/uL (4.00-5.40); WHITE BLOOD COUNT 4.9 10^3/uL (4.0-10.0)
[2024-07-20 06:02] LABS: ALBUMIN 3.3 G/DL (3.2-5.2); ALKALINE PHOSPHATASE 125 U/L (46-116); ALT/SGPT 232 U/L (7.0-40); AST/SGOT 88 U/L (<34); BILIRUBIN,TOTAL 0.6 MG/DL (0.3-1.2); BLOOD UREA NITROGEN 14 MG/DL (9-23); CALCIUM LEVEL 9.7 MG/DL (8.5-10.1); CARBON DIOXIDE LEVEL > 40.0 MMOL/L (20-31); CHLORIDE LEVEL 96 MMOL/L (98-107); CREATININE FOR GFR 0.35 MG/DL (0.55-1.30); GLOMERULAR FILTRATION RATE > 60.0 (>51); GLUCOSE, FASTING 114 MG/DL (60-100); SODIUM LEVEL 141 MMOL/L (136-145)
[2024-07-20] MEDS: DOCUSATE SODIUM 100MG CAPSULE PO SCH (09:00)
[2024-07-20] MEDS: busPIRone 10 MG TAB PO SCH (09:02)
[2024-07-20] MEDS: MIDODRINE 5 MG TAB PO SCH (09:03)
[2024-07-20] MEDS: MAGNESIUM OXIDE 400MG TAB (MAG-OX) PO SCH (09:06)
[2024-07-20] MEDS: guaiFENesin ER TABLET 600 MG TAB PO SCH (09:06)
[2024-07-20] MEDS: ENOXAPARIN 40MG/0.4ML SYRINGE (J1650 PER 10MG) SC SCH (09:07)
[2024-07-20] MEDS: PANTOPRAZOLE 40MG VIAL IV SCH (09:07)
[2024-07-20] MEDS: SYMBICORT 160/4.5MCG INHALER 6GM INH SCH (10:50)
[2024-07-20] MEDS: ALBUTEROL SULFATE 2.5MG/0.5ML INH NEB SOLN NEB PRN (10:50)
[2024-07-20] MEDS: TPN IV SCH (15:38)
[2024-07-20] MEDS: CETIRIZINE (ZyrTEC) 10 MG TAB PO SCH (20:20)
[2024-07-20] MEDS: MONTELUKAST 10 MG TAB PO SCH (20:20)
[2024-07-20] MEDS: MORPHINE SULFATE ORAL SOLN 10 MG/5 ML UD PO PRN (20:36)
[2024-07-21] VITALS (14 sets, daily range): BP systolic 105–135; BP diastolic 58–75; TEMP 97–98; O2SAT 90–98
[2024-07-21] MEDS: ACETAMINOPHEN TAB 650MG DOSE (2X325MG) PO ONE (04:46)
[2024-07-21 07:56] LABS: VENOUS BASE EXCESS 9.4 (-2.0-2.0); VENOUS O2 SATURATION 99.3 % (60.0-80.0); VENOUS PARTIAL PRESSURE CO2 66.2 mmHg (38.0-50.0); VENOUS PARTIAL PRESSURE O2 230.2 mmHg (30.0-50.0); VENOUS PH 7.365 UNITS (7.330-7.430); VENOUS STANDARD HCO3 33.2 MMOL/L
[2024-07-21 08:00] LABS: BASO % 0.1 % (0.0-1.0); HEMATOCRIT 36.3 % (36.0-47.0); HEMOGLOBIN 10.8 g/dl (12.0-15.5); LYMPH % 13.2 % (24.0-44.0); MEAN CORPUSCULAR HEMOGLOBIN 26.2 pg (27.0-33.0); MEAN CORPUSCULAR HGB CONC 29.8 g/dl (32.0-36.5); MEAN CORPUSCULAR VOLUME 88.1 fl (80.0-96.0); MONO # 0.8 10^3/uL (0.0-0.8); MONO % 10.1 % (2.0-8.0); NEUTROPHILS # 5.8 10^3/uL (1.5-8.5); NEUTROPHILS % 76.3 % (36.0-66.0); PLATELET COUNT, AUTOMATED 229 10^3/uL (150-450); RED BLOOD COUNT 4.12 10^6/uL (4.00-5.40); WHITE BLOOD COUNT 7.6 10^3/uL (4.0-10.0)
[2024-07-21] MEDS: BUDESONIDE 0.5 MG/2 ML INHALATION SUSPENSION NEB SCH (08:00)
[2024-07-21] MEDS: GLYCOPYRROLATE INJ 0.2 MG/ML 2 ML VIAL NEB SCH (08:00)
[2024-07-21 08:27] LABS: ALBUMIN 3.2 G/DL (3.2-5.2); ALKALINE PHOSPHATASE 105 U/L (46-116); ALT/SGPT 170 U/L (7.0-40); AST/SGOT 35 U/L (<34); BILIRUBIN,TOTAL 0.5 MG/DL (0.3-1.2); BLOOD UREA NITROGEN 23 MG/DL (9-23); CALCIUM LEVEL 8.9 MG/DL (8.5-10.1); CARBON DIOXIDE LEVEL > 40.0 MMOL/L (20-31); CHLORIDE LEVEL 98 MMOL/L (98-107); CREATININE FOR GFR 0.39 MG/DL (0.55-1.30); GLOMERULAR FILTRATION RATE > 60.0 (>51); GLUCOSE, FASTING 104 MG/DL (60-100); POTASSIUM SERUM 4.2 MMOL/L (3.5-5.1); SODIUM LEVEL 140 MMOL/L (136-145); TOTAL PROTEIN 5.7 G/DL (5.7-8.2)
[2024-07-21] MEDS ORDERED: NON-FORMULARY COMPOUNDED MEDICATION IV SCH (09:00)
[2024-07-21] MEDS ORDERED: DOXY100T PO (10:30)
[2024-07-21] MEDS ORDERED: SYMB16INH INH (10:30)
[2024-07-21] MEDS ORDERED: PRED20TA PO (10:30)
[2024-07-21] MEDS ORDERED: FLON1SPR NARES (10:30)
[2024-07-21] MEDS: methylPREDNISolone 40MG 1ML VIAL IV SCH (11:31)
== END 2024-07-21 12:48 | disposition home health service (06) | DRG 189 ==
LOC: M ED 18:12 → EDBD 18:12 → M ED INP 21:41 → M PCU 07-20 01:08
PROVIDERS: ADMIT Family Medicine; ATTEND Family Medicine
DX: J96.22 Acute and chronic respiratory failure with hypercapnia (principal); E43 Unspecified severe protein-calorie malnutrition; J44.1 Chronic obstructive pulmonary disease with (acute) exacerbation; E87.29 Other acidosis; K90.829 Short bowel syndrome, unspecified; J96.21 Acute and chronic respiratory failure with hypoxia; G47.33 Obstructive sleep apnea (adult) (pediatric); E78.5 Hyperlipidemia, unspecified; R62.7 Adult failure to thrive; K21.9 Gastro-esophageal reflux disease without esophagitis; M21.371 Foot drop, right foot; I95.89 Other hypotension; G43.909 Migraine, unspecified, not intractable, without status migrainosus; M81.0 Age-related osteoporosis without current pathological fracture; M19.90 Unspecified osteoarthritis, unspecified site; F41.9 Anxiety disorder, unspecified; F32.A Depression, unspecified; Z96.642 Presence of left artificial hip joint; F17.210 Nicotine dependence, cigarettes, uncomplicated; Z79.2 Long term (current) use of antibiotics; Z79.52 Long term (current) use of systemic steroids; Z79.899 Other long term (current) drug therapy; Z11.52 Encounter for screening for COVID-19; Z99.81 Dependence on supplemental oxygen; Z86.74 Personal history of sudden cardiac arrest; Z90.79 Acquired absence of other genital organ(s)

== ENCOUNTER → 2024-07-25 | Outpatient (REF) | payer MEDICARE, OTHER ==
[~2024-07-25] MED LIST changes: +DOXY100T PO; +FLON1SPR NARES; +TPN
[2024-07-25 15:04] LABS: BASO % 0.2 % (0.0-1.0); HEMOGLOBIN 10.2 g/dl (12.0-15.5); LYMPH # 0.5 10^3/uL (1.5-5.0); LYMPH % 4.8 % (24.0-44.0); MEAN CORPUSCULAR HGB CONC 28.3 g/dl (32.0-36.5); MEAN CORPUSCULAR VOLUME 91.8 fl (80.0-96.0); MONO # 0.5 10^3/uL (0.0-0.8); MONO % 4.7 % (2.0-8.0); NEUTROPHILS % 89.9 % (36.0-66.0); PLATELET COUNT, AUTOMATED 198 10^3/uL (150-450); RED BLOOD COUNT 3.92 10^6/uL (4.00-5.40)
[2024-07-25 15:35] LABS: ALBUMIN 3.2 G/DL (3.2-5.2); ALKALINE PHOSPHATASE 101 U/L (46-116); ALT/SGPT 108 U/L (7.0-40); AST/SGOT 34 U/L (<34); BILIRUBIN,TOTAL 0.3 MG/DL (0.3-1.2); BLOOD UREA NITROGEN 25 MG/DL (9-23); CALCIUM LEVEL 8.5 MG/DL (8.5-10.1); CARBON DIOXIDE LEVEL > 40.0 MMOL/L (20-31); CHLORIDE LEVEL 101 MMOL/L (98-107); CREATININE FOR GFR 0.39 MG/DL (0.55-1.30); GLOMERULAR FILTRATION RATE > 60.0 (>51); GLUCOSE, FASTING 126 MG/DL (60-100); MAGNESIUM LEVEL 2.1 MG/DL (1.8-2.4); PHOSPHORUS LEVEL 3.3 MG/DL (2.5-4.9); SODIUM LEVEL 142 MMOL/L (136-145); TOTAL PROTEIN 5.8 G/DL (5.7-8.2); TRIGLYCERIDES LEVEL 100 MG/DL (<150)
== END ==
LOC: M LAB REF 14:13
PROVIDERS: ATTEND Family Medicine
DX: E43 Unspecified severe protein-calorie malnutrition (principal)

== ENCOUNTER → 2024-08-01 | Outpatient (REF) | payer MEDICARE, OTHER ==
[2024-08-01 13:32] LABS: BASO % 0.4 % (0.0-1.0); HEMATOCRIT 36.1 % (36.0-47.0); HEMOGLOBIN 10.2 g/dl (12.0-15.5); LYMPH # 1.1 10^3/uL (1.5-5.0); LYMPH % 13.6 % (24.0-44.0); MEAN CORPUSCULAR HEMOGLOBIN 25.7 pg (27.0-33.0); MEAN CORPUSCULAR HGB CONC 28.3 g/dl (32.0-36.5); MEAN CORPUSCULAR VOLUME 90.9 fl (80.0-96.0); MONO # 0.7 10^3/uL (0.0-0.8); MONO % 8.7 % (2.0-8.0); NEUTROPHILS # 6.3 10^3/uL (1.5-8.5); NEUTROPHILS % 77.1 % (36.0-66.0); PLATELET COUNT, AUTOMATED 235 10^3/uL (150-450); RED BLOOD COUNT 3.97 10^6/uL (4.00-5.40); WHITE BLOOD COUNT 8.2 10^3/uL (4.0-10.0)
[2024-08-01 14:01] LABS: ALBUMIN 3.2 G/DL (3.2-5.2); ALKALINE PHOSPHATASE 93 U/L (46-116); ALT/SGPT 45 U/L (7.0-40); AST/SGOT 20 U/L (<34); BILIRUBIN,TOTAL 0.4 MG/DL (0.3-1.2); BLOOD UREA NITROGEN 26 MG/DL (9-23); CALCIUM LEVEL 8.5 MG/DL (8.5-10.1); CARBON DIOXIDE LEVEL > 40.0 MMOL/L (20-31); CHLORIDE LEVEL 99 MMOL/L (98-107); CREATININE FOR GFR 0.39 MG/DL (0.55-1.30); GLOMERULAR FILTRATION RATE > 60.0 (>51); GLUCOSE, FASTING 102 MG/DL (60-100); POTASSIUM SERUM 4.1 MMOL/L (3.5-5.1); SODIUM LEVEL 141 MMOL/L (136-145); TOTAL PROTEIN 5.8 G/DL (5.7-8.2); TRIGLYCERIDES LEVEL 119 MG/DL (<150)
== END ==
LOC: M LAB REF 12:12
PROVIDERS: ATTEND Family Medicine
DX: E43 Unspecified severe protein-calorie malnutrition (principal)

== ENCOUNTER → 2024-08-15 | Outpatient (REF) | payer MEDICARE, OTHER ==
[~2024-08-15] MED LIST changes: +HYDR-3363 PO; -ROSU20TA61 PO; +ROSU20TA86 PO
[2024-08-15 15:18] LABS: BASO % 0.4 % (0.0-1.0); HEMATOCRIT 36.6 % (36.0-47.0); HEMOGLOBIN 10.6 g/dl (12.0-15.5); LYMPH # 1.1 10^3/uL (1.5-5.0); MEAN CORPUSCULAR VOLUME 89.7 fl (80.0-96.0); MONO # 0.4 10^3/uL (0.0-0.8); MONO % 9.4 % (2.0-8.0); NEUTROPHILS # 3.1 10^3/uL (1.5-8.5); PLATELET COUNT, AUTOMATED 210 10^3/uL (150-450); RED BLOOD COUNT 4.08 10^6/uL (4.00-5.40); WHITE BLOOD COUNT 4.6 10^3/uL (4.0-10.0)
[2024-08-15 15:46] LABS: ALBUMIN 3.1 G/DL (3.2-5.2); ALKALINE PHOSPHATASE 112 U/L (46-116); ALT/SGPT 31 U/L (7.0-40); AST/SGOT 22 U/L (<34); BILIRUBIN,TOTAL 0.3 MG/DL (0.3-1.2); BLOOD UREA NITROGEN 23 MG/DL (9-23); CARBON DIOXIDE LEVEL 39 MMOL/L (20-31); CHLORIDE LEVEL 100 MMOL/L (98-107); CREATININE FOR GFR 0.41 MG/DL (0.55-1.30); GLOMERULAR FILTRATION RATE > 60.0 (>51); GLUCOSE, FASTING 97 MG/DL (60-100); MAGNESIUM LEVEL 1.9 MG/DL (1.8-2.4); PHOSPHORUS LEVEL 4.5 MG/DL (2.5-4.9); POTASSIUM SERUM 4.3 MMOL/L (3.5-5.1); SODIUM LEVEL 141 MMOL/L (136-145); TOTAL PROTEIN 5.7 G/DL (5.7-8.2); TRIGLYCERIDES LEVEL 53 MG/DL (<150)
== END ==
LOC: M LAB REF 13:43
PROVIDERS: ATTEND Family Medicine
DX: E43 Unspecified severe protein-calorie malnutrition (principal)
CPT/HCPCS: 80053; 83735; 84100; 84478; 85025; G0463

== ENCOUNTER → 2024-08-15 | Outpatient (CLI) | payer MEDICARE, OTHER ==
[2024-08-15 13:13] VITALS: BP 109/63; O2SAT 95
== END ==
LOC: M PAL 12:53
PROVIDERS: ATTEND Nurse Practitioner Adult Health
DX: J44.89 Other specified chronic obstructive pulmonary disease (principal); R10.84 Generalized abdominal pain; F41.0 Panic disorder [episodic paroxysmal anxiety]; R03.1 Nonspecific low blood-pressure reading; R62.7 Adult failure to thrive; R19.7 Diarrhea, unspecified; K90.829 Short bowel syndrome, unspecified; E43 Unspecified severe protein-calorie malnutrition; I25.2 Old myocardial infarction; Z51.5 Encounter for palliative care; Z79.51 Long term (current) use of inhaled steroids; Z79.891 Long term (current) use of opiate analgesic; Z79.899 Other long term (current) drug therapy; Z87.442 Personal history of urinary calculi; Z90.710 Acquired absence of both cervix and uterus; Z90.722 Acquired absence of ovaries, bilateral; Z90.79 Acquired absence of other genital organ(s); Z99.81 Dependence on supplemental oxygen; Z99.89 Dependence on other enabling machines and devices

== ENCOUNTER 2024-08-29 18:39 | Inpatient (IN) | payer MEDICARE, OTHER ==
[~2024-08-29] VITALS: Ht 160 cm; Wt 60.2 kg
[2024-08-29] VITALS (8 sets, daily range): O2SAT 92–96
[~2024-08-29 18:39] MED LIST changes: -MIDO10TA PO; +MIDO10TA3 PO; -MIRT45TA68 PO; -MORP10SO PO
[2024-08-29 19:11] LABS: VENOUS BASE EXCESS 7.7 (-2.0-2.0); VENOUS HCO3 35.8 MMOL/L (23.0-27.0); VENOUS O2 SATURATION 85.3 % (60.0-80.0); VENOUS PARTIAL PRESSURE CO2 67.7 mmHg (38.0-50.0); VENOUS PARTIAL PRESSURE O2 50.7 mmHg (30.0-50.0); VENOUS PH 7.341 UNITS (7.330-7.430); VENOUS STANDARD HCO3 31.3 MMOL/L; VENOUS TOTAL CO2 37.9 MMOL/L (24.0-28.0)
[2024-08-29 19:19] LABS: BASO % 0.2 % (0.0-1.0); HEMATOCRIT 38.7 % (36.0-47.0); HEMOGLOBIN 11.8 g/dl (12.0-15.5); LYMPH # 0.5 10^3/uL (1.5-5.0); LYMPH % 10.8 % (24.0-44.0); MEAN CORPUSCULAR HEMOGLOBIN 26.7 pg (27.0-33.0); MEAN CORPUSCULAR HGB CONC 30.5 g/dl (32.0-36.5); MEAN CORPUSCULAR VOLUME 87.6 fl (80.0-96.0); MONO # 0.3 10^3/uL (0.0-0.8); MONO % 7.4 % (2.0-8.0); NEUTROPHILS # 3.6 10^3/uL (1.5-8.5); NEUTROPHILS % 81.4 % (36.0-66.0); PLATELET COUNT, AUTOMATED 130 10^3/uL (150-450); RED BLOOD COUNT 4.42 10^6/uL (4.00-5.40); WHITE BLOOD COUNT 4.5 10^3/uL (4.0-10.0)
[2024-08-29 19:28] LABS: INR 1.05; PROTHROMBIN TIME 13.4 SECONDS (12.5-14.5)
[2024-08-29 19:42] LABS: CPK CREATINE PHOSPHOKINASE 43 U/L (34-145)
[2024-08-29 19:49] LABS: ALBUMIN 3.3 G/DL (3.2-5.2); ALKALINE PHOSPHATASE 137 U/L (46-116); ALT/SGPT 45 U/L (7.0-40); AST/SGOT 35 U/L (<34); BILIRUBIN,DIRECT 0.2 MG/DL (<0.4); BILIRUBIN,TOTAL 0.5 MG/DL (0.3-1.2); BLOOD UREA NITROGEN 14 MG/DL (9-23); CALCIUM LEVEL 9.4 MG/DL (8.5-10.1); CARBON DIOXIDE LEVEL 37 MMOL/L (20-31); CHLORIDE LEVEL 98 MMOL/L (98-107); CK-MB VALUE MASS < 1.0 NG/ML (<3.6); CREATININE FOR GFR 0.49 MG/DL (0.55-1.30); GLOMERULAR FILTRATION RATE > 60.0 (>51); GLUCOSE, FASTING 96 MG/DL (60-100); MB/CK RELATIVE INDEX 2.32 (< OR =4); POTASSIUM SERUM 4.2 MMOL/L (3.5-5.1); SODIUM LEVEL 140 MMOL/L (136-145); THYROID STIMULATING HORMONE 1.046 uIU/ML (0.55-4.78); THYROXINE (T4) 6.9 UG/DL (4.5-10.9); TOTAL PROTEIN 6.4 G/DL (5.7-8.2)
[2024-08-29] MEDS: ACETAMINOPHEN 500 MG TAB PO ONE (20:00)
[2024-08-29] MEDS ORDERED: ISOVUE-370 76% 100ML VIAL As Ordered ONE (20:02)
[2024-08-29 20:27] LABS: PROCALCITONIN 0.23 ng/ml
[2024-08-29] MEDS: IPRATROPIUM 0.5MG/ALBUTEROL 2.5MG INH SOL UD 3ML (DUONEB) NEB ONE (20:43)
[2024-08-29] MEDS ORDERED: VANCOMYCIN/WATER FOR INJ 1,000 MG in IV 1 EA IV SCH (23:30)
[2024-08-30] VITALS (22 sets, daily range): BP systolic 101–128; BP diastolic 55–80; TEMP 96.7–101.3; O2SAT 85–100
[2024-08-30] MEDS ORDERED: PIPERACILLIN/TAZOBACTAM SOD 3.375 GM in DEXTROSE 5% (D5W) ADV/MINI-BAG 50 ML IV SCH
[2024-08-30] MEDS ORDERED: ALPR0.5T3 PO (00:19)
[2024-08-30] MEDS ORDERED: MORP10SO PO (00:19)
[2024-08-30] MEDS ORDERED: FLON1SPR NARES (00:19)
[2024-08-30] MEDS ORDERED: LOMO2.5T PO (00:19)
[2024-08-30] MEDS ORDERED: SYMB16INH INH (00:19)
[2024-08-30] MEDS ORDERED: DICY-61 PO (00:19)
[2024-08-30] MEDS ORDERED: MIRT45TA68 PO (00:19)
[2024-08-30] MEDS ORDERED: HOME MED LIST COMPLETE! XX SCH (00:20)
[2024-08-30] MEDS: SYMBICORT 160/4.5MCG INHALER 6GM INH SCH (00:35)
[2024-08-30] MEDS ORDERED: ALBUTEROL 90 MCG/ACT 8GM HFA INHALER INH PRN (00:35)
[2024-08-30] MEDS: CETIRIZINE (ZyrTEC) 10 MG TAB PO SCH (02:14)
[2024-08-30] MEDS: guaiFENesin ER TABLET 600 MG TAB PO SCH (02:15)
[2024-08-30] MEDS: MIRTAZAPINE 15 MG TAB PO SCH (02:15)
[2024-08-30] MEDS: MONTELUKAST 10 MG TAB PO SCH (02:15)
[2024-08-30] MEDS: MAGNESIUM OXIDE 400MG TAB (MAG-OX) PO SCH (02:16)
[2024-08-30] MEDS: FLUTICASONE PROP 0.05% NASAL SPRAY 16 GM (FLONASE) NARES SCH (02:21)
[2024-08-30] MEDS: busPIRone 10 MG TAB PO SCH (02:21)
[2024-08-30] MEDS: PIPERACILLIN/TAZOBACTAM SOD 3.375 GM in DEXTROSE 5% (D5W) ADV/MINI-BAG 50 ML IV SCH (03:05)
[2024-08-30] MEDS: ONDANSETRON 4MG 2ML VIAL IV PRN (03:05)
[2024-08-30 03:22] LABS: HEMATOCRIT 36.7 % (36.0-47.0); HEMOGLOBIN 11.1 g/dl (12.0-15.5); LYMPH # 0.2 10^3/uL (1.5-5.0); LYMPH % 7.7 % (24.0-44.0); MEAN CORPUSCULAR HEMOGLOBIN 26.2 pg (27.0-33.0); MEAN CORPUSCULAR HGB CONC 30.2 g/dl (32.0-36.5); MEAN CORPUSCULAR VOLUME 86.8 fl (80.0-96.0); MONO # 0.1 10^3/uL (0.0-0.8); MONO % 3.4 % (2.0-8.0); NEUTROPHILS # 2.1 10^3/uL (1.5-8.5); NEUTROPHILS % 88.5 % (36.0-66.0); PLATELET COUNT, AUTOMATED 157 10^3/uL (150-450); RED BLOOD COUNT 4.23 10^6/uL (4.00-5.40); WHITE BLOOD COUNT 2.4 10^3/uL (4.0-10.0)
[2024-08-30 03:29] LABS: ERYTHROCYTE SEDIMENTATION RATE 29 mm/hr (0-30)
[2024-08-30 03:46] LABS: ALBUMIN 3.1 G/DL (3.2-5.2); ALKALINE PHOSPHATASE 128 U/L (46-116); ALT/SGPT 44 U/L (7.0-40); AST/SGOT 39 U/L (<34); BILIRUBIN,TOTAL 0.4 MG/DL (0.3-1.2); BLOOD UREA NITROGEN 14 MG/DL (9-23); CALCIUM LEVEL 9.3 MG/DL (8.5-10.1); CARBON DIOXIDE LEVEL 37 MMOL/L (20-31); CHLORIDE LEVEL 99 MMOL/L (98-107); CREATININE FOR GFR 0.44 MG/DL (0.55-1.30); GLOMERULAR FILTRATION RATE > 60.0 (>51); GLUCOSE, FASTING 120 MG/DL (60-100); MAGNESIUM LEVEL 2.2 MG/DL (1.8-2.4); PHOSPHORUS LEVEL 4.4 MG/DL (2.5-4.9); POTASSIUM SERUM 4.4 MMOL/L (3.5-5.1); SODIUM LEVEL 137 MMOL/L (136-145); TOTAL PROTEIN 6.2 G/DL (5.7-8.2)
[2024-08-30] MEDS: VANCOMYCIN 1,250 MG/250 ML IV BAG *LOAD IV ONE (04:04)
[2024-08-30] MEDS: ALPRAZolam 0.5 MG TAB PO PRN (06:11)
[2024-08-30] MEDS: IPRATROPIUM 0.5MG/ALBUTEROL 2.5MG INH SOL UD 3ML (DUONEB) NEB PRN (08:45)
[2024-08-30] MEDS: MIDODRINE 5 MG TAB PO SCH (08:58)
[2024-08-30] MEDS: ACETAMINOPHEN 500 MG TAB PO ONE (10:02)
[2024-08-30] MEDS: VANCOMYCIN 750MG/150 ML IV BAG IV SCH (10:02)
[2024-08-30] MEDS: NEOSPORIN OINT 0.9 GM PKT TOP ONE (17:00)
[2024-08-30] MEDS ORDERED: SENNA 8.6 MG TAB (SENOKOT) PO ONE (18:10)
[2024-08-30] MEDS: PROMETHAZINE 25MG/ML 1ML VIAL IV PRN (20:27)
[2024-08-31] VITALS (12 sets, daily range): BP systolic 127–160; BP diastolic 68–99; TEMP 97.2–98.1; O2SAT 94–97
[2024-08-31] MEDS: LOMOTIL 2.5MG/0.025MG TABLET PO PRN (01:03)
[2024-08-31 06:16] LABS: HEMATOCRIT 39.6 % (36.0-47.0); HEMOGLOBIN 11.7 g/dl (12.0-15.5); MEAN CORPUSCULAR HEMOGLOBIN 25.4 pg (27.0-33.0); MEAN CORPUSCULAR HGB CONC 29.5 g/dl (32.0-36.5); MEAN CORPUSCULAR VOLUME 85.9 fl (80.0-96.0); PLATELET COUNT, AUTOMATED 116 10^3/uL (150-450); RED BLOOD COUNT 4.61 10^6/uL (4.00-5.40); WHITE BLOOD COUNT 3.2 10^3/uL (4.0-10.0)
[2024-08-31 06:27] LABS: ALBUMIN 3.1 G/DL (3.2-5.2); ALKALINE PHOSPHATASE 138 U/L (46-116); ALT/SGPT 68 U/L (7.0-40); AST/SGOT 77 U/L (<34); BILIRUBIN,TOTAL 0.5 MG/DL (0.3-1.2); BLOOD UREA NITROGEN 17 MG/DL (9-23); CALCIUM LEVEL 9.2 MG/DL (8.5-10.1); CARBON DIOXIDE LEVEL 36 MMOL/L (20-31); CHLORIDE LEVEL 96 MMOL/L (98-107); CREATININE FOR GFR 0.55 MG/DL (0.55-1.30); GLOMERULAR FILTRATION RATE > 60.0 (>51); GLUCOSE, FASTING 93 MG/DL (60-100); MAGNESIUM LEVEL 1.8 MG/DL (1.8-2.4); SODIUM LEVEL 137 MMOL/L (136-145); TOTAL PROTEIN 6.1 G/DL (5.7-8.2)
[2024-08-31 06:28] LABS: PHOSPHORUS LEVEL 3.2 MG/DL (2.5-4.9); POTASSIUM SERUM 3.2 MMOL/L (3.5-5.1)
[2024-08-31 07:38] LABS: ANISOCYTOSIS 1+; ATYPICAL LYMPH 8 % (0-5); HYPOCHROMASIA 1+; LYMPHOCYTES 10 % (16-44); MONOCYTES 3 % (0-5); NEUTROPHILS 71 % (28-66)
[2024-08-31 07:59] LABS: PLATELET ESTIMATE NORMAL (NORMAL)
[2024-08-31] MEDS: KCL 10MEQ/100ML SWI (KRUN) 10 MEQ in IV 1 EA IV SCH (08:12)
[2024-08-31] MEDS ORDERED: MIRALAX *UNIT DOSE* 17GM PACKET PO SCH (09:00)
[2024-08-31] MEDS: ONDANSETRON 4MG 2ML VIAL IV PRN (13:27)
[2024-08-31] MEDS: POTASSIUM CHLORIDE 10MEQ SR TABLET PO ONE (13:27)
[2024-09-01] VITALS (9 sets, daily range): BP systolic 140–155; BP diastolic 85–97; TEMP 97.5–98.1; O2SAT 94–97
[2024-09-01] MEDS: NS 500 ML IV ONE (02:00)
[2024-09-01 03:22] LABS: HEMATOCRIT 39.3 % (36.0-47.0); HEMOGLOBIN 12.3 g/dl (12.0-15.5); LYMPH # 0.5 10^3/uL (1.5-5.0); LYMPH % 5.1 % (24.0-44.0); MEAN CORPUSCULAR HEMOGLOBIN 26.3 pg (27.0-33.0); MEAN CORPUSCULAR HGB CONC 31.3 g/dl (32.0-36.5); MONO # 0.8 10^3/uL (0.0-0.8); MONO % 9.1 % (2.0-8.0); NEUTROPHILS # 7.9 10^3/uL (1.5-8.5); NEUTROPHILS % 85.5 % (36.0-66.0); PLATELET COUNT, AUTOMATED 175 10^3/uL (150-450); RED BLOOD COUNT 4.68 10^6/uL (4.00-5.40); WHITE BLOOD COUNT 9.2 10^3/uL (4.0-10.0)
[2024-09-01 03:44] LABS: ALBUMIN 3.1 G/DL (3.2-5.2); ALKALINE PHOSPHATASE 127 U/L (46-116); ALT/SGPT 53 U/L (7.0-40); AST/SGOT 56 U/L (<34); BILIRUBIN,TOTAL 0.4 MG/DL (0.3-1.2); BLOOD UREA NITROGEN 26 MG/DL (9-23); CALCIUM LEVEL 9.4 MG/DL (8.5-10.1); CARBON DIOXIDE LEVEL > 40.0 MMOL/L (20-31); CHLORIDE LEVEL 94 MMOL/L (98-107); CREATININE FOR GFR 0.53 MG/DL (0.55-1.30); GLOMERULAR FILTRATION RATE > 60.0 (>51); GLUCOSE, FASTING 112 MG/DL (60-100); MAGNESIUM LEVEL 2.1 MG/DL (1.8-2.4); PHOSPHORUS LEVEL 3.2 MG/DL (2.5-4.9); POTASSIUM SERUM 3.5 MMOL/L (3.5-5.1); SODIUM LEVEL 137 MMOL/L (136-145); TOTAL PROTEIN 6.2 G/DL (5.7-8.2)
[2024-09-01] MEDS: MORPHINE 2 MG/ML 1ML VIAL IV PRN (05:02)
[2024-09-01 08:51] LABS: ABG BASE EXCESS 7.5 (-2.0-2.0); ABG HCO3 33.7 MMOL/L (22.0-26.0); ABG O2 SATURATION 97.7 % (95.0-99.0); ABG PARTIAL PRESSURE CO2 54.8 mmHg (35.0-45.0); ABG PARTIAL PRESSURE O2 99.4 mmHg (75.0-100.0); ABG STANDARD HCO3 31.3 MMOL/L. (22.0-26.0); ABG TOTAL CO2 35.4 MMOL/L (22.0-29.0); ABG pH (ARTERIAL) 7.407 UNITS (7.350-7.450)
[2024-09-01] MEDS: METOCLOPRAMIDE INJ 10MG/2ML VIAL IV SCH (10:38)
[2024-09-01] MEDS: POTASSIUM CHLORIDE 10MEQ SR TABLET PO ONE (10:38)
[2024-09-01] MEDS: SODIUM CHLORIDE NASAL 0.65% SPRAY BTL (OCEAN) PRN (21:30)
[2024-09-02] VITALS (7 sets, daily range): BP systolic 127–163; BP diastolic 68–86; TEMP 97.1–98.2; O2SAT 93–97
[2024-09-02 05:58] LABS: BASO % 0.1 % (0.0-1.0); HEMATOCRIT 36.9 % (36.0-47.0); HEMOGLOBIN 11.1 g/dl (12.0-15.5); LYMPH # 0.8 10^3/uL (1.5-5.0); LYMPH % 7.9 % (24.0-44.0); MEAN CORPUSCULAR HEMOGLOBIN 25.8 pg (27.0-33.0); MEAN CORPUSCULAR HGB CONC 30.1 g/dl (32.0-36.5); MEAN CORPUSCULAR VOLUME 85.6 fl (80.0-96.0); MONO # 1.1 10^3/uL (0.0-0.8); MONO % 10.7 % (2.0-8.0); NEUTROPHILS # 8.2 10^3/uL (1.5-8.5); NEUTROPHILS % 81.1 % (36.0-66.0); PLATELET COUNT, AUTOMATED 177 10^3/uL (150-450); RED BLOOD COUNT 4.31 10^6/uL (4.00-5.40); WHITE BLOOD COUNT 10.1 10^3/uL (4.0-10.0)
[2024-09-02 06:24] LABS: ALBUMIN 2.8 G/DL (3.2-5.2); ALKALINE PHOSPHATASE 103 U/L (46-116); ALT/SGPT 33 U/L (7.0-40); AST/SGOT 26 U/L (<34); BILIRUBIN,TOTAL 0.4 MG/DL (0.3-1.2); BLOOD UREA NITROGEN 19 MG/DL (9-23); CALCIUM LEVEL 9.1 MG/DL (8.5-10.1); CARBON DIOXIDE LEVEL 38 MMOL/L (20-31); CHLORIDE LEVEL 95 MMOL/L (98-107); CREATININE FOR GFR 0.42 MG/DL (0.55-1.30); GLOMERULAR FILTRATION RATE > 60.0 (>51); GLUCOSE, FASTING 99 MG/DL (60-100); PHOSPHORUS LEVEL 3.1 MG/DL (2.5-4.9); POTASSIUM SERUM 3.5 MMOL/L (3.5-5.1); SODIUM LEVEL 137 MMOL/L (136-145); TOTAL PROTEIN 5.6 G/DL (5.7-8.2)
[2024-09-02] MEDS: LR 1,000 ML IV SCH (14:00)
[2024-09-02] MEDS: MORPHINE 4 MG/ML 1ML VIAL IV PRN (18:35)
[2024-09-03] VITALS (10 sets, daily range): BP systolic 126–153; BP diastolic 70–85; TEMP 97.7–98.6; O2SAT 95–96
[2024-09-03 06:32] LABS: BASO % 0.1 % (0.0-1.0); LYMPH # 0.9 10^3/uL (1.5-5.0); LYMPH % 12.2 % (24.0-44.0); MEAN CORPUSCULAR HGB CONC 30.3 g/dl (32.0-36.5); MEAN CORPUSCULAR VOLUME 85.9 fl (80.0-96.0); MONO # 0.9 10^3/uL (0.0-0.8); MONO % 12.3 % (2.0-8.0); NEUTROPHILS # 5.7 10^3/uL (1.5-8.5); NEUTROPHILS % 75.1 % (36.0-66.0); PLATELET COUNT, AUTOMATED 167 10^3/uL (150-450); RED BLOOD COUNT 3.84 10^6/uL (4.00-5.40); WHITE BLOOD COUNT 7.6 10^3/uL (4.0-10.0)
[2024-09-03 07:00] LABS: ALBUMIN 2.5 G/DL (3.2-5.2); ALKALINE PHOSPHATASE 87 U/L (35-104); ALT/SGPT 25 U/L (7.0-40); AST/SGOT 16 U/L (<34); BILIRUBIN,TOTAL 0.4 MG/DL (0.3-1.2); BLOOD UREA NITROGEN 10 MG/DL (9-23); CALCIUM LEVEL 8.7 MG/DL (8.5-10.1); CARBON DIOXIDE LEVEL 38 MMOL/L (20-31); CHLORIDE LEVEL 96 MMOL/L (98-107); GLOMERULAR FILTRATION RATE > 60.0 (>51); GLUCOSE, FASTING 89 MG/DL (60-100); MAGNESIUM LEVEL 1.8 MG/DL (1.8-2.4); PHOSPHORUS LEVEL 2.8 MG/DL (2.5-4.9); POTASSIUM SERUM 3.2 MMOL/L (3.5-5.1); SODIUM LEVEL 137 MMOL/L (136-145); TOTAL PROTEIN 5.2 G/DL (5.7-8.2)
[2024-09-03] MEDS: ENOXAPARIN 40MG/0.4ML SYRINGE (J1650 PER 10MG) SC SCH (13:49)
[2024-09-03] MEDS: POTASSIUM CHLORIDE INJ 40 MEQ in LR 1,000 ML IV SCH (16:22)
[2024-09-04] VITALS (11 sets, daily range): BP systolic 107–161; BP diastolic 57–83; TEMP 97.6–98.8; O2SAT 92–98
[2024-09-04 06:00] LABS: BASO % 0.1 % (0.0-1.0); EOS % 0.1 % (0.0-3.0); HEMATOCRIT 31.5 % (36.0-47.0); HEMOGLOBIN 9.5 g/dl (12.0-15.5); LYMPH # 0.8 10^3/uL (1.5-5.0); LYMPH % 8.9 % (24.0-44.0); MEAN CORPUSCULAR HGB CONC 30.2 g/dl (32.0-36.5); MEAN CORPUSCULAR VOLUME 86.3 fl (80.0-96.0); MONO # 0.8 10^3/uL (0.0-0.8); MONO % 9.8 % (2.0-8.0); NEUTROPHILS # 6.8 10^3/uL (1.5-8.5); NEUTROPHILS % 80.6 % (36.0-66.0); PLATELET COUNT, AUTOMATED 204 10^3/uL (150-450); RED BLOOD COUNT 3.65 10^6/uL (4.00-5.40); WHITE BLOOD COUNT 8.4 10^3/uL (4.0-10.0)
[2024-09-04 06:38] LABS: ALBUMIN 2.3 G/DL (3.2-5.2); ALKALINE PHOSPHATASE 80 U/L (35-104); ALT/SGPT 20 U/L (7.0-40); AST/SGOT 12 U/L (<34); BILIRUBIN,TOTAL 0.3 MG/DL (0.3-1.2); BLOOD UREA NITROGEN 11 MG/DL (9-23); CALCIUM LEVEL 8.7 MG/DL (8.5-10.1); CARBON DIOXIDE LEVEL 35 MMOL/L (20-31); CHLORIDE LEVEL 98 MMOL/L (98-107); CREATININE FOR GFR 0.34 MG/DL (0.55-1.30); GLOMERULAR FILTRATION RATE > 60.0 (>51); GLUCOSE, FASTING 74 MG/DL (60-100); MAGNESIUM LEVEL 1.8 MG/DL (1.8-2.4); PHOSPHORUS LEVEL 2.3 MG/DL (2.5-4.9); SODIUM LEVEL 138 MMOL/L (136-145); TOTAL PROTEIN 4.9 G/DL (5.7-8.2)
[2024-09-04] MEDS: LR 1,000 ML IV SCH (14:10)
[2024-09-04] MEDS: PANTOPRAZOLE 40MG VIAL IV ONE (14:10)
[2024-09-04] MEDS: PANTOPRAZOLE 40MG VIAL IV SCH (14:30)
[2024-09-04] MEDS: PIPERACILLIN/TAZOBACTAM SOD 3.375 GM in DEXTROSE 5% (D5W) ADV/MINI-BAG 50 ML IV SCH (14:50)
[2024-09-04] MEDS ORDERED: ROCURONIUM BROMIDE 50MG/5ML VIAL As Ordered ONE (15:15)
[2024-09-04] MEDS ORDERED: LIDOCAINE 2% 100MG/5ML SDV (FOR ANES.) As Ordered ONE (15:15)
[2024-09-04] MEDS ORDERED: propofoL 200 MG/20 ML VIAL As Ordered ONE (15:15)
[2024-09-04] MEDS ORDERED: fentaNYL 250 MCG/5 ML INJECTION As Ordered ONE (15:16)
[2024-09-04] MEDS ORDERED: MIDAZOLAM INJ 2MG/2ML VIAL As Ordered ONE (15:16)
[2024-09-04] MEDS ORDERED: PHENYLephrine 500MCG 5ML (100MCG/ML) SYRINGE As Ordered ONE (15:34)
[2024-09-04] MEDS ORDERED: ONDANSETRON 4MG 2ML VIAL As Ordered ONE (16:10)
[2024-09-04] MEDS ORDERED: SUGAMMADEX SODIUM 500 MG/5 ML VIAL (BRIDION) As Ordered ONE (16:10)
[2024-09-04] MEDS ORDERED: HYDROMORPHONE HCL 0.5 MG/ 0.5 ML SYRINGE IV PRN (16:35)
[2024-09-04] MEDS: LIDOCAINE 1% SDV 30ML VIAL As Ordered ONE (16:40)
[2024-09-04] MEDS: FLUCONAZOLE 200 MG in IV 1 EA IV SCH (20:11)
[2024-09-04] MEDS: ACETAMINOPHEN 500 MG TAB PO PRN (20:13)
[2024-09-04] MEDS: DICYCLOMINE 10 MG CAP PO PRN (20:13)
[2024-09-05] VITALS (20 sets, daily range): BP systolic 105–128; BP diastolic 54–63; TEMP 96.8–98.4; O2SAT 84–100
[2024-09-05 06:14] LABS: BASO % 0.1 % (0.0-1.0); HEMOGLOBIN 9.1 g/dl (12.0-15.5); LYMPH # 0.5 10^3/uL (1.5-5.0); LYMPH % 6.6 % (24.0-44.0); MEAN CORPUSCULAR HEMOGLOBIN 25.9 pg (27.0-33.0); MEAN CORPUSCULAR HGB CONC 29.4 g/dl (32.0-36.5); MEAN CORPUSCULAR VOLUME 88.1 fl (80.0-96.0); MONO # 0.8 10^3/uL (0.0-0.8); MONO % 9.5 % (2.0-8.0); NEUTROPHILS # 6.7 10^3/uL (1.5-8.5); NEUTROPHILS % 83.3 % (36.0-66.0); PLATELET COUNT, AUTOMATED 147 10^3/uL (150-450); RED BLOOD COUNT 3.52 10^6/uL (4.00-5.40); WHITE BLOOD COUNT 8.1 10^3/uL (4.0-10.0)
[2024-09-05 06:34] LABS: ALBUMIN 2.2 G/DL (3.2-5.2); ALKALINE PHOSPHATASE 72 U/L (35-104); ALT/SGPT 16 U/L (7.0-40); AST/SGOT 11 U/L (<34); BILIRUBIN,TOTAL 0.3 MG/DL (0.3-1.2); BLOOD UREA NITROGEN 9 MG/DL (9-23); CALCIUM LEVEL 8.6 MG/DL (8.5-10.1); CARBON DIOXIDE LEVEL 38 MMOL/L (20-31); CHLORIDE LEVEL 99 MMOL/L (98-107); CREATININE FOR GFR 0.35 MG/DL (0.55-1.30); GLOMERULAR FILTRATION RATE > 60.0 (>51); GLUCOSE, FASTING 100 MG/DL (60-100); PHOSPHORUS LEVEL 3.5 MG/DL (2.5-4.9); POTASSIUM SERUM 4.3 MMOL/L (3.5-5.1); SODIUM LEVEL 139 MMOL/L (136-145); TOTAL PROTEIN 4.7 G/DL (5.7-8.2)
[2024-09-05] MEDS: HYDROMORPHONE HCL 0.5 MG/ 0.5 ML SYRINGE IV PRN (10:59)
[2024-09-05] MEDS ORDERED: SODIUM CHLORIDE 0.9% INJ 10 ML SYR IV PRN (17:10)
[2024-09-06] VITALS (21 sets, daily range): BP systolic 114–139; BP diastolic 60–78; TEMP 97–99; O2SAT 91–100
[2024-09-06 06:09] LABS: BASO % 0.2 % (0.0-1.0); HEMATOCRIT 28.3 % (36.0-47.0); HEMOGLOBIN 8.2 g/dl (12.0-15.5); LYMPH % 14.7 % (24.0-44.0); MEAN CORPUSCULAR VOLUME 89.8 fl (80.0-96.0); MONO # 0.7 10^3/uL (0.0-0.8); MONO % 10.2 % (2.0-8.0); NEUTROPHILS # 4.9 10^3/uL (1.5-8.5); NEUTROPHILS % 74.4 % (36.0-66.0); PLATELET COUNT, AUTOMATED 271 10^3/uL (150-450); RED BLOOD COUNT 3.15 10^6/uL (4.00-5.40); WHITE BLOOD COUNT 6.6 10^3/uL (4.0-10.0)
[2024-09-06 06:26] LABS: BLOOD UREA NITROGEN 9 MG/DL (9-23); CALCIUM LEVEL 8.4 MG/DL (8.5-10.1); CARBON DIOXIDE LEVEL 39 MMOL/L (20-31); CHLORIDE LEVEL 101 MMOL/L (98-107); CREATININE FOR GFR 0.37 MG/DL (0.55-1.30); GLOMERULAR FILTRATION RATE > 60.0 (>51); GLUCOSE, FASTING 69 MG/DL (60-100); POTASSIUM SERUM 3.5 MMOL/L (3.5-5.1); SODIUM LEVEL 142 MMOL/L (136-145)
[2024-09-06 08:17] LABS: MAGNESIUM LEVEL 1.7 MG/DL (1.8-2.4); PHOSPHORUS LEVEL 3.1 MG/DL (2.5-4.9)
[2024-09-06] MEDS: SODIUM CHLORIDE 0.9% INJ 10 ML SYR IV SCH (09:39)
[2024-09-06] MEDS: MAG SULF 1GM/100ML (MAG RUN) 1 GM in IV 1 EA IV SCH (10:35)
[2024-09-06] MEDS: POTASSIUM PHOSPHATE INJ 20 MMOL in D5W 250 ML IV ONE (17:10)
[2024-09-06 18:35] LABS: FOLATE 19.85 NG/ML (>5.4); PERCENT SATURATION 3.1 % (13.2-45.0)
[2024-09-06] MEDS: FAT EMULSION IV 250 ML IV ONE (18:48)
[2024-09-06] MEDS: AMINO AC/ELECTROLYTE/DEX/CALC 1,000 ML IV SCH (18:48)
[2024-09-07 04:04] VITALS: BP 136/64; TEMP 97.5; O2SAT 99
[2024-09-07 06:01] LABS: HEMATOCRIT 30.1 % (36.0-47.0); HEMOGLOBIN 8.8 g/dl (12.0-15.5); MEAN CORPUSCULAR HEMOGLOBIN 25.7 pg (27.0-33.0); MEAN CORPUSCULAR HGB CONC 29.2 g/dl (32.0-36.5); MEAN CORPUSCULAR VOLUME 87.8 fl (80.0-96.0); PLATELET COUNT, AUTOMATED 329 10^3/uL (150-450); RED BLOOD COUNT 3.43 10^6/uL (4.00-5.40); WHITE BLOOD COUNT 6.7 10^3/uL (4.0-10.0)
[2024-09-07 06:19] LABS: ALBUMIN 2.2 G/DL (3.2-5.2); ALKALINE PHOSPHATASE 70 U/L (35-104); ALT/SGPT 14 U/L (7.0-40); AST/SGOT < 8 U/L (<34); BILIRUBIN,TOTAL 0.2 MG/DL (0.3-1.2); BLOOD UREA NITROGEN 5 MG/DL (9-23); CALCIUM LEVEL 8.9 MG/DL (8.5-10.1); CARBON DIOXIDE LEVEL > 40.0 MMOL/L (20-31); CHLORIDE LEVEL 99 MMOL/L (98-107); CREATININE FOR GFR 0.35 MG/DL (0.55-1.30); GLOMERULAR FILTRATION RATE > 60.0 (>51); GLUCOSE, FASTING 146 MG/DL (60-100); POTASSIUM SERUM 3.4 MMOL/L (3.5-5.1); SODIUM LEVEL 142 MMOL/L (136-145); TOTAL PROTEIN 5.2 G/DL (5.7-8.2)
[2024-09-07] MEDS ORDERED: GASTROGRAFIN SOLUTION 30ML As Ordered ONE (08:08)
[2024-09-07] MEDS ORDERED: IRON SUCROSE 200 MG in NS 100 ML IV SCH (09:00)
[2024-09-07 10:00] VITALS: BP 141/74; TEMP 97.5; O2SAT 99
[2024-09-07] MEDS: IRON SUCROSE 100MG 5ML VIAL IV SCH (10:10)
[2024-09-07] MEDS: SUCRALFATE 1 GM TAB PO SCH (10:50)
[2024-09-07 12:00] VITALS: BP 120/70; TEMP 97.5; O2SAT 97
[2024-09-07 16:00] VITALS: BP 126/68; TEMP 97.3; O2SAT 97
[2024-09-07] MEDS: INSULIN LISPRO (NovoLOG) PER UNIT SC SCH (18:00)
[2024-09-07] MEDS: MULTIVITAMIN -ADULT INJECTION 10 ML, ZINC/COPPER/MANGANESE/SELENIUM 1 ML in AMINO AC/EL... IV SCH (18:37)
[2024-09-07] MEDS: FAT EMULSION IV 250 ML IV ONE (18:38)
[2024-09-07 20:15] VITALS: BP 120/69; TEMP 97.5; O2SAT 95
[2024-09-07 23:59] VITALS: BP 108/67; TEMP 97.2; O2SAT 96
[2024-09-08 04:07] VITALS: BP 110/65; TEMP 97.5; O2SAT 96
[2024-09-08 06:30] LABS: HEMATOCRIT 30.1 % (36.0-47.0); HEMOGLOBIN 8.5 g/dl (12.0-15.5); MEAN CORPUSCULAR HGB CONC 28.2 g/dl (32.0-36.5); PLATELET COUNT, AUTOMATED 291 10^3/uL (150-450); RED BLOOD COUNT 3.27 10^6/uL (4.00-5.40); WHITE BLOOD COUNT 5.7 10^3/uL (4.0-10.0)
[2024-09-08 06:55] LABS: ALBUMIN 2.1 G/DL (3.2-5.2); ALKALINE PHOSPHATASE 67 U/L (35-104); ALT/SGPT 11 U/L (7.0-40); AST/SGOT < 8 U/L (<34); BILIRUBIN,TOTAL < 0.2 MG/DL (0.3-1.2); BLOOD UREA NITROGEN 5 MG/DL (9-23); CARBON DIOXIDE LEVEL > 40.0 MMOL/L (20-31); CHLORIDE LEVEL 101 MMOL/L (98-107); CREATININE FOR GFR 0.34 MG/DL (0.55-1.30); GLOMERULAR FILTRATION RATE > 60.0 (>51); GLUCOSE, FASTING 133 MG/DL (60-100); POTASSIUM SERUM 3.3 MMOL/L (3.5-5.1); SODIUM LEVEL 144 MMOL/L (136-145)
[2024-09-08 08:00] VITALS: BP 111/67; TEMP 97; O2SAT 96
[2024-09-08 12:00] VITALS: BP_SYST 114; BP_SYST 124; BP_DIAS 69; BP_DIAS 70; TEMP 97.3; O2SAT 97
[2024-09-08] MEDS: POTASSIUM CHLORIDE 10% LIQ 20MEQ/15ML UDC PO ONE (14:18)
[2024-09-08 16:00] VITALS: BP 111/68; TEMP 97.2; O2SAT 91
[2024-09-08] MEDS: POT IV SCH (18:25)
[2024-09-08] MEDS: CALC IV SCH (18:25)
[2024-09-08] MEDS: SODIUM IV SCH (18:25)
[2024-09-08] MEDS: [UNRECOGNIZED DRUG - OTHER] IV SCH (18:25)
[2024-09-08] MEDS: ACET IV SCH (18:25)
[2024-09-08] MEDS: POTASSIUM PHOSPHATE IV SCH (18:25)
[2024-09-08] MEDS: MAG IV SCH (18:25)
[2024-09-08] MEDS: CHLOR IV SCH (18:25)
[2024-09-08] MEDS: FAT EMULSION IV 250 ML IV ONE (18:26)
[2024-09-08] MEDS: INSULIN LISPRO (NovoLOG) PER UNIT SC SCH (18:52)
[2024-09-08 20:38] VITALS: BP 113/69; TEMP 97.7; O2SAT 98
[2024-09-09 03:42] VITALS: BP 134/61; TEMP 97.7; O2SAT 94
[2024-09-09 06:07] LABS: HEMATOCRIT 30.6 % (36.0-47.0); HEMOGLOBIN 8.6 g/dl (12.0-15.5); MEAN CORPUSCULAR HEMOGLOBIN 26.4 pg (27.0-33.0); MEAN CORPUSCULAR HGB CONC 28.1 g/dl (32.0-36.5); MEAN CORPUSCULAR VOLUME 93.9 fl (80.0-96.0); PLATELET COUNT, AUTOMATED 313 10^3/uL (150-450); RED BLOOD COUNT 3.26 10^6/uL (4.00-5.40); WHITE BLOOD COUNT 7.1 10^3/uL (4.0-10.0)
[2024-09-09 06:43] LABS: ALBUMIN 2.2 G/DL (3.2-5.2); ALKALINE PHOSPHATASE 69 U/L (35-104); ALT/SGPT 14 U/L (7.0-40); AST/SGOT 13 U/L (<34); BILIRUBIN,TOTAL < 0.2 MG/DL (0.3-1.2); BLOOD UREA NITROGEN 9 MG/DL (9-23); CARBON DIOXIDE LEVEL > 40.0 MMOL/L (20-31); CHLORIDE LEVEL 105 MMOL/L (98-107); CREATININE FOR GFR 0.38 MG/DL (0.55-1.30); GLOMERULAR FILTRATION RATE > 60.0 (>51); GLUCOSE, FASTING 131 MG/DL (60-100); POTASSIUM SERUM 4.1 MMOL/L (3.5-5.1); SODIUM LEVEL 145 MMOL/L (136-145)
[2024-09-09 08:45] VITALS: BP 132/72; TEMP 97.8; O2SAT 99
[2024-09-09 12:00] VITALS: BP 124/69; TEMP 97.3; O2SAT 99
[2024-09-09] MEDS: INSULIN LISPRO (NovoLOG) PER UNIT SC SCH (18:06)
[2024-09-09] MEDS: ACET IV SCH (19:07)
[2024-09-09] MEDS: CHLOR IV SCH (19:07)
[2024-09-09] MEDS: MAG IV SCH (19:07)
[2024-09-09] MEDS: SODIUM IV SCH (19:07)
[2024-09-09] MEDS: [UNRECOGNIZED DRUG - OTHER] IV SCH (19:07)
[2024-09-09] MEDS: CALC IV SCH (19:07)
[2024-09-09] MEDS: POTASSIUM PHOSPHATE IV SCH (19:07)
[2024-09-09] MEDS: FAT EMULSION IV 250 ML IV ONE (19:07)
[2024-09-09] MEDS: POT IV SCH (19:07)
[2024-09-09 20:24] VITALS: BP 127/71; TEMP 97.9
[2024-09-10 06:00] VITALS: BP 118/66; TEMP 97.9; O2SAT 98
[2024-09-10 06:18] LABS: HEMATOCRIT 29.9 % (36.0-47.0); HEMOGLOBIN 8.5 g/dl (12.0-15.5); MEAN CORPUSCULAR HEMOGLOBIN 26.5 pg (27.0-33.0); MEAN CORPUSCULAR HGB CONC 28.4 g/dl (32.0-36.5); MEAN CORPUSCULAR VOLUME 93.1 fl (80.0-96.0); PLATELET COUNT, AUTOMATED 334 10^3/uL (150-450); RED BLOOD COUNT 3.21 10^6/uL (4.00-5.40)
[2024-09-10 06:44] LABS: ALBUMIN 2.3 G/DL (3.2-5.2); ALKALINE PHOSPHATASE 73 U/L (35-104); ALT/SGPT 16 U/L (7.0-40); AST/SGOT 12 U/L (<34); BILIRUBIN,TOTAL < 0.2 MG/DL (0.3-1.2); BLOOD UREA NITROGEN 11 MG/DL (9-23); CALCIUM LEVEL 9.3 MG/DL (8.5-10.1); CARBON DIOXIDE LEVEL > 40.0 MMOL/L (20-31); CHLORIDE LEVEL 102 MMOL/L (98-107); CREATININE FOR GFR 0.42 MG/DL (0.55-1.30); GLOMERULAR FILTRATION RATE > 60.0 (>51); GLUCOSE, FASTING 117 MG/DL (60-100); POTASSIUM SERUM 4.4 MMOL/L (3.5-5.1); SODIUM LEVEL 144 MMOL/L (136-145)
[2024-09-10 08:49] VITALS: BP 104/71
[2024-09-10 12:00] VITALS: BP 120/72; TEMP 97.7; O2SAT 98
[2024-09-10 12:10] VITALS: BP 111/62
[2024-09-10] MEDS: INSULIN LISPRO (NovoLOG) PER UNIT SC SCH (17:46)
[2024-09-10] MEDS ORDERED: MORPHINE SULFATE ORAL SOLN 10 MG/5 ML UD PO PRN (18:40)
[2024-09-10] MEDS: FAT EMULSION IV 250 ML IV ONE (18:41)
[2024-09-10] MEDS: MAG IV SCH (18:41)
[2024-09-10] MEDS: CALC IV SCH (18:41)
[2024-09-10] MEDS: ACET IV SCH (18:41)
[2024-09-10] MEDS: SODIUM IV SCH (18:41)
[2024-09-10] MEDS: CHLOR IV SCH (18:41)
[2024-09-10] MEDS: POT IV SCH (18:41)
[2024-09-10] MEDS: [UNRECOGNIZED DRUG - OTHER] IV SCH (18:41)
[2024-09-10] MEDS: POTASSIUM PHOSPHATE IV SCH (18:41)
[2024-09-10] MEDS: MORPHINE SULFATE ORAL SOLN 10 MG/5 ML UD PO PRN (19:34)
[2024-09-10 20:00] VITALS: BP 132/69; TEMP 95; O2SAT 97
[2024-09-11 04:00] VITALS: BP 112/68; TEMP 97.7; O2SAT 97
[2024-09-11 06:42] LABS: HEMOGLOBIN 9.1 g/dl (12.0-15.5); MEAN CORPUSCULAR HEMOGLOBIN 25.7 pg (27.0-33.0); MEAN CORPUSCULAR HGB CONC 28.4 g/dl (32.0-36.5); MEAN CORPUSCULAR VOLUME 90.4 fl (80.0-96.0); PLATELET COUNT, AUTOMATED 404 10^3/uL (150-450); RED BLOOD COUNT 3.54 10^6/uL (4.00-5.40)
[2024-09-11 07:16] LABS: ALBUMIN 2.6 G/DL (3.2-5.2); ALKALINE PHOSPHATASE 82 U/L (35-104); ALT/SGPT 21 U/L (7.0-40); AST/SGOT 19 U/L (<34); BILIRUBIN,TOTAL < 0.2 MG/DL (0.3-1.2); BLOOD UREA NITROGEN 12 MG/DL (9-23); CALCIUM LEVEL 9.9 MG/DL (8.5-10.1); CARBON DIOXIDE LEVEL 39 MMOL/L (20-31); CHLORIDE LEVEL 102 MMOL/L (98-107); GLOMERULAR FILTRATION RATE > 60.0 (>51); GLUCOSE, FASTING 100 MG/DL (60-100); POTASSIUM SERUM 4.7 MMOL/L (3.5-5.1); SODIUM LEVEL 141 MMOL/L (136-145); TOTAL PROTEIN 5.7 G/DL (5.7-8.2)
[2024-09-11 09:19] VITALS: BP 105/71; TEMP 97.9; O2SAT 100
[2024-09-11 12:00] VITALS: BP 115/68; TEMP 97.5; O2SAT 99
[2024-09-11 12:24] VITALS: BP 125/71
[2024-09-11] MEDS ORDERED: MOM 30ML SUSPENSION UDC PO PRN (13:40)
[2024-09-11] MEDS: DOCUSATE SODIUM 100MG CAPSULE PO SCH (13:40)
[2024-09-11] MEDS: INSULIN LISPRO (NovoLOG) PER UNIT SC SCH (17:52)
[2024-09-11] MEDS: CEPACOL LOZENGE PO PRN (17:53)
[2024-09-11] MEDS: [UNRECOGNIZED DRUG - OTHER] IV SCH (18:36)
[2024-09-11] MEDS: ACET IV SCH (18:36)
[2024-09-11] MEDS: CHLOR IV SCH (18:36)
[2024-09-11] MEDS: POT IV SCH (18:36)
[2024-09-11] MEDS: SODIUM IV SCH (18:36)
[2024-09-11] MEDS: MAG IV SCH (18:36)
[2024-09-11] MEDS: CALC IV SCH (18:36)
[2024-09-11] MEDS: POTASSIUM PHOSPHATE IV SCH (18:36)
[2024-09-11] MEDS: FAT EMULSION IV 250 ML IV ONE (18:36)
[2024-09-11 19:57] VITALS: BP 118/61; TEMP 97.7; O2SAT 99
[2024-09-11] MEDS: SENNA 8.6 MG TAB (SENOKOT) PO SCH (20:41)
[2024-09-12 04:05] VITALS: BP 135/71; TEMP 97.2; O2SAT 99
[2024-09-12 06:48] LABS: HEMOGLOBIN 9.1 g/dl (12.0-15.5); MEAN CORPUSCULAR HEMOGLOBIN 26.7 pg (27.0-33.0); MEAN CORPUSCULAR HGB CONC 29.4 g/dl (32.0-36.5); MEAN CORPUSCULAR VOLUME 90.9 fl (80.0-96.0); PLATELET COUNT, AUTOMATED 388 10^3/uL (150-450); RED BLOOD COUNT 3.41 10^6/uL (4.00-5.40); WHITE BLOOD COUNT 7.6 10^3/uL (4.0-10.0)
[2024-09-12 06:49] LABS: ALBUMIN 2.6 G/DL (3.2-5.2); ALKALINE PHOSPHATASE 93 U/L (35-104); ALT/SGPT 26 U/L (7.0-40); AST/SGOT 21 U/L (<34); BILIRUBIN,TOTAL < 0.2 MG/DL (0.3-1.2); BLOOD UREA NITROGEN 14 MG/DL (9-23); CALCIUM LEVEL 9.7 MG/DL (8.5-10.1); CARBON DIOXIDE LEVEL 39 MMOL/L (20-31); CHLORIDE LEVEL 98 MMOL/L (98-107); CREATININE FOR GFR 0.42 MG/DL (0.55-1.30); GLOMERULAR FILTRATION RATE > 60.0 (>51); GLUCOSE, FASTING 109 MG/DL (60-100); POTASSIUM SERUM 4.7 MMOL/L (3.5-5.1); SODIUM LEVEL 141 MMOL/L (136-145); TOTAL PROTEIN 5.6 G/DL (5.7-8.2)
[2024-09-12 10:45] VITALS: BP 115/60; TEMP 97.5; O2SAT 96
[2024-09-12] MEDS: METAMUCIL (PSYLLIUM) PACKET PO SCH (12:37)
[2024-09-12] MEDS: BISACODYL 5MG TAB PO SCH (12:37)
[2024-09-12] MEDS: SODIUM IV SCH (18:14)
[2024-09-12] MEDS: [UNRECOGNIZED DRUG - OTHER] IV SCH (18:14)
[2024-09-12] MEDS: CALC IV SCH (18:14)
[2024-09-12] MEDS: POT IV SCH (18:14)
[2024-09-12] MEDS: ACET IV SCH (18:14)
[2024-09-12] MEDS: CHLOR IV SCH (18:14)
[2024-09-12] MEDS: POTASSIUM PHOSPHATE IV SCH (18:14)
[2024-09-12] MEDS: MAG IV SCH (18:14)
[2024-09-12] MEDS: FAT EMULSION IV 250 ML IV ONE (18:15)
[2024-09-12] MEDS: INSULIN LISPRO (NovoLOG) PER UNIT SC SCH (18:17)
[2024-09-12 19:57] VITALS: BP 118/67; TEMP 97.7; O2SAT 100
[2024-09-13 04:16] VITALS: BP 125/68; TEMP 97.5; O2SAT 99
[2024-09-13 06:24] LABS: HEMATOCRIT 32.2 % (36.0-47.0); HEMOGLOBIN 9.5 g/dl (12.0-15.5); MEAN CORPUSCULAR HEMOGLOBIN 26.5 pg (27.0-33.0); MEAN CORPUSCULAR HGB CONC 29.5 g/dl (32.0-36.5); MEAN CORPUSCULAR VOLUME 89.9 fl (80.0-96.0); PLATELET COUNT, AUTOMATED 380 10^3/uL (150-450); RED BLOOD COUNT 3.58 10^6/uL (4.00-5.40); WHITE BLOOD COUNT 5.8 10^3/uL (4.0-10.0)
[2024-09-13 06:58] LABS: ALBUMIN 2.6 G/DL (3.2-5.2); ALKALINE PHOSPHATASE 106 U/L (35-104); ALT/SGPT 30 U/L (7.0-40); AST/SGOT 23 U/L (<34); BILIRUBIN,TOTAL < 0.2 MG/DL (0.3-1.2); BLOOD UREA NITROGEN 16 MG/DL (9-23); CALCIUM LEVEL 9.5 MG/DL (8.5-10.1); CARBON DIOXIDE LEVEL 39 MMOL/L (20-31); CHLORIDE LEVEL 98 MMOL/L (98-107); CREATININE FOR GFR 0.41 MG/DL (0.55-1.30); GLOMERULAR FILTRATION RATE > 60.0 (>51); GLUCOSE, FASTING 107 MG/DL (60-100); POTASSIUM SERUM 4.6 MMOL/L (3.5-5.1); SODIUM LEVEL 138 MMOL/L (136-145); TOTAL PROTEIN 5.7 G/DL (5.7-8.2)
[2024-09-13 12:00] VITALS: BP 118/80; TEMP 97.9; O2SAT 99
[2024-09-13] MEDS ORDERED: PANT40TA29 PO (14:14)
[2024-09-13] MEDS ORDERED: SUCR1TA PO (14:14)
[2024-09-13 20:00] VITALS: BP 108/58; TEMP 97.5; O2SAT 98
[2024-09-14 04:00] VITALS: BP 101/52; TEMP 97.3; O2SAT 96
[2024-09-21] MEDS ORDERED: MORP10SO PO (14:09)
[2024-09-21] MEDS ORDERED: SENN-186 PO (14:20)
[2024-09-21] MEDS ORDERED: DULC10SU2 PR (14:22)
[2024-09-21] MEDS ORDERED: MIRA3350 PO (14:23)
== END 2024-09-14 09:30 | disposition home health service (06) | DRG 853 ==
LOC: EDBD 18:39 → M ED 18:39 → M ED INP 23:29 → M PCU 08-30 01:15 → M MSPAV 08-31 14:39 → M ICU 09-04 17:31 → M MSPAV 09-04 17:52 → M PCU 09-04 18:19 → M MS5PR 09-06 17:44
PROVIDERS: ADMIT Student in an Organized Health Care Education/Training Program; ATTEND Hospitalist
PROC: 8E0W4CZ Robotic Assisted Procedure of Trunk Region, Percutaneous Endoscopic Approach (ICD-10-PCS; 2024-09-04)
PROC: 0DQ94ZZ Repair Duodenum, Percutaneous Endoscopic Approach (ICD-10-PCS; principal; 2024-09-04 14:29)
DX: A41.9 Sepsis, unspecified organism (principal); K26.5 Chronic or unspecified duodenal ulcer with perforation; J96.11 Chronic respiratory failure with hypoxia; J96.12 Chronic respiratory failure with hypercapnia; K90.829 Short bowel syndrome, unspecified; G72.0 Drug-induced myopathy; J44.9 Chronic obstructive pulmonary disease, unspecified; G47.33 Obstructive sleep apnea (adult) (pediatric); E78.5 Hyperlipidemia, unspecified; K21.9 Gastro-esophageal reflux disease without esophagitis; F41.9 Anxiety disorder, unspecified; F32.A Depression, unspecified; M21.371 Foot drop, right foot; M54.2 Cervicalgia; I27.20 Pulmonary hypertension, unspecified; I95.89 Other hypotension; G89.29 Other chronic pain; G43.909 Migraine, unspecified, not intractable, without status migrainosus; M81.0 Age-related osteoporosis without current pathological fracture; M19.90 Unspecified osteoarthritis, unspecified site; Z90.79 Acquired absence of other genital organ(s); Z96.641 Presence of right artificial hip joint; Z87.891 Personal history of nicotine dependence; Z79.2 Long term (current) use of antibiotics; Z79.899 Other long term (current) drug therapy; Z90.49 Acquired absence of other specified parts of digestive tract; Z86.74 Personal history of sudden cardiac arrest; Z99.81 Dependence on supplemental oxygen; A08.4 Viral intestinal infection, unspecified; E87.6 Hypokalemia; E83.42 Hypomagnesemia; D50.9 Iron deficiency anemia, unspecified

== ENCOUNTER → 2024-08-29 | Outpatient (REF) | payer MEDICARE, OTHER ==
[~2024-08-29] MED LIST changes: +MIRT45TA68 PO; +MORP10SO PO
[2024-08-29 12:03] LABS: BASO % 0.2 % (0.0-1.0); HEMATOCRIT 36.4 % (36.0-47.0); HEMOGLOBIN 10.9 g/dl (12.0-15.5); LYMPH # 0.4 10^3/uL (1.5-5.0); LYMPH % 8.7 % (24.0-44.0); MEAN CORPUSCULAR HEMOGLOBIN 26.8 pg (27.0-33.0); MEAN CORPUSCULAR HGB CONC 29.9 g/dl (32.0-36.5); MEAN CORPUSCULAR VOLUME 89.4 fl (80.0-96.0); MONO # 0.4 10^3/uL (0.0-0.8); MONO % 10.2 % (2.0-8.0); NEUTROPHILS # 3.2 10^3/uL (1.5-8.5); NEUTROPHILS % 80.4 % (36.0-66.0); PLATELET COUNT, AUTOMATED 155 10^3/uL (150-450); RED BLOOD COUNT 4.07 10^6/uL (4.00-5.40)
[2024-08-29 12:30] LABS: ALKALINE PHOSPHATASE 124 U/L (46-116); ALT/SGPT 40 U/L (7.0-40); AST/SGOT 28 U/L (<34); BILIRUBIN,TOTAL 0.3 MG/DL (0.3-1.2); BLOOD UREA NITROGEN 19 MG/DL (9-23); CALCIUM LEVEL 9.6 MG/DL (8.5-10.1); CARBON DIOXIDE LEVEL 38 MMOL/L (20-31); CHLORIDE LEVEL 102 MMOL/L (98-107); GLOMERULAR FILTRATION RATE > 60.0 (>51); GLUCOSE, FASTING 88 MG/DL (60-100); PHOSPHORUS LEVEL 3.8 MG/DL (2.5-4.9); POTASSIUM SERUM 4.6 MMOL/L (3.5-5.1); SODIUM LEVEL 140 MMOL/L (136-145); TOTAL PROTEIN 5.9 G/DL (5.7-8.2); TRIGLYCERIDES LEVEL 48 MG/DL (<150)
== END ==
LOC: M LAB REF 11:30
PROVIDERS: ATTEND Family Medicine
DX: E43 Unspecified severe protein-calorie malnutrition (principal)

== ENCOUNTER → 2024-09-21 | Outpatient (CLI) | payer MEDICARE, OTHER ==
[~2024-09-21] VITALS: Ht 160 cm; Wt 62.9 kg
[~2024-09-21] MED LIST changes: +DULC10SU2 PR; +MIRA3350 PO; +MIRT45TA68 PO; +MORP10SO PO; +SENN-186 PO
[2024-09-21 11:36] VITALS: BP 134/72; O2SAT 93
== END ==
LOC: M PAL 11:04
PROVIDERS: ATTEND Nurse Practitioner Adult Health
DX: J44.89 Other specified chronic obstructive pulmonary disease (principal); R10.84 Generalized abdominal pain; F41.0 Panic disorder [episodic paroxysmal anxiety]; R62.7 Adult failure to thrive; K90.829 Short bowel syndrome, unspecified; I25.2 Old myocardial infarction; Z51.5 Encounter for palliative care; Z79.51 Long term (current) use of inhaled steroids; Z79.891 Long term (current) use of opiate analgesic; Z79.899 Other long term (current) drug therapy; Z87.442 Personal history of urinary calculi; Z90.710 Acquired absence of both cervix and uterus; Z90.722 Acquired absence of ovaries, bilateral; Z90.79 Acquired absence of other genital organ(s); Z99.81 Dependence on supplemental oxygen; Z99.89 Dependence on other enabling machines and devices

== ENCOUNTER → 2024-10-03 | Outpatient (REF) | payer MEDICARE, OTHER ==
[2024-10-03 14:35] LABS: FERRITIN 148.2 NG/ML (7.3-270.7)
== END ==
LOC: M SFHCLERA 13:08
PROVIDERS: ATTEND Physician Assistant
DX: D50.9 Iron deficiency anemia, unspecified (principal); E53.8 Deficiency of other specified B group vitamins

== ENCOUNTER → 2024-11-01 | Outpatient (REF) | payer MEDICARE, OTHER ==
[~2024-11-01] MED LIST changes: -GUAI1SYP8 PO; +GUAI237S12 PO
[2024-11-01 14:00] LABS: BASO % 0.4 % (0.0-1.0); EOS # 0.2 10^3/uL (0.0-0.5); HEMATOCRIT 39.8 % (36.0-47.0); HEMOGLOBIN 12.3 g/dl (12.0-15.5); LYMPH # 1.4 10^3/uL (1.5-5.0); MEAN CORPUSCULAR HGB CONC 30.9 g/dl (32.0-36.5); MEAN CORPUSCULAR VOLUME 87.3 fl (80.0-96.0); MONO # 0.5 10^3/uL (0.0-0.8); MONO % 10.2 % (2.0-8.0); NEUTROPHILS # 2.9 10^3/uL (1.5-8.5); NEUTROPHILS % 58.2 % (36.0-66.0); PLATELET COUNT, AUTOMATED 210 10^3/uL (150-450); RED BLOOD COUNT 4.56 10^6/uL (4.00-5.40); WHITE BLOOD COUNT 4.9 10^3/uL (4.0-10.0)
[2024-11-01 14:28] LABS: IRON (FE) 41 UG/DL (50-170); PERCENT SATURATION 16.5 % (13.2-45.0); TOTAL IRON BINDING CAPACITY 249 UG/DL (250-425)
[2024-11-01 14:29] LABS: ALBUMIN 3.6 G/DL (3.2-5.2); ALKALINE PHOSPHATASE 102 U/L (35-104); ALT/SGPT 12 U/L (7.0-40); AST/SGOT 14 U/L (<34); BILIRUBIN,TOTAL 0.3 MG/DL (0.3-1.2); BLOOD UREA NITROGEN 9 MG/DL (9-23); CALCIUM LEVEL 9.4 MG/DL (8.5-10.1); CARBON DIOXIDE LEVEL 33 MMOL/L (20-31); CHLORIDE LEVEL 104 MMOL/L (98-107); CREATININE FOR GFR 0.48 MG/DL (0.55-1.30); GLOMERULAR FILTRATION RATE > 60.0 (>51); GLUCOSE, FASTING 112 MG/DL (60-100); MAGNESIUM LEVEL 1.7 MG/DL (1.8-2.4); POTASSIUM SERUM 3.8 MMOL/L (3.5-5.1); SODIUM LEVEL 143 MMOL/L (136-145)
== END ==
LOC: M SFHCLERA 13:40
PROVIDERS: ATTEND Family Medicine
DX: E43 Unspecified severe protein-calorie malnutrition (principal); D50.9 Iron deficiency anemia, unspecified

== ENCOUNTER → 2024-11-07 | Outpatient (CLI) | payer MEDICARE, OTHER ==
[~2024-11-07] VITALS: Ht 160 cm; Wt 62.5 kg
[~2024-11-07] MED LIST changes: +MIRT1TAB PO
[2024-11-07 14:52] VITALS: BP 149/83; O2SAT 96
== END ==
LOC: M PAL 14:43
PROVIDERS: ATTEND Family Medicine
DX: Z51.5 Encounter for palliative care (principal); J44.89 Other specified chronic obstructive pulmonary disease; F41.9 Anxiety disorder, unspecified; R06.02 Shortness of breath; Z79.51 Long term (current) use of inhaled steroids; Z79.891 Long term (current) use of opiate analgesic; Z79.899 Other long term (current) drug therapy; Z98.890 Other specified postprocedural states; Z99.81 Dependence on supplemental oxygen; Z99.89 Dependence on other enabling machines and devices

== ENCOUNTER → 2025-01-05 | Outpatient (CLI) | payer MEDICARE, OTHER ==
[~2025-01-05] VITALS: Ht 157.5 cm; Wt 61.0 kg
[~2025-01-05] MED LIST changes: +PRED5PAK PO
[2025-01-05 13:15] VITALS: BP 122/81; O2SAT 94
== END ==
LOC: M PAL 12:53
PROVIDERS: ATTEND Family Medicine
DX: Z51.5 Encounter for palliative care (principal); J44.9 Chronic obstructive pulmonary disease, unspecified; Z79.891 Long term (current) use of opiate analgesic; F41.9 Anxiety disorder, unspecified; Z99.81 Dependence on supplemental oxygen; Z99.89 Dependence on other enabling machines and devices; Z79.899 Other long term (current) drug therapy; Z79.51 Long term (current) use of inhaled steroids; Z79.52 Long term (current) use of systemic steroids

== ENCOUNTER → 2025-02-03 | Outpatient (CLI) | payer MEDICARE, OTHER ==
[2025-02-03 11:24] LABS: BASO % 0.3 % (0.0-1.0); EOS # 0.1 10^3/uL (0.0-0.5); EOS % 1.5 % (0.0-3.0); HEMATOCRIT 40.6 % (36.0-47.0); HEMOGLOBIN 12.5 g/dl (12.0-15.5); LYMPH # 1.2 10^3/uL (1.5-5.0); LYMPH % 18.5 % (24.0-44.0); MEAN CORPUSCULAR HEMOGLOBIN 27.5 pg (27.0-33.0); MEAN CORPUSCULAR HGB CONC 30.8 g/dl (32.0-36.5); MEAN CORPUSCULAR VOLUME 89.4 fl (80.0-96.0); MONO # 0.4 10^3/uL (0.0-0.8); MONO % 5.5 % (2.0-8.0); NEUTROPHILS % 73.9 % (36.0-66.0); PLATELET COUNT, AUTOMATED 254 10^3/uL (150-450); RED BLOOD COUNT 4.54 10^6/uL (4.00-5.40); WHITE BLOOD COUNT 6.7 10^3/uL (4.0-10.0)
[2025-02-03 11:48] LABS: ALBUMIN 3.6 G/DL (3.2-5.2); ALKALINE PHOSPHATASE 95 U/L (35-104); ALT/SGPT 25 U/L (7.0-40); AST/SGOT 14 U/L (<34); BILIRUBIN,TOTAL 0.4 MG/DL (0.3-1.2); BLOOD UREA NITROGEN 13 MG/DL (9-23); CALCIUM LEVEL 9.7 MG/DL (8.3-10.6); CARBON DIOXIDE LEVEL 36 MMOL/L (20-31); CHLORIDE LEVEL 103 MMOL/L (98-107); CREATININE FOR GFR 0.54 MG/DL (0.55-1.30); GLOMERULAR FILTRATION RATE > 60.0 (>45); GLUCOSE, FASTING 87 MG/DL (74-106); IRON (FE) 109 UG/DL (50-170); MAGNESIUM LEVEL 1.8 MG/DL (1.8-2.4); PERCENT SATURATION 37.7 % (13.2-45.0); POTASSIUM SERUM 4.3 MMOL/L (3.5-5.1); SODIUM LEVEL 143 MMOL/L (136-145); TOTAL IRON BINDING CAPACITY 289 UG/DL (250-425); TOTAL PROTEIN 6.2 G/DL (5.7-8.2)
== END ==
LOC: M LAB 10:33
PROVIDERS: ATTEND Family Medicine
DX: D50.9 Iron deficiency anemia, unspecified (principal); R79.0 Abnormal level of blood mineral; E46 Unspecified protein-calorie malnutrition

== ENCOUNTER 2025-03-15 22:05 | Emergency (ER) | payer MEDICARE, OTHER ==
[~2025-03-15] VITALS: Ht 160 cm; Wt 61.4 kg
[~2025-03-15 22:05] MED LIST changes: -MORP10SO PO; +MORP10SO21 PO; +PRED-1142 PO; -PRED1TABL PO; -PRED50TA PO; +PRED50TA57 PO
[2025-03-16 01:10] VITALS: BP 122/67; TEMP 96.9; O2SAT 96
== END 2025-03-16 01:17 | disposition home or self-care (01) ==
LOC: M ED 22:05
DX: R06.00 Dyspnea, unspecified (principal); K21.9 Gastro-esophageal reflux disease without esophagitis; J44.9 Chronic obstructive pulmonary disease, unspecified; F32.A Depression, unspecified; Z99.81 Dependence on supplemental oxygen; Z79.899 Other long term (current) drug therapy

== ENCOUNTER 2025-05-09 15:07 | Observation (INO) | payer MEDICARE, OTHER ==
[~2025-05-09] VITALS: Ht 160 cm; Wt 61.4 kg
[~2025-05-09 15:07] MED LIST changes: +ALPR1TAB3 PO
[2025-05-09 16:46] LABS: KETONE, URINE AUTO RFX NEGATIVE (NEGATIVE); LEUKOCYTE ESTERASE UR AUTO RFX NEGATIVE (NEGATIVE); NITRITE, URINE AUTO RFX NEGATIVE (NEGATIVE); RBC, URINE AUTO RFX 0 /HPF (0-3); SQUAM EPITHELIAL CELL UR AURFX 0 /HPF (0-6); WBC, URINE AUTO RFX 1 /HPF (0-3)
[2025-05-09] MEDS ORDERED: MIRT-11 PO (16:51)
[2025-05-09] MEDS ORDERED: D-3-50003 PO (16:52)
[2025-05-09] MEDS ORDERED: CYAN-1 PO (16:52)
[2025-05-09] MEDS ORDERED: SPIR12.9 INH (16:52)
[2025-05-09] MEDS ORDERED: HOME MED LIST COMPLETE! XX SCH (16:55)
[2025-05-09 17:12] LABS: VENOUS BASE EXCESS 8.2 (-2.0-2.0); VENOUS HCO3 37.7 MMOL/L (23.0-27.0); VENOUS O2 SATURATION 61.2 % (60.0-80.0); VENOUS PARTIAL PRESSURE CO2 79.5 mmHg (38.0-50.0); VENOUS PARTIAL PRESSURE O2 33.0 mmHg (30.0-50.0); VENOUS PH 7.294 UNITS (7.330-7.430); VENOUS STANDARD HCO3 31.0 MMOL/L; VENOUS TOTAL CO2 40.2 MMOL/L (24.0-28.0)
[2025-05-09 17:17] LABS: ALT/SGPT 19 U/L (7.0-40); AST/SGOT 51 U/L (<34); CALCIUM LEVEL 9.4 MG/DL (8.3-10.6); CARBON DIOXIDE LEVEL > 40.0 MMOL/L (20-31); CHLORIDE LEVEL 97 MMOL/L (98-107); CREATININE FOR GFR 0.45 MG/DL (0.55-1.30); GLOMERULAR FILTRATION RATE > 90.0 (>45); POTASSIUM SERUM 5.4 MMOL/L (3.5-5.1); SODIUM LEVEL 147 MMOL/L (136-145)
[2025-05-09] MEDS: IPRATROPIUM 0.5 MG/ALBUTEROL 2.5 MG INH SOL UD 3 ML NEB PRN (17:25)
[2025-05-09] MEDS ORDERED: ISOVUE-370 76% 100 ML VIAL As Ordered ONE (17:43)
[2025-05-09] MEDS: ALPRAZolam 0.5 MG TAB PO ONE (18:00)
[2025-05-09 18:12] LABS: ABG BASE EXCESS 10.4 (-2.0-2.0); ABG HCO3 38.6 MMOL/L (22.0-26.0); ABG O2 SATURATION 97.4 % (95.0-99.0); ABG PARTIAL PRESSURE O2 99.2 mmHg (75.0-100.0); ABG STANDARD HCO3 34.1 MMOL/L. (22.0-26.0); ABG TOTAL CO2 40.8 MMOL/L (23.0-31.0); ABG pH (ARTERIAL) 7.355 UNITS (7.350-7.450)
[2025-05-09 18:13] LABS: ABG PARTIAL PRESSURE CO2 70.7 mmHg (35.0-45.0)
[2025-05-09 18:21] LABS: BASO # 0.0 10^3/uL (0.0-0.2); BASO % 0.2 % (0.0-1.0); EOS # 0.1 10^3/uL (0.0-0.5); EOS % 2.0 % (0.0-3.0); LYMPH # 1.2 10^3/uL (1.5-5.0); LYMPH % 21.4 % (24.0-44.0); MONO # 0.4 10^3/uL (0.0-0.8); MONO % 7.1 % (2.0-8.0); NEUTROPHILS # 3.8 10^3/uL (1.5-8.5); NEUTROPHILS % 69.1 % (36.0-66.0); PLATELET COUNT, AUTOMATED 240 10^3/uL (150-450)
[2025-05-09] MEDS: ACETAMINOPHEN 325 MG TAB PO ONE (21:44)
[2025-05-10] MEDS: ALPRAZolam 0.5 MG TAB PO ONE (01:16)
[2025-05-10] MEDS ORDERED: ACETAMINOPHEN 500 MG TAB PO PRN ×2 (01:45→03:00)
[2025-05-10] MEDS ORDERED: MAALOX 30 ML SUSP *UDC PO PRN ×2 (01:45→03:00)
[2025-05-10] MEDS ORDERED: ALBUTEROL SULFATE 2.5 MG/0.5 ML INH CONCENTRATE NEB SOLN NEB PRN ×2 (01:45→03:00)
[2025-05-10] MEDS ORDERED: ALPRAZolam 0.5 MG TAB PO PRN (01:45)
[2025-05-10] MEDS ORDERED: MOM 30 ML SUSPENSION UDC PO PRN ×2 (01:45→03:00)
[2025-05-10] MEDS ORDERED: IPRATROPIUM 0.5 MG/ALBUTEROL 2.5 MG INH SOL UD 3 ML NEB SCH (02:00)
[2025-05-10 04:34] LABS: PLATELET COUNT, AUTOMATED 230 10^3/uL (150-450)
[2025-05-10 05:21] VITALS: BP 132/83; TEMP 97.6; O2SAT 91
[2025-05-10] MEDS: ALPRAZolam 0.5 MG TAB PO PRN (05:45)
[2025-05-10 07:36] LABS: ALT/SGPT 11 U/L (7.0-40); AST/SGOT 13 U/L (<34); CALCIUM LEVEL 9.2 MG/DL (8.3-10.6); CARBON DIOXIDE LEVEL > 40.0 MMOL/L (20-31); CHLORIDE LEVEL 97 MMOL/L (98-107); CREATININE FOR GFR 0.42 MG/DL (0.55-1.30); GLOMERULAR FILTRATION RATE > 90.0 (>45); MAGNESIUM LEVEL 2.0 MG/DL (1.8-2.4); PHOSPHORUS LEVEL 3.9 MG/DL (2.4-5.1); POTASSIUM SERUM 4.0 MMOL/L (3.5-5.1); SODIUM LEVEL 145 MMOL/L (136-145)
[2025-05-10 07:54] VITALS: BP 100/58; TEMP 97.2; O2SAT 98
[2025-05-10 08:00] VITALS: O2SAT 97
[2025-05-10 09:00] VITALS: O2SAT 96
[2025-05-10] MEDS ORDERED: TIOTROPIUM BROM 2.5MCG/ACTUATION 4GM INH INH SCH (09:00)
[2025-05-10] MEDS ORDERED: MAGNESIUM OXIDE 400 MG TAB PO SCH (09:00)
[2025-05-10] MEDS ORDERED: acetaZOLAMIDE 250 MG TAB PO SCH (09:00)
[2025-05-10] MEDS: DOCUSATE SODIUM 100 MG CAPSULE PO SCH (09:00)
[2025-05-10] MEDS ORDERED: SYMBICORT 160/4.5MCG INHALER 6GM INH SCH (09:00)
[2025-05-10] MEDS ORDERED: guaiFENesin ER TABLET 600 MG TAB PO SCH (09:00)
[2025-05-10] MEDS ORDERED: PANTOPRAZOLE 40MG TAB PO SCH (09:00)
[2025-05-10] MEDS ORDERED: DOCUSATE SODIUM 100 MG CAPSULE PO SCH (09:00)
[2025-05-10] MEDS ORDERED: ENOXAPARIN 40 MG/0.4 ML SYRINGE (J1650 PER 10MG) SC SCH (09:00)
[2025-05-10] MEDS: MAGNESIUM OXIDE 400 MG TAB PO SCH (10:08)
[2025-05-10] MEDS: predniSONE 20 MG TAB PO SCH (10:08)
[2025-05-10] MEDS: PANTOPRAZOLE 40MG TAB PO SCH (10:08)
[2025-05-10] MEDS: guaiFENesin ER TABLET 600 MG TAB PO SCH (10:09)
[2025-05-10] MEDS: AZITHROMYCIN 250 MG TABLET PO SCH (10:09)
[2025-05-10 10:10] VITALS: O2SAT 97
[2025-05-10] MEDS: ENOXAPARIN 40 MG/0.4 ML SYRINGE (J1650 PER 10MG) SC SCH (10:10)
[2025-05-10] MEDS ORDERED: PRED20TA PO (10:24)
[2025-05-10] MEDS ORDERED: ACET250T18 PO (10:24)
[2025-05-10] MEDS: IPRATROPIUM 0.5 MG/ALBUTEROL 2.5 MG INH SOL UD 3 ML NEB SCH (10:42)
[2025-05-10] MEDS: TIOTROPIUM BROM 2.5MCG/ACTUATION 4GM INH INH SCH (10:43)
[2025-05-10] MEDS: SYMBICORT 160/4.5MCG INHALER 6GM INH SCH (10:43)
[2025-05-10 11:00] VITALS: O2SAT 100
[2025-05-10] MEDS ORDERED: FLUTICASONE PROPIONATE 0.05% NASAL SPRAY 16 GM NARES SCH ×2 (21:00)
[2025-05-10] MEDS ORDERED: MONTELUKAST 10 MG TAB PO SCH ×2 (21:00)
[2025-05-10] MEDS ORDERED: CETIRIZINE 10 MG TAB PO SCH ×2 (21:00)
[2025-05-29] MEDS ORDERED: MORP1SOL4 PO (12:01)
[2025-05-29] MEDS ORDERED: ALPR1TAB3 PO (12:01)
== END 2025-05-10 12:25 | disposition home health service (06) ==
LOC: M ED 15:07 → M ED INP 15:08 → UNDOADMOB 05-10 01:42 → M ED INP 05-10 01:42 → INTOOBSV 05-10 01:42 → M PCU 05-10 05:05 → M ED INP 05-10 05:05 → UNDODISOB 05-10 12:25
PROVIDERS: ADMIT Family Medicine; ATTEND Family Medicine
DX: J96.21 Acute and chronic respiratory failure with hypoxia (principal); Z79.2 Long term (current) use of antibiotics; Z79.52 Long term (current) use of systemic steroids; Z79.899 Other long term (current) drug therapy
CPT/HCPCS: 36415; 36600; 71045; 71275; 80048; 80053; 80076; 81001; 82803; 83605; 83735; 83880; 84100; 84443; 85025; 85027; 87040; 87486; 87581; 87633; 87798; 93005; 93041; 93971; 94660; 94760; 96372; 96374; 99285; G0378; J1650; J2919; J7512; Q9967

== ENCOUNTER → 2025-05-16 | Outpatient (REF) | payer MEDICARE, OTHER ==
[~2025-05-16] MED LIST changes: +ACET250T18 PO; +CYAN-1 PO; +D-3-50003 PO; +MIRT-11 PO; +SPIR12.9 INH
[2025-05-17 10:23] LABS: BASO # 0.0 10^3/uL (0.0-0.2); BASO % 0.2 % (0.0-1.0); EOS # 0.0 10^3/uL (0.0-0.5); EOS % 0.4 % (0.0-3.0); LYMPH # 0.9 10^3/uL (1.5-5.0); LYMPH % 10.5 % (24.0-44.0); MONO # 0.3 10^3/uL (0.0-0.8); MONO % 3.2 % (2.0-8.0); NEUTROPHILS # 7.2 10^3/uL (1.5-8.5); NEUTROPHILS % 85.3 % (36.0-66.0); PLATELET COUNT, AUTOMATED 285 10^3/uL (150-450)
[2025-05-17 10:34] LABS: CALCIUM LEVEL 9.6 MG/DL (8.3-10.6); CARBON DIOXIDE LEVEL 31 MMOL/L (20-31); CHLORIDE LEVEL 104 MMOL/L (98-107); CREATININE FOR GFR 0.51 MG/DL (0.55-1.30); GLOMERULAR FILTRATION RATE > 90.0 (>45); POTASSIUM SERUM 4.4 MMOL/L (3.5-5.1); SODIUM LEVEL 146 MMOL/L (136-145)
== END ==
LOC: M SFHCLERA 15:03
PROVIDERS: ATTEND Family Medicine
DX: E87.6 Hypokalemia (principal); D50.9 Iron deficiency anemia, unspecified

== ENCOUNTER → 2025-06-26 | Outpatient (CLI) | payer MEDICARE, OTHER ==
[~2025-06-26] VITALS: Ht 157.5 cm; Wt 61.0 kg
[2025-06-26 10:53] VITALS: BP 141/84; O2SAT 96
== END ==
LOC: M PAL 10:29
PROVIDERS: ATTEND Physician Assistant
DX: Z51.5 Encounter for palliative care (principal); Z99.81 Dependence on supplemental oxygen; J44.9 Chronic obstructive pulmonary disease, unspecified; Z99.89 Dependence on other enabling machines and devices; Z87.19 Personal history of other diseases of the digestive system; Z79.891 Long term (current) use of opiate analgesic; Z79.899 Other long term (current) drug therapy

== ENCOUNTER → 2025-08-03 | Outpatient (CLI) | payer MEDICARE, OTHER | LOC: M PAL 11:00 | PROVIDERS: ATTEND Physician Assistant | DX: Z51.5 Encounter for palliative care (principal); J44.9 Chronic obstructive pulmonary disease, unspecified; Z99.81 Dependence on supplemental oxygen; Z99.89 Dependence on other enabling machines and devices; Z92.89 Personal history of other medical treatment; Z79.891 Long term (current) use of opiate analgesic; Z79.899 Other long term (current) drug therapy; Z79.52 Long term (current) use of systemic steroids; Z79.83 Long term (current) use of bisphosphonates ==

== ENCOUNTER → 2025-08-31 | Outpatient (CLI) | payer MEDICARE, OTHER | LOC: M WHC 10:00 | PROVIDERS: ATTEND Family Medicine | DX: Z13.820 Encounter for screening for osteoporosis (principal); Z12.31 Encounter for screening mammogram for malignant neoplasm of breast; Z80.3 Family history of malignant neoplasm of breast; Z80.0 Family history of malignant neoplasm of digestive organs; Z80.41 Family history of malignant neoplasm of ovary; R92.333 Mammographic heterogeneous density, bilateral breasts; M81.0 Age-related osteoporosis without current pathological fracture ==

== ENCOUNTER → 2025-08-31 | Outpatient (CLI) | payer MEDICARE, OTHER | LOC: M PAL 13:09 | PROVIDERS: ATTEND Physician Assistant | DX: Z51.5 Encounter for palliative care (principal); J44.9 Chronic obstructive pulmonary disease, unspecified; Z99.81 Dependence on supplemental oxygen; Z99.89 Dependence on other enabling machines and devices; Z98.890 Other specified postprocedural states; Z79.891 Long term (current) use of opiate analgesic; Z79.899 Other long term (current) drug therapy ==

== ENCOUNTER → 2025-09-21 | Outpatient (CLI) | payer MEDICARE, OTHER ==
[~2025-09-21] MED LIST changes: +METH-1164 PO
== END ==
LOC: M PAL 11:00
PROVIDERS: ATTEND Physician Assistant
DX: Z51.5 Encounter for palliative care (principal); Z99.81 Dependence on supplemental oxygen; J44.9 Chronic obstructive pulmonary disease, unspecified; Z99.89 Dependence on other enabling machines and devices; Z98.890 Other specified postprocedural states; Z79.891 Long term (current) use of opiate analgesic; Z79.899 Other long term (current) drug therapy; Z79.83 Long term (current) use of bisphosphonates

== ENCOUNTER → 2025-10-24 | Outpatient (CLI) | payer MEDICARE, OTHER | LOC: M PAL 13:17 | PROVIDERS: ATTEND Physician Assistant | DX: Z51.5 Encounter for palliative care (principal); Z99.81 Dependence on supplemental oxygen; Z79.891 Long term (current) use of opiate analgesic; Z79.83 Long term (current) use of bisphosphonates; Z79.52 Long term (current) use of systemic steroids ==